=== PATIENT | female | born 1965 | race Caucasian/White ===

== ENCOUNTER 2017-06-22 17:56 | Emergency (ER) | payer SELFPAY ==
[2017-06-22 18:20] VITALS: BP 127/68
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
== END 2017-06-22 20:41 | disposition home or self-care (01) ==
LOC: ED 17:56
DX: S00.01XA Abrasion of scalp, initial encounter (principal); S09.90XA Unspecified injury of head, initial encounter; R07.89 Other chest pain; V49.50XA Passenger injured in collision with unspecified motor vehicles in traffic accident, initial encounter; V49.9XXA Car occupant (driver) (passenger) injured in unspecified traffic accident, initial encounter; Y93.9 Activity, unspecified; Y92.9 Unspecified place or not applicable
CPT/HCPCS: 70450; 71250; 72125; 99281

== ENCOUNTER 2018-10-22 12:53 | Emergency (ER) | payer OTHER ==
[2018-10-22 13:01] VITALS: BP 148/98
--- NOTE | 2018-10-22 13:27 | UC ---
Throat Pain/Nasal Terence HPI - HPI Summary HPI Summary: 52-year-old woman with a chief complaint of ear pain runny nose sore throat sinus congestion and runny nose and cough for 4 days. No fevers. Rhinorrhea is white. No shortness of breath. - History of Current Complaint Chief Complaint: UCGeneralIllness Stated Complaint: CONGESTION, SNEEZING Time Seen by Provider: 10/22/18 13:09 Pain Intensity: 3 - Allergies/Home Medications Allergies/Adverse Reactions: Allergies Allergy/AdvReac Type Severity Reaction Status Date / Time amoxicillin Allergy Severe Hives Verified 10/22/18 13:01 acetaminophen Allergy Intermediate ithching Verified 10/22/18 13:01 Home Medications: Home Medications Sertraline HCl [Zoloft] 100 mg PO DAILY WITH MEAL 10/22/18 [History Confirmed ] PMH/Surg Hx/FS Hx/Imm Hx Previously Healthy: Yes - Surgical History Surgical History: Yes Surgery Procedure, Year, and Place: 2006 right EAR RECONSTRUCTED ,AT [place] ( op report scanned in under other facility safe upto 3t per [employer]). right knee replacement 2015 - Family History Known Family History: Positive: Cardiac Disease - Social History Alcohol Use: Occasionally Substance Use Type: None Smoking Status (MU): Former Smoker When Did the Patient Quit Smoking/Using Tobacco: 20 years ago Review of Systems All Other Systems Reviewed And Are Negative: Yes Constitutional: Positive: Negative Skin: Positive: Negative Eyes: Positive: Negative ENT: Positive: Sore Throat, Ear Ache, Nasal Discharge, Sinus Congestion, Sinus Pain/Tenderness Respiratory: Positive: Cough Cardiovascular: Positive: Negative Gastrointestinal: Positive: Negative Motor: Positive: Negative Neurovascular: Positive: Negative Musculoskeletal: Positive: Negative Neurological: Positive: Negative Psychological: Positive: Negative Is Patient Immunocompromised?: No Physical Exam Triage Information Reviewed: Yes Appearance: No Pain Distress, Well-Nourished, Ill-Appearing - MILD Vital Signs: Initial Vital Signs Temp 97.1 F 10/22/18 12:57 Pulse 85 10/22/18 12:57 Resp 18 10/22/18 12:57 BP 148/98 10/22/18 12:57 Pulse Ox 98 10/22/18 12:57 Vital Signs Reviewed: Yes Eye Exam: Normal Eyes: Positive: Conjunctiva Clear ENT: Positive: Pharyngeal erythema, Nasal congestion, Nasal drainage, TMs normal Neck exam: Normal Neck: Positive: Supple Respiratory: Positive: Lungs clear, Normal breath sounds, No respiratory distress Cardiovascular: Positive: RRR Musculoskeletal Exam: Normal Musculoskeletal: Positive: Strength Intact, ROM Intact Neurological Exam: Normal Neurological: Positive: Alert, Muscle Tone Normal Psychological Exam: Normal Psychological: Positive: Normal Response To Family Skin Exam: Normal Throat Pain/Nasal Course/Dx - Course Course Of Treatment: DISCUSSED VIRAL VERSES BACTERIAL INFECTIONS AND THE ROLE OF ANTIBIOTICS. THE PATIENT PREFERS TO BE ON ANTIBIOTICS AT THIS TIME. - Differential Dx/Diagnosis Provider Diagnosis: Upper respiratory infection Discharge - Sign-Out/Discharge Documenting (check all that apply): Patient Departure All imaging exams completed and their final reports reviewed: No Studies - Discharge Plan Condition: Stable Disposition: HOME Prescriptions: Azithromyxin KIRAN (NF) [Z-Kiran (Zithromax) 250 mg tabs #6] 2 tab PO .TODAY, THEN 1 DAILY #6 tab Patient Education Materials: Upper Respiratory Infection (ED) Referrals: Angeles Hook MD [Primary Care Provider] - Additional Instructions: FOLLOW UP WITH YOUR DOCTOR IF NOT COMPLETELY IMPROVED. GET RECHECKED FOR ANY WORSENING OF YOUR CONDITION OR QUESTIONS OR CONCERNS. - Billing Disposition and Condition Condition: STABLE Disposition: Home
== END 2018-10-22 13:38 | disposition home or self-care (01) ==
LOC: UCEAST 12:53
DX: J06.9 Acute upper respiratory infection, unspecified (principal); Z88.1 Allergy status to other antibiotic agents; Z88.6 Allergy status to analgesic agent; Z87.891 Personal history of nicotine dependence
CPT/HCPCS: 99212; G0463

== ENCOUNTER 2019-04-23 09:09 | Inpatient (IN) | payer OTHER ==
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
[~2019-04-23 09:09] MED LIST: Gabapentin CAP(*) 300 MG PO ONE; Lactated Ringers 1000 ML Bag* 1,000 ML IV SCH
--- OUTSIDE RECORDS SUMMARY | 2019-04-23 09:12 | XMS REPORT | Continuity of Care Document ---
:1965 External Reference #:[id number] Author Name Kellie De Oliveira Care Team Providers Name Role Phone Angeles Hook MD Primary Care Physician Unavailable Payers Date Identification Numbers Payment Provider Subscriber Policy Number: [id number] [employer] Julita Moran Group Number: [id number] [id number] PayID: [id number] [place] [address] Advance Directives Description No Information Available Problems Active Problems Provider Date Osteoarthritis of knee Letty Mclain M.D. Onset: 05/18/2015 Localized, primary osteoarthritis Ishaan Dominguez M.D. Onset: 12/05/2018 Arthroplasty of knee Ishaan Dominguez M.D. 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 12/05/2018 15mg Tablets daily as needed for pain Multi-Vitamin 1 by mouth every 100tabs Unknown Tablets day Zoloft Unknown History Medications Ransom 1-2 tabs by mouth 80tabs Letty Mclain, 09/09/2014 - 5-325mg Tablets three times a day M.D. 09/24/2017 as needed pain Naproxen 1 tablet with food 40tabs Letty Mclain, 04/17/2014 - 500mg by mouth twice a M.D. 07/18/2018 Tablets day Medications Administered in Office Medication SIG Qnty Indications Ordering Provider Date Depomedrol 40MG Ishaan Dominguez M.D. 09/10/2018 Injection Depomedrol 80MG Letty Mclain M.D. 04/17/2014 Injection Immunizations Description No Information Available Vital Signs Date Vital Result Comment 04/03/2019 10:33am Height 64 inches 5'4" Weight 234.00 lb Heart Rate 88 /min BP Systolic Sitting 138 mmHg left upper arm large cuff BP Diastolic Sitting 88 mmHg left upper arm large cuff Respiratory Rate 12 /min O2 % BldC Oximetry 97 % BMI (Body Mass Index) 40.2 kg/m2 01/28/2019 8:17am Height 64 inches 5'4" Weight 229.12 lb Heart Rate 78 /min BP Systolic Sitting 128 mmHg Lue large cuff BP Diastolic Sitting 92 mmHg Lue large cuff Respiratory Rate 20 /min O2 % BldC Oximetry 96 % On Ra BMI (Body Mass Index) 39.3 kg/m2 12/05/2018 8:27am Height 64 inches 5'4" Weight 237.00 lb BP Systolic 110 mmHg BP Diastolic 60 mmHg Respiratory Rate 18 /min Pain Level 2 BMI (Body Mass Index) 40.7 kg/m2 09/10/2018 3:30pm Heart Rate 88 /min BP Systolic 138 mmHg BP Diastolic 82 mmHg Respiratory Rate 16 /min Pain Level 3 07/18/2018 10:42am Height 64 inches 5'4" Weight 237.38 lb Heart Rate 90 /min BP Systolic Sitting 126 mmHg Rue large cuff BP Diastolic Sitting 90 mmHg Rue large cuff Respiratory Rate 12 /min O2 % BldC Oximetry 97 % BMI (Body Mass Index) 40.7 kg/m2 03/19/2018 7:38am Height 64 inches 5'4" Weight 234.25 lb Heart Rate 84 /min BP Systolic Sitting 118 mmHg Rue regular cuff BP Diastolic Sitting 84 mmHg Rue regular cuff Respiratory Rate 16 /min O2 % BldC Oximetry 97 % BMI (Body Mass Index) 40.2 kg/m2 09/25/2017 3:15pm Height 64 inches 5'4" Weight 242.00 lb BP Systolic 118 mmHg BP Diastolic 74 mmHg Respiratory Rate 20 /min Pain Level 7 BMI (Body Mass Index) 41.5 kg/m2 05/18/2015 10:03am Height 64 inches 5'4" Weight 198.00 lb Heart Rate 86 /min BP Systolic 124 mmHg BP Diastolic 98 mmHg Pain Level 3 BMI (Body Mass Index) 34.0 kg/m2 10/02/2014 9:35am Height 64 inches 5'4" Weight 198.00 lb Heart Rate 80 /min BP Systolic 130 mmHg BP Diastolic 90 mmHg BMI (Body Mass Index) 34.0 kg/m2 09/09/2014 8:50am Height 64 inches 5'4" Weight 198.00 lb Pain Level 6 BMI (Body Mass Index) 34.0 kg/m2 04/17/2014 9:24am Height 64 inches 5'4" Weight 198.00 lb Heart Rate 84 /min BP Systolic 127 mmHg BP Diastolic 96 mmHg BMI (Body Mass Index) 34.0 kg/m2 Results Description No Information Available Procedures Date Code Description Status 09/10/2018 Inject/Drain Joint/Bursa Major W/O US Completed 03/19/2018 60006 Sleep Study Unattended,HRT Rate,Oxygen Sat,Resp Completed Effort/Airflow 10/02/2014 03203 Rad Exam; Foot Comp Completed 09/09/2014 07028 Rad Exam; Foot Comp Completed 04/17/2014 07119 Xray Knee 3 Views Completed 04/17/2014 76320 Rad Exam; Knee, Ap&L Completed 04/17/201468908 Inject/Drain Joint/Bursa Major W/O US Completed Encounters Type Date Location Provider Dx Diagnosis Office Visit 04/03/2019 Pulmonology And Yojana Santiago, G47.33 Obstructive sleep 10:30a [facility] RN, [facility]- apnea (adult) [facility] (pediatric) R68.2 Dry mouth, unspecified E66.9 Obesity, unspecified Z68.41 Body mass index (BMI) 40.0-44.9, adult Office Visit 01/28/2019 Pulmonology And Yojana G47.33 Obstructive sleep 8:30a [facility] Santiago RN, apnea (adult) [facility]- (pediatric) R68.2 Dry mouth, unspecified G47.10 Hypersomnia, unspecified Z68.39 Body mass index (BMI) 39.0-39.9, adult E66.9 Obesity, unspecified Office Visit 12/05/2018 Orthopedic Ishaan Dominguez M17.12 Unilateral primary 8:30a [facility] osteoarthritis, left C.M.A. knee Office Visit 09/10/2018 Orthopedic Ishaan Dominguez M17.12 Unilateral primary 3:30p [facility] osteoarthritis, left C.M.A. knee Z96.651 Presence of right artificial knee joint Office Visit 07/18/2018 Pulmonology And Yoajna G47.33 Obstructive sleep 11:00a [facility] Santiago RN, apnea (adult) [facility] (pediatric) G47.14 Hypersomnia due to medical condition Z68.41 Body mass index (BMI) 40.0-44.9, adult Office Visit 03/19/2018 8:00a Pul[facility]ology [facility] Vanesa Castillo, R06.83 Snoring [facility] R53.83 Other fatigue E66.09 Other obesity due to excess calories Z68.41 Body mass index (BMI) 40.0-44.9, adult Office Visit 09/25/2017 Orthopedic Ishaan Dominguez, M17.12 Unilateral primary 3:00p [facility] osteoarthritis, left C.M.A. knee Z96.651 Presence of right artificial knee joint Office Visit 05/18/2015 10:00a Orthopedic Letty 715.96 Osteoarthrosis [facility] Mclain Unspec Genlzd Or C.M.A. Localized Lower Leg 719.06 Effusion Joint Lower Leg 719.46 Pain Joint Lower Leg Office Visit 10/02/2014 Orthopedic Isiah Odell 715.96 Osteoarthrosis 9:30a [facility] Ness Or [facility]. RPA-C Localized Lower Leg Office Visit 09/09/2014 Orthopedic Letty Mclain, 715.96 Osteoarthrosis 8:45a [facility] Benitez Genlzperry Or C.M.A. Localized Lower Leg Office Visit 04/17/2014 Orthopedic Letty Mclain, 715.96 Osteoarthrosis 9:00a [facility] Benitez Genlzperry Or C.M.A. Localized Lower Leg Plan of Treatment Future Appointment(s):06/05/2019 10:00 am - Yojana Santiago DNP, RN, MARISOL- at [facility]04/23/2019 9:00 am - ULICES Brown at [facility]04/10/2019 9:30 am - Ishaan Dominguez M.D. at [facility]04/23/2019 9:00 am - Ishaan Dominguez M.D. at [facility]04/03/2019 - Yojana Santiago DNP, RN, COAT [employer]TER- BCG47.33 Obstructive sleep apnea (adult) (pediatric)New Orders:[facility], Ordered: 04/03/19Comments:Sleep Apnea - 03/19/18 AHI 20.2/hour, robson oxygen 72 % On CPAP AHI 2.7/hourImproved use was 13 % now 36.7% greater than 4 hours. Average nightly use is still low.Follow up:2 monthsRecommendations:Continue PAP device, Benefitting and increased compliance with treatment. Trial Dream wisp ( mask sample provided) Cleaning Wipe off mask daily (baby wipe-no scent, or warm water) Clean mask, tubing, filter, and water chamber weekly in mild no scent dish soap and water. Hang to dry. If you have anysleepiness while driving you MUST avoid operating a vehicle or machinery. If you have difficulty with your equipment, or need to replace your mask or hoses, please contact your homecare agency. A weight change of 20 pounds or more may have an effect on your equipment; if you are experiencing problems please call for an appointment. If you have any further questions, please call the [facility] at [phone].R68.2 Dry mouth, [id number] Obesity, unspecifiedRecommendations:Avoid weight gainZ68.41 Body mass index (BMI) 40.0- 44.9, adultRecommendations:see assessment #3
--- OUTSIDE RECORDS SUMMARY | 2019-04-23 09:12 | XMS REPORT | Continuity of Care Document ---
:1965 External Reference #:[id number] Author Name Angeles Hook M.D. Address [address] [place] [address] Care Team Providers Name Role Phone Angeles Hook M.D. Care Team Information Clerk Of Court Unavailable Angeles Hook M.D. Primary Care Physician Unavailable Payers Date Identification Numbers Payment Provider Subscriber Effective: 2016 Policy Number: [id number] Darby [employer] Julita Moran Group Number: [id number] [address] PayID: [id number] [place] [address] Advance Directives Description No Information Available Problems Active Problems Provider Date Obesity Angeles Hook M.D. Onset: 08/21/2017 Hyperlipidemia Angeles Hook M.D. Onset: 08/21/2017 Mild recurrent major depression Angeles Hook M.D. Onset: 08/21/2017 Type 2 diabetes mellitus Angeles Hook M.D. Onset: 02/27/2018 Obstructive sleep apnea syndrome Angeles Hook M.D. Onset: 03/26/2019 Resolved Problems Impaired fasting glycaemia Angeles Hook M.D. Onset: 08/21/2017 Resolved: 02/27/2018 Family History Date Family Member(s) Observation Comments Father Unknown Mother Diabetes Mellitus, II Mother due to Congestive Heart Failure () Mother Heart Disease Mother Hyperlipidemia Mother Hypertension Siblings 4 brothers First Brother No Current Problems Social History Type Date Description Comments Sex Unknown Marital Status . 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 Tobacco Use Start: Unknown End: Former Cigarette Smoker 17 years, x 2-3ppd ETOH Use Social Alcohol 2-3 wine 1x week Tobacco Use Start: Unknown End: Patient is a former Unknown smoker Smoking Status Reviewed: 03/27/19 Patient is a former smoker Exercise Exercises regularly 3x week Type/Frequency Allergies, Adverse Reactions, Alerts Active Allergies Reaction Severity Comments Date Amoxicillin 08/21/2017 Acetaminophen itching 03/27/2019 Inactive Allergies NKDA 08/21/2017 Medications Active Medications SIG Qnty Indications Ordering Provider Date Zoloft 2 by mouth 180tabs Angeles Hook 02/22/2018 100mg Tablets every day M.DAlison Vitamin D 1 by mouth Unknown 1000Unit every day Tablets Multivitamin Adult 1 by mouth Unknown every day Tablets History Medications Zoloft 1 by mouth every 30tabs Angeles Hook M.D. 08/21/2017 - 50mg Tablets day 02/22/2018 Zoloft take 1 tablet by Unknown - 25mg Tablets mouth one time 08/21/2017 daily Immunizations CPT Code Status Date Vaccine Lot # [id number] Given 01/01/2019 Influenza Vac, Quadriv[place], [place] [id number] Given 10/12/2017 Influenza vac quadrivalent preservative free 3yrs [id number] and up Vital Signs Date Vital Result Comment 03/27/2019 1:02pm BP Systolic 140 mmHg BP Diastolic 84 mmHg Heart Rate 78 /min Body Temperature 98.8 F Respiratory Rate 16 /min Height 63.5 inches 5'3.50" Weight 238.00 lb BMI (Body Mass Index) 41.5 kg/m2 05/17/2018 7:53am BP Systolic 126 mmHg BP Diastolic 88 mmHg Heart Rate 102 /min Body Temperature 97.5 F Height 63.5 inches 5'3.50" Weight 236.00 lb BMI (Body Mass Index) 41.1 kg/m2 02/22/2018 7:53am BP Systolic 120 mmHg BP Diastolic 76 mmHg Heart Rate 76 /min Body Temperature 98.2 F Respiratory Rate 16 /min Height 63.5 inches 5'3.50" Weight 237.00 lb BMI (Body Mass Index) 41.3 kg/m2 10/12/2017 12:56pm BP Systolic 120 mmHg BP Diastolic 88 mmHg Heart Rate 88 /min Body Temperature 97.8 F Height 63.5 inches 5'3.50" Weight 237.25 lb BMI (Body Mass Index) 41.4 kg/m2 08/21/2017 1:14pm BP Systolic 142 mmHg BP Diastolic 80 mmHg Heart Rate 100 /min Body Temperature 98.1 F Height 63.5 inches 5'3.50" Weight 239.00 lb BMI (Body Mass Index) 41.7 kg/m2 Results Test Date Facility Test Result H/L Range Note Laboratory test 03/27/2019 [facility] Hemoglobin A1c 6.2 % % High 4.1-5.7 finding (607)- - (a) Laboratory test 02/22/2018 [facility] Hemoglobin A1c 6.5 % High 4.1- 5.7 finding (607)- - ([facility]) Comprehensive 02/22/2018 Alfie Alegre([facility]) Sodium 134 mEq/L 134-149 Metabolic Prof Potassium 4.1 mEq/L 3.6-5.5 Chloride 96 mEq/L 94-112 Carbon Dioxide 26 mEq/L 21-32 Glucose 136 mg/dL High 70-105 1 BUN 16 mg/dL 6-26 Creatinine 0.6 mg/dL 0.6-1.4 BUN/Creat Ratio 26.7 CALC 8.0-36.0 Calcium 9.6 mg/dL 8.6-10.2 Total Protein 7.2 g/dL 6.4-8.3 Albumin 4.3 g/dL 3.8-5.5 Globulin 2.9 g/dL 2.0-4.8 A/G Ratio 1.5 CALC 0.6-2.3 Alk. Phosphatase 93 U/L 30-110 Alt (SGPT) 29 U/L 7-35 Ast (Sgot) 23 U/L 5-34 Total Bilirubin 0.5 mg/dL 0.2-1.3 GFR Non- >60 ml/min/1.73m^ >=60 GFR >60 ml/min/1.73m^ >=60 CBC Electronic a 02/22/2018 Alfie Sis([facility]) WBC 7.1 x10^3/UL 4.0- 10.0 RBC 4.91 x10^6/UL 3.93-6.00 HGB 13.6 g/dL 12.0-17.0 HCT 42 % 35-50 MCV 85.7 fL 80.0-95.0 MCH 27.7 pg 25.6-32.2 MCHC 32.3 g/dL 32.2-36.0 RDW-CV 13.9 % 11.6-14.4 PLT 223 x10^3/UL 163-400 MPV 10.6 fL 9.4-12.4 Alireza# 4.99 x10^3/UL 1.56-6.13 Lymph# 1.34 x10^3/UL 1.18-3.74 Davison# 0.49 x10^3/UL 0.24-0.82 Eos # 0.2 x10^3/UL 0.0-0.5 Baso # 0.06 x10^3/UL 0.01-0.08 Alireza% 70.1 % High 34.0-70.0 Lymph % 18.8 % Low 20.0-52.0 Davison% 6.9 % 5.0-12.0 Eos% 3.1 % 0.7-7.0 Baso% 0.8 % 0.1-1.2 Lipid Profile 02/22/2018 Judge Sis(a) Cholesterol 246 mg/dL High 120-200 Triglycerides 130 mg/dL 30-200 HDL Cholesterol 72 mg/dL 30-85 LDL (Calculated) 148 CALC High 0-129 VLDL Cholesterol 26 mg/dL 0-50 HDL Risk Factor 3.4 CALC 0.0-4.4 Laboratory test finding 02/22/2018 Judge Sis(a) TSH 2.33 mIU/L 0.50-6.00 Comprehensive Metabolic 07/21/2017 Alfie Sis(a) Sodium 134 mEq/L 134-149 Prof Potassium 4.4 mEq/L 3.6-5.5 Chloride 97 mEq/L 94-112 Carbon Dioxide 25 mEq/L 21-32 Glucose 119 mg/dL High 70-105 BUN 10 mg/dL 6-26 Creatinine 0.6 mg/dL 0.6-1.4 BUN/Creat Ratio 16.7 CALC 8.0-36.0 Calcium 9.4 mg/dL 8.6-10.2 Total Protein 7.0 g/dL 6.4-8.3 Albumin 4.5 g/dL 3.8-5.5 Globulin 2.5 g/dL 2.0-4.8 A/G Ratio 1.8 CALC 0.6-2.3 Alk. Phosphatase 89 U/L 30-110 Alt (SGPT) 21 U/L 7-35 Ast (Sgot) 19 U/L 5-34 Total Bilirubin 0.4 mg/dL 0.2-1.3 GFR Non- >60 ml/min/1.73m^ >=60 GFR >60 ml/min/1.73m^ >=60 Lipid Profile 07/21/2017 Alfie Alegre(a) Cholesterol 247 mg/dL High 120-200 Triglycerides 128 mg/dL 30-200 HDL Cholesterol 71 mg/dL 30-85 LDL (Calculated) 150 CALC High 0-129 VLDL Cholesterol 26 mg/dL 0-50 HDL Risk Factor 3.5 CALC 0.0-4.4 Complete Blood Count 07/21/2017 Alfie Alegre(a) WBC 5.9 x10^3/UL 3.6 -9.6 RBC 4.77 x10^6/UL 3.90-5.70 HGB 13.6 g/dL 12.1-17.2 HCT 41 % 36-50 MCV 85.0 fL 82.2-97.4 MCH 28.4 pg 27.6-33.3 MCHC 33.3 g/dL 33.0-35.5 RDW 15.2 % High 11.6-13.7 PLT 246 x10^3/UL 150-400 MPV 7.8 fL 7.4-10.4 Gran # 4.1 x10^3/UL 1.5-7.2 Lymph# 1.5 x10^3/UL 0.7-4.9 Davison# 0.3 x10^3/UL 0.1-0.9 Gran % 66.5 % 42.2-75.2 Lymph % 26.9 % 20.5-51.1 Davison% 6.6 % 1.7-9.3 Laboratory test finding 07/21/2017 Alfie Alegre([facility]) TSH 2.32 mIU/L 0.50-6.00 1 consistent w/ previous results Procedures Date Code Description Status 08/31/2018 06871614 Mammogram Completed 11/27/2017 45813487 Colonoscopy Completed Encounters Type Date Location Provider Dx Diagnosis Office Visit 05/17/2018 [facility] Office Darya Aranda, F33.0 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 unspecified R73.01 Impaired fasting glucose E66.9 Obesity, unspecified F33.0 Major depressive disorder, recurrent, mild Office Visit 10/12/2017 1:00p Main Office Sofi Lopez J15.9 Unspecified Kian, SEEDLING PULLER bacterial pneumonia Z23 Encounter for immunization Office Visit 08/21/2017 1:50p Main Office Angeles Hook, Z00.01 Encounter for [facility] general adult medical exam w abnormal findings E66.9 Obesity, unspecified R73.01 Impaired fasting glucose E78.5 Hyperlipidemia, unspecified M25.562 Pain in left knee R03.0 Elevated blood-pressure reading, w/o diagnosis of htn Z12.11 Encounter for screening for malignant neoplasm of colon F33.0 Major depressive disorder, recurrent, mild Plan of Treatment Future Appointment(s):06/05/2019 9:40 am - Angeles Hook M.D. at [facility] Hnvadg2903/27/2019 - Angeles Hook M.D.Z01.818 Encounter for other preprocedural examinationNew Labs:Ua - Micro, Ordered: 03/27/19Microalbumin Random, Ordered: 03/27/19Comments:Cleared for surgery. Will fax note to ordering physician. Cleared for surgery. Will fax note to ordering physician. HOLD NSAIDS and supplements 7 days prior to njfmzeqY73.12 Unilateral primary osteoarthritis, left kneeComments:Take medications as directed. Can use heat or ice on area 15 minutes on/off. Use a tennis ball or foam roller to massage and loosen muscle spasm. Stretching exercises are recommended twice a day. Callif symptoms aren' t improved/worsen in next 1-2 weeks.F33.0 Major depressive disorder, recurrent, mildComments:increase to 200mg daily, Reviewed adverse side effects of medication. Advised to call the office if experiencing symptoms. Patient verbalized understanding. Take medication for at least one week as it can take 1 week to build tolerance to side effects of medication. 4-6 weeks for full medication effect. Take medication daily, consider therapy if not already started. Call office right away if symptomsworsen including worsening mood/ anxiety or suicidal ideation. Suicide prevention hot line/Crisis line: 3-306-897 -3149 or 815-080-0612Tpowxqzyo 24 hours a day, 7 days a week . It is free and confidential. https://suicidepreventionlifeline.org/ Follow up in 8 weeks or sooner if concerns ariseFollow up:2 moE66.9 Obesity, unspecifiedComments: Counseled on heart healthy diet and exercise Eat protein and veggies first then carbs last for meals;E78.5 Hyperlipidemia, unspecifiedComments:check labsE11.9 Type 2 diabetes mellitus without complicationsNew Labs:Ua - Micro, Ordered: 03/27/19Microalbumin Random, Ordered: 03/27/19Comments:Recommend yearly diabetic eye and foot exams, and check on blood pressure periodically. Goal blood sugar is less than 140 in the morning or A1c less than 7. Recommend monitoring portion size, decreased carbohydrate intake (breads, pasta , rice, candy, desserts, and sweetened beverages/alcohol) and routine daily exercise.G47.33 Obstructive sleep apnea (adult) (pediatric)Comments:wears CPAP nightly with improvement of symptomsAllComments:Medication Management Patient Understands medications she's taking? Yes No Are there Barriers to Adherence? Yes No Has the patient been asked about herbal supplements and therapies, and OTC meds? Yes No
--- OUTSIDE RECORDS SUMMARY | 2019-04-23 09:12 | XMS REPORT | Continuity of Care Document ---
:1965 External Reference #:[id number] Author Name Rebecca Bailey Care Team Providers Name Role Phone Angeles Hook MD Primary Care Physician Unavailable Payers Date Identification Numbers Payment Provider Subscriber Policy Number: [id number] [employer] Julita Moran Group Number: [id number] [id number] PayID: [id number] [place] [address] Problems Active Problems Provider Date Osteoarthritis of knee Letty Mclain M.D. Onset: 05/18/2015 Localized, primary osteoarthritis Ishaan Dominguez M.D. Onset: 12/05/2018 Arthroplasty of knee Ishaan Dominguez M.D. 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 12/05/2018 15mg Tablets daily as needed for pain Multi-Vitamin 1 by mouth every 100tabs Unknown Tablets day Zoloft Unknown History Medications Pesotum 1-2 tabs by mouth 80tabs Letty Mclain, [...] Depomedrol 80MG Letty Mclain M.D. 04/17/2014 Injection Vital Signs Date Vital Result Comment 04/10/2019 9:20am Height 64 inches 5'4" Weight 237.00 lb BP Systolic 122 mmHg BP Diastolic 80 mmHg Respiratory Rate 18 /min Body Temperature 97.3 F Pain Level 3 BMI (Body Mass Index) 40.7 kg/m2 04/03/2019 10:33am Height 64 inches 5'4" Weight [...] mmHg BMI (Body Mass Index) 34.0 kg/m2 Procedures Date Code Description Status 09/10/201878368 Inject/Drain Joint/Bursa Major W/O US Completed 03/19/2018 54083 Sleep Study Unattended,HRT Rate,Oxygen Sat,Resp Completed Effort/Airflow 10/02/2014 84104 Rad Exam; Foot Comp Completed 09/09/2014 93831 Rad Exam; Foot Comp Completed 04/17/2014 64990 Xray Knee 3 Views Completed 04/17/2014 97234 Rad Exam; Knee, Ap&L Completed 04/17/2014 Inject/Drain Joint/Bursa Major W/O US Completed Encounters Type Date Location Provider Dx Diagnosis Office Visit 04/03/2019 Pulmonology And Yojana Santiago, G47.33 Obstructive sleep 10:30a [facility] RN, APARTMENT MAINTENANCE-BC apnea (adult) [facility] (pediatric) R68.2 Dry mouth, unspecified E66.9 Obesity, unspecified Z68.41 Body mass index (BMI) 40.0-44.9, adult Office Visit 01/28/2019 Pulmonology And Yojana G47.33 Obstructive sleep 8:30a [facility] Santiago RN, apnea (adult) [facility] APARTMENT MAINTENANCE-BC (pediatric) R68.2 Dry mouth, unspecified G47.10 Hypersomnia, unspecified Z68.39 Body mass index (BMI) 39.0-39.9, adult E66.9 Obesity, unspecified Office Visit 12/05/2018 Orthopedic Ishaan Dominguez M17.12 Unilateral primary 8:30a [facility] osteoarthritis, left C.M.A. knee Office Visit 09/10/2018 Orthopedic Anna Urbina7.12 Unilateral primary 3:30p [facility] osteoarthritis, left C.M.A. knee Z96.651 Presence of right artificial knee joint Office Visit 07/18/2018 Pulmonology And Yojana G47.33 Obstructive sleep 11:00a [facility] Santiago RN, apnea (adult) [facility] MARISOL-SHERRI (pediatric) G47.14 Hypersomnia due to medical condition Z68.41 Body mass index (BMI) 40.0-44.9, adult Office Visit 03/19/2018 8:00a Pulmonology [facility] Sleep Vanesa Castillo, R06.83 Snoring [facility] R53.83 Other fatigue E66.09 Other obesity due to excess calories Z68.41 Body mass index (BMI) 40.0-44.9, adult Office Visit 09/25/2017 Orthopedic Ishaan Dominguez M17.12 Unilateral primary 3:00p [facility] osteoarthritis, left C.M.A. knee Z96.651 Presence of right artificial knee joint Office Visit 05/18/2015 10:00a Orthopedic Letty 715.96 Osteoarthrosis [facility] Mclain Genkrystle Or C.M.A. Localized Lower Leg 719.06 Effusion Joint Lower Leg 719.46 Pain Joint Lower Leg Office Visit 10/02/2014 Orthopedic Isiah Odell 715.96 Osteoarthrosis 9:30a [facility] Ness Genlzd Or C.M.A. RPA-C Localized Lower Leg Office Visit 09/09/2014 Orthopedic Letty Mclain, 715.96 Osteoarthrosis 8:45a [facility] Gallagher Or C.M.A. Localized Lower Leg Office Visit 04/17/2014 Orthopedic Letty Mclain 715.96 Osteoarthrosis 9:00a [facility] Gallagher Or C.M.A. Localized Lower Leg Plan of Treatment Future Appointment(s):05/22/2019 2:15 pm - Ishaan Dominguez M.D. at [facility]06/05/2019 10:00 am - Yojana Santiago DNP, RN, APARTMENT MAINTENANCE-BC at [facility]04/23/2019 11:30 am - ULICES Brown at [facility]04/23/2019 11:30 am - Ishaan Dominguez M.D. at [facility]04/10/2019 - Ishaan Dominguez M.D.M17.12 Unilateral primary osteoarthritis, left kneeFollow up:Follow up: Left total knee April 23, 2019 Stay active as able.Z96.651 Presence of right artificial knee joint
[2019-04-23] MEDS ORDERED: Lidocaine 2% PF * 5 ML VIAL ONE ×2 (09:13→09:16)
[2019-04-23] MEDS ORDERED: ROPIVACAINE 5 MG/ML 30 ML BTL (0.5%) ONE (09:13)
[2019-04-23] MEDS ORDERED: Bupivacaine 0.5% SDV PF* 30ML VIAL ONE (09:13)
[2019-04-23] MEDS ORDERED: fentaNYL* 50 MCG/ML 2 ML VIAL (100 MCG VIAL) ONE (09:14)
[2019-04-23] MEDS ORDERED: KETAMINE HCL* 50 MG/ML 10 ML VIAL ONE (09:14)
[2019-04-23] MEDS ORDERED: Propofol* 500 MG/50 ML BTL ONE (09:14)
[2019-04-23] MEDS ORDERED: Propofol* 10 MG/ML 20 ML BTL ONE ×2 (09:14→09:31)
[2019-04-23] MEDS ORDERED: Midazolam* 1 MG/ML 2 ML VIAL (2 MG) ONE ×2 (09:14→12:17)
[2019-04-23] MEDS ORDERED: Dexmedetomidine* 200 MCG/2 ML 2 ML VIAL ONE (09:18)
[2019-04-23] MEDS ORDERED: ceFAZolin 2 GM PREMIX in ORs 2 GM/50 ML BAG IVPB ONE (09:30)
[2019-04-23] MEDS ORDERED: Buffered Lidocaine 1% SYRIN* 1 ML/SYRINGE INTRADERM ONE (09:30)
[2019-04-23] MEDS ORDERED: Gabapentin CAP(*) 300 MG ONE (09:30)
[2019-04-23] MEDS: Buffered Lidocaine 1% SYRIN* 1 ML/SYRINGE INTRADERM ONE ×2 (09:57→09:58)
[2019-04-23] MEDS ORDERED: Bupivacaine 0.5% W/EPI SDV* 30 ML VIAL ONE ×3 (11:34→13:17)
[2019-04-23] MEDS ORDERED: Tranexamic Acid 1,000 MG in NS 0.9% 50 ML IV ONE (12:00)
[2019-04-23] MEDS ORDERED: Dexamethasone IV* 4 MG/ML 1 ML (4 MG) ONE (12:31)
[2019-04-23] MEDS ORDERED: HYDROmorphone INJ1* 1 MG/ML SYRINGE IV PRN (14:04)
[2019-04-23] MEDS ORDERED: oxyCODONE TAB* 5 MG TAB PO PRN ×2 (14:04→16:57)
[2019-04-23] MEDS ORDERED: Ketorolac INJ* 30 MG/ML 1 ML VIAL IV PRN (14:04)
[2019-04-23] MEDS ORDERED: Naloxone* 0.4 MG/ML 1 ML VIAL IV PRN (14:04)
[2019-04-23] MEDS ORDERED: Ondansetron INJ* 2 MG/ML VIAL IV PRN ×2 (14:04→15:11)
[2019-04-23] MEDS ORDERED: oxyCODONE/Acetamin 5/325 MG* TAB PO PRN ×2 (15:11)
[2019-04-23] MEDS ORDERED: Bisacodyl SUPP* 10 MG SUPP PR PRN (15:11)
[2019-04-23] MEDS ORDERED: diPHENhydraMINE IV* 50 MG/ML 1 ml VIAL (BENADRYL) IV PRN (15:11)
[2019-04-23] MEDS ORDERED: Magnesium Hydroxide LIQ* 30 ML UDC PO PRN (15:11)
[2019-04-23] MEDS ORDERED: Acetaminophen TAB* 325 MG PO PRN (15:11)
[2019-04-23] MEDS ORDERED: Cyclobenzaprine TAB* 10 MG PO PRN (15:11)
[2019-04-23] MEDS ORDERED: Morphine INJ* 2 MG/ML 1 ML SYRINGE (TWO MG - NEW SYRINGE VERSION) IV PRN (15:11)
[2019-04-23] MEDS: Lactated Ringers 1000 ML Bag* 1,000 ML IV SCH (17:38)
[2019-04-23] MEDS: oxyCODONE TAB* 5 MG TAB PO PRN (17:59)
--- NOTE | 2019-04-23 20:58 | OP ---
CC: Dr. Angeles Hook, [facility] OPERATIVE REPORT: DATE OF OPERATION: 04/23/19 DATE OF : 63 SURGICAL CARE: Left knee. SURGEON: Ishaan Dominguez MD MACHINED PARTS METAL SPRAYER: 1. ULICES Gaspar, residential assistant. 2. Marybel Morin, director medical surgical. ANESTHESIOLOGIST: Dr. Marcy Burrows. ANESTHESIA: Left femoral nerve block in the adductor canal and spinal anesthetic with IV sedation. PRE-OP DIAGNOSIS: Severe arthritis of the left knee. POST-OP DIAGNOSIS: Severe arthritis of the left knee. OPERATIVE PROCEDURE: Left total knee replacement. IMPLANTS: The Melania Persona knee was utilized, a posterior stabilized type. All components were ce mented. The size 6 femur, a size C tibia, a size 10 articular surface and a 32 patella. The femoral component is the size 6 narrow. COMPLICATIONS: There were no complications. DRAINS: There were no drains. BLOOD LOSS: 200 mL. REPLACEMENT: Crystalloid fluids. INDICATION FOR THE SURGICAL CARE: Severe knee arthritis, no longer responsive to nonoperative care. DESCRIPTION OF PROCEDURE: The patient was brought to the operating room after the left thigh block h ad been administered by Dr. Burrows in the holding area. In the operating room, the patient was put supine on the operating room table and in the seated position for administration of spinal anesthesia . Supine position was resumed and a Kumar catheter was carefully inserted. The left proximal thigh was wrapped with a proximal thigh tourniquet and the left leg was given a preliminary chlorhexidine p rep and then a final ChloraPrep from the tourniquet to the tips of the toes. After prepping, draping , and sealing off, we did our universal protocol time-out confirming Julita MacLeod and the plan for a left total knee replacement. We all agreed and we proceeded. The surgical care was done without tour niquet for most of the case. The position was acutely flexed left hip with acutely flexed left knee with a right foot on a padded footpiece. The skin incision went from 2 fingerbreadths proximal to th e superior pole of the patella down the anterior midline to the medial aspect of the tibial tubercle. Skin and subcu divided down to the deep prepatellar bursa. Hemostasis was checked and achieved thr oughout the case utilizing electrocautery. On the tibia, the deep incision went medial to the patell ar tendon by 1 to 2 cm and then down 2 cm medial to the tibial tubercle. The medial tissues on the t ibia were elevated subperiosteally going around to the deep MCL and then to the posteromedial corner of the knee. The knee was completely eburnated medial femoral condyle, medial tibial plateau, osteop hytes on the medial tibial plateau, medial femoral condyle. The patella was made so that could be ev erted. The knee was entered on the medial parapatellar and the quad tendon was handled proximal to t he patella 3 to 4 cm, dividing the quad tendon at the junction of the rectus femoris and vastus media lis, staying in the tendon, but staying as close to vastus medialis tendon as possible. The knee had clear straw colored synovial fluid. There was osteophytes in the intercondylar, lateral condyle and patellar as well. The remains of the anterior horn and medial meniscus were carefully excised. Peripatellar synovectomy was completed. Th e intercondylar osteophytes were removed. The ACL and PCL were uplifted from their femoral origins a nd the tibia was made, so it could gradually be subluxated from under the femur. The PCL was careful ly excised and great care was taken while working posteriorly especially posterior to the PCL. The l ateral meniscus was carefully excised with careful hemostasis. The distal anterior femur was exposed subperiosteally for referencing and measuring. At this stage, we made our proximal tibial cut. Our goal here was to have a tibial surface that would be perpendicular to the long axis of the tibia and have a slight posterior slope, removing a millimeter or 2 from the medial side and 10 to 12 mm from the lateral side to correct the varus. The femoral intramedullary drill was then utilized. The femo ral canal was then entered and the femoral canal was suctioned to discourage embolization. The dista l femoral cutting guide was applied on 1 with 6 degrees of valgus and the distal femoral resection wa s completed and then checked showing a good extension gap with a 10 mm block. Stable ligaments medial and lateral in extension with that block. The femur was then measured for a size 6. The anterior, posterior, and chamfering cuts were complete d, and then we finished removal of the posterior horn lateral meniscus, osteophytes on the condyles, posterior horn medial meniscus, carefully preserving the MCL. At this stage, we had nice ligamentous balance and 90 degrees of flexion with a 10 mm block. The femur was finished with the intercondylar cutout. The tibia was then completed for a size C. e femur was then cleaned x6 with pulse saline irrigation, suctioned and a bone plug was inserted. e knee was then assembled with trial components, C tibia, 10 articular surface and a 6 femur with ful l extension, stable ligaments in extension, and stable ligaments in 90 degrees of flexion. The patella was cut flat. A 32 was chosen. Three drill holes were made and these were undercut. A lateral release was not necessary. The final components were then checked and opened and the leg was exsanguinated, the tourniquet elevated to 275. The knee was cleaned in extension with 2.5 L of puls e saline irrigation and carefully checked for hemostasis. The knee was then cleaned with retractors in place in flexion all bony surfaces, tibial surface, the femoral surfaces and the patellar surface. All surfaces were cleaned with the pulse saline and then dried. The cement was mixed and the compon ents were cemented into position, the patella, followed by the tibia, followed by the femur. Each wa s impacted. Excess cement was removed and the knee was articulate and extended during the final hard ening and flexed once again to check for cement in undesirable places and the cement was removed. On ce the cement was hard, then the tourniquet was deflated. We checked posteriorly for retained cement fragments, these were removed. We checked hemostasis and it was achieved and we checked for other c ement fragments. The posteromedial pericapsular tissues were infiltrated with Marcaine 0.5% with epi nephrine with a 22-gauge needle. We did this posteromedially and medially and then laterally. We th en proceeded with closure. The knee was irrigated several times during closure with pulse saline. T he quad mechanism closed with interrupted #1 Vicryl in [id number] fashion, the same with the med ial retinaculum, more distally we used 0 Vicryl, running and interrupted. The deep fascia and bursa closed with interrupted 0 Vicryl and then the superficial subcu closed with interrupted subcuticular inverted 3-0 Vicryls. Now, the knee was extended completely, flexed completely which was past 125 de grees 4 to 6 times during the closure. The ligaments were stable. The skin was then closed with sta ples after washing and drying. The skin was then covered with Betadine-soaked release, sterile gauze , sterile Webril, cryotherapy cuff, ABD pads, and then a loosely applied 6-inch Michael bandage. The pat ient was then returned to the recovery room in stable and satisfactory condition, having tolerated th e procedure very well. [id number]/[facility] #: [id number]
[2019-04-23] MEDS: ceFAZolin 1 GM ADVAN(*) 1 GM in NS 0.9% 50 ML* 50 ML IVPB SCH (21:16)
[2019-04-23] MEDS: Docusate CAP* 100 MG PO SCH (21:17)
[2019-04-23] MEDS: traMADol TAB* 50 MG PO PRN (21:17)
[2019-04-23] MEDS: Magnesium Hydroxide LIQ* 30 ML UDC PO SCH (21:17)
[2019-04-24] MEDS: ceFAZolin 1 GM ADVAN(*) 1 GM in NS 0.9% 50 ML* 50 ML IVPB SCH ×2 (04:15→11:42)
[2019-04-24] MEDS: Lactated Ringers 1000 ML Bag* 1,000 ML IV SCH (04:20)
[2019-04-24 05:40] LABS: Hematocrit 38 % (35-47); Hemoglobin 12.4 g/dL (12.0-16.0); Mean Platelet Volume 8.8 fL (7.4-10.4); Platelet Count 219 10^3/uL (150-450)
[2019-04-24 05:57] LABS: BUN/Creatinine Ratio 17.5 (8-20); Calcium 8.9 mg/dL (8.6-10.3); EGFR African American 119.2 (>60); EGFR Non-African American 98.5 (>60); Potassium 3.9 mmol/L (3.5-5.0)
[2019-04-24] MEDS: Magnesium Hydroxide LIQ* 30 ML UDC PO SCH ×2 (08:06→20:25)
[2019-04-24] MEDS: Sertraline* 100 MG TAB PO SCH (08:07)
[2019-04-24] MEDS: Aspirin TAB* 325 MG PO SCH (08:07)
[2019-04-24] MEDS: Docusate CAP* 100 MG PO SCH ×2 (08:07→20:25)
[2019-04-24] MEDS: oxyCODONE TAB* 5 MG TAB PO PRN ×4 (08:07→20:24)
--- NOTE | 2019-04-24 11:20 | PN ---
Progress Note - Progress Note Date of Service: 04/24/19 SOAP: Subjective: []Patient seen and examined at bedside. She feels well and denies CP, SOB, dizziness, nausea. Pain is well controlled. Objective: []General: Appears well, NAD LLE: Left knee dressing CDI, thigh is soft, able to straight leg raise, DF/PF intact, DP2+, sensation intact to light touch distally Calves supple and nontender without erythema, edema or palpable cords Assessment: []POD 1 sp left total knee replacement Plan: []WBAT PT/OT ASA 325 mg daily for 30 days Anticipate DC home tomorrow with outpatient therapy Vital Signs Temp 98.8 F 04/24/19 07:43 Pulse 76 04/24/19 07:43 Resp 18 04/24/19 10:36 BP 121/76 04/24/19 07:43 Pulse Ox 96 04/24/19 08:00 Intake & Output 04/23/19 04/24/19 04/24/19 18:59 06:59 18:59 Intake Total 1000 2190 230 Output Total 1375 2200 400 Balance -375 -10 -170 Weight 237 lb 3.2 oz Intake: IV Fluids 1000 990 LR 1000 990 IVPB 100 ABX - CEFAZOLIN 100 Oral 1100 230 Output: Urine 400 Kumar 1375 2200 Other: # Bowel Movements 0 Laboratory Last Values Hgb 12.4 g/dL (12.0-16.0) 04/24/19 05:08 Hct 38 % (35-47) 04/24/19 05:08 Plt Count 219 10^3/uL (150-450) 04/24/19 05:08 MPV 8.8 fL (7.4-10.4) 04/24/19 05:08 Sodium 137 mmol/L (135-145) 04/24/19 05:08 Potassium 3.9 mmol/L (3.5-5.0) 04/24/19 05:08 Chloride 101 mmol/L (101-111) 04/24/19 05:08 Carbon Dioxide 29 mmol/L (22-32) 04/24/19 05:08 Anion Gap 7 mmol/L (2-11) 04/24/19 05:08 BUN 11 mg/dL (6-24) 04/24/19 05:08 Creatinine 0.63 mg/dL (0.51-0.95) 04/24/19 05:08 Est GFR ( Amer) 119.2 (>60) 04/24/19 05:08 Est GFR (Non-Af Amer) 98.5 (>60) 04/24/19 05:08 BUN/Creatinine Ratio 17.5 (8-20) 04/24/19 05:08 Glucose 134 mg/dL (70-100) H 04/24/19 05:08 POC Glucose (mg/dL) 114 mg/dL (70-100) H 04/23/19 10:07 Calcium 8.9 mg/dL (8.6-10.3) 04/24/19 05:08
[2019-04-24] MEDS: traMADol TAB* 50 MG PO PRN (15:09)
[2019-04-25 06:19] LABS: Hematocrit 39 % (35-47); Hemoglobin 12.7 g/dL (12.0-16.0); Mean Platelet Volume 8.7 fL (7.4-10.4); Platelet Count 187 10^3/uL (150-450)
[2019-04-25] MEDS: oxyCODONE TAB* 5 MG TAB PO PRN ×2 (07:08→12:33)
[2019-04-25] MEDS ORDERED: Ketorolac INJ* 30 MG/ML 1 ML VIAL IV PUSH ONE (08:39)
--- NOTE | 2019-04-25 08:46 | PN ---
Progress Note - Progress Note Date of Service: 04/25/19 SOAP: Subjective: []Patient seen and examined with Dr. Dominguez today. She is complaining of left knee pain. Denies CP, SOB, dizziness, nausea. Objective: []General: NAD LLE: Left knee dressing changed, incision is CDI without erythema or discharge. Thigh is soft, DF/PF intact, sensation intact to light touch distally. DP2+. Calves supple and nontender without erythema, edema or palpable cords Assessment: []POD 2 sp left total knee replacement Plan: []WBAT PT/OT ASA 325 mg daily for 30 days post op Anticipate DC home tomorrow with outpatient therapy Added one dose of toradol now then transition to Celebrex this evening Vital Signs Temp 98.2 F 04/25/19 07:30 Pulse 85 04/25/19 07:30 Resp 18 04/25/19 07:36 BP 151/78 04/25/19 07:30 Pulse Ox 94 04/25/19 07:35 Intake & Output 04/24/19 04/25/19 04/25/19 18:59 06:59 18:59 Intake Total 2146 420 Output Total 700 0 Balance 1446 420 Intake: IV Fluids 846 ABX - CEFAZOLIN 107 LR 739 Oral 1300 420 Output: Urine 700 0 Other: # Bowel Movements 0 Laboratory Last Values Hgb 12.7 g/dL (12.0-16.0) 04/25/19 05:49 Hct 39 % (35-47) 04/25/19 05:49 Plt Count 187 10^3/uL (150-450) 04/25/19 05:49 MPV 8.7 fL (7.4-10.4) 04/25/19 05:49 Sodium 137 mmol/L (135-145) 04/24/19 05:08 Potassium 3.9 mmol/L (3.5-5.0) 04/24/19 05:08 Chloride 101 mmol/L (101-111) 04/24/19 05:08 Carbon Dioxide 29 mmol/L (22-32) 04/24/19 05:08 Anion Gap 7 mmol/L (2-11) 04/24/19 05:08 BUN 11 mg/dL (6-24) 04/24/19 05:08 Creatinine 0.63 mg/dL (0.51-0.95) 04/24/19 05:08 Est GFR ( Amer) 119.2 (>60) 04/24/19 05:08 Est GFR (Non-Af Amer) 98.5 (>60) 04/24/19 05:08 BUN/Creatinine Ratio 17.5 (8-20) 04/24/19 05:08 Glucose 134 mg/dL (70-100) H 04/24/19 05:08 POC Glucose (mg/dL) 114 mg/dL (70-100) H 04/23/19 10:07 Calcium 8.9 mg/dL (8.6-10.3) 04/24/19 05:08
[2019-04-25] MEDS: Aspirin TAB* 325 MG PO SCH (09:03)
[2019-04-25] MEDS: Docusate CAP* 100 MG PO SCH (09:03)
[2019-04-25] MEDS: Sertraline* 100 MG TAB PO SCH (09:03)
[2019-04-25] MEDS: Magnesium Hydroxide LIQ* 30 ML UDC PO SCH (09:03)
[2019-04-25 11:34] VITALS: BP 124/74
--- NOTE | 2019-04-25 14:12 | DS ---
Orthopedic Discharge Summary - Discharge Summary Date of Admission:04/23/19 Date of Discharge: 04/25/19 Date of Surgery: 04/23/19 Attending Orthopedic Provider: Dr Dominguez Pre-operative Diagnosis: left knee osteoarthritis Operative Procedure: left total knee replacement Disposition of Patient: home Condition of Patient: stable History: SHON LOZOYA is a 53 year old F with years of increasingly severe left knee pain. Patient has failed conservative management and has elected to undergo a left total knee replacement Hospital Course: SHON was admitted to [facility] on 04/23/19. Patient underwent a left total knee replacement without complication followed by a brief recovery in PACU and transfer to the Short Stay Surgical Unit in stable condition. Our hospitalist service, physical therapy and occupational therapy also participated in this patients care. Post-op day 1: patient was alert and in no acute distress. Dressing was clean, dry and intact. Operative extremity dorsiflexion and plantarflexion intact, sensation intact to light touch distally, DP2+. Post-op day two: dressing was changed, incision was clean , dry and intact. Patient was deemed to be medically and orthopedically stable for discharge. Physical therapy goals were met. Home Medications Medication Instructions Recorded Confirmed Type Sertraline HCl [Zoloft] 100 mg PO QAM 10/22/18 04/23/19 History Multivitamin [Multivitamins] 1 cap PO QAM 04/10/19 04/23/19 History Aspirin TAB* [Aspirin 325 MG TAB*] 325 mg PO DAILY #30 tab 04/25/19 Rx Docusate CAP* [Colace Cap*] 100 mg PO BID PRN #90 cap 04/25/19 Rx celeCOXIB CAP* [Celebrex CAP*] 100 mg PO BID PRN #30 cap 04/25/19 Rx oxyCODONE TAB* [Roxycodone TAB 5 5 mg PO Q4H PRN tab MDD 10 04/25/19 Rx mg*] oxyCODONE TAB* [Roxycodone TAB 5 10 mg PO Q4H PRN #70 tab MDD 10 04/25/19 Rx mg*] Discharge Instructions following Orthopedic Surgery: Activity: * Weight Bearing as tolerated * Continue physical therapy and occupational therapy exercises as shown * Outpatient physical therapy Wound care: * OK to shower on post-op day 3, no bathing, swimming, or submerging wound. * Use gentle soap, pat dry. Cover with gauze, BHAVYA wrap or tape. Call Orthopedic office for: * Increased drainage * Redness * Increased pain * Fever Go to ER with shortness of breath or chest pain. Diet: * Regular diet * Increase fluids and fiber to prevent constipation. * Continue to use stool softeners, call office if no bowel motion within 48 hours. Medications See Home Medication List in your packet for medications that you should take after discharge. DVT Prophylaxis: Aspirin Dosin mg once a day for 30 days Pain Control: Oxycodone Dosin mg 1-2 tabs by mouth every 4-6 hours as needed for pain. Maximum of 10 tabs per day. Celebrex Dosin mg twice a day as needed for pain Antibiotics are required prior to any dental work. FOLLOW UP: Follow up with Dr. Dominguez within 4 weeks, sooner with concerns, call for appointment Please call our office with any questions or concerns ([phone]) RX to [facility]
[2019-04-25] MEDS ORDERED: celeCOXIB CAP* 100 MG PO SCH (18:00)
[2019-04-26] MEDS ORDERED: Scopolamine PATCH Remove* 1 NOTE MISC PATCH OFF ONE (14:05)
== END 2019-04-25 15:12 | disposition home or self-care (01) | DRG 470 ==
LOC: AA 09:09 → SSU 15:11
PROVIDERS: ADMIT Orthopaedic Surgery; ATTEND Orthopaedic Surgery
PROC: 0SRD0J9 Replacement of Left Knee Joint with Synthetic Substitute, Cemented, Open Approach (ICD-10-PCS; principal; 2019-04-23 11:00)
DX: M17.12 Unilateral primary osteoarthritis, left knee (principal); F33.0 Major depressive disorder, recurrent, mild; Z68.41 Body mass index [BMI] 40.0-44.9, adult; M25.462 Effusion, left knee; G47.33 Obstructive sleep apnea (adult) (pediatric); E11.9 Type 2 diabetes mellitus without complications; E78.5 Hyperlipidemia, unspecified; E66.9 Obesity, unspecified; M25.762 Osteophyte, left knee; F41.9 Anxiety disorder, unspecified; Z96.651 Presence of right artificial knee joint; Z83.49 Family history of other endocrine, nutritional and metabolic diseases; Z88.8 Allergy status to other drugs, medicaments and biological substances; Z88.0 Allergy status to penicillin; Z83.3 Family history of diabetes mellitus; Z82.49 Family history of ischemic heart disease and other diseases of the circulatory system; Z87.891 Personal history of nicotine dependence
CPT/HCPCS: 36415; 80048; 85014; 85018; 85049; A9270-GY; C1776; J0690; J1100; J1885; J2250; J2270; J2405; J2704; J2795; J3010; J3490

== ENCOUNTER 2019-06-07 13:27 | Emergency (ER) | payer OTHER ==
--- OUTSIDE RECORDS SUMMARY | 2019-06-07 13:33 | XMS REPORT | Continuity of Care Document ---
:1965 External Reference #:[id number] Author Name Angeles Hook M.D. Address [address] [place] [address] Care Team Providers Name Role Phone Angeles Hook M.D. Care Team Information [employer] Unavailable Angeles Hook M.D. 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 Tablets Zoloft 2 by mouth every 180tabs [facility], 02/22/2018 100mg Tablets day M.D. Multivitamin Adult 1 by mouth every Unknown day Tablets Probiotic 1 tab qd Unknown History Medications Zoloft 1 by mouth every 30tabs Angeles Hook M.D. 08/21/2017 - 50mg Tablets day 02/22/2018 Zoloft take 1 tablet by Unknown - 25mg Tablets mouth one time 08/21/2017 daily Vitamin D 1 by mouth every Unknown - 1000Unit day 03/28/2019 Tablets Immunizations CPT Code Status Date Vaccine Lot # [id number] Given 01/01/2019 Influenza Vac, Quadriv[place], [place] [id number] Given 10/12/2017 Influenza vac quadrivalent preservative free 3yrs [id number] and up Vital Signs Date Vital Result Comment 06/05/2019 9:37am BP Systolic 120 mmHg BP Diastolic 80 mmHg Heart Rate 100 /min Body Temperature 97.0 F Respiratory Rate 20 /min Height 63 inches 5'3" measured Weight 231.00 lb BMI (Body Mass Index) 40.9 kg/m2 03/27/2019 1:02pm BP Systolic 140 mmHg BP [...] Date Facility Test Result H/L Range Note Urine Culture And [facility] Urine Culture SEE RESULT 1, 2 Sensitivities 9 BELOW Laboratory test [facility] TSH (Thyroid Stim 2.63 N 0.34-5.60 3 finding 9 Horm) mcIU/mL Lipid Profile [facility] Triglycerides 132 mg/dL 4 (Trig/Chol/HDL) 9 Cholesterol 239 mg/dL 5 HDL Cholesterol 73.6 mg/dL 6 LDL Cholesterol 139 mg/dL 7 Type & Screen 04/10/2019 [facility] Patient Blood Type O Positive Antibody Screen NEGATIVE CBC Auto Diff 04/10/2019 [facility] White Blood Count 7.4 10^3/uL N 3.5-10.8 Red Blood Count 5.16 10^6/uL High 3.70-4.87 Hemoglobin 14.5 g/dL N 12.0-16.0 Hematocrit 43 % N 35-47 Mean Corpuscular Volume 84 fL N 80-97 Mean Corpuscular Hemoglobin 28 pg N 27-31 Mean Corpuscular HGB Conc 33 g/dL N 31-36 Red Cell Distribution Width 15 % N 10.5-15 Platelet Count 219 10^3/uL N 150-450 Mean Platelet Volume 8.5 fL N 7.4-10.4 Abs Neutrophils 5.1 10^3/uL N 1.5-7.7 Abs Lymphocytes 1.6 10^3/uL N 1.0-4.8 Abs Monocytes 0.5 10^3/uL N 0-0.8 Abs Eosinophils 0.2 10^3/uL N 0-0.6 Abs Basophils 0.1 10^3/uL N 0-0.2 Abs Nucleated RBC 0.0 10^3/uL Granulocyte % 68.3 % Lymphocyte % 21.7 % Monocyte % 7.2 % Eosinophil % 2.0 % Basophil % 0.8 % Nucleated Red Blood Cells % 0.3 Urinalysis Profile 04/10/2019 [facility] Urine Color Yellow Urine Appearance Clear Urine Specific [place] 1.016 N 1.010-1.030 Urine pH 5.0 N 5-9 Urine Urobilinogen Negative Negative Urine Ketones Negative Negative Urine Protein Negative Negative Urine Leukocytes Negative Negative Urine Blood Negative Negative Urine Nitrite Negative Negative Urine Bilirubin Negative Negative Urine Glucose Negative Negative Inr/Protime 04/10/2019 [facility] Inr 0.99 N 0.82-1.09 8 Laboratory test finding 04/10/2019 [facility] Partial Thrombo 30.8 seconds N 26.0-36.3 9 Time PTT Comp Metabolic Panel 04/10/2019 [facility] Sodium 137 mmol/L N 135-145 Potassium 4.5 mmol/L N 3.5-5.0 Chloride 103 mmol/L N 101-111 Co2 Carbon Dioxide 27 mmol/L N 22-32 Anion Gap 7 mmol/L N 2-11 Glucose 110 mg/dL High 70-100 Blood Urea Nitrogen 15 mg/dL N 6-24 Creatinine 0.59 mg/dL N 0.51-0.95 BUN/Creatinine Ratio 25.4 High 8-20 Calcium 9.8 mg/dL N 8.6-10.3 Total Protein 7.3 g/dL N 6.4-8.9 Albumin 4.5 g/dL N 3.2-5.2 Globulin 2.8 g/dL N 2-4 Albumin/Globulin Ratio 1.6 N 1-3 Total Bilirubin 0.50 mg/dL N 0.2-1.0 Alkaline Phosphatase 88 U/L N 34-104 Alt 27 U/L N 7-52 Ast 26 U/L N 13-39 Egfr Non- 106.2 >60 Egfr 128.5 >60 10 Urine Microalbumin Random 04/10/2019 [facility] Ur Microalbumin (mg/L) < 15.0 mg/ L Urine Creatinine 69.86 mg/dL Urine Microalbumin/Creatinine TNP <31 11 Laboratory test 03/27/2019 [facility] Medicine Hemoglobin A1c 6.2 % % High 4.1-5.7 finding (607)- - ([facility]) Laboratory test 02/22/2018 [facility] Hemoglobin A1c 6.5 % High 4.1- 5.7 finding (607)- - ([facility]) Comprehensive 02/22/2018 [facility]) Sodium 134 mEq/L 134-149 Metabolic Prof Potassium 4.1 mEq/L 3.6-5.5 Chloride 96 mEq/L 94-112 Carbon Dioxide 26 mEq/L 21-32 Glucose 136 mg/dL High 70-105 12 BUN 16 mg/dL 6-26 Creatinine 0.6 mg/dL [...] >60 ml/min/1.73m^ >=60 CBC Electronic a 02/22/2018 [facility]) WBC 7.1 x10^3/UL 4.0- 10.0 RBC 4.91 x10^6/UL 3.93-6.00 HGB 13.6 g/dL 12.0-17.0 HCT 42 % 35-50 MCV 85.7 fL 80.0-95.0 MCH 27.7 pg 25.6-32.2 MCHC 32.3 g/dL 32.2-36.0 RDW-CV 13.9 % 11.6-14.4 PLT 223 x10^3/UL 163-400 MPV 10.6 fL 9.4-12.4 [place]# 4.99 x10^3/UL 1.56-6.13 Lymph# 1.34 x10^3/UL 1.18-3.74 [place]# 0.49 x10^3/UL 0.24-0.82 Eos # 0.2 x10^3/UL 0.0-0.5 Baso # 0.06 x10^3/UL 0.01-0.08 [place]% 70.1 % High 34.0-70.0 Lymph % 18.8 % Low 20.0-52.0 [place]% 6.9 % 5.0-12.0 Eos% 3.1 % 0.7-7.0 Baso% 0.8 % 0.1-1.2 Lipid Profile 02/22/2018 [facility]) Cholesterol 246 mg/dL High 120-200 Triglycerides 130 mg/dL 30-200 HDL Cholesterol 72 mg/dL 30-85 LDL (Calculated) 148 CALC High 0-129 VLDL Cholesterol 26 mg/dL 0-50 HDL Risk Factor 3.4 CALC 0.0-4.4 Laboratory test finding 02/22/2018 [facility]) TSH 2.33 mIU/L 0.50-6.00 Comprehensive Metabolic 07/21/2017 [facility]) Sodium 134 mEq/L 134-149 Prof Potassium 4.4 [...] >60 ml/min/1.73m^ >=60 Lipid Profile 07/21/2017 [facility]) Cholesterol 247 mg/dL High 120-200 Triglycerides 128 mg/dL 30-200 HDL Cholesterol 71 mg/dL 30-85 LDL (Calculated) 150 CALC High 0-129 VLDL Cholesterol 26 mg/dL 0-50 HDL Risk Factor 3.5 CALC 0.0-4.4 Complete Blood Count 07/21/2017 [facility]) WBC 5.9 x10^3/UL 3.6 -9.6 RBC 4.77 x10^6/UL 3.90-5.70 HGB 13.6 g/dL 12.1-17.2 HCT 41 % 36-50 MCV 85.0 fL 82.2-97.4 MCH 28.4 pg 27.6-33.3 MCHC 33.3 g/dL 33.0-35.5 RDW 15.2 % High 11.6-13.7 PLT 246 x10^3/UL 150-400 MPV 7.8 fL 7.4-10.4 Gran # 4.1 x10^3/UL 1.5-7.2 Lymph# 1.5 x10^3/UL 0.7-4.9 [place]# 0.3 x10^3/UL 0.1-0.9 Gran % 66.5 % 42.2-75.2 Lymph % 26.9 % 20.5-51.1 [place]% 6.6 % 1.7-9.3 Laboratory test finding 07/21/2017 [facility]) TSH 2.32 mIU/L 0.50-6.00 04/23 2 SEE RESULT BELOW Name: JULITA MORAN : [address]: Ishaan Dominguez MD Acct: [id number] Unit: [id number] AGE: 53 Location: [facility] Re04/10/19 SEX: F Status: REG REF SPEC: [id number] MIGUEL: 04/10/198 [facility] DR: Ishaan Dominguez MD REQ: [id number] RECD: 04/10/19 STATUS: [facility]ON[facility] DR: Angeles Hook MD _ SOURCE: URINE SPDESC: ORDERED: Urine Culture COMMENTS: YON 04/23 QUERIES: Urine Source: Clean Catch Procedure Result Reported Site Urine Culture Final 04/11/19- 1243 ML No growth of clinically significant organisms * ML - Main Lab . END OF REPORT DEPARTMENT OF PATHOLOGY, [address] [place] [id number] Roni Xiao M.D. Director [facility] # [id number] 3 04/23 4 Desirable: <150 Borderline High: 150-199 High: 200-499 Very High: >500 5 Desirable: <200 Borderline High: 200-239 High: >239 6 Low: <40 Desirable: 40-60 High: >60 7 Desirable: <100 Near Optimal: 100-129 Borderline High: 130-159 High: 160-189 Very High: >189 8 Standard intensity warfarin therapeutic range: 2.0-3.0 High intensity warfarin therapeutic range: 2.5-3.5 9 04/23 10 Because ethnic data is not always readily available, this report includes an eGFR for both -Americans and non- Americans. The National Kidney Disease Education Program (NKDEP) does not endorse the use of the MDRD equation for patients that are not between the ages of 18 and 70, are , have extremes of body size, muscle mass, or nutritional status, or are non- or non-. According to the National Kidney Foundation, irrespective of diagnosis, the stage of the disease is based on the level of kidney function: Stage Description GFR(mL/min/1.73 m(2)) 1 Kidney damage with normal or decreased GFR 90 2 Kidney damage with mild decrease in GFR 60-89 3 Moderate decrease in GFR 30-59 4 Severe decrease in GFR 15-29 5 Kidney failure <15 (or dialysis) 11 Unable to calculate due to low microalbumin 12 consistent w/ previous results Procedures Date Code Description Status 03/27/2019 43562 Electrocardiogram Complete Completed 03/27/2019 36736 Finger Or Heel Stick Completed 08/31/2018 [id number] Mammogram Completed 11/27/2017 [id number] Colonoscopy Completed Encounters Type Date Location Provider Dx Diagnosis Office Visit 03/27/2019 [facility] Angeles Hook, Z01.818 Encounter for other 1:00p M.D. preprocedural examination M17.12 Unilateral primary osteoarthritis, left knee E78.5 Hyperlipidemia, unspecified F33.0 Major depressive disorder, recurrent, mild E66.9 Obesity, unspecified E78.5 Hyperlipidemia, unspecified E11.9 Type 2 diabetes mellitus without complications G47.33 Obstructive sleep apnea (adult) (pediatric) Z00.00 Encntr for general adult medical exam w/o abnormal findings Office Visit 05/17/2018 8:00a [facility] Office Darya F33.0 Major depressive Manoj, PRIZER HAND disorder, 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 unspecified R73.01 Impaired fasting glucose E66.9 Obesity, unspecified F33.0 Major depressive disorder, recurrent, mild Office Visit 10/12/2017 1:00p Main Office Sofi Lopez J15.9 Unspecified KAREL Langston bacterial pneumonia Z23 Encounter for immunization Office Visit 08/21/2017 1:50p Main Office Angeles Hook, Z00.01 Encounter for M.D. general adult medical exam w abnormal findings E66.9 Obesity, unspecified R73.01 Impaired fasting glucose E78.5 Hyperlipidemia, unspecified M25.562 Pain in left knee R03.0 Elevated blood-pressure reading, w/o diagnosis of htn Z12.11 Encounter for screening for malignant neoplasm of colon F33.0 Major depressive disorder, recurrent, mild Plan of Treatment Future Appointment(s):09/05/2019 9:30 am - Angeles Hook M.D. at [facility] Tafnlt5706/05/2019 - Angeles Hook M.D.E78.5 Hyperlipidemia, unspecifiedNew Labs: CCS-Comp And Lipid ([facility]), Ordered: 06/05/19Comments:Goal LDL is <130, HDL &gt ;40, Triglycerides <200F33.0 Major depressive disorder, recurrent, mildComments:stable on regimen; call if symptoms msbrjmH47.9 Obesity, unspecifiedNew Labs:Hemoglobin A1c ([facility]), Ordered: 06/05/19CBC Electronic ([facility] New), Ordered: 06/05/19TSH ([facility]), Ordered: 06/05/19Comments: Counseled on heart healthy diet such as Mediterranean diet. Eat protein and vegetables first then carbohydrates last. Get at least 150 minutes of moderate aerobic activity or 75 minutes of vigorous aerobic activity a week, or a combination of moderate and vigorous activity. General goal of 30 minutes of physical activity a day.M17.12 Unilateral primary osteoarthritis, left kneeNew Medication:Oxycodone HCL 5 mg - 1 tab at bedtime as neededComments:Take medications as directed. No alcohol or driving while on these medications. Controlled substances can cause physiologic dependence, withdrawal symptoms, be addictive and/or habit forming. Can use magnesium 250-500mg at night if stomach tolerates to help with restless legs. Use pain medicine only as needed as it can be additive. Continue ibuprofen 600-800mg every 6-8 hours as stacpnS92.9 Type 2 diabetes mellitus without complicationsNew Labs:Hemoglobin A1c ([facility]), Ordered: 06/05/19Comments:Recommend yearly diabetic eye and foot exams, and check on blood pressure periodically. Goal blood sugar is less than 140 in the morning or A1c less than 7. Recommend monitoring portion size, decreased carbohydrate intake (breads, pasta, rice, candy, desserts, and sweetened beverages/alcohol) and routine daily exercise.Follow up:3 mo fasting labsAllComments:Medication Management Patient Understands medications she's taking? Yes No Are there Barriers to Adherence? Yes No Has the patient been asked about herbal supplements and therapies, and OTC meds? Yes No
[2019-06-07 13:35] VITALS: BP 151/88
--- NOTE | 2019-06-07 13:50 | UC ---
Ear Complaint HPI - HPI Summary HPI Summary: She started last night with the feeling that her ear was clogged up and mild pain. She's had no fevers or URI symptoms. She is to suffer from ear infections but hasn't had one in quite a while. - History of Current Complaint Chief Complaint: UCEar Stated Complaint: EAR PAIN Time Seen by Provider: 06/07/19 13:41 Hx Obtained From: Patient Onset/Duration: Gradual Onset Severity Initially: Mild Severity Currently: Mild Pain Intensity: 2 Associated Signs/Symptoms: Positive: Hearing Loss - Allergies/Home Medications Allergies/Adverse Reactions: Allergies Allergy/AdvReac Type Severity Reaction Status Date / Time amoxicillin Allergy Severe Hives Verified 06/07/19 13:31 acetaminophen Allergy Intermediate ithching Verified 06/07/19 13:31 PMH/Surg Hx/FS Hx/Imm Hx Previously Healthy: Yes - Surgical History Surgical History: Yes Surgery Procedure, Year, and Place: 2006 right EAR RECONSTRUCTED ,AT [facility] ( op report scanned in under other facility safe upto 3t per [employer]). right knee replacement 2015 left knee replacement 2018 - Family History Known Family History: Positive: Cardiac Disease - Social History Alcohol Use: Occasionally Substance Use Type: None Smoking Status (MU): Never Smoked Tobacco Amount Used/How Often: 2 packs a day When Did the Patient Quit Smoking/Using Tobacco: 20 years ago - Immunization History Most Recent Influenza Vaccination: Fall 2017 Most Recent Pneumonia Vaccination: no Review of Systems All Other Systems Reviewed And Are Negative: Yes Constitutional: Positive: Negative Eyes: Positive: Negative ENT: Positive: Ear Ache Respiratory: Positive: Negative Physical Exam - Summary Physical Exam Summary: She is nontoxic in appearance with stable vital signs. Triage Information Reviewed: Yes Appearance: Well-Appearing Vital Signs: Initial Vital Signs Temp 96.9 F 06/07/19 13:32 Pulse 89 06/07/19 13:32 Resp 18 06/07/19 13:32 BP 151/88 06/07/19 13:32 Pulse Ox 99 06/07/19 13:32 Vital Signs Reviewed: Yes ENT Exam: Other - Her left TM is easily visualized. It is bulging and there is clearly discharge behind the tympanic membrane. It is not particularly erythematous. Neck: Positive: Supple, No Lymphadenopathy Respiratory: Positive: Lungs clear, Normal breath sounds Ear Complaint Course/Dx - Course Course Of Treatment: This looks more like an otitis media possibly sepsis. I'm going to treat her with decongestant using Zyrtec D and Levoquin. - Differential Dx/Diagnosis Provider Diagnosis: Otitis media Discharge - Sign-Out/Discharge Documenting (check all that apply): Patient Departure All imaging exams completed and their final reports reviewed: No Studies - Discharge Plan Condition: Stable Disposition: HOME Patient Education Materials: Ear Infection (ED) Referrals: Angeles Hook MD [Primary Care Provider] - - Billing Disposition and Condition Condition: STABLE Disposition: Home
--- NOTE | 2019-06-07 20:06 | UC ---
- Progress Note Progress Note: The medications had been sent to the incorrect pharmacy therefore I resent them to the [facility] pharmacy. Course/Dx - Diagnoses Provider Diagnoses: Otitis media Discharge - Sign-Out/Discharge Documenting (check all that apply): Post-Discharge Follow Up All imaging exams completed and their final reports reviewed: No Studies - Discharge Plan Condition: Stable Disposition: HOME Prescriptions: Cetirizine HCl/Pseudoephedrine [All Day Allergy-D Tablet] 1 each PO BID 5 Days # 10 tab.er.12h Levofloxacin TAB* [Levaquin TAB*] 750 mg PO DAILY 5 Days #5 tab Patient Education Materials: Ear Infection (ED) Referrals: Angeles Hook MD [Primary Care Provider] - - Billing Disposition and Condition Condition: STABLE Disposition: Home
== END 2019-06-07 13:56 | disposition home or self-care (01) ==
LOC: UCEAST 13:27
DX: H66.92 Otitis media, unspecified, left ear (principal)
CPT/HCPCS: 99212; G0463

== ENCOUNTER 2020-01-24 17:40 | Emergency (ER) | payer OTHER ==
--- OUTSIDE RECORDS SUMMARY | 2020-01-24 17:45 | XMS REPORT ---
:1965 Author Organization [facility] Care Team Providers Name Role Phone Unavailable Unavailable Unavailable Problems This patient has no known problems. Allergies, Adverse Reactions, Alerts Allergy Name Allergy Status Severity Reaction(s) Onset Inactive Treating Comments Type Date Date Clinician amoxicillin Base Active Unknown Reaction Interface Ingredient Unknown 5-28 acetaminophe Base Active Unknown Reaction Interface n Ingredient Unknown 5-28 Medications Ordered Filled Start Stop Current Ordering Indication Dosage Frequency Signature Comments Components Medication Medication Date Date Medication? Clinician (SIG) Name Name Sertraline Sertraline 2017-11 No Unknown Unknown Unknown Hcl Hcl - Multivitami Multivitami No Unknown Unknown Unknown n n 5-15 Aspirin Aspirin No Unknown Unknown Unknown Buff(MgCarb Buff(MgCarb 5-30 -AlAminoac) -AlAminoac) 325 mg 325 mg tablet tablet Celecoxib Celecoxib No Unknown Unknown Unknown Cap* Cap* 5-30 oxyCODONE 5 oxyCODONE 5 No Unknown Unknown Unknown mg mg 5-30 tablet,oral tablet,oral ONLY (not ONLY (not feeding feeding tubes) tubes) docusate docusate No Unknown Unknown Unknown sodium 100 sodium 100 5-30 mg capsule mg capsule Vital Signs Vital Name Observation Time Observation Value Comments SYSTOLIC mm[Hg] 2019-05-08 18:06:16 124 mm[Hg] mm[Hg] Method: Sit DIASTOLIC mm[Hg] 2019-05-08 18:06:16 74 mm[Hg] mm[Hg] Method: Sit PULSE 2019-05-08 18:06:16 91 /min /min RESP RATE 2019-05-08 18:06:16 18 /min /min TEMP 2019-05-08 18:06:16 97.9 [degF] Procedures This patient has no known procedures. Results Test Description Test Time Test Comments Text Results Atomic Results Result Comments Laboratory Studies 2019-04-25 05:49:00 Identifier [id number] Result Time Unknown 2019-04-25 05:49:00 Test Item Value Reference Range Comments Unknown (test code = 777-3) 187 10^3/uL Unknown 150-450 F Ordering Physician UnknownLaboratory Qfcjuda3017-81-21 05:49:00Identifier 53432- 6 Result Time 2019-04-25 05:49:00Unknown Test Item Value Reference Range Comments Unknown (test code = 15057-8) 8.7 fL Unknown 7.4-10.4 F Ordering Physician UnknownLaboratory Xrfjgll4489-37-56 05:49:00Identifier 95243- 6 Result Time 2019-04-25 05:49:00Unknown Test Item Value Reference Range Comments Unknown (test code = 718-7) 12.7 g/dL Unknown 12.0-16.0 F Ordering Physician UnknownLaboratory Egitgqt0240-56-72 05:49:00Identifier 99069- 6 Result Time 2019-04-25 05:49:00Unknown Test Item Value Reference Range Comments Unknown (test code = 4544-3) 39 % Unknown 35-47 F Ordering Physician UnknownLaboratory Aniwqce9860-77-30 05:08:00Identifier 20437- 6 Result Time 2019-04-24 05:08:00Unknown Test Item Value Reference Range Comments Unknown (test code = 2951-2) 137 mmol/L Unknown 135-145 F Ordering Physician UnknownLaboratory Bfyygfp7658-76-77 05:08:00Identifier 52124- 6 Result Time 2019-04-24 05:08:00Unknown Test Item Value Reference Range Comments Unknown (test code = 2823-3) 3.9 mmol/L Unknown 3.5-5.0 F Ordering Physician UnknownLaboratory Ghqphyf9571-00-84 05:08:00Identifier 23553- 6 Result Time 2019-04-24 05:08:00Unknown Test Item Value Reference Range Comments Unknown (test code = 2345-7) 134 mg/dL Unknown 70-100 F Ordering Physician UnknownLaboratory Pbqqblx5987-89-35 05:08:00Identifier 13125- 6 Result Time 2019-04-24 05:08:00Unknown Test Item Value Reference Range Comments Unknown (test code = 49653-6) 98.5 Unknown Unknown F Ordering Physician UnknownLaboratory Swacqgo0191-68-76 05:08:00Identifier 88342- 6 Result Time 2019-04-24 05:08:00Unknown Test Item Value Reference Range Comments Unknown (test code = NullTestCode) 119.2 Unknown Unknown F Ordering Physician UnknownLaboratory Iegcrlq4056-76-48 05:08:00Identifier 05392- 6 Result Time 2019-04-24 05:08:00Unknown Test Item Value Reference Range Comments Unknown (test code = 2160-0) 0.63 mg/dL Unknown 0.51-0.95 F Ordering Physician UnknownLaboratory Aynxrmb0909-08-34 05:08:00Identifier 13079- 6 Result Time 2019-04-24 05:08:00Unknown Test Item Value Reference Range Comments Unknown (test code = 2075-0) 101 mmol/L Unknown 101-111 F Ordering Physician UnknownLaboratory Ivlmmea6220-42-83 05:08:00Identifier 68143- 6 Result Time 2019-04-24 05:08:00Unknown Test Item Value Reference Range Comments Unknown (test code = 2028-9) 29 mmol/L Unknown 22-32 F Ordering Physician UnknownLaboratory Ecmvild7997-10-35 05:08:00Identifier 67484- 6 Result Time 2019-04-24 05:08:00Unknown Test Item Value Reference Range Comments Unknown (test code = 93358-0) 8.9 mg/dL Unknown 8.6-10.3 F Ordering Physician UnknownLaboratory Oxkueit9702-82-17 05:08:00Identifier 62464- 6 Result Time 2019-04-24 05:08:00Unknown Test Item Value Reference Range Comments Unknown (test code = 3094-0) 11 mg/dL Unknown 6-24 F Ordering Physician UnknownLaboratory Dpewbpk0321-20-61 05:08:00Identifier 19492- 6 Result Time 2019-04-24 05:08:00Unknown Test Item Value Reference Range Comments Unknown (test code = 3097-3) 17.5 Unknown 8-20 F Ordering Physician UnknownLaboratory Qarqmxo5217-96-87 05:08:00Identifier 27328- 6 Result Time 2019-04-24 05:08:00Unknown Test Item Value Reference Range Comments Unknown (test code = 48247-0) 7 mmol/L Unknown 2-11 F Ordering Physician UnknownLaboratory Dfukgir5581-82-20 10:07:00Identifier 13340- 6 Result Time 2019-04-23 10:07:00Unknown Test Item Value Reference Range Comments Unknown (test code = 2339-0) 114 mg/dL Unknown 70-100 F Ordering Physician UnknownLaboratory Zmhjlwu3365-24-86 11:08:00Identifier 47731- 6 Result Time 2019-04-10 11:08:00Unknown Test Item Value Reference Range Comments Unknown (test code = 3016-3) 2.63 mcIU/mL Unknown 0.34-5.60 F Ordering Physician UnknownLaboratory Gukntul9730-82-96 11:08:00Identifier 97185- 6 Result Time 2019-04-10 11:08:00Unknown Test Item Value Reference Range Comments Unknown (test code = 2571-8) 132 mg/dL Unknown Unknown F Ordering Physician UnknownLaboratory Sadhhzd9882-47-02 11:08:00Identifier 37445- 6 Result Time 2019-04-10 11:08:00Unknown Test Item Value Reference Range Comments Unknown (test code = 2089-1) 139 mg/dL Unknown Unknown F Ordering Physician UnknownLaboratory Kscjypm0304-94-86 11:08:00Identifier 40650- 6 Result Time 2019-04-10 11:08:00Unknown Test Item Value Reference Range Comments Unknown (test code = 2085-9) 73.6 mg/dL Unknown Unknown F Ordering Physician UnknownLaboratory Ssejlcl0627-47-98 11:08:00Identifier 66078- 6 Result Time 2019-04-10 11:08:00Unknown Test Item Value Reference Range Comments Unknown (test code = 2093-3) 239 mg/dL Unknown Unknown F Ordering Physician UnknownLaboratory Chgnyee6843-33-98 11:08:00Identifier 24383- 6 Result Time 2019-04-10 11:08:00Unknown Test Item Value Reference Range Comments Unknown (test code = 2885-2) 7.3 g/dL Unknown 6.4-8.9 F Ordering Physician UnknownLaboratory Oyhlzlq1976-94-32 11:08:00Identifier 20999- 6 Result Time 2019-04-10 11:08:00Unknown Test Item Value Reference Range Comments Unknown (test code = 1975-2) 0.50 mg/dL Unknown 0.2-1.0 F Ordering Physician UnknownLaboratory Lgwqfzs7543-84-49 11:08:00Identifier 39926- 6 Result Time 2019-04-10 11:08:00Unknown Test Item Value Reference Range Comments Unknown (test code = NullTestCode) 2.8 g/dL Unknown 2-4 F Ordering Physician UnknownLaboratory Xzkijuv8017-48-35 11:08:00Identifier 17224- 6 Result Time 2019-04-10 11:08:00Unknown Test Item Value Reference Range Comments Unknown (test code = 1920-8) 26 U/L Unknown 13-39 F Ordering Physician UnknownLaboratory Ezynrwx9111-93-42 11:08:00Identifier 08739- 6 Result Time 2019-04-10 11:08:00Unknown Test Item Value Reference Range Comments Unknown (test code = 6768-6) 88 U/L Unknown 34-104 F Ordering Physician UnknownLaboratory Ugbvhwk5926-08-26 11:08:00Identifier 16949- 6 Result Time 2019-04-10 11:08:00Unknown Test Item Value Reference Range Comments Unknown (test code = 1759-0) 1.6 Unknown 1-3 F Ordering Physician UnknownLaboratory Aimoljk9238-24-84 11:08:00Identifier 31479- 6 Result Time 2019-04-10 11:08:00Unknown Test Item Value Reference Range Comments Unknown (test code = 36487-7) 4.5 g/dL Unknown 3.2-5.2 F Ordering Physician UnknownLaboratory Znnkulp1691-58-99 11:08:00Identifier 28664- 6 Result Time 2019-04-10 11:08:00Unknown Test Item Value Reference Range Comments Unknown (test code = 1742-6) 27 U/L Unknown 7-52 F Ordering Physician UnknownLaboratory Oigdogf4368-95-90 11:08:00Identifier 33296- 6 Result Time 2019-04-10 11:08:00Unknown Test Item Value Reference Range Comments Unknown (test code = 59152-8) Unknown Unknown F Ordering Physician UnknownLaboratory Kaeiegj5127-23-86 11:08:00Identifier 61558- 6 Result Time 2019-04-10 11:08:00Unknown Test Item Value Reference Range Comments Unknown (test code = 2161-8) 69.86 mg/dL Unknown Unknown F Ordering Physician UnknownLaboratory Hlqnkcy6224-82-93 11:08:00Identifier 14350- 6 Result Time 2019-04-10 11:08:00Unknown Test Item Value Reference Range Comments Unknown (test code = 23405-7) 0.99 Unknown 0.82-1.09 F Ordering Physician UnknownLaboratory Ogjewdk6999-97-35 11:08:00Identifier 19528- 6 Result Time 2019-04-10 11:08:00Unknown Test Item Value Reference Range Comments Unknown (test code = 34728-0) 30.8 seconds Unknown 26.0-36.3 F Ordering Physician UnknownLaboratory Aohrlac5470-63-05 11:08:00Identifier 46592- 6 Result Time 2019-04-10 11:08:00Unknown Test Item Value Reference Range Comments Unknown (test code = NullTestCode) 5.0 Unknown 5-9 F Ordering Physician UnknownLaboratory Ckqjpit7520-98-86 11:08:00Identifier 42174- 6 Result Time 2019-04-10 11:08:00Unknown Test Item Value Reference Range Comments Unknown (test code = 96047-8) 1.016 Unknown 1.010-1.030 F Ordering Physician UnknownLaboratory Hpqzrmb7131-77-42 11:08:00Identifier 75305- 6 Result Time 2019-04-10 11:08:00Unknown Test Item Value Reference Range Comments Unknown (test code = 98662-2) 7.4 10^3/uL Unknown 3.5-10.8 F Ordering Physician UnknownLaboratory Zzffvum6176-59-36 11:08:00Identifier 67915- 6 Result Time 2019-04-10 11:08:00Unknown Test Item Value Reference Range Comments Unknown (test code = 788-0) 15 % Unknown 10.5-15 F Ordering Physician UnknownLaboratory Acvaaqq3515-61-63 11:08:00Identifier 71229- 6 Result Time 2019-04-10 11:08:00Unknown Test Item Value Reference Range Comments Unknown (test code = 789-8) 5.16 10^6 /uL Unknown 3.70-4.87 F Ordering Physician UnknownLaboratory Auhdgsw8619-67-40 11:08:00Identifier 59581- 6 Result Time 2019-04-10 11:08:00Unknown Test Item Value Reference Range Comments Unknown (test code = 25015-4) 0.3 Unknown Unknown F Ordering Physician UnknownLaboratory Bnqcfeb0275-22-42 11:08:00Identifier 52381- 6 Result Time 2019-04-10 11:08:00Unknown Test Item Value Reference Range Comments Unknown (test code = 771-6) 0.0 10^3/ul Unknown Unknown F Ordering Physician UnknownLaboratory Iobjcis1806-81-69 11:08:00Identifier 04791- 6 Result Time 2019-04-10 11:08:00Unknown Test Item Value Reference Range Comments Unknown (test code = 770-8) 68.3 % Unknown Unknown F Ordering Physician UnknownLaboratory Xlzmwiv5371-70-01 11:08:00Identifier 23107- 6 Result Time 2019-04-10 11:08:00Unknown Test Item Value Reference Range Comments Unknown (test code = 5905-5) 7.2 % Unknown Unknown F Ordering Physician UnknownLaboratory Bprojxo1557-68-01 11:08:00Identifier 24476- 6 Result Time 2019-04-10 11:08:00Unknown Test Item Value Reference Range Comments Unknown (test code = 787-2) 84 fL Unknown 80-97 F Ordering Physician UnknownLaboratory Uunlejx2430-22-05 11:08:00Identifier 40618- 6 Result Time 2019-04-10 11:08:00Unknown Test Item Value Reference Range Comments Unknown (test code = 786-4) 33 g/dL Unknown 31-36 F Ordering Physician UnknownLaboratory Pwkgctk6611-05-88 11:08:00Identifier 04442- 6 Result Time 2019-04-10 11:08:00Unknown Test Item Value Reference Range Comments Unknown (test code = 785-6) 28 pg Unknown 27-31 F Ordering Physician UnknownLaboratory Tzgtnib8504-89-92 11:08:00Identifier 47849- 6 Result Time 2019-04-10 11:08:00Unknown Test Item Value Reference Range Comments Unknown (test code = 736-9) 21.7 % Unknown Unknown F Ordering Physician UnknownLaboratory Bcsmmsk8696-27-78 11:08:00Identifier 61531- 6 Result Time 2019-04-10 11:08:00Unknown Test Item Value Reference Range Comments Unknown (test code = 713-8) 2.0 % Unknown Unknown F Ordering Physician UnknownLaboratory Hnzrdyc1258-54-79 11:08:00Identifier 13490- 6 Result Time 2019-04-10 11:08:00Unknown Test Item Value Reference Range Comments Unknown (test code = 706-2) 0.8 % Unknown Unknown F Ordering Physician UnknownLaboratory Snoakir0706-56-69 11:08:00Identifier 07968- 6 Result Time 2019-04-10 11:08:00Unknown Test Item Value Reference Range Comments Unknown (test code = 751-8) 5.1 10^3/ul Unknown 1.5-7.7 F Ordering Physician UnknownLaboratory Ywcprgp9065-48-66 11:08:00Identifier 23452- 6 Result Time 2019-04-10 11:08:00Unknown Test Item Value Reference Range Comments Unknown (test code = 742-7) 0.5 10^3/ul Unknown 0-0.8 F Ordering Physician UnknownLaboratory Okyyhtn3744-16-76 11:08:00Identifier 38409- 6 Result Time 2019-04-10 11:08:00Unknown Test Item Value Reference Range Comments Unknown (test code = 731-0) 1.6 10^3/ul Unknown 1.0-4.8 F Ordering Physician UnknownLaboratory Rryvads6121-54-82 11:08:00Identifier 51445- 6 Result Time 2019-04-10 11:08:00Unknown Test Item Value Reference Range Comments Unknown (test code = 711-2) 0.2 10^3/ul Unknown 0-0.6 F Ordering Physician UnknownLaboratory Tajitvq2818-16-23 11:08:00Identifier 11742- 6 Result Time 2019-04-10 11:08:00Unknown Test Item Value Reference Range Comments Unknown (test code = 704-7) 0.1 10^3/ul Unknown 0-0.2 F Ordering Physician Unknown
--- OUTSIDE RECORDS SUMMARY | 2020-01-24 17:45 | XMS REPORT ---
:1965 Author Organization [facility] Care Team Providers Name Role Phone Unavailable [...] Result Comments Laboratory Studies 2019-04-25 05:49:00 Identifier [id number] Result Time Unknown 2019-04-25 05:49:00 Test Item Value Reference Range Comments Unknown (test code = 777-3) 187 10^3/uL Unknown 150-450 F Ordering Physician UnknownLaboratory Kfnxzdj1865-15-02 05:49:00Identifier 77572- 6 Result Time 2019-04-25 05:49:00Unknown Test Item Value Reference Range Comments Unknown (test code = 76604-8) 8.7 fL Unknown 7.4-10.4 F Ordering Physician UnknownLaboratory Uvicudx6996-99-59 05:49:00Identifier 52267- 6 Result Time 2019-04-25 05:49:00Unknown Test Item Value Reference Range Comments Unknown (test code = 718-7) 12.7 g/dL Unknown 12.0-16.0 F Ordering Physician UnknownLaboratory Albfybp0606-41-92 05:49:00Identifier 10117- 6 Result Time 2019-04-25 05:49:00Unknown Test Item Value Reference Range Comments Unknown (test code = 4544-3) 39 % Unknown 35-47 F Ordering Physician UnknownLaboratory Xhjnrrm4740-92-00 05:08:00Identifier 04187- 6 Result Time 2019-04-24 05:08:00Unknown Test Item Value Reference Range Comments Unknown (test code = 2951-2) 137 mmol/L Unknown 135-145 F Ordering Physician UnknownLaboratory Neggoag9706-46-60 05:08:00Identifier 16269- 6 Result Time 2019-04-24 05:08:00Unknown Test Item Value Reference Range Comments Unknown (test code = 2823-3) 3.9 mmol/L Unknown 3.5-5.0 F Ordering Physician UnknownLaboratory Tedazjw6491-94-10 05:08:00Identifier 29647- 6 Result Time 2019-04-24 05:08:00Unknown Test Item Value Reference Range Comments Unknown (test code = 2345-7) 134 mg/dL Unknown 70-100 F Ordering Physician UnknownLaboratory Gquatjh9056-11-55 05:08:00Identifier 63188- 6 Result Time 2019-04-24 05:08:00Unknown Test Item Value Reference Range Comments Unknown (test code = 15322-4) 98.5 Unknown Unknown F Ordering Physician UnknownLaboratory Cxomgmd2895-83-56 05:08:00Identifier 52745- 6 Result Time 2019-04-24 05:08:00Unknown Test Item Value Reference Range Comments Unknown (test code = NullTestCode) 119.2 Unknown Unknown F Ordering Physician UnknownLaboratory Lxqkusc0856-25-85 05:08:00Identifier 99620- 6 Result Time 2019-04-24 05:08:00Unknown Test Item Value Reference Range Comments Unknown (test code = 2160-0) 0.63 mg/dL Unknown 0.51-0.95 F Ordering Physician UnknownLaboratory Llmqryh4043-56-62 05:08:00Identifier 12173- 6 Result Time 2019-04-24 05:08:00Unknown Test Item Value Reference Range Comments Unknown (test code = 2075-0) 101 mmol/L Unknown 101-111 F Ordering Physician UnknownLaboratory Pcimysf4412-75-36 05:08:00Identifier 94408- 6 Result Time 2019-04-24 05:08:00Unknown Test Item Value Reference Range Comments Unknown (test code = 2028-9) 29 mmol/L Unknown 22-32 F Ordering Physician UnknownLaboratory Nmqauwu6573-72-19 05:08:00Identifier 23860- 6 Result Time 2019-04-24 05:08:00Unknown Test Item Value Reference Range Comments Unknown (test code = 95570-6) 8.9 mg/dL Unknown 8.6-10.3 F Ordering Physician UnknownLaboratory Ntsexwi6127-67-30 05:08:00Identifier 20960- 6 Result Time 2019-04-24 05:08:00Unknown Test Item Value Reference Range Comments Unknown (test code = 3094-0) 11 mg/dL Unknown 6-24 F Ordering Physician UnknownLaboratory Ispcsof6558-84-06 05:08:00Identifier 28718- 6 Result Time 2019-04-24 05:08:00Unknown Test Item Value Reference Range Comments Unknown (test code = 3097-3) 17.5 Unknown 8-20 F Ordering Physician UnknownLaboratory Fvhulfv5988-46-93 05:08:00Identifier 41333- 6 Result Time 2019-04-24 05:08:00Unknown Test Item Value Reference Range Comments Unknown (test code = 89877-6) 7 mmol/L Unknown 2-11 F Ordering Physician UnknownLaboratory Pjsqxjt3411-98-41 10:07:00Identifier 85711- 6 Result Time 2019-04-23 10:07:00Unknown Test Item Value Reference Range Comments Unknown (test code = 2339-0) 114 mg/dL Unknown 70-100 F Ordering Physician UnknownLaboratory Hkgaxdh2251-28-65 11:08:00Identifier 44039- 6 Result Time 2019-04-10 11:08:00Unknown Test Item Value Reference Range Comments Unknown (test code = 3016-3) 2.63 mcIU/mL Unknown 0.34-5.60 F Ordering Physician UnknownLaboratory Rnktdyx3869-47-48 11:08:00Identifier 38660- 6 Result Time 2019-04-10 11:08:00Unknown Test Item Value Reference Range Comments Unknown (test code = 2571-8) 132 mg/dL Unknown Unknown F Ordering Physician UnknownLaboratory Ybsqqdy9934-24-74 11:08:00Identifier 48453- 6 Result Time 2019-04-10 11:08:00Unknown Test Item Value Reference Range Comments Unknown (test code = 2089-1) 139 mg/dL Unknown Unknown F Ordering Physician UnknownLaboratory Ceiogai6568-20-21 11:08:00Identifier 06807- 6 Result Time 2019-04-10 11:08:00Unknown Test Item Value Reference Range Comments Unknown (test code = 2085-9) 73.6 mg/dL Unknown Unknown F Ordering Physician UnknownLaboratory Koiwhnd0274-73-50 11:08:00Identifier 57333- 6 Result Time 2019-04-10 11:08:00Unknown Test Item Value Reference Range Comments Unknown (test code = 2093-3) 239 mg/dL Unknown Unknown F Ordering Physician UnknownLaboratory Inemnyz6143-35-43 11:08:00Identifier 90635- 6 Result Time 2019-04-10 11:08:00Unknown Test Item Value Reference Range Comments Unknown (test code = 2885-2) 7.3 g/dL Unknown 6.4-8.9 F Ordering Physician UnknownLaboratory Xmtmavk0326-24-95 11:08:00Identifier 29938- 6 Result Time 2019-04-10 11:08:00Unknown Test Item Value Reference Range Comments Unknown (test code = 1975-2) 0.50 mg/dL Unknown 0.2-1.0 F Ordering Physician UnknownLaboratory Rryobqq8948-53-10 11:08:00Identifier 35139- 6 Result Time 2019-04-10 11:08:00Unknown Test Item Value Reference Range Comments Unknown (test code = NullTestCode) 2.8 g/dL Unknown 2-4 F Ordering Physician UnknownLaboratory Jbkmjbk5577-41-05 11:08:00Identifier 94927- 6 Result Time 2019-04-10 11:08:00Unknown Test Item Value Reference Range Comments Unknown (test code = 1920-8) 26 U/L Unknown 13-39 F Ordering Physician UnknownLaboratory Ijntvdg2922-35-99 11:08:00Identifier 57788- 6 Result Time 2019-04-10 11:08:00Unknown Test Item Value Reference Range Comments Unknown (test code = 6768-6) 88 U/L Unknown 34-104 F Ordering Physician UnknownLaboratory Tcgmvdh4149-29-71 11:08:00Identifier 26049- 6 Result Time 2019-04-10 11:08:00Unknown Test Item Value Reference Range Comments Unknown (test code = 1759-0) 1.6 Unknown 1-3 F Ordering Physician UnknownLaboratory Qpzfung4759-47-34 11:08:00Identifier 38166- 6 Result Time 2019-04-10 11:08:00Unknown Test Item Value Reference Range Comments Unknown (test code = 79836-2) 4.5 g/dL Unknown 3.2-5.2 F Ordering Physician UnknownLaboratory Voxlvyk2344-46-35 11:08:00Identifier 88691- 6 Result Time 2019-04-10 11:08:00Unknown Test Item Value Reference Range Comments Unknown (test code = 1742-6) 27 U/L Unknown 7-52 F Ordering Physician UnknownLaboratory Efbnykd5164-67-87 11:08:00Identifier 58820- 6 Result Time 2019-04-10 11:08:00Unknown Test Item Value Reference Range Comments Unknown (test code = 34698-7) Unknown Unknown F Ordering Physician UnknownLaboratory Rdotsup0685-85-95 11:08:00Identifier 41693- 6 Result Time 2019-04-10 11:08:00Unknown Test Item Value Reference Range Comments Unknown (test code = 2161-8) 69.86 mg/dL Unknown Unknown F Ordering Physician UnknownLaboratory Ipglyan1786-34-90 11:08:00Identifier 80176- 6 Result Time 2019-04-10 11:08:00Unknown Test Item Value Reference Range Comments Unknown (test code = 92861-9) 0.99 Unknown 0.82-1.09 F Ordering Physician UnknownLaboratory Mrbewas8142-38-59 11:08:00Identifier 58598- 6 Result Time 2019-04-10 11:08:00Unknown Test Item Value Reference Range Comments Unknown (test code = 68649-9) 30.8 seconds Unknown 26.0-36.3 F Ordering Physician UnknownLaboratory Otnfgpd4855-65-21 11:08:00Identifier 95214- 6 Result Time 2019-04-10 11:08:00Unknown Test Item Value Reference Range Comments Unknown (test code = NullTestCode) 5.0 Unknown 5-9 F Ordering Physician UnknownLaboratory Fppgbuu2645-85-28 11:08:00Identifier 45452- 6 Result Time 2019-04-10 11:08:00Unknown Test Item Value Reference Range Comments Unknown (test code = 16737-2) 1.016 Unknown 1.010-1.030 F Ordering Physician UnknownLaboratory Aahvivg2836-98-86 11:08:00Identifier 78864- 6 Result Time 2019-04-10 11:08:00Unknown Test Item Value Reference Range Comments Unknown (test code = 11625-8) 7.4 10^3/uL Unknown 3.5-10.8 F Ordering Physician UnknownLaboratory Qhvxphq4494-95-49 11:08:00Identifier 55171- 6 Result Time 2019-04-10 11:08:00Unknown Test Item Value Reference Range Comments Unknown (test code = 788-0) 15 % Unknown 10.5-15 F Ordering Physician UnknownLaboratory Ztnllwv2700-06-64 11:08:00Identifier 76908- 6 Result Time 2019-04-10 11:08:00Unknown Test Item Value Reference Range Comments Unknown (test code = 789-8) 5.16 10^6 /uL Unknown 3.70-4.87 F Ordering Physician UnknownLaboratory Nvlpmum3142-69-16 11:08:00Identifier 61276- 6 Result Time 2019-04-10 11:08:00Unknown Test Item Value Reference Range Comments Unknown (test code = 89820-1) 0.3 Unknown Unknown F Ordering Physician UnknownLaboratory Jpdprrt9071-12-02 11:08:00Identifier 82427- 6 Result Time 2019-04-10 11:08:00Unknown Test Item Value Reference Range Comments Unknown (test code = 771-6) 0.0 10^3/ul Unknown Unknown F Ordering Physician UnknownLaboratory Mbkxqdc5654-55-74 11:08:00Identifier 21288- 6 Result Time 2019-04-10 11:08:00Unknown Test Item Value Reference Range Comments Unknown (test code = 770-8) 68.3 % Unknown Unknown F Ordering Physician UnknownLaboratory Vazltyj5848-43-58 11:08:00Identifier 50968- 6 Result Time 2019-04-10 11:08:00Unknown Test Item Value Reference Range Comments Unknown (test code = 5905-5) 7.2 % Unknown Unknown F Ordering Physician UnknownLaboratory Npjybub0391-80-07 11:08:00Identifier 38593- 6 Result Time 2019-04-10 11:08:00Unknown Test Item Value Reference Range Comments Unknown (test code = 787-2) 84 fL Unknown 80-97 F Ordering Physician UnknownLaboratory Doaufol3541-52-64 11:08:00Identifier 13612- 6 Result Time 2019-04-10 11:08:00Unknown Test Item Value Reference Range Comments Unknown (test code = 786-4) 33 g/dL Unknown 31-36 F Ordering Physician UnknownLaboratory Kmritls0423-63-03 11:08:00Identifier 52112- 6 Result Time 2019-04-10 11:08:00Unknown Test Item Value Reference Range Comments Unknown (test code = 785-6) 28 pg Unknown 27-31 F Ordering Physician UnknownLaboratory Xxqbpmh3635-79-66 11:08:00Identifier 38933- 6 Result Time 2019-04-10 11:08:00Unknown Test Item Value Reference Range Comments Unknown (test code = 736-9) 21.7 % Unknown Unknown F Ordering Physician UnknownLaboratory Iscutbs5403-83-51 11:08:00Identifier 49822- 6 Result Time 2019-04-10 11:08:00Unknown Test Item Value Reference Range Comments Unknown (test code = 713-8) 2.0 % Unknown Unknown F Ordering Physician UnknownLaboratory Yhqnsbt3601-55-81 11:08:00Identifier 19600- 6 Result Time 2019-04-10 11:08:00Unknown Test Item Value Reference Range Comments Unknown (test code = 706-2) 0.8 % Unknown Unknown F Ordering Physician UnknownLaboratory Nmrfnzb7875-00-64 11:08:00Identifier 42704- 6 Result Time 2019-04-10 11:08:00Unknown Test Item Value Reference Range Comments Unknown (test code = 751-8) 5.1 10^3/ul Unknown 1.5-7.7 F Ordering Physician UnknownLaboratory Xyauyrs1998-09-94 11:08:00Identifier 14257- 6 Result Time 2019-04-10 11:08:00Unknown Test Item Value Reference Range Comments Unknown (test code = 742-7) 0.5 10^3/ul Unknown 0-0.8 F Ordering Physician UnknownLaboratory Tdxilfa9522-50-18 11:08:00Identifier 44464- 6 Result Time 2019-04-10 11:08:00Unknown Test Item Value Reference Range Comments Unknown (test code = 731-0) 1.6 10^3/ul Unknown 1.0-4.8 F Ordering Physician UnknownLaboratory Hhsyltp6948-24-44 11:08:00Identifier 88739- 6 Result Time 2019-04-10 11:08:00Unknown Test Item Value Reference Range Comments Unknown (test code = 711-2) 0.2 10^3/ul Unknown 0-0.6 F Ordering Physician UnknownLaboratory Oqekifz0617-79-28 11:08:00Identifier 52835- 6 Result Time 2019-04-10 11:08:00Unknown Test Item Value Reference Range Comments Unknown (test code = 704-7) 0.1 10^3/ul Unknown 0-0.2 F Ordering Physician Unknown
--- OUTSIDE RECORDS SUMMARY | 2020-01-24 17:46 | XMS REPORT ---
:1965 Author Organization [facility] Care Team Providers Name Role Phone Unavailable [...] Result Comments Laboratory Studies 2019-04-25 05:49:00 Identifier [id number] Result Time Unknown 2019-04-25 05:49:00 Test Item Value Reference Range Comments Unknown (test code = 777-3) 187 10^3/uL Unknown 150-450 F Ordering Physician UnknownLaboratory Wagjfro4035-14-65 05:49:00Identifier 36197- 6 Result Time 2019-04-25 05:49:00Unknown Test Item Value Reference Range Comments Unknown (test code = 57208-2) 8.7 fL Unknown 7.4-10.4 F Ordering Physician UnknownLaboratory Gvwwggg5855-48-72 05:49:00Identifier 04562- 6 Result Time 2019-04-25 05:49:00Unknown Test Item Value Reference Range Comments Unknown (test code = 718-7) 12.7 g/dL Unknown 12.0-16.0 F Ordering Physician UnknownLaboratory Uhqddwu5398-11-97 05:49:00Identifier 43461- 6 Result Time 2019-04-25 05:49:00Unknown Test Item Value Reference Range Comments Unknown (test code = 4544-3) 39 % Unknown 35-47 F Ordering Physician UnknownLaboratory Tvlwfkv9739-08-00 05:08:00Identifier 17873- 6 Result Time 2019-04-24 05:08:00Unknown Test Item Value Reference Range Comments Unknown (test code = 2951-2) 137 mmol/L Unknown 135-145 F Ordering Physician UnknownLaboratory Ornjnts5652-97-11 05:08:00Identifier 93152- 6 Result Time 2019-04-24 05:08:00Unknown Test Item Value Reference Range Comments Unknown (test code = 2823-3) 3.9 mmol/L Unknown 3.5-5.0 F Ordering Physician UnknownLaboratory Qsfxzhy4208-67-77 05:08:00Identifier 44122- 6 Result Time 2019-04-24 05:08:00Unknown Test Item Value Reference Range Comments Unknown (test code = 2345-7) 134 mg/dL Unknown 70-100 F Ordering Physician UnknownLaboratory Wzokofi9156-78-92 05:08:00Identifier 82903- 6 Result Time 2019-04-24 05:08:00Unknown Test Item Value Reference Range Comments Unknown (test code = 38331-4) 98.5 Unknown Unknown F Ordering Physician UnknownLaboratory Uorncjy8965-46-69 05:08:00Identifier 05273- 6 Result Time 2019-04-24 05:08:00Unknown Test Item Value Reference Range Comments Unknown (test code = NullTestCode) 119.2 Unknown Unknown F Ordering Physician UnknownLaboratory Ffnwway8647-16-59 05:08:00Identifier 13264- 6 Result Time 2019-04-24 05:08:00Unknown Test Item Value Reference Range Comments Unknown (test code = 2160-0) 0.63 mg/dL Unknown 0.51-0.95 F Ordering Physician UnknownLaboratory Zzcbuci5119-63-29 05:08:00Identifier 31843- 6 Result Time 2019-04-24 05:08:00Unknown Test Item Value Reference Range Comments Unknown (test code = 2075-0) 101 mmol/L Unknown 101-111 F Ordering Physician UnknownLaboratory Rfjedhi0440-89-19 05:08:00Identifier 05083- 6 Result Time 2019-04-24 05:08:00Unknown Test Item Value Reference Range Comments Unknown (test code = 2028-9) 29 mmol/L Unknown 22-32 F Ordering Physician UnknownLaboratory Wzmsxqw0682-68-94 05:08:00Identifier 63133- 6 Result Time 2019-04-24 05:08:00Unknown Test Item Value Reference Range Comments Unknown (test code = 36493-4) 8.9 mg/dL Unknown 8.6-10.3 F Ordering Physician UnknownLaboratory Edcylwg1297-85-54 05:08:00Identifier 86672- 6 Result Time 2019-04-24 05:08:00Unknown Test Item Value Reference Range Comments Unknown (test code = 3094-0) 11 mg/dL Unknown 6-24 F Ordering Physician UnknownLaboratory Btkthxy4465-35-65 05:08:00Identifier 69447- 6 Result Time 2019-04-24 05:08:00Unknown Test Item Value Reference Range Comments Unknown (test code = 3097-3) 17.5 Unknown 8-20 F Ordering Physician UnknownLaboratory Lahddse1859-85-57 05:08:00Identifier 35440- 6 Result Time 2019-04-24 05:08:00Unknown Test Item Value Reference Range Comments Unknown (test code = 60726-1) 7 mmol/L Unknown 2-11 F Ordering Physician UnknownLaboratory Atbmkhd5780-36-24 10:07:00Identifier 05845- 6 Result Time 2019-04-23 10:07:00Unknown Test Item Value Reference Range Comments Unknown (test code = 2339-0) 114 mg/dL Unknown 70-100 F Ordering Physician UnknownLaboratory Kjdbypz6038-63-79 11:08:00Identifier 40909- 6 Result Time 2019-04-10 11:08:00Unknown Test Item Value Reference Range Comments Unknown (test code = 3016-3) 2.63 mcIU/mL Unknown 0.34-5.60 F Ordering Physician UnknownLaboratory Abxcaji3188-25-82 11:08:00Identifier 19855- 6 Result Time 2019-04-10 11:08:00Unknown Test Item Value Reference Range Comments Unknown (test code = 2571-8) 132 mg/dL Unknown Unknown F Ordering Physician UnknownLaboratory Crpgobz8810-18-02 11:08:00Identifier 44041- 6 Result Time 2019-04-10 11:08:00Unknown Test Item Value Reference Range Comments Unknown (test code = 2089-1) 139 mg/dL Unknown Unknown F Ordering Physician UnknownLaboratory Xqjtstr1783-88-96 11:08:00Identifier 15140- 6 Result Time 2019-04-10 11:08:00Unknown Test Item Value Reference Range Comments Unknown (test code = 2085-9) 73.6 mg/dL Unknown Unknown F Ordering Physician UnknownLaboratory Bgkvhyf5183-23-79 11:08:00Identifier 64882- 6 Result Time 2019-04-10 11:08:00Unknown Test Item Value Reference Range Comments Unknown (test code = 2093-3) 239 mg/dL Unknown Unknown F Ordering Physician UnknownLaboratory Aamqiju4767-17-54 11:08:00Identifier 22115- 6 Result Time 2019-04-10 11:08:00Unknown Test Item Value Reference Range Comments Unknown (test code = 2885-2) 7.3 g/dL Unknown 6.4-8.9 F Ordering Physician UnknownLaboratory Radzyie9480-71-53 11:08:00Identifier 52970- 6 Result Time 2019-04-10 11:08:00Unknown Test Item Value Reference Range Comments Unknown (test code = 1975-2) 0.50 mg/dL Unknown 0.2-1.0 F Ordering Physician UnknownLaboratory Kzbiorc9793-76-26 11:08:00Identifier 97407- 6 Result Time 2019-04-10 11:08:00Unknown Test Item Value Reference Range Comments Unknown (test code = NullTestCode) 2.8 g/dL Unknown 2-4 F Ordering Physician UnknownLaboratory Umrudxb0104-89-63 11:08:00Identifier 66725- 6 Result Time 2019-04-10 11:08:00Unknown Test Item Value Reference Range Comments Unknown (test code = 1920-8) 26 U/L Unknown 13-39 F Ordering Physician UnknownLaboratory Qgolkpx6153-60-00 11:08:00Identifier 57957- 6 Result Time 2019-04-10 11:08:00Unknown Test Item Value Reference Range Comments Unknown (test code = 6768-6) 88 U/L Unknown 34-104 F Ordering Physician UnknownLaboratory Yagnjdq9952-44-59 11:08:00Identifier 67743- 6 Result Time 2019-04-10 11:08:00Unknown Test Item Value Reference Range Comments Unknown (test code = 1759-0) 1.6 Unknown 1-3 F Ordering Physician UnknownLaboratory Yhrmllf0565-09-58 11:08:00Identifier 43059- 6 Result Time 2019-04-10 11:08:00Unknown Test Item Value Reference Range Comments Unknown (test code = 82287-1) 4.5 g/dL Unknown 3.2-5.2 F Ordering Physician UnknownLaboratory Nufcvca2117-57-57 11:08:00Identifier 21353- 6 Result Time 2019-04-10 11:08:00Unknown Test Item Value Reference Range Comments Unknown (test code = 1742-6) 27 U/L Unknown 7-52 F Ordering Physician UnknownLaboratory Tfjmhrs6131-79-51 11:08:00Identifier 20598- 6 Result Time 2019-04-10 11:08:00Unknown Test Item Value Reference Range Comments Unknown (test code = 97234-7) Unknown Unknown F Ordering Physician UnknownLaboratory Jyrnczh4671-14-12 11:08:00Identifier 16250- 6 Result Time 2019-04-10 11:08:00Unknown Test Item Value Reference Range Comments Unknown (test code = 2161-8) 69.86 mg/dL Unknown Unknown F Ordering Physician UnknownLaboratory Dtxguaw2553-78-04 11:08:00Identifier 18061- 6 Result Time 2019-04-10 11:08:00Unknown Test Item Value Reference Range Comments Unknown (test code = 38093-9) 0.99 Unknown 0.82-1.09 F Ordering Physician UnknownLaboratory Tmjafgt5530-83-41 11:08:00Identifier 43557- 6 Result Time 2019-04-10 11:08:00Unknown Test Item Value Reference Range Comments Unknown (test code = 82396-0) 30.8 seconds Unknown 26.0-36.3 F Ordering Physician UnknownLaboratory Hlqhdio4835-34-06 11:08:00Identifier 23716- 6 Result Time 2019-04-10 11:08:00Unknown Test Item Value Reference Range Comments Unknown (test code = NullTestCode) 5.0 Unknown 5-9 F Ordering Physician UnknownLaboratory Euunhtn6840-60-57 11:08:00Identifier 77805- 6 Result Time 2019-04-10 11:08:00Unknown Test Item Value Reference Range Comments Unknown (test code = 38398-7) 1.016 Unknown 1.010-1.030 F Ordering Physician UnknownLaboratory Jfzahpd4863-46-50 11:08:00Identifier 63399- 6 Result Time 2019-04-10 11:08:00Unknown Test Item Value Reference Range Comments Unknown (test code = 51219-5) 7.4 10^3/uL Unknown 3.5-10.8 F Ordering Physician UnknownLaboratory Gtxgxue7353-91-14 11:08:00Identifier 27980- 6 Result Time 2019-04-10 11:08:00Unknown Test Item Value Reference Range Comments Unknown (test code = 788-0) 15 % Unknown 10.5-15 F Ordering Physician UnknownLaboratory Wwzivon7491-14-40 11:08:00Identifier 08876- 6 Result Time 2019-04-10 11:08:00Unknown Test Item Value Reference Range Comments Unknown (test code = 789-8) 5.16 10^6 /uL Unknown 3.70-4.87 F Ordering Physician UnknownLaboratory Tjdrzos2491-53-05 11:08:00Identifier 29399- 6 Result Time 2019-04-10 11:08:00Unknown Test Item Value Reference Range Comments Unknown (test code = 99419-3) 0.3 Unknown Unknown F Ordering Physician UnknownLaboratory Suhokvm9291-64-03 11:08:00Identifier 24185- 6 Result Time 2019-04-10 11:08:00Unknown Test Item Value Reference Range Comments Unknown (test code = 771-6) 0.0 10^3/ul Unknown Unknown F Ordering Physician UnknownLaboratory Iaupywa5565-69-49 11:08:00Identifier 73478- 6 Result Time 2019-04-10 11:08:00Unknown Test Item Value Reference Range Comments Unknown (test code = 770-8) 68.3 % Unknown Unknown F Ordering Physician UnknownLaboratory Gsewcay1652-57-51 11:08:00Identifier 76139- 6 Result Time 2019-04-10 11:08:00Unknown Test Item Value Reference Range Comments Unknown (test code = 5905-5) 7.2 % Unknown Unknown F Ordering Physician UnknownLaboratory Ntovkob4634-17-88 11:08:00Identifier 25928- 6 Result Time 2019-04-10 11:08:00Unknown Test Item Value Reference Range Comments Unknown (test code = 787-2) 84 fL Unknown 80-97 F Ordering Physician UnknownLaboratory Lygbdxe5296-02-89 11:08:00Identifier 57985- 6 Result Time 2019-04-10 11:08:00Unknown Test Item Value Reference Range Comments Unknown (test code = 786-4) 33 g/dL Unknown 31-36 F Ordering Physician UnknownLaboratory Naiynda7892-07-35 11:08:00Identifier 89768- 6 Result Time 2019-04-10 11:08:00Unknown Test Item Value Reference Range Comments Unknown (test code = 785-6) 28 pg Unknown 27-31 F Ordering Physician UnknownLaboratory Hdwpsiv8290-53-98 11:08:00Identifier 02538- 6 Result Time 2019-04-10 11:08:00Unknown Test Item Value Reference Range Comments Unknown (test code = 736-9) 21.7 % Unknown Unknown F Ordering Physician UnknownLaboratory Oqcyuoy4841-11-16 11:08:00Identifier 44977- 6 Result Time 2019-04-10 11:08:00Unknown Test Item Value Reference Range Comments Unknown (test code = 713-8) 2.0 % Unknown Unknown F Ordering Physician UnknownLaboratory Kaiajka1215-79-29 11:08:00Identifier 24523- 6 Result Time 2019-04-10 11:08:00Unknown Test Item Value Reference Range Comments Unknown (test code = 706-2) 0.8 % Unknown Unknown F Ordering Physician UnknownLaboratory Edcvpmh4258-23-57 11:08:00Identifier 69547- 6 Result Time 2019-04-10 11:08:00Unknown Test Item Value Reference Range Comments Unknown (test code = 751-8) 5.1 10^3/ul Unknown 1.5-7.7 F Ordering Physician UnknownLaboratory Shzrjpl9534-34-17 11:08:00Identifier 21819- 6 Result Time 2019-04-10 11:08:00Unknown Test Item Value Reference Range Comments Unknown (test code = 742-7) 0.5 10^3/ul Unknown 0-0.8 F Ordering Physician UnknownLaboratory Qnvidvf4795-98-18 11:08:00Identifier 25567- 6 Result Time 2019-04-10 11:08:00Unknown Test Item Value Reference Range Comments Unknown (test code = 731-0) 1.6 10^3/ul Unknown 1.0-4.8 F Ordering Physician UnknownLaboratory Zgbxwtq6150-93-39 11:08:00Identifier 33910- 6 Result Time 2019-04-10 11:08:00Unknown Test Item Value Reference Range Comments Unknown (test code = 711-2) 0.2 10^3/ul Unknown 0-0.6 F Ordering Physician UnknownLaboratory Rpmczzw3623-05-17 11:08:00Identifier 08359- 6 Result Time 2019-04-10 11:08:00Unknown Test Item Value Reference Range Comments Unknown (test code = 704-7) 0.1 10^3/ul Unknown 0-0.2 F Ordering Physician Unknown
--- OUTSIDE RECORDS SUMMARY | 2020-01-24 17:46 | XMS REPORT ---
:1965 Author Organization [facility] Care Team Providers Name Role Phone Unavailable [...] Result Comments Laboratory Studies 2019-04-25 05:49:00 Identifier [id number] Result Time Unknown 2019-04-25 05:49:00 Test Item Value Reference Range Comments Unknown (test code = 777-3) 187 10^3/uL Unknown 150-450 F Ordering Physician UnknownLaboratory Gnieeme8870-64-83 05:49:00Identifier 48045- 6 Result Time 2019-04-25 05:49:00Unknown Test Item Value Reference Range Comments Unknown (test code = 66947-7) 8.7 fL Unknown 7.4-10.4 F Ordering Physician UnknownLaboratory Gkonums2975-54-83 05:49:00Identifier 84828- 6 Result Time 2019-04-25 05:49:00Unknown Test Item Value Reference Range Comments Unknown (test code = 718-7) 12.7 g/dL Unknown 12.0-16.0 F Ordering Physician UnknownLaboratory Yfuvufq7980-73-85 05:49:00Identifier 70499- 6 Result Time 2019-04-25 05:49:00Unknown Test Item Value Reference Range Comments Unknown (test code = 4544-3) 39 % Unknown 35-47 F Ordering Physician UnknownLaboratory Nufkfwn6361-62-91 05:08:00Identifier 34338- 6 Result Time 2019-04-24 05:08:00Unknown Test Item Value Reference Range Comments Unknown (test code = 2951-2) 137 mmol/L Unknown 135-145 F Ordering Physician UnknownLaboratory Vpqdjql0838-12-69 05:08:00Identifier 20855- 6 Result Time 2019-04-24 05:08:00Unknown Test Item Value Reference Range Comments Unknown (test code = 2823-3) 3.9 mmol/L Unknown 3.5-5.0 F Ordering Physician UnknownLaboratory Isofind1450-17-27 05:08:00Identifier 42609- 6 Result Time 2019-04-24 05:08:00Unknown Test Item Value Reference Range Comments Unknown (test code = 2345-7) 134 mg/dL Unknown 70-100 F Ordering Physician UnknownLaboratory Bwhhnay5700-93-85 05:08:00Identifier 69087- 6 Result Time 2019-04-24 05:08:00Unknown Test Item Value Reference Range Comments Unknown (test code = 93975-2) 98.5 Unknown Unknown F Ordering Physician UnknownLaboratory Xhxwgik9961-65-44 05:08:00Identifier 55182- 6 Result Time 2019-04-24 05:08:00Unknown Test Item Value Reference Range Comments Unknown (test code = NullTestCode) 119.2 Unknown Unknown F Ordering Physician UnknownLaboratory Dylxxik7428-98-77 05:08:00Identifier 46621- 6 Result Time 2019-04-24 05:08:00Unknown Test Item Value Reference Range Comments Unknown (test code = 2160-0) 0.63 mg/dL Unknown 0.51-0.95 F Ordering Physician UnknownLaboratory Ewuoujl4601-84-03 05:08:00Identifier 38745- 6 Result Time 2019-04-24 05:08:00Unknown Test Item Value Reference Range Comments Unknown (test code = 2075-0) 101 mmol/L Unknown 101-111 F Ordering Physician UnknownLaboratory Olmanzm3203-76-92 05:08:00Identifier 69320- 6 Result Time 2019-04-24 05:08:00Unknown Test Item Value Reference Range Comments Unknown (test code = 2028-9) 29 mmol/L Unknown 22-32 F Ordering Physician UnknownLaboratory Avnenup2693-07-18 05:08:00Identifier 18720- 6 Result Time 2019-04-24 05:08:00Unknown Test Item Value Reference Range Comments Unknown (test code = 59643-8) 8.9 mg/dL Unknown 8.6-10.3 F Ordering Physician UnknownLaboratory Arsyidh8425-21-07 05:08:00Identifier 09426- 6 Result Time 2019-04-24 05:08:00Unknown Test Item Value Reference Range Comments Unknown (test code = 3094-0) 11 mg/dL Unknown 6-24 F Ordering Physician UnknownLaboratory Gyefoid1375-38-54 05:08:00Identifier 78493- 6 Result Time 2019-04-24 05:08:00Unknown Test Item Value Reference Range Comments Unknown (test code = 3097-3) 17.5 Unknown 8-20 F Ordering Physician UnknownLaboratory Qkzurls5521-09-08 05:08:00Identifier 24603- 6 Result Time 2019-04-24 05:08:00Unknown Test Item Value Reference Range Comments Unknown (test code = 07065-2) 7 mmol/L Unknown 2-11 F Ordering Physician UnknownLaboratory Fqnzpkq1776-97-81 10:07:00Identifier 77082- 6 Result Time 2019-04-23 10:07:00Unknown Test Item Value Reference Range Comments Unknown (test code = 2339-0) 114 mg/dL Unknown 70-100 F Ordering Physician UnknownLaboratory Xprdhmv6910-50-69 11:08:00Identifier 25615- 6 Result Time 2019-04-10 11:08:00Unknown Test Item Value Reference Range Comments Unknown (test code = 3016-3) 2.63 mcIU/mL Unknown 0.34-5.60 F Ordering Physician UnknownLaboratory Boshyel4866-77-61 11:08:00Identifier 75824- 6 Result Time 2019-04-10 11:08:00Unknown Test Item Value Reference Range Comments Unknown (test code = 2571-8) 132 mg/dL Unknown Unknown F Ordering Physician UnknownLaboratory Tfrkaci7600-78-16 11:08:00Identifier 87750- 6 Result Time 2019-04-10 11:08:00Unknown Test Item Value Reference Range Comments Unknown (test code = 2089-1) 139 mg/dL Unknown Unknown F Ordering Physician UnknownLaboratory Iplwcic0205-61-42 11:08:00Identifier 81699- 6 Result Time 2019-04-10 11:08:00Unknown Test Item Value Reference Range Comments Unknown (test code = 2085-9) 73.6 mg/dL Unknown Unknown F Ordering Physician UnknownLaboratory Hwqpjzw3419-02-51 11:08:00Identifier 87135- 6 Result Time 2019-04-10 11:08:00Unknown Test Item Value Reference Range Comments Unknown (test code = 2093-3) 239 mg/dL Unknown Unknown F Ordering Physician UnknownLaboratory Ckmohxc9707-68-46 11:08:00Identifier 09052- 6 Result Time 2019-04-10 11:08:00Unknown Test Item Value Reference Range Comments Unknown (test code = 2885-2) 7.3 g/dL Unknown 6.4-8.9 F Ordering Physician UnknownLaboratory Kifcjje8898-19-69 11:08:00Identifier 06901- 6 Result Time 2019-04-10 11:08:00Unknown Test Item Value Reference Range Comments Unknown (test code = 1975-2) 0.50 mg/dL Unknown 0.2-1.0 F Ordering Physician UnknownLaboratory Bsjvdpp7802-27-40 11:08:00Identifier 66905- 6 Result Time 2019-04-10 11:08:00Unknown Test Item Value Reference Range Comments Unknown (test code = NullTestCode) 2.8 g/dL Unknown 2-4 F Ordering Physician UnknownLaboratory Zmocglc6019-73-81 11:08:00Identifier 24008- 6 Result Time 2019-04-10 11:08:00Unknown Test Item Value Reference Range Comments Unknown (test code = 1920-8) 26 U/L Unknown 13-39 F Ordering Physician UnknownLaboratory Zpfploj9930-82-77 11:08:00Identifier 76955- 6 Result Time 2019-04-10 11:08:00Unknown Test Item Value Reference Range Comments Unknown (test code = 6768-6) 88 U/L Unknown 34-104 F Ordering Physician UnknownLaboratory Xnntiqv8564-23-18 11:08:00Identifier 35250- 6 Result Time 2019-04-10 11:08:00Unknown Test Item Value Reference Range Comments Unknown (test code = 1759-0) 1.6 Unknown 1-3 F Ordering Physician UnknownLaboratory Rygiuus2563-48-18 11:08:00Identifier 36364- 6 Result Time 2019-04-10 11:08:00Unknown Test Item Value Reference Range Comments Unknown (test code = 26113-8) 4.5 g/dL Unknown 3.2-5.2 F Ordering Physician UnknownLaboratory Thfomcj6268-46-22 11:08:00Identifier 76707- 6 Result Time 2019-04-10 11:08:00Unknown Test Item Value Reference Range Comments Unknown (test code = 1742-6) 27 U/L Unknown 7-52 F Ordering Physician UnknownLaboratory Otqbsbo7337-33-50 11:08:00Identifier 55479- 6 Result Time 2019-04-10 11:08:00Unknown Test Item Value Reference Range Comments Unknown (test code = 46662-3) Unknown Unknown F Ordering Physician UnknownLaboratory Vqxgebk1914-22-90 11:08:00Identifier 91364- 6 Result Time 2019-04-10 11:08:00Unknown Test Item Value Reference Range Comments Unknown (test code = 2161-8) 69.86 mg/dL Unknown Unknown F Ordering Physician UnknownLaboratory Zgmsoew8436-27-27 11:08:00Identifier 69275- 6 Result Time 2019-04-10 11:08:00Unknown Test Item Value Reference Range Comments Unknown (test code = 18505-3) 0.99 Unknown 0.82-1.09 F Ordering Physician UnknownLaboratory Pznchjz3390-97-40 11:08:00Identifier 54504- 6 Result Time 2019-04-10 11:08:00Unknown Test Item Value Reference Range Comments Unknown (test code = 07930-3) 30.8 seconds Unknown 26.0-36.3 F Ordering Physician UnknownLaboratory Tncpoxz5029-53-71 11:08:00Identifier 78178- 6 Result Time 2019-04-10 11:08:00Unknown Test Item Value Reference Range Comments Unknown (test code = NullTestCode) 5.0 Unknown 5-9 F Ordering Physician UnknownLaboratory Xveletx9472-00-50 11:08:00Identifier 40034- 6 Result Time 2019-04-10 11:08:00Unknown Test Item Value Reference Range Comments Unknown (test code = 52194-8) 1.016 Unknown 1.010-1.030 F Ordering Physician UnknownLaboratory Gqsblbo8723-88-44 11:08:00Identifier 19520- 6 Result Time 2019-04-10 11:08:00Unknown Test Item Value Reference Range Comments Unknown (test code = 26947-7) 7.4 10^3/uL Unknown 3.5-10.8 F Ordering Physician UnknownLaboratory Tqtjmsp2170-57-28 11:08:00Identifier 80258- 6 Result Time 2019-04-10 11:08:00Unknown Test Item Value Reference Range Comments Unknown (test code = 788-0) 15 % Unknown 10.5-15 F Ordering Physician UnknownLaboratory Nmnpgqo9352-24-98 11:08:00Identifier 42926- 6 Result Time 2019-04-10 11:08:00Unknown Test Item Value Reference Range Comments Unknown (test code = 789-8) 5.16 10^6 /uL Unknown 3.70-4.87 F Ordering Physician UnknownLaboratory Lhlwmri5665-66-56 11:08:00Identifier 63607- 6 Result Time 2019-04-10 11:08:00Unknown Test Item Value Reference Range Comments Unknown (test code = 73396-8) 0.3 Unknown Unknown F Ordering Physician UnknownLaboratory Iudqncn5043-29-71 11:08:00Identifier 60358- 6 Result Time 2019-04-10 11:08:00Unknown Test Item Value Reference Range Comments Unknown (test code = 771-6) 0.0 10^3/ul Unknown Unknown F Ordering Physician UnknownLaboratory Womldbd7661-02-41 11:08:00Identifier 51468- 6 Result Time 2019-04-10 11:08:00Unknown Test Item Value Reference Range Comments Unknown (test code = 770-8) 68.3 % Unknown Unknown F Ordering Physician UnknownLaboratory Saukyuu1320-89-43 11:08:00Identifier 27028- 6 Result Time 2019-04-10 11:08:00Unknown Test Item Value Reference Range Comments Unknown (test code = 5905-5) 7.2 % Unknown Unknown F Ordering Physician UnknownLaboratory Flxyuvm6617-47-09 11:08:00Identifier 50644- 6 Result Time 2019-04-10 11:08:00Unknown Test Item Value Reference Range Comments Unknown (test code = 787-2) 84 fL Unknown 80-97 F Ordering Physician UnknownLaboratory Unrwtaf8478-62-46 11:08:00Identifier 62539- 6 Result Time 2019-04-10 11:08:00Unknown Test Item Value Reference Range Comments Unknown (test code = 786-4) 33 g/dL Unknown 31-36 F Ordering Physician UnknownLaboratory Xoqofmq3461-52-82 11:08:00Identifier 05882- 6 Result Time 2019-04-10 11:08:00Unknown Test Item Value Reference Range Comments Unknown (test code = 785-6) 28 pg Unknown 27-31 F Ordering Physician UnknownLaboratory Kwcqjwc5860-96-33 11:08:00Identifier 55460- 6 Result Time 2019-04-10 11:08:00Unknown Test Item Value Reference Range Comments Unknown (test code = 736-9) 21.7 % Unknown Unknown F Ordering Physician UnknownLaboratory Nqafobw1620-54-85 11:08:00Identifier 98857- 6 Result Time 2019-04-10 11:08:00Unknown Test Item Value Reference Range Comments Unknown (test code = 713-8) 2.0 % Unknown Unknown F Ordering Physician UnknownLaboratory Zldbcyl6238-22-01 11:08:00Identifier 74369- 6 Result Time 2019-04-10 11:08:00Unknown Test Item Value Reference Range Comments Unknown (test code = 706-2) 0.8 % Unknown Unknown F Ordering Physician UnknownLaboratory Skkdjce5532-92-46 11:08:00Identifier 41234- 6 Result Time 2019-04-10 11:08:00Unknown Test Item Value Reference Range Comments Unknown (test code = 751-8) 5.1 10^3/ul Unknown 1.5-7.7 F Ordering Physician UnknownLaboratory Fxkxfkk0590-47-59 11:08:00Identifier 78756- 6 Result Time 2019-04-10 11:08:00Unknown Test Item Value Reference Range Comments Unknown (test code = 742-7) 0.5 10^3/ul Unknown 0-0.8 F Ordering Physician UnknownLaboratory Rqueqpk2633-41-42 11:08:00Identifier 87426- 6 Result Time 2019-04-10 11:08:00Unknown Test Item Value Reference Range Comments Unknown (test code = 731-0) 1.6 10^3/ul Unknown 1.0-4.8 F Ordering Physician UnknownLaboratory Jscgiuq2019-22-84 11:08:00Identifier 72886- 6 Result Time 2019-04-10 11:08:00Unknown Test Item Value Reference Range Comments Unknown (test code = 711-2) 0.2 10^3/ul Unknown 0-0.6 F Ordering Physician UnknownLaboratory Onmqsdv1398-59-17 11:08:00Identifier 74537- 6 Result Time 2019-04-10 11:08:00Unknown Test Item Value Reference Range Comments Unknown (test code = 704-7) 0.1 10^3/ul Unknown 0-0.2 F Ordering Physician Unknown
--- OUTSIDE RECORDS SUMMARY | 2020-01-24 17:46 | XMS REPORT ---
:1965 Author Organization [facility] Care Team Providers Name Role Phone Unavailable [...] Result Comments Laboratory Studies 2019-04-25 05:49:00 Identifier [id number] Result Time Unknown 2019-04-25 05:49:00 Test Item Value Reference Range Comments Unknown (test code = 777-3) 187 10^3/uL Unknown 150-450 F Ordering Physician UnknownLaboratory Ydbwpmo0383-63-72 05:49:00Identifier 05234- 6 Result Time 2019-04-25 05:49:00Unknown Test Item Value Reference Range Comments Unknown (test code = 38474-0) 8.7 fL Unknown 7.4-10.4 F Ordering Physician UnknownLaboratory Dcptaka1551-88-29 05:49:00Identifier 82910- 6 Result Time 2019-04-25 05:49:00Unknown Test Item Value Reference Range Comments Unknown (test code = 718-7) 12.7 g/dL Unknown 12.0-16.0 F Ordering Physician UnknownLaboratory Lvkfdzz1887-77-96 05:49:00Identifier 48971- 6 Result Time 2019-04-25 05:49:00Unknown Test Item Value Reference Range Comments Unknown (test code = 4544-3) 39 % Unknown 35-47 F Ordering Physician UnknownLaboratory Wzjsduo3098-11-93 05:08:00Identifier 64414- 6 Result Time 2019-04-24 05:08:00Unknown Test Item Value Reference Range Comments Unknown (test code = 2951-2) 137 mmol/L Unknown 135-145 F Ordering Physician UnknownLaboratory Lmkzhhf2870-23-24 05:08:00Identifier 33582- 6 Result Time 2019-04-24 05:08:00Unknown Test Item Value Reference Range Comments Unknown (test code = 2823-3) 3.9 mmol/L Unknown 3.5-5.0 F Ordering Physician UnknownLaboratory Cqccrwm5023-94-92 05:08:00Identifier 99637- 6 Result Time 2019-04-24 05:08:00Unknown Test Item Value Reference Range Comments Unknown (test code = 2345-7) 134 mg/dL Unknown 70-100 F Ordering Physician UnknownLaboratory Swxdzuh6086-37-98 05:08:00Identifier 84997- 6 Result Time 2019-04-24 05:08:00Unknown Test Item Value Reference Range Comments Unknown (test code = 06165-4) 98.5 Unknown Unknown F Ordering Physician UnknownLaboratory Whttfrf8067-51-03 05:08:00Identifier 96751- 6 Result Time 2019-04-24 05:08:00Unknown Test Item Value Reference Range Comments Unknown (test code = NullTestCode) 119.2 Unknown Unknown F Ordering Physician UnknownLaboratory Soeajem1848-36-82 05:08:00Identifier 49916- 6 Result Time 2019-04-24 05:08:00Unknown Test Item Value Reference Range Comments Unknown (test code = 2160-0) 0.63 mg/dL Unknown 0.51-0.95 F Ordering Physician UnknownLaboratory Mijvcdk0458-33-45 05:08:00Identifier 35578- 6 Result Time 2019-04-24 05:08:00Unknown Test Item Value Reference Range Comments Unknown (test code = 2075-0) 101 mmol/L Unknown 101-111 F Ordering Physician UnknownLaboratory Ngyiqzr1875-83-69 05:08:00Identifier 54443- 6 Result Time 2019-04-24 05:08:00Unknown Test Item Value Reference Range Comments Unknown (test code = 2028-9) 29 mmol/L Unknown 22-32 F Ordering Physician UnknownLaboratory Sbnhxyt8921-00-33 05:08:00Identifier 77265- 6 Result Time 2019-04-24 05:08:00Unknown Test Item Value Reference Range Comments Unknown (test code = 25361-0) 8.9 mg/dL Unknown 8.6-10.3 F Ordering Physician UnknownLaboratory Nmbzunk4533-58-04 05:08:00Identifier 53325- 6 Result Time 2019-04-24 05:08:00Unknown Test Item Value Reference Range Comments Unknown (test code = 3094-0) 11 mg/dL Unknown 6-24 F Ordering Physician UnknownLaboratory Rblagzz3088-58-91 05:08:00Identifier 10245- 6 Result Time 2019-04-24 05:08:00Unknown Test Item Value Reference Range Comments Unknown (test code = 3097-3) 17.5 Unknown 8-20 F Ordering Physician UnknownLaboratory Gakgkyx6597-93-85 05:08:00Identifier 14311- 6 Result Time 2019-04-24 05:08:00Unknown Test Item Value Reference Range Comments Unknown (test code = 60810-4) 7 mmol/L Unknown 2-11 F Ordering Physician UnknownLaboratory Zxybfqc9026-97-95 10:07:00Identifier 18877- 6 Result Time 2019-04-23 10:07:00Unknown Test Item Value Reference Range Comments Unknown (test code = 2339-0) 114 mg/dL Unknown 70-100 F Ordering Physician UnknownLaboratory Doncrph8463-12-26 11:08:00Identifier 46332- 6 Result Time 2019-04-10 11:08:00Unknown Test Item Value Reference Range Comments Unknown (test code = 3016-3) 2.63 mcIU/mL Unknown 0.34-5.60 F Ordering Physician UnknownLaboratory Wruhvan2693-26-26 11:08:00Identifier 86865- 6 Result Time 2019-04-10 11:08:00Unknown Test Item Value Reference Range Comments Unknown (test code = 2571-8) 132 mg/dL Unknown Unknown F Ordering Physician UnknownLaboratory Nplmmrt7670-60-42 11:08:00Identifier 82505- 6 Result Time 2019-04-10 11:08:00Unknown Test Item Value Reference Range Comments Unknown (test code = 2089-1) 139 mg/dL Unknown Unknown F Ordering Physician UnknownLaboratory Zhzpmud0409-05-21 11:08:00Identifier 12115- 6 Result Time 2019-04-10 11:08:00Unknown Test Item Value Reference Range Comments Unknown (test code = 2085-9) 73.6 mg/dL Unknown Unknown F Ordering Physician UnknownLaboratory Mxxaunm0169-23-68 11:08:00Identifier 27388- 6 Result Time 2019-04-10 11:08:00Unknown Test Item Value Reference Range Comments Unknown (test code = 2093-3) 239 mg/dL Unknown Unknown F Ordering Physician UnknownLaboratory Gkfhntx2302-42-07 11:08:00Identifier 13744- 6 Result Time 2019-04-10 11:08:00Unknown Test Item Value Reference Range Comments Unknown (test code = 2885-2) 7.3 g/dL Unknown 6.4-8.9 F Ordering Physician UnknownLaboratory Vdyypts1283-86-40 11:08:00Identifier 59359- 6 Result Time 2019-04-10 11:08:00Unknown Test Item Value Reference Range Comments Unknown (test code = 1975-2) 0.50 mg/dL Unknown 0.2-1.0 F Ordering Physician UnknownLaboratory Ttlxcqr4161-05-44 11:08:00Identifier 67921- 6 Result Time 2019-04-10 11:08:00Unknown Test Item Value Reference Range Comments Unknown (test code = NullTestCode) 2.8 g/dL Unknown 2-4 F Ordering Physician UnknownLaboratory Qwvvbyx8967-72-59 11:08:00Identifier 86516- 6 Result Time 2019-04-10 11:08:00Unknown Test Item Value Reference Range Comments Unknown (test code = 1920-8) 26 U/L Unknown 13-39 F Ordering Physician UnknownLaboratory Fsjrkhj6053-06-20 11:08:00Identifier 48085- 6 Result Time 2019-04-10 11:08:00Unknown Test Item Value Reference Range Comments Unknown (test code = 6768-6) 88 U/L Unknown 34-104 F Ordering Physician UnknownLaboratory Qeqaicc6222-99-18 11:08:00Identifier 65792- 6 Result Time 2019-04-10 11:08:00Unknown Test Item Value Reference Range Comments Unknown (test code = 1759-0) 1.6 Unknown 1-3 F Ordering Physician UnknownLaboratory Pacakxb6503-50-70 11:08:00Identifier 76321- 6 Result Time 2019-04-10 11:08:00Unknown Test Item Value Reference Range Comments Unknown (test code = 47315-8) 4.5 g/dL Unknown 3.2-5.2 F Ordering Physician UnknownLaboratory Gkdalbu0910-08-95 11:08:00Identifier 52039- 6 Result Time 2019-04-10 11:08:00Unknown Test Item Value Reference Range Comments Unknown (test code = 1742-6) 27 U/L Unknown 7-52 F Ordering Physician UnknownLaboratory Uhdpyss1561-36-03 11:08:00Identifier 48499- 6 Result Time 2019-04-10 11:08:00Unknown Test Item Value Reference Range Comments Unknown (test code = 57355-8) Unknown Unknown F Ordering Physician UnknownLaboratory Zlnyfeo4944-41-96 11:08:00Identifier 47759- 6 Result Time 2019-04-10 11:08:00Unknown Test Item Value Reference Range Comments Unknown (test code = 2161-8) 69.86 mg/dL Unknown Unknown F Ordering Physician UnknownLaboratory Exjqvgd6995-45-85 11:08:00Identifier 85862- 6 Result Time 2019-04-10 11:08:00Unknown Test Item Value Reference Range Comments Unknown (test code = 81509-7) 0.99 Unknown 0.82-1.09 F Ordering Physician UnknownLaboratory Azcaajh6715-00-06 11:08:00Identifier 76523- 6 Result Time 2019-04-10 11:08:00Unknown Test Item Value Reference Range Comments Unknown (test code = 30150-8) 30.8 seconds Unknown 26.0-36.3 F Ordering Physician UnknownLaboratory Puwxwzj1274-89-57 11:08:00Identifier 60914- 6 Result Time 2019-04-10 11:08:00Unknown Test Item Value Reference Range Comments Unknown (test code = NullTestCode) 5.0 Unknown 5-9 F Ordering Physician UnknownLaboratory Hnjrhcb0649-62-86 11:08:00Identifier 91533- 6 Result Time 2019-04-10 11:08:00Unknown Test Item Value Reference Range Comments Unknown (test code = 51542-9) 1.016 Unknown 1.010-1.030 F Ordering Physician UnknownLaboratory Mgvqvwi2037-80-86 11:08:00Identifier 85257- 6 Result Time 2019-04-10 11:08:00Unknown Test Item Value Reference Range Comments Unknown (test code = 85352-2) 7.4 10^3/uL Unknown 3.5-10.8 F Ordering Physician UnknownLaboratory Vhcprrq1511-26-43 11:08:00Identifier 80303- 6 Result Time 2019-04-10 11:08:00Unknown Test Item Value Reference Range Comments Unknown (test code = 788-0) 15 % Unknown 10.5-15 F Ordering Physician UnknownLaboratory Smaggou5249-07-27 11:08:00Identifier 19419- 6 Result Time 2019-04-10 11:08:00Unknown Test Item Value Reference Range Comments Unknown (test code = 789-8) 5.16 10^6 /uL Unknown 3.70-4.87 F Ordering Physician UnknownLaboratory Zfppjup4954-39-70 11:08:00Identifier 66380- 6 Result Time 2019-04-10 11:08:00Unknown Test Item Value Reference Range Comments Unknown (test code = 95985-5) 0.3 Unknown Unknown F Ordering Physician UnknownLaboratory Mitppaj3715-34-94 11:08:00Identifier 87324- 6 Result Time 2019-04-10 11:08:00Unknown Test Item Value Reference Range Comments Unknown (test code = 771-6) 0.0 10^3/ul Unknown Unknown F Ordering Physician UnknownLaboratory Oslkyss0075-04-38 11:08:00Identifier 60088- 6 Result Time 2019-04-10 11:08:00Unknown Test Item Value Reference Range Comments Unknown (test code = 770-8) 68.3 % Unknown Unknown F Ordering Physician UnknownLaboratory Wtfxkeh5162-20-36 11:08:00Identifier 57935- 6 Result Time 2019-04-10 11:08:00Unknown Test Item Value Reference Range Comments Unknown (test code = 5905-5) 7.2 % Unknown Unknown F Ordering Physician UnknownLaboratory Dtzxqsx9940-85-73 11:08:00Identifier 00815- 6 Result Time 2019-04-10 11:08:00Unknown Test Item Value Reference Range Comments Unknown (test code = 787-2) 84 fL Unknown 80-97 F Ordering Physician UnknownLaboratory Udapbqy4920-17-81 11:08:00Identifier 31674- 6 Result Time 2019-04-10 11:08:00Unknown Test Item Value Reference Range Comments Unknown (test code = 786-4) 33 g/dL Unknown 31-36 F Ordering Physician UnknownLaboratory Emwyqas0522-16-93 11:08:00Identifier 35645- 6 Result Time 2019-04-10 11:08:00Unknown Test Item Value Reference Range Comments Unknown (test code = 785-6) 28 pg Unknown 27-31 F Ordering Physician UnknownLaboratory Rczlcjc0246-21-15 11:08:00Identifier 33054- 6 Result Time 2019-04-10 11:08:00Unknown Test Item Value Reference Range Comments Unknown (test code = 736-9) 21.7 % Unknown Unknown F Ordering Physician UnknownLaboratory Lxopiiw9613-01-53 11:08:00Identifier 74840- 6 Result Time 2019-04-10 11:08:00Unknown Test Item Value Reference Range Comments Unknown (test code = 713-8) 2.0 % Unknown Unknown F Ordering Physician UnknownLaboratory Iramdsu5781-32-02 11:08:00Identifier 46733- 6 Result Time 2019-04-10 11:08:00Unknown Test Item Value Reference Range Comments Unknown (test code = 706-2) 0.8 % Unknown Unknown F Ordering Physician UnknownLaboratory Mecssie5978-48-36 11:08:00Identifier 28813- 6 Result Time 2019-04-10 11:08:00Unknown Test Item Value Reference Range Comments Unknown (test code = 751-8) 5.1 10^3/ul Unknown 1.5-7.7 F Ordering Physician UnknownLaboratory Kvnwmws8074-04-27 11:08:00Identifier 29578- 6 Result Time 2019-04-10 11:08:00Unknown Test Item Value Reference Range Comments Unknown (test code = 742-7) 0.5 10^3/ul Unknown 0-0.8 F Ordering Physician UnknownLaboratory Tgaosrv9893-74-77 11:08:00Identifier 89339- 6 Result Time 2019-04-10 11:08:00Unknown Test Item Value Reference Range Comments Unknown (test code = 731-0) 1.6 10^3/ul Unknown 1.0-4.8 F Ordering Physician UnknownLaboratory Fydxxcd7727-63-14 11:08:00Identifier 50269- 6 Result Time 2019-04-10 11:08:00Unknown Test Item Value Reference Range Comments Unknown (test code = 711-2) 0.2 10^3/ul Unknown 0-0.6 F Ordering Physician UnknownLaboratory Zczcszg3161-81-26 11:08:00Identifier 41839- 6 Result Time 2019-04-10 11:08:00Unknown Test Item Value Reference Range Comments Unknown (test code = 704-7) 0.1 10^3/ul Unknown 0-0.2 F Ordering Physician Unknown
--- OUTSIDE RECORDS SUMMARY | 2020-01-24 17:46 | XMS REPORT ---
:1965 Author Organization [facility] Care Team Providers Name Role Phone Unavailable [...] Result Comments Laboratory Studies 2019-04-25 05:49:00 Identifier [id number] Result Time Unknown 2019-04-25 05:49:00 Test Item Value Reference Range Comments Unknown (test code = 777-3) 187 10^3/uL Unknown 150-450 F Ordering Physician UnknownLaboratory Pexljhh3411-05-02 05:49:00Identifier 71031- 6 Result Time 2019-04-25 05:49:00Unknown Test Item Value Reference Range Comments Unknown (test code = 58301-2) 8.7 fL Unknown 7.4-10.4 F Ordering Physician UnknownLaboratory Lwvfksu0868-56-44 05:49:00Identifier 71159- 6 Result Time 2019-04-25 05:49:00Unknown Test Item Value Reference Range Comments Unknown (test code = 718-7) 12.7 g/dL Unknown 12.0-16.0 F Ordering Physician UnknownLaboratory Xakiyzt1500-02-19 05:49:00Identifier 75886- 6 Result Time 2019-04-25 05:49:00Unknown Test Item Value Reference Range Comments Unknown (test code = 4544-3) 39 % Unknown 35-47 F Ordering Physician UnknownLaboratory Xrcbzom5432-13-05 05:08:00Identifier 49814- 6 Result Time 2019-04-24 05:08:00Unknown Test Item Value Reference Range Comments Unknown (test code = 2951-2) 137 mmol/L Unknown 135-145 F Ordering Physician UnknownLaboratory Kecdhjk3977-15-27 05:08:00Identifier 14470- 6 Result Time 2019-04-24 05:08:00Unknown Test Item Value Reference Range Comments Unknown (test code = 2823-3) 3.9 mmol/L Unknown 3.5-5.0 F Ordering Physician UnknownLaboratory Mzpptoz1159-39-46 05:08:00Identifier 05606- 6 Result Time 2019-04-24 05:08:00Unknown Test Item Value Reference Range Comments Unknown (test code = 2345-7) 134 mg/dL Unknown 70-100 F Ordering Physician UnknownLaboratory Nehyiwv3012-18-72 05:08:00Identifier 54177- 6 Result Time 2019-04-24 05:08:00Unknown Test Item Value Reference Range Comments Unknown (test code = 54590-7) 98.5 Unknown Unknown F Ordering Physician UnknownLaboratory Asmetfl3201-77-79 05:08:00Identifier 46679- 6 Result Time 2019-04-24 05:08:00Unknown Test Item Value Reference Range Comments Unknown (test code = NullTestCode) 119.2 Unknown Unknown F Ordering Physician UnknownLaboratory Xaritcy2815-27-03 05:08:00Identifier 28240- 6 Result Time 2019-04-24 05:08:00Unknown Test Item Value Reference Range Comments Unknown (test code = 2160-0) 0.63 mg/dL Unknown 0.51-0.95 F Ordering Physician UnknownLaboratory Eubcwha5108-83-34 05:08:00Identifier 55108- 6 Result Time 2019-04-24 05:08:00Unknown Test Item Value Reference Range Comments Unknown (test code = 2075-0) 101 mmol/L Unknown 101-111 F Ordering Physician UnknownLaboratory Wttlzhh0739-08-61 05:08:00Identifier 66564- 6 Result Time 2019-04-24 05:08:00Unknown Test Item Value Reference Range Comments Unknown (test code = 2028-9) 29 mmol/L Unknown 22-32 F Ordering Physician UnknownLaboratory Kaozpov1864-81-58 05:08:00Identifier 77094- 6 Result Time 2019-04-24 05:08:00Unknown Test Item Value Reference Range Comments Unknown (test code = 05292-4) 8.9 mg/dL Unknown 8.6-10.3 F Ordering Physician UnknownLaboratory Shrejcu8841-06-76 05:08:00Identifier 86282- 6 Result Time 2019-04-24 05:08:00Unknown Test Item Value Reference Range Comments Unknown (test code = 3094-0) 11 mg/dL Unknown 6-24 F Ordering Physician UnknownLaboratory Mhdjwry8859-01-42 05:08:00Identifier 44204- 6 Result Time 2019-04-24 05:08:00Unknown Test Item Value Reference Range Comments Unknown (test code = 3097-3) 17.5 Unknown 8-20 F Ordering Physician UnknownLaboratory Bapqwrj7113-26-81 05:08:00Identifier 88338- 6 Result Time 2019-04-24 05:08:00Unknown Test Item Value Reference Range Comments Unknown (test code = 74672-5) 7 mmol/L Unknown 2-11 F Ordering Physician UnknownLaboratory Ilwhjoi4357-51-17 10:07:00Identifier 63656- 6 Result Time 2019-04-23 10:07:00Unknown Test Item Value Reference Range Comments Unknown (test code = 2339-0) 114 mg/dL Unknown 70-100 F Ordering Physician UnknownLaboratory Naofiyi3474-19-35 11:08:00Identifier 10149- 6 Result Time 2019-04-10 11:08:00Unknown Test Item Value Reference Range Comments Unknown (test code = 3016-3) 2.63 mcIU/mL Unknown 0.34-5.60 F Ordering Physician UnknownLaboratory Eaaqyzo5986-51-64 11:08:00Identifier 51546- 6 Result Time 2019-04-10 11:08:00Unknown Test Item Value Reference Range Comments Unknown (test code = 2571-8) 132 mg/dL Unknown Unknown F Ordering Physician UnknownLaboratory Vemokwr9698-91-21 11:08:00Identifier 39822- 6 Result Time 2019-04-10 11:08:00Unknown Test Item Value Reference Range Comments Unknown (test code = 2089-1) 139 mg/dL Unknown Unknown F Ordering Physician UnknownLaboratory Bucvond1616-53-22 11:08:00Identifier 59470- 6 Result Time 2019-04-10 11:08:00Unknown Test Item Value Reference Range Comments Unknown (test code = 2085-9) 73.6 mg/dL Unknown Unknown F Ordering Physician UnknownLaboratory Dnixupb4806-99-36 11:08:00Identifier 75319- 6 Result Time 2019-04-10 11:08:00Unknown Test Item Value Reference Range Comments Unknown (test code = 2093-3) 239 mg/dL Unknown Unknown F Ordering Physician UnknownLaboratory Iltbgja5450-79-70 11:08:00Identifier 68337- 6 Result Time 2019-04-10 11:08:00Unknown Test Item Value Reference Range Comments Unknown (test code = 2885-2) 7.3 g/dL Unknown 6.4-8.9 F Ordering Physician UnknownLaboratory Pheyqck6111-23-48 11:08:00Identifier 50841- 6 Result Time 2019-04-10 11:08:00Unknown Test Item Value Reference Range Comments Unknown (test code = 1975-2) 0.50 mg/dL Unknown 0.2-1.0 F Ordering Physician UnknownLaboratory Eujlync6513-11-74 11:08:00Identifier 68100- 6 Result Time 2019-04-10 11:08:00Unknown Test Item Value Reference Range Comments Unknown (test code = NullTestCode) 2.8 g/dL Unknown 2-4 F Ordering Physician UnknownLaboratory Rydkijc7790-49-47 11:08:00Identifier 20424- 6 Result Time 2019-04-10 11:08:00Unknown Test Item Value Reference Range Comments Unknown (test code = 1920-8) 26 U/L Unknown 13-39 F Ordering Physician UnknownLaboratory Qzxrtgg3464-13-53 11:08:00Identifier 57408- 6 Result Time 2019-04-10 11:08:00Unknown Test Item Value Reference Range Comments Unknown (test code = 6768-6) 88 U/L Unknown 34-104 F Ordering Physician UnknownLaboratory Qiipsdg5421-54-27 11:08:00Identifier 64439- 6 Result Time 2019-04-10 11:08:00Unknown Test Item Value Reference Range Comments Unknown (test code = 1759-0) 1.6 Unknown 1-3 F Ordering Physician UnknownLaboratory Auyvkqu3771-71-46 11:08:00Identifier 02979- 6 Result Time 2019-04-10 11:08:00Unknown Test Item Value Reference Range Comments Unknown (test code = 67454-1) 4.5 g/dL Unknown 3.2-5.2 F Ordering Physician UnknownLaboratory Fjukfpk1633-81-40 11:08:00Identifier 60289- 6 Result Time 2019-04-10 11:08:00Unknown Test Item Value Reference Range Comments Unknown (test code = 1742-6) 27 U/L Unknown 7-52 F Ordering Physician UnknownLaboratory Wmrecjg9940-42-11 11:08:00Identifier 32738- 6 Result Time 2019-04-10 11:08:00Unknown Test Item Value Reference Range Comments Unknown (test code = 51567-3) Unknown Unknown F Ordering Physician UnknownLaboratory Lxurmoe7447-29-33 11:08:00Identifier 50722- 6 Result Time 2019-04-10 11:08:00Unknown Test Item Value Reference Range Comments Unknown (test code = 2161-8) 69.86 mg/dL Unknown Unknown F Ordering Physician UnknownLaboratory Dzhwatz8983-46-62 11:08:00Identifier 33526- 6 Result Time 2019-04-10 11:08:00Unknown Test Item Value Reference Range Comments Unknown (test code = 74834-7) 0.99 Unknown 0.82-1.09 F Ordering Physician UnknownLaboratory Igwdhfs8483-86-62 11:08:00Identifier 82935- 6 Result Time 2019-04-10 11:08:00Unknown Test Item Value Reference Range Comments Unknown (test code = 86224-9) 30.8 seconds Unknown 26.0-36.3 F Ordering Physician UnknownLaboratory Oheazxm9911-19-21 11:08:00Identifier 46223- 6 Result Time 2019-04-10 11:08:00Unknown Test Item Value Reference Range Comments Unknown (test code = NullTestCode) 5.0 Unknown 5-9 F Ordering Physician UnknownLaboratory Qwidfec4277-35-50 11:08:00Identifier 71134- 6 Result Time 2019-04-10 11:08:00Unknown Test Item Value Reference Range Comments Unknown (test code = 01184-0) 1.016 Unknown 1.010-1.030 F Ordering Physician UnknownLaboratory Frqqydt2896-39-48 11:08:00Identifier 94397- 6 Result Time 2019-04-10 11:08:00Unknown Test Item Value Reference Range Comments Unknown (test code = 65331-6) 7.4 10^3/uL Unknown 3.5-10.8 F Ordering Physician UnknownLaboratory Ryevyxa1622-41-24 11:08:00Identifier 09655- 6 Result Time 2019-04-10 11:08:00Unknown Test Item Value Reference Range Comments Unknown (test code = 788-0) 15 % Unknown 10.5-15 F Ordering Physician UnknownLaboratory Xifcyyk3558-37-93 11:08:00Identifier 75237- 6 Result Time 2019-04-10 11:08:00Unknown Test Item Value Reference Range Comments Unknown (test code = 789-8) 5.16 10^6 /uL Unknown 3.70-4.87 F Ordering Physician UnknownLaboratory Cnpzkof8080-42-33 11:08:00Identifier 20844- 6 Result Time 2019-04-10 11:08:00Unknown Test Item Value Reference Range Comments Unknown (test code = 15669-7) 0.3 Unknown Unknown F Ordering Physician UnknownLaboratory Xfiutrj5282-15-11 11:08:00Identifier 67789- 6 Result Time 2019-04-10 11:08:00Unknown Test Item Value Reference Range Comments Unknown (test code = 771-6) 0.0 10^3/ul Unknown Unknown F Ordering Physician UnknownLaboratory Zdmbfju2688-33-24 11:08:00Identifier 75459- 6 Result Time 2019-04-10 11:08:00Unknown Test Item Value Reference Range Comments Unknown (test code = 770-8) 68.3 % Unknown Unknown F Ordering Physician UnknownLaboratory Aenefwg0991-31-28 11:08:00Identifier 47310- 6 Result Time 2019-04-10 11:08:00Unknown Test Item Value Reference Range Comments Unknown (test code = 5905-5) 7.2 % Unknown Unknown F Ordering Physician UnknownLaboratory Opgvymg7474-80-45 11:08:00Identifier 11473- 6 Result Time 2019-04-10 11:08:00Unknown Test Item Value Reference Range Comments Unknown (test code = 787-2) 84 fL Unknown 80-97 F Ordering Physician UnknownLaboratory Zxuaozd6293-68-98 11:08:00Identifier 79197- 6 Result Time 2019-04-10 11:08:00Unknown Test Item Value Reference Range Comments Unknown (test code = 786-4) 33 g/dL Unknown 31-36 F Ordering Physician UnknownLaboratory Fwphkqg3840-95-66 11:08:00Identifier 06712- 6 Result Time 2019-04-10 11:08:00Unknown Test Item Value Reference Range Comments Unknown (test code = 785-6) 28 pg Unknown 27-31 F Ordering Physician UnknownLaboratory Cxpsbbj3747-67-40 11:08:00Identifier 10352- 6 Result Time 2019-04-10 11:08:00Unknown Test Item Value Reference Range Comments Unknown (test code = 736-9) 21.7 % Unknown Unknown F Ordering Physician UnknownLaboratory Tgyjbih1906-03-71 11:08:00Identifier 75297- 6 Result Time 2019-04-10 11:08:00Unknown Test Item Value Reference Range Comments Unknown (test code = 713-8) 2.0 % Unknown Unknown F Ordering Physician UnknownLaboratory Hyckkab6237-73-12 11:08:00Identifier 96656- 6 Result Time 2019-04-10 11:08:00Unknown Test Item Value Reference Range Comments Unknown (test code = 706-2) 0.8 % Unknown Unknown F Ordering Physician UnknownLaboratory Cnrzemv1857-82-37 11:08:00Identifier 14829- 6 Result Time 2019-04-10 11:08:00Unknown Test Item Value Reference Range Comments Unknown (test code = 751-8) 5.1 10^3/ul Unknown 1.5-7.7 F Ordering Physician UnknownLaboratory Ufckmtz3261-01-77 11:08:00Identifier 01202- 6 Result Time 2019-04-10 11:08:00Unknown Test Item Value Reference Range Comments Unknown (test code = 742-7) 0.5 10^3/ul Unknown 0-0.8 F Ordering Physician UnknownLaboratory Mmjrbfa0442-37-65 11:08:00Identifier 97600- 6 Result Time 2019-04-10 11:08:00Unknown Test Item Value Reference Range Comments Unknown (test code = 731-0) 1.6 10^3/ul Unknown 1.0-4.8 F Ordering Physician UnknownLaboratory Brfsdey4876-32-82 11:08:00Identifier 43396- 6 Result Time 2019-04-10 11:08:00Unknown Test Item Value Reference Range Comments Unknown (test code = 711-2) 0.2 10^3/ul Unknown 0-0.6 F Ordering Physician UnknownLaboratory Hamchdh4060-71-14 11:08:00Identifier 49600- 6 Result Time 2019-04-10 11:08:00Unknown Test Item Value Reference Range Comments Unknown (test code = 704-7) 0.1 10^3/ul Unknown 0-0.2 F Ordering Physician Unknown
--- OUTSIDE RECORDS SUMMARY | 2020-01-24 17:46 | XMS REPORT ---
:1965 Author Organization [facility] Care Team Providers Name Role Phone Unavailable [...] Result Comments Laboratory Studies 2019-04-25 05:49:00 Identifier [id number] Result Time Unknown 2019-04-25 05:49:00 Test Item Value Reference Range Comments Unknown (test code = 777-3) 187 10^3/uL Unknown 150-450 F Ordering Physician UnknownLaboratory Vnjbmit0362-56-31 05:49:00Identifier 37118- 6 Result Time 2019-04-25 05:49:00Unknown Test Item Value Reference Range Comments Unknown (test code = 11265-5) 8.7 fL Unknown 7.4-10.4 F Ordering Physician UnknownLaboratory Rgxesvc6052-57-69 05:49:00Identifier 59973- 6 Result Time 2019-04-25 05:49:00Unknown Test Item Value Reference Range Comments Unknown (test code = 718-7) 12.7 g/dL Unknown 12.0-16.0 F Ordering Physician UnknownLaboratory Ntglung7293-04-65 05:49:00Identifier 83873- 6 Result Time 2019-04-25 05:49:00Unknown Test Item Value Reference Range Comments Unknown (test code = 4544-3) 39 % Unknown 35-47 F Ordering Physician UnknownLaboratory Fraklfy9110-40-11 05:08:00Identifier 88256- 6 Result Time 2019-04-24 05:08:00Unknown Test Item Value Reference Range Comments Unknown (test code = 2951-2) 137 mmol/L Unknown 135-145 F Ordering Physician UnknownLaboratory Yslrnne2913-72-52 05:08:00Identifier 74975- 6 Result Time 2019-04-24 05:08:00Unknown Test Item Value Reference Range Comments Unknown (test code = 2823-3) 3.9 mmol/L Unknown 3.5-5.0 F Ordering Physician UnknownLaboratory Kywrdwo2641-38-32 05:08:00Identifier 99396- 6 Result Time 2019-04-24 05:08:00Unknown Test Item Value Reference Range Comments Unknown (test code = 2345-7) 134 mg/dL Unknown 70-100 F Ordering Physician UnknownLaboratory Irgxvwr7630-59-98 05:08:00Identifier 64762- 6 Result Time 2019-04-24 05:08:00Unknown Test Item Value Reference Range Comments Unknown (test code = 53026-8) 98.5 Unknown Unknown F Ordering Physician UnknownLaboratory Rsxgvvb1942-44-23 05:08:00Identifier 01968- 6 Result Time 2019-04-24 05:08:00Unknown Test Item Value Reference Range Comments Unknown (test code = NullTestCode) 119.2 Unknown Unknown F Ordering Physician UnknownLaboratory Sfecphu7110-50-57 05:08:00Identifier 46748- 6 Result Time 2019-04-24 05:08:00Unknown Test Item Value Reference Range Comments Unknown (test code = 2160-0) 0.63 mg/dL Unknown 0.51-0.95 F Ordering Physician UnknownLaboratory Adkrntg4302-85-10 05:08:00Identifier 50327- 6 Result Time 2019-04-24 05:08:00Unknown Test Item Value Reference Range Comments Unknown (test code = 2075-0) 101 mmol/L Unknown 101-111 F Ordering Physician UnknownLaboratory Zwrasmw6765-84-67 05:08:00Identifier 46580- 6 Result Time 2019-04-24 05:08:00Unknown Test Item Value Reference Range Comments Unknown (test code = 2028-9) 29 mmol/L Unknown 22-32 F Ordering Physician UnknownLaboratory Igrcfvj2528-98-12 05:08:00Identifier 05949- 6 Result Time 2019-04-24 05:08:00Unknown Test Item Value Reference Range Comments Unknown (test code = 62605-6) 8.9 mg/dL Unknown 8.6-10.3 F Ordering Physician UnknownLaboratory Vduqnyz6245-82-24 05:08:00Identifier 06658- 6 Result Time 2019-04-24 05:08:00Unknown Test Item Value Reference Range Comments Unknown (test code = 3094-0) 11 mg/dL Unknown 6-24 F Ordering Physician UnknownLaboratory Rmwlkql6016-12-01 05:08:00Identifier 14007- 6 Result Time 2019-04-24 05:08:00Unknown Test Item Value Reference Range Comments Unknown (test code = 3097-3) 17.5 Unknown 8-20 F Ordering Physician UnknownLaboratory Qmseiyc7413-71-75 05:08:00Identifier 78765- 6 Result Time 2019-04-24 05:08:00Unknown Test Item Value Reference Range Comments Unknown (test code = 24828-2) 7 mmol/L Unknown 2-11 F Ordering Physician UnknownLaboratory Mbwkbwv7718-95-63 10:07:00Identifier 30771- 6 Result Time 2019-04-23 10:07:00Unknown Test Item Value Reference Range Comments Unknown (test code = 2339-0) 114 mg/dL Unknown 70-100 F Ordering Physician UnknownLaboratory Vkgubtn0392-36-97 11:08:00Identifier 24966- 6 Result Time 2019-04-10 11:08:00Unknown Test Item Value Reference Range Comments Unknown (test code = 3016-3) 2.63 mcIU/mL Unknown 0.34-5.60 F Ordering Physician UnknownLaboratory Oixnuvs8801-48-53 11:08:00Identifier 71486- 6 Result Time 2019-04-10 11:08:00Unknown Test Item Value Reference Range Comments Unknown (test code = 2571-8) 132 mg/dL Unknown Unknown F Ordering Physician UnknownLaboratory Oxxqimk4966-23-14 11:08:00Identifier 39099- 6 Result Time 2019-04-10 11:08:00Unknown Test Item Value Reference Range Comments Unknown (test code = 2089-1) 139 mg/dL Unknown Unknown F Ordering Physician UnknownLaboratory Fpkozrz7999-95-76 11:08:00Identifier 08206- 6 Result Time 2019-04-10 11:08:00Unknown Test Item Value Reference Range Comments Unknown (test code = 2085-9) 73.6 mg/dL Unknown Unknown F Ordering Physician UnknownLaboratory Brrhqgj0178-90-74 11:08:00Identifier 51664- 6 Result Time 2019-04-10 11:08:00Unknown Test Item Value Reference Range Comments Unknown (test code = 2093-3) 239 mg/dL Unknown Unknown F Ordering Physician UnknownLaboratory Mwuzroh7374-03-62 11:08:00Identifier 95646- 6 Result Time 2019-04-10 11:08:00Unknown Test Item Value Reference Range Comments Unknown (test code = 2885-2) 7.3 g/dL Unknown 6.4-8.9 F Ordering Physician UnknownLaboratory Afvdcjh4041-68-21 11:08:00Identifier 24910- 6 Result Time 2019-04-10 11:08:00Unknown Test Item Value Reference Range Comments Unknown (test code = 1975-2) 0.50 mg/dL Unknown 0.2-1.0 F Ordering Physician UnknownLaboratory Iqzjwmy5223-39-60 11:08:00Identifier 08659- 6 Result Time 2019-04-10 11:08:00Unknown Test Item Value Reference Range Comments Unknown (test code = NullTestCode) 2.8 g/dL Unknown 2-4 F Ordering Physician UnknownLaboratory Ltjxahj1691-32-99 11:08:00Identifier 40077- 6 Result Time 2019-04-10 11:08:00Unknown Test Item Value Reference Range Comments Unknown (test code = 1920-8) 26 U/L Unknown 13-39 F Ordering Physician UnknownLaboratory Xhsowlu5578-57-00 11:08:00Identifier 58624- 6 Result Time 2019-04-10 11:08:00Unknown Test Item Value Reference Range Comments Unknown (test code = 6768-6) 88 U/L Unknown 34-104 F Ordering Physician UnknownLaboratory Uowqlyg8283-97-85 11:08:00Identifier 79767- 6 Result Time 2019-04-10 11:08:00Unknown Test Item Value Reference Range Comments Unknown (test code = 1759-0) 1.6 Unknown 1-3 F Ordering Physician UnknownLaboratory Urlwlmq9674-28-78 11:08:00Identifier 67097- 6 Result Time 2019-04-10 11:08:00Unknown Test Item Value Reference Range Comments Unknown (test code = 42025-7) 4.5 g/dL Unknown 3.2-5.2 F Ordering Physician UnknownLaboratory Aadpyxr0873-56-19 11:08:00Identifier 53785- 6 Result Time 2019-04-10 11:08:00Unknown Test Item Value Reference Range Comments Unknown (test code = 1742-6) 27 U/L Unknown 7-52 F Ordering Physician UnknownLaboratory Ntdxomb2942-28-32 11:08:00Identifier 65207- 6 Result Time 2019-04-10 11:08:00Unknown Test Item Value Reference Range Comments Unknown (test code = 48421-9) Unknown Unknown F Ordering Physician UnknownLaboratory Bozlnuu3062-73-27 11:08:00Identifier 99140- 6 Result Time 2019-04-10 11:08:00Unknown Test Item Value Reference Range Comments Unknown (test code = 2161-8) 69.86 mg/dL Unknown Unknown F Ordering Physician UnknownLaboratory Caxpvpb7144-54-35 11:08:00Identifier 43216- 6 Result Time 2019-04-10 11:08:00Unknown Test Item Value Reference Range Comments Unknown (test code = 64835-2) 0.99 Unknown 0.82-1.09 F Ordering Physician UnknownLaboratory Gaannbm7970-61-67 11:08:00Identifier 42739- 6 Result Time 2019-04-10 11:08:00Unknown Test Item Value Reference Range Comments Unknown (test code = 85518-0) 30.8 seconds Unknown 26.0-36.3 F Ordering Physician UnknownLaboratory Fycjmez5159-78-69 11:08:00Identifier 28229- 6 Result Time 2019-04-10 11:08:00Unknown Test Item Value Reference Range Comments Unknown (test code = NullTestCode) 5.0 Unknown 5-9 F Ordering Physician UnknownLaboratory Krwwkcn0388-65-46 11:08:00Identifier 96293- 6 Result Time 2019-04-10 11:08:00Unknown Test Item Value Reference Range Comments Unknown (test code = 82687-1) 1.016 Unknown 1.010-1.030 F Ordering Physician UnknownLaboratory Dgpqrnr1070-65-83 11:08:00Identifier 51801- 6 Result Time 2019-04-10 11:08:00Unknown Test Item Value Reference Range Comments Unknown (test code = 16622-5) 7.4 10^3/uL Unknown 3.5-10.8 F Ordering Physician UnknownLaboratory Owvfush4929-00-16 11:08:00Identifier 70022- 6 Result Time 2019-04-10 11:08:00Unknown Test Item Value Reference Range Comments Unknown (test code = 788-0) 15 % Unknown 10.5-15 F Ordering Physician UnknownLaboratory Zvjzshj0374-57-76 11:08:00Identifier 85495- 6 Result Time 2019-04-10 11:08:00Unknown Test Item Value Reference Range Comments Unknown (test code = 789-8) 5.16 10^6 /uL Unknown 3.70-4.87 F Ordering Physician UnknownLaboratory Dqadfig3448-40-99 11:08:00Identifier 48535- 6 Result Time 2019-04-10 11:08:00Unknown Test Item Value Reference Range Comments Unknown (test code = 10503-3) 0.3 Unknown Unknown F Ordering Physician UnknownLaboratory Mkignpy2979-17-95 11:08:00Identifier 01871- 6 Result Time 2019-04-10 11:08:00Unknown Test Item Value Reference Range Comments Unknown (test code = 771-6) 0.0 10^3/ul Unknown Unknown F Ordering Physician UnknownLaboratory Emlsqpa3126-78-65 11:08:00Identifier 74784- 6 Result Time 2019-04-10 11:08:00Unknown Test Item Value Reference Range Comments Unknown (test code = 770-8) 68.3 % Unknown Unknown F Ordering Physician UnknownLaboratory Husztcd4120-40-63 11:08:00Identifier 14812- 6 Result Time 2019-04-10 11:08:00Unknown Test Item Value Reference Range Comments Unknown (test code = 5905-5) 7.2 % Unknown Unknown F Ordering Physician UnknownLaboratory Asoqiqd4926-06-72 11:08:00Identifier 47944- 6 Result Time 2019-04-10 11:08:00Unknown Test Item Value Reference Range Comments Unknown (test code = 787-2) 84 fL Unknown 80-97 F Ordering Physician UnknownLaboratory Bxuidpx3517-94-43 11:08:00Identifier 88071- 6 Result Time 2019-04-10 11:08:00Unknown Test Item Value Reference Range Comments Unknown (test code = 786-4) 33 g/dL Unknown 31-36 F Ordering Physician UnknownLaboratory Dymwckm9363-29-27 11:08:00Identifier 23709- 6 Result Time 2019-04-10 11:08:00Unknown Test Item Value Reference Range Comments Unknown (test code = 785-6) 28 pg Unknown 27-31 F Ordering Physician UnknownLaboratory Nglxiue5752-84-82 11:08:00Identifier 34051- 6 Result Time 2019-04-10 11:08:00Unknown Test Item Value Reference Range Comments Unknown (test code = 736-9) 21.7 % Unknown Unknown F Ordering Physician UnknownLaboratory Volzfyn6466-56-42 11:08:00Identifier 66729- 6 Result Time 2019-04-10 11:08:00Unknown Test Item Value Reference Range Comments Unknown (test code = 713-8) 2.0 % Unknown Unknown F Ordering Physician UnknownLaboratory Sshtoxj2085-94-70 11:08:00Identifier 75061- 6 Result Time 2019-04-10 11:08:00Unknown Test Item Value Reference Range Comments Unknown (test code = 706-2) 0.8 % Unknown Unknown F Ordering Physician UnknownLaboratory Mbtlkmv2429-39-75 11:08:00Identifier 99108- 6 Result Time 2019-04-10 11:08:00Unknown Test Item Value Reference Range Comments Unknown (test code = 751-8) 5.1 10^3/ul Unknown 1.5-7.7 F Ordering Physician UnknownLaboratory Vmsehhv5585-65-91 11:08:00Identifier 19849- 6 Result Time 2019-04-10 11:08:00Unknown Test Item Value Reference Range Comments Unknown (test code = 742-7) 0.5 10^3/ul Unknown 0-0.8 F Ordering Physician UnknownLaboratory Oouhfep2696-78-94 11:08:00Identifier 78980- 6 Result Time 2019-04-10 11:08:00Unknown Test Item Value Reference Range Comments Unknown (test code = 731-0) 1.6 10^3/ul Unknown 1.0-4.8 F Ordering Physician UnknownLaboratory Hnzgmzg9958-98-00 11:08:00Identifier 40124- 6 Result Time 2019-04-10 11:08:00Unknown Test Item Value Reference Range Comments Unknown (test code = 711-2) 0.2 10^3/ul Unknown 0-0.6 F Ordering Physician UnknownLaboratory Xcsrgjy8495-44-29 11:08:00Identifier 21473- 6 Result Time 2019-04-10 11:08:00Unknown Test Item Value Reference Range Comments Unknown (test code = 704-7) 0.1 10^3/ul Unknown 0-0.2 F Ordering Physician Unknown
--- OUTSIDE RECORDS SUMMARY | 2020-01-24 17:46 | XMS REPORT ---
:1965 Author Organization [facility] Care Team Providers Name Role Phone Unavailable [...] Result Comments Laboratory Studies 2019-04-25 05:49:00 Identifier [id number] Result Time Unknown 2019-04-25 05:49:00 Test Item Value Reference Range Comments Unknown (test code = 777-3) 187 10^3/uL Unknown 150-450 F Ordering Physician UnknownLaboratory Evckjwo5109-46-54 05:49:00Identifier [id number]- 6 Result Time 2019-04-25 05:49:00Unknown Test Item Value Reference Range Comments Unknown (test code = 33074-4) 8.7 fL Unknown 7.4-10.4 F Ordering Physician UnknownLaboratory Bgrgzfo4561-62-79 05:49:00Identifier 13065- 6 Result Time 2019-04-25 05:49:00Unknown Test Item Value Reference Range Comments Unknown (test code = 718-7) 12.7 g/dL Unknown 12.0-16.0 F Ordering Physician UnknownLaboratory Nukekqu9727-61-01 05:49:00Identifier 46810- 6 Result Time 2019-04-25 05:49:00Unknown Test Item Value Reference Range Comments Unknown (test code = 4544-3) 39 % Unknown 35-47 F Ordering Physician UnknownLaboratory Yullqhw1009-98-87 05:08:00Identifier 44985- 6 Result Time 2019-04-24 05:08:00Unknown Test Item Value Reference Range Comments Unknown (test code = 2951-2) 137 mmol/L Unknown 135-145 F Ordering Physician UnknownLaboratory Almjgrg9571-18-16 05:08:00Identifier 43075- 6 Result Time 2019-04-24 05:08:00Unknown Test Item Value Reference Range Comments Unknown (test code = 2823-3) 3.9 mmol/L Unknown 3.5-5.0 F Ordering Physician UnknownLaboratory Qobmrcw7622-84-15 05:08:00Identifier 21286- 6 Result Time 2019-04-24 05:08:00Unknown Test Item Value Reference Range Comments Unknown (test code = 2345-7) 134 mg/dL Unknown 70-100 F Ordering Physician UnknownLaboratory Gkliedk7413-99-46 05:08:00Identifier 08742- 6 Result Time 2019-04-24 05:08:00Unknown Test Item Value Reference Range Comments Unknown (test code = 32402-6) 98.5 Unknown Unknown F Ordering Physician UnknownLaboratory Hsfwrqo1424-82-46 05:08:00Identifier 61813- 6 Result Time 2019-04-24 05:08:00Unknown Test Item Value Reference Range Comments Unknown (test code = NullTestCode) 119.2 Unknown Unknown F Ordering Physician UnknownLaboratory Yrpnvgz3549-90-37 05:08:00Identifier 09274- 6 Result Time 2019-04-24 05:08:00Unknown Test Item Value Reference Range Comments Unknown (test code = 2160-0) 0.63 mg/dL Unknown 0.51-0.95 F Ordering Physician UnknownLaboratory Fxidotk9390-41-02 05:08:00Identifier 52249- 6 Result Time 2019-04-24 05:08:00Unknown Test Item Value Reference Range Comments Unknown (test code = 2075-0) 101 mmol/L Unknown 101-111 F Ordering Physician UnknownLaboratory Czutckr4233-46-43 05:08:00Identifier 03797- 6 Result Time 2019-04-24 05:08:00Unknown Test Item Value Reference Range Comments Unknown (test code = 2028-9) 29 mmol/L Unknown 22-32 F Ordering Physician UnknownLaboratory Vfyjlis6995-69-93 05:08:00Identifier 38270- 6 Result Time 2019-04-24 05:08:00Unknown Test Item Value Reference Range Comments Unknown (test code = 23251-3) 8.9 mg/dL Unknown 8.6-10.3 F Ordering Physician UnknownLaboratory Mitldum8057-89-33 05:08:00Identifier 93875- 6 Result Time 2019-04-24 05:08:00Unknown Test Item Value Reference Range Comments Unknown (test code = 3094-0) 11 mg/dL Unknown 6-24 F Ordering Physician UnknownLaboratory Lmxksiu2099-92-55 05:08:00Identifier 14026- 6 Result Time 2019-04-24 05:08:00Unknown Test Item Value Reference Range Comments Unknown (test code = 3097-3) 17.5 Unknown 8-20 F Ordering Physician UnknownLaboratory Vsubehs0139-70-96 05:08:00Identifier 03046- 6 Result Time 2019-04-24 05:08:00Unknown Test Item Value Reference Range Comments Unknown (test code = 56214-2) 7 mmol/L Unknown 2-11 F Ordering Physician UnknownLaboratory Ujezfxb0930-55-06 10:07:00Identifier 25997- 6 Result Time 2019-04-23 10:07:00Unknown Test Item Value Reference Range Comments Unknown (test code = 2339-0) 114 mg/dL Unknown 70-100 F Ordering Physician UnknownLaboratory Myqayir2677-55-57 11:08:00Identifier 10802- 6 Result Time 2019-04-10 11:08:00Unknown Test Item Value Reference Range Comments Unknown (test code = 3016-3) 2.63 mcIU/mL Unknown 0.34-5.60 F Ordering Physician UnknownLaboratory Evcchzu4880-51-49 11:08:00Identifier 53492- 6 Result Time 2019-04-10 11:08:00Unknown Test Item Value Reference Range Comments Unknown (test code = 2571-8) 132 mg/dL Unknown Unknown F Ordering Physician UnknownLaboratory Dqpaazp1440-62-82 11:08:00Identifier 00534- 6 Result Time 2019-04-10 11:08:00Unknown Test Item Value Reference Range Comments Unknown (test code = 2089-1) 139 mg/dL Unknown Unknown F Ordering Physician UnknownLaboratory Bhjxekn4368-97-37 11:08:00Identifier 73864- 6 Result Time 2019-04-10 11:08:00Unknown Test Item Value Reference Range Comments Unknown (test code = 2085-9) 73.6 mg/dL Unknown Unknown F Ordering Physician UnknownLaboratory Gihxhor9238-32-69 11:08:00Identifier 84261- 6 Result Time 2019-04-10 11:08:00Unknown Test Item Value Reference Range Comments Unknown (test code = 2093-3) 239 mg/dL Unknown Unknown F Ordering Physician UnknownLaboratory Lcsxnva0766-37-45 11:08:00Identifier 14647- 6 Result Time 2019-04-10 11:08:00Unknown Test Item Value Reference Range Comments Unknown (test code = 2885-2) 7.3 g/dL Unknown 6.4-8.9 F Ordering Physician UnknownLaboratory Ljkcpuf0724-01-51 11:08:00Identifier 77380- 6 Result Time 2019-04-10 11:08:00Unknown Test Item Value Reference Range Comments Unknown (test code = 1975-2) 0.50 mg/dL Unknown 0.2-1.0 F Ordering Physician UnknownLaboratory Kaiwzcc8639-50-69 11:08:00Identifier 99687- 6 Result Time 2019-04-10 11:08:00Unknown Test Item Value Reference Range Comments Unknown (test code = NullTestCode) 2.8 g/dL Unknown 2-4 F Ordering Physician UnknownLaboratory Kzklfah6854-27-53 11:08:00Identifier 91676- 6 Result Time 2019-04-10 11:08:00Unknown Test Item Value Reference Range Comments Unknown (test code = 1920-8) 26 U/L Unknown 13-39 F Ordering Physician UnknownLaboratory Plwtzkv3545-35-87 11:08:00Identifier 36821- 6 Result Time 2019-04-10 11:08:00Unknown Test Item Value Reference Range Comments Unknown (test code = 6768-6) 88 U/L Unknown 34-104 F Ordering Physician UnknownLaboratory Vhmturn0325-32-67 11:08:00Identifier 34996- 6 Result Time 2019-04-10 11:08:00Unknown Test Item Value Reference Range Comments Unknown (test code = 1759-0) 1.6 Unknown 1-3 F Ordering Physician UnknownLaboratory Hhiziig7665-29-10 11:08:00Identifier 92673- 6 Result Time 2019-04-10 11:08:00Unknown Test Item Value Reference Range Comments Unknown (test code = 53410-6) 4.5 g/dL Unknown 3.2-5.2 F Ordering Physician UnknownLaboratory Cdgaorq6510-03-78 11:08:00Identifier 92008- 6 Result Time 2019-04-10 11:08:00Unknown Test Item Value Reference Range Comments Unknown (test code = 1742-6) 27 U/L Unknown 7-52 F Ordering Physician UnknownLaboratory Qvnbeza3580-63-11 11:08:00Identifier 17557- 6 Result Time 2019-04-10 11:08:00Unknown Test Item Value Reference Range Comments Unknown (test code = 96067-0) Unknown Unknown F Ordering Physician UnknownLaboratory Vuqttnr5665-62-15 11:08:00Identifier 01834- 6 Result Time 2019-04-10 11:08:00Unknown Test Item Value Reference Range Comments Unknown (test code = 2161-8) 69.86 mg/dL Unknown Unknown F Ordering Physician UnknownLaboratory Okjijze5141-35-48 11:08:00Identifier 38763- 6 Result Time 2019-04-10 11:08:00Unknown Test Item Value Reference Range Comments Unknown (test code = 16344-3) 0.99 Unknown 0.82-1.09 F Ordering Physician UnknownLaboratory Hzsszsj8995-66-09 11:08:00Identifier 47550- 6 Result Time 2019-04-10 11:08:00Unknown Test Item Value Reference Range Comments Unknown (test code = 07838-6) 30.8 seconds Unknown 26.0-36.3 F Ordering Physician UnknownLaboratory Tlrmmyx5491-37-12 11:08:00Identifier 28122- 6 Result Time 2019-04-10 11:08:00Unknown Test Item Value Reference Range Comments Unknown (test code = NullTestCode) 5.0 Unknown 5-9 F Ordering Physician UnknownLaboratory Lyualya7463-11-98 11:08:00Identifier 50589- 6 Result Time 2019-04-10 11:08:00Unknown Test Item Value Reference Range Comments Unknown (test code = 13682-2) 1.016 Unknown 1.010-1.030 F Ordering Physician UnknownLaboratory Nocxenq3602-94-67 11:08:00Identifier 69081- 6 Result Time 2019-04-10 11:08:00Unknown Test Item Value Reference Range Comments Unknown (test code = 03280-6) 7.4 10^3/uL Unknown 3.5-10.8 F Ordering Physician UnknownLaboratory Udldoip5087-98-43 11:08:00Identifier 19429- 6 Result Time 2019-04-10 11:08:00Unknown Test Item Value Reference Range Comments Unknown (test code = 788-0) 15 % Unknown 10.5-15 F Ordering Physician UnknownLaboratory Rdzgwlt0241-27-97 11:08:00Identifier 40638- 6 Result Time 2019-04-10 11:08:00Unknown Test Item Value Reference Range Comments Unknown (test code = 789-8) 5.16 10^6 /uL Unknown 3.70-4.87 F Ordering Physician UnknownLaboratory Mwzxbmh0635-53-71 11:08:00Identifier 34002- 6 Result Time 2019-04-10 11:08:00Unknown Test Item Value Reference Range Comments Unknown (test code = 42504-1) 0.3 Unknown Unknown F Ordering Physician UnknownLaboratory Tqenism0628-12-43 11:08:00Identifier 74232- 6 Result Time 2019-04-10 11:08:00Unknown Test Item Value Reference Range Comments Unknown (test code = 771-6) 0.0 10^3/ul Unknown Unknown F Ordering Physician UnknownLaboratory Genfedp6543-61-75 11:08:00Identifier 75609- 6 Result Time 2019-04-10 11:08:00Unknown Test Item Value Reference Range Comments Unknown (test code = 770-8) 68.3 % Unknown Unknown F Ordering Physician UnknownLaboratory Jearpnl0900-50-00 11:08:00Identifier 61689- 6 Result Time 2019-04-10 11:08:00Unknown Test Item Value Reference Range Comments Unknown (test code = 5905-5) 7.2 % Unknown Unknown F Ordering Physician UnknownLaboratory Dvfpxfz7069-12-69 11:08:00Identifier 84522- 6 Result Time 2019-04-10 11:08:00Unknown Test Item Value Reference Range Comments Unknown (test code = 787-2) 84 fL Unknown 80-97 F Ordering Physician UnknownLaboratory Jhlyqea7701-42-73 11:08:00Identifier 94184- 6 Result Time 2019-04-10 11:08:00Unknown Test Item Value Reference Range Comments Unknown (test code = 786-4) 33 g/dL Unknown 31-36 F Ordering Physician UnknownLaboratory Khryulk6628-43-49 11:08:00Identifier 60944- 6 Result Time 2019-04-10 11:08:00Unknown Test Item Value Reference Range Comments Unknown (test code = 785-6) 28 pg Unknown 27-31 F Ordering Physician UnknownLaboratory Qzdecnq7030-34-85 11:08:00Identifier 56691- 6 Result Time 2019-04-10 11:08:00Unknown Test Item Value Reference Range Comments Unknown (test code = 736-9) 21.7 % Unknown Unknown F Ordering Physician UnknownLaboratory Pqpgnso5489-57-00 11:08:00Identifier 83027- 6 Result Time 2019-04-10 11:08:00Unknown Test Item Value Reference Range Comments Unknown (test code = 713-8) 2.0 % Unknown Unknown F Ordering Physician UnknownLaboratory Qgkjnhr9514-49-13 11:08:00Identifier 56275- 6 Result Time 2019-04-10 11:08:00Unknown Test Item Value Reference Range Comments Unknown (test code = 706-2) 0.8 % Unknown Unknown F Ordering Physician UnknownLaboratory Diznksc7857-97-15 11:08:00Identifier 24876- 6 Result Time 2019-04-10 11:08:00Unknown Test Item Value Reference Range Comments Unknown (test code = 751-8) 5.1 10^3/ul Unknown 1.5-7.7 F Ordering Physician UnknownLaboratory Uiisyux7302-67-71 11:08:00Identifier 78318- 6 Result Time 2019-04-10 11:08:00Unknown Test Item Value Reference Range Comments Unknown (test code = 742-7) 0.5 10^3/ul Unknown 0-0.8 F Ordering Physician UnknownLaboratory Luwcnvk3499-85-24 11:08:00Identifier 15504- 6 Result Time 2019-04-10 11:08:00Unknown Test Item Value Reference Range Comments Unknown (test code = 731-0) 1.6 10^3/ul Unknown 1.0-4.8 F Ordering Physician UnknownLaboratory Pjuflxt3734-30-73 11:08:00Identifier 78037- 6 Result Time 2019-04-10 11:08:00Unknown Test Item Value Reference Range Comments Unknown (test code = 711-2) 0.2 10^3/ul Unknown 0-0.6 F Ordering Physician UnknownLaboratory Askvgoo1242-84-62 11:08:00Identifier 72802- 6 Result Time 2019-04-10 11:08:00Unknown Test Item Value Reference Range Comments Unknown (test code = 704-7) 0.1 10^3/ul Unknown 0-0.2 F Ordering Physician Unknown
--- OUTSIDE RECORDS SUMMARY | 2020-01-24 17:46 | XMS REPORT ---
:1965 Author Organization [facility] Care Team Providers Name Role Phone Unavailable [...] Result Comments Laboratory Studies 2019-04-25 05:49:00 Identifier [id number] Result Time Unknown 2019-04-25 05:49:00 Test Item Value Reference Range Comments Unknown (test code = 777-3) 187 10^3/uL Unknown 150-450 F Ordering Physician UnknownLaboratory Nnvbvhg3008-63-07 05:49:00Identifier 68847- 6 Result Time 2019-04-25 05:49:00Unknown Test Item Value Reference Range Comments Unknown (test code = 02748-1) 8.7 fL Unknown 7.4-10.4 F Ordering Physician UnknownLaboratory Humrlni6741-46-48 05:49:00Identifier 96442- 6 Result Time 2019-04-25 05:49:00Unknown Test Item Value Reference Range Comments Unknown (test code = 718-7) 12.7 g/dL Unknown 12.0-16.0 F Ordering Physician UnknownLaboratory Rlkgqte9462-65-46 05:49:00Identifier 76689- 6 Result Time 2019-04-25 05:49:00Unknown Test Item Value Reference Range Comments Unknown (test code = 4544-3) 39 % Unknown 35-47 F Ordering Physician UnknownLaboratory Bvxvsfz9136-79-14 05:08:00Identifier 96260- 6 Result Time 2019-04-24 05:08:00Unknown Test Item Value Reference Range Comments Unknown (test code = 2951-2) 137 mmol/L Unknown 135-145 F Ordering Physician UnknownLaboratory Athkbfd6508-16-53 05:08:00Identifier 20249- 6 Result Time 2019-04-24 05:08:00Unknown Test Item Value Reference Range Comments Unknown (test code = 2823-3) 3.9 mmol/L Unknown 3.5-5.0 F Ordering Physician UnknownLaboratory Hwioicc9817-72-82 05:08:00Identifier 26684- 6 Result Time 2019-04-24 05:08:00Unknown Test Item Value Reference Range Comments Unknown (test code = 2345-7) 134 mg/dL Unknown 70-100 F Ordering Physician UnknownLaboratory Rlfvvss0226-33-24 05:08:00Identifier 00371- 6 Result Time 2019-04-24 05:08:00Unknown Test Item Value Reference Range Comments Unknown (test code = 32330-7) 98.5 Unknown Unknown F Ordering Physician UnknownLaboratory Pfjivyj3628-85-88 05:08:00Identifier 72249- 6 Result Time 2019-04-24 05:08:00Unknown Test Item Value Reference Range Comments Unknown (test code = NullTestCode) 119.2 Unknown Unknown F Ordering Physician UnknownLaboratory Wxzrzjn7448-74-76 05:08:00Identifier 37502- 6 Result Time 2019-04-24 05:08:00Unknown Test Item Value Reference Range Comments Unknown (test code = 2160-0) 0.63 mg/dL Unknown 0.51-0.95 F Ordering Physician UnknownLaboratory Skqrvkk6210-90-42 05:08:00Identifier 99192- 6 Result Time 2019-04-24 05:08:00Unknown Test Item Value Reference Range Comments Unknown (test code = 2075-0) 101 mmol/L Unknown 101-111 F Ordering Physician UnknownLaboratory Udveyln1936-90-03 05:08:00Identifier 75333- 6 Result Time 2019-04-24 05:08:00Unknown Test Item Value Reference Range Comments Unknown (test code = 2028-9) 29 mmol/L Unknown 22-32 F Ordering Physician UnknownLaboratory Kfgumci5863-73-44 05:08:00Identifier 29321- 6 Result Time 2019-04-24 05:08:00Unknown Test Item Value Reference Range Comments Unknown (test code = 31900-2) 8.9 mg/dL Unknown 8.6-10.3 F Ordering Physician UnknownLaboratory Vahwmrx5145-65-71 05:08:00Identifier 95750- 6 Result Time 2019-04-24 05:08:00Unknown Test Item Value Reference Range Comments Unknown (test code = 3094-0) 11 mg/dL Unknown 6-24 F Ordering Physician UnknownLaboratory Qegabku4072-45-01 05:08:00Identifier 67771- 6 Result Time 2019-04-24 05:08:00Unknown Test Item Value Reference Range Comments Unknown (test code = 3097-3) 17.5 Unknown 8-20 F Ordering Physician UnknownLaboratory Gmiieeq1465-83-23 05:08:00Identifier 87064- 6 Result Time 2019-04-24 05:08:00Unknown Test Item Value Reference Range Comments Unknown (test code = 28183-3) 7 mmol/L Unknown 2-11 F Ordering Physician UnknownLaboratory Sssrqea3246-34-10 10:07:00Identifier 09296- 6 Result Time 2019-04-23 10:07:00Unknown Test Item Value Reference Range Comments Unknown (test code = 2339-0) 114 mg/dL Unknown 70-100 F Ordering Physician UnknownLaboratory Bzseoae2558-42-51 11:08:00Identifier 50065- 6 Result Time 2019-04-10 11:08:00Unknown Test Item Value Reference Range Comments Unknown (test code = 3016-3) 2.63 mcIU/mL Unknown 0.34-5.60 F Ordering Physician UnknownLaboratory Dkxhead2943-71-39 11:08:00Identifier 48838- 6 Result Time 2019-04-10 11:08:00Unknown Test Item Value Reference Range Comments Unknown (test code = 2571-8) 132 mg/dL Unknown Unknown F Ordering Physician UnknownLaboratory Gfiyavh0022-77-85 11:08:00Identifier 26723- 6 Result Time 2019-04-10 11:08:00Unknown Test Item Value Reference Range Comments Unknown (test code = 2089-1) 139 mg/dL Unknown Unknown F Ordering Physician UnknownLaboratory Ozziszf8355-90-92 11:08:00Identifier 95853- 6 Result Time 2019-04-10 11:08:00Unknown Test Item Value Reference Range Comments Unknown (test code = 2085-9) 73.6 mg/dL Unknown Unknown F Ordering Physician UnknownLaboratory Waljntw1985-33-84 11:08:00Identifier 27611- 6 Result Time 2019-04-10 11:08:00Unknown Test Item Value Reference Range Comments Unknown (test code = 2093-3) 239 mg/dL Unknown Unknown F Ordering Physician UnknownLaboratory Minrbcm7719-99-49 11:08:00Identifier 25269- 6 Result Time 2019-04-10 11:08:00Unknown Test Item Value Reference Range Comments Unknown (test code = 2885-2) 7.3 g/dL Unknown 6.4-8.9 F Ordering Physician UnknownLaboratory Rfqsuox2215-41-34 11:08:00Identifier 47343- 6 Result Time 2019-04-10 11:08:00Unknown Test Item Value Reference Range Comments Unknown (test code = 1975-2) 0.50 mg/dL Unknown 0.2-1.0 F Ordering Physician UnknownLaboratory Getqjwf4904-80-24 11:08:00Identifier 00559- 6 Result Time 2019-04-10 11:08:00Unknown Test Item Value Reference Range Comments Unknown (test code = NullTestCode) 2.8 g/dL Unknown 2-4 F Ordering Physician UnknownLaboratory Pjgwdsx2107-31-98 11:08:00Identifier 40011- 6 Result Time 2019-04-10 11:08:00Unknown Test Item Value Reference Range Comments Unknown (test code = 1920-8) 26 U/L Unknown 13-39 F Ordering Physician UnknownLaboratory Sirqjve6369-65-62 11:08:00Identifier 44493- 6 Result Time 2019-04-10 11:08:00Unknown Test Item Value Reference Range Comments Unknown (test code = 6768-6) 88 U/L Unknown 34-104 F Ordering Physician UnknownLaboratory Babmbhm4110-56-28 11:08:00Identifier 39449- 6 Result Time 2019-04-10 11:08:00Unknown Test Item Value Reference Range Comments Unknown (test code = 1759-0) 1.6 Unknown 1-3 F Ordering Physician UnknownLaboratory Crydypd4209-15-90 11:08:00Identifier 60693- 6 Result Time 2019-04-10 11:08:00Unknown Test Item Value Reference Range Comments Unknown (test code = 84530-7) 4.5 g/dL Unknown 3.2-5.2 F Ordering Physician UnknownLaboratory Hdqebss7384-09-26 11:08:00Identifier 39718- 6 Result Time 2019-04-10 11:08:00Unknown Test Item Value Reference Range Comments Unknown (test code = 1742-6) 27 U/L Unknown 7-52 F Ordering Physician UnknownLaboratory Ndqqfnu4323-64-80 11:08:00Identifier 31076- 6 Result Time 2019-04-10 11:08:00Unknown Test Item Value Reference Range Comments Unknown (test code = 57108-0) Unknown Unknown F Ordering Physician UnknownLaboratory Bwgsvnq7291-91-55 11:08:00Identifier 73966- 6 Result Time 2019-04-10 11:08:00Unknown Test Item Value Reference Range Comments Unknown (test code = 2161-8) 69.86 mg/dL Unknown Unknown F Ordering Physician UnknownLaboratory Syatdik0386-15-88 11:08:00Identifier 46459- 6 Result Time 2019-04-10 11:08:00Unknown Test Item Value Reference Range Comments Unknown (test code = 99498-6) 0.99 Unknown 0.82-1.09 F Ordering Physician UnknownLaboratory Siwnehb5789-92-61 11:08:00Identifier 65066- 6 Result Time 2019-04-10 11:08:00Unknown Test Item Value Reference Range Comments Unknown (test code = 02969-7) 30.8 seconds Unknown 26.0-36.3 F Ordering Physician UnknownLaboratory Tleahjd5551-44-96 11:08:00Identifier 15632- 6 Result Time 2019-04-10 11:08:00Unknown Test Item Value Reference Range Comments Unknown (test code = NullTestCode) 5.0 Unknown 5-9 F Ordering Physician UnknownLaboratory Hvybksl3222-39-73 11:08:00Identifier 52652- 6 Result Time 2019-04-10 11:08:00Unknown Test Item Value Reference Range Comments Unknown (test code = 90761-3) 1.016 Unknown 1.010-1.030 F Ordering Physician UnknownLaboratory Ljnnbxs0466-78-07 11:08:00Identifier 72813- 6 Result Time 2019-04-10 11:08:00Unknown Test Item Value Reference Range Comments Unknown (test code = 07012-5) 7.4 10^3/uL Unknown 3.5-10.8 F Ordering Physician UnknownLaboratory Oxgszdv9709-68-95 11:08:00Identifier 01940- 6 Result Time 2019-04-10 11:08:00Unknown Test Item Value Reference Range Comments Unknown (test code = 788-0) 15 % Unknown 10.5-15 F Ordering Physician UnknownLaboratory Tocensx0314-03-04 11:08:00Identifier 39061- 6 Result Time 2019-04-10 11:08:00Unknown Test Item Value Reference Range Comments Unknown (test code = 789-8) 5.16 10^6 /uL Unknown 3.70-4.87 F Ordering Physician UnknownLaboratory Tbkxfwh7630-58-73 11:08:00Identifier 71190- 6 Result Time 2019-04-10 11:08:00Unknown Test Item Value Reference Range Comments Unknown (test code = 32780-4) 0.3 Unknown Unknown F Ordering Physician UnknownLaboratory Yfkmebr0716-75-87 11:08:00Identifier 41090- 6 Result Time 2019-04-10 11:08:00Unknown Test Item Value Reference Range Comments Unknown (test code = 771-6) 0.0 10^3/ul Unknown Unknown F Ordering Physician UnknownLaboratory Fvwqzev7774-79-82 11:08:00Identifier 87565- 6 Result Time 2019-04-10 11:08:00Unknown Test Item Value Reference Range Comments Unknown (test code = 770-8) 68.3 % Unknown Unknown F Ordering Physician UnknownLaboratory Yjmlzsp3376-25-70 11:08:00Identifier 03596- 6 Result Time 2019-04-10 11:08:00Unknown Test Item Value Reference Range Comments Unknown (test code = 5905-5) 7.2 % Unknown Unknown F Ordering Physician UnknownLaboratory Uxdrsym4770-21-53 11:08:00Identifier 80712- 6 Result Time 2019-04-10 11:08:00Unknown Test Item Value Reference Range Comments Unknown (test code = 787-2) 84 fL Unknown 80-97 F Ordering Physician UnknownLaboratory Tpriifa4790-73-85 11:08:00Identifier 78832- 6 Result Time 2019-04-10 11:08:00Unknown Test Item Value Reference Range Comments Unknown (test code = 786-4) 33 g/dL Unknown 31-36 F Ordering Physician UnknownLaboratory Adavykp1001-72-72 11:08:00Identifier 00116- 6 Result Time 2019-04-10 11:08:00Unknown Test Item Value Reference Range Comments Unknown (test code = 785-6) 28 pg Unknown 27-31 F Ordering Physician UnknownLaboratory Gkwdjei1387-58-46 11:08:00Identifier 25085- 6 Result Time 2019-04-10 11:08:00Unknown Test Item Value Reference Range Comments Unknown (test code = 736-9) 21.7 % Unknown Unknown F Ordering Physician UnknownLaboratory Bniznwx3692-96-98 11:08:00Identifier 03702- 6 Result Time 2019-04-10 11:08:00Unknown Test Item Value Reference Range Comments Unknown (test code = 713-8) 2.0 % Unknown Unknown F Ordering Physician UnknownLaboratory Ktwvvbc7845-55-90 11:08:00Identifier 24040- 6 Result Time 2019-04-10 11:08:00Unknown Test Item Value Reference Range Comments Unknown (test code = 706-2) 0.8 % Unknown Unknown F Ordering Physician UnknownLaboratory Wiasmte1279-35-98 11:08:00Identifier 77133- 6 Result Time 2019-04-10 11:08:00Unknown Test Item Value Reference Range Comments Unknown (test code = 751-8) 5.1 10^3/ul Unknown 1.5-7.7 F Ordering Physician UnknownLaboratory Hwnsmie5231-13-50 11:08:00Identifier 34897- 6 Result Time 2019-04-10 11:08:00Unknown Test Item Value Reference Range Comments Unknown (test code = 742-7) 0.5 10^3/ul Unknown 0-0.8 F Ordering Physician UnknownLaboratory Bpffzll1914-85-84 11:08:00Identifier 52204- 6 Result Time 2019-04-10 11:08:00Unknown Test Item Value Reference Range Comments Unknown (test code = 731-0) 1.6 10^3/ul Unknown 1.0-4.8 F Ordering Physician UnknownLaboratory Moctodz3580-66-41 11:08:00Identifier 96731- 6 Result Time 2019-04-10 11:08:00Unknown Test Item Value Reference Range Comments Unknown (test code = 711-2) 0.2 10^3/ul Unknown 0-0.6 F Ordering Physician UnknownLaboratory Jolxhvv4312-50-79 11:08:00Identifier 60733- 6 Result Time 2019-04-10 11:08:00Unknown Test Item Value Reference Range Comments Unknown (test code = 704-7) 0.1 10^3/ul Unknown 0-0.2 F Ordering Physician Unknown
--- OUTSIDE RECORDS SUMMARY | 2020-01-24 17:46 | XMS REPORT ---
:1965 Author Organization [facility] Care Team Providers Name Role Phone Unavailable [...] Result Comments Laboratory Studies 2019-04-25 05:49:00 Identifier [id number] Result Time Unknown 2019-04-25 05:49:00 Test Item Value Reference Range Comments Unknown (test code = 777-3) 187 10^3/uL Unknown 150-450 F Ordering Physician UnknownLaboratory Uqktpuz6885-03-37 05:49:00Identifier 36163- 6 Result Time 2019-04-25 05:49:00Unknown Test Item Value Reference Range Comments Unknown (test code = 91016-1) 8.7 fL Unknown 7.4-10.4 F Ordering Physician UnknownLaboratory Gritegg3236-22-15 05:49:00Identifier 61481- 6 Result Time 2019-04-25 05:49:00Unknown Test Item Value Reference Range Comments Unknown (test code = 718-7) 12.7 g/dL Unknown 12.0-16.0 F Ordering Physician UnknownLaboratory Zspcwir6934-28-57 05:49:00Identifier 94824- 6 Result Time 2019-04-25 05:49:00Unknown Test Item Value Reference Range Comments Unknown (test code = 4544-3) 39 % Unknown 35-47 F Ordering Physician UnknownLaboratory Ptwqvym2128-67-22 05:08:00Identifier 20606- 6 Result Time 2019-04-24 05:08:00Unknown Test Item Value Reference Range Comments Unknown (test code = 2951-2) 137 mmol/L Unknown 135-145 F Ordering Physician UnknownLaboratory Lsbpuvd8583-88-32 05:08:00Identifier 50355- 6 Result Time 2019-04-24 05:08:00Unknown Test Item Value Reference Range Comments Unknown (test code = 2823-3) 3.9 mmol/L Unknown 3.5-5.0 F Ordering Physician UnknownLaboratory Dudvdmy3115-08-52 05:08:00Identifier 79227- 6 Result Time 2019-04-24 05:08:00Unknown Test Item Value Reference Range Comments Unknown (test code = 2345-7) 134 mg/dL Unknown 70-100 F Ordering Physician UnknownLaboratory Xmyufmi9259-44-51 05:08:00Identifier 62703- 6 Result Time 2019-04-24 05:08:00Unknown Test Item Value Reference Range Comments Unknown (test code = 82943-7) 98.5 Unknown Unknown F Ordering Physician UnknownLaboratory Lkathuu7782-30-62 05:08:00Identifier 82161- 6 Result Time 2019-04-24 05:08:00Unknown Test Item Value Reference Range Comments Unknown (test code = NullTestCode) 119.2 Unknown Unknown F Ordering Physician UnknownLaboratory Upqdhjy1661-76-71 05:08:00Identifier 26350- 6 Result Time 2019-04-24 05:08:00Unknown Test Item Value Reference Range Comments Unknown (test code = 2160-0) 0.63 mg/dL Unknown 0.51-0.95 F Ordering Physician UnknownLaboratory Iojfixt6221-40-74 05:08:00Identifier 89025- 6 Result Time 2019-04-24 05:08:00Unknown Test Item Value Reference Range Comments Unknown (test code = 2075-0) 101 mmol/L Unknown 101-111 F Ordering Physician UnknownLaboratory Nthfzti8510-40-96 05:08:00Identifier 78693- 6 Result Time 2019-04-24 05:08:00Unknown Test Item Value Reference Range Comments Unknown (test code = 2028-9) 29 mmol/L Unknown 22-32 F Ordering Physician UnknownLaboratory Vjdwwil9172-99-34 05:08:00Identifier 03042- 6 Result Time 2019-04-24 05:08:00Unknown Test Item Value Reference Range Comments Unknown (test code = 60913-9) 8.9 mg/dL Unknown 8.6-10.3 F Ordering Physician UnknownLaboratory Kqeyrnp6741-97-40 05:08:00Identifier 83914- 6 Result Time 2019-04-24 05:08:00Unknown Test Item Value Reference Range Comments Unknown (test code = 3094-0) 11 mg/dL Unknown 6-24 F Ordering Physician UnknownLaboratory Xxvfzxf9851-20-24 05:08:00Identifier 01887- 6 Result Time 2019-04-24 05:08:00Unknown Test Item Value Reference Range Comments Unknown (test code = 3097-3) 17.5 Unknown 8-20 F Ordering Physician UnknownLaboratory Mbnpuxb7596-36-06 05:08:00Identifier 01816- 6 Result Time 2019-04-24 05:08:00Unknown Test Item Value Reference Range Comments Unknown (test code = 77143-2) 7 mmol/L Unknown 2-11 F Ordering Physician UnknownLaboratory Wlstiuv6416-58-22 10:07:00Identifier 12897- 6 Result Time 2019-04-23 10:07:00Unknown Test Item Value Reference Range Comments Unknown (test code = 2339-0) 114 mg/dL Unknown 70-100 F Ordering Physician UnknownLaboratory Qzerdeh8388-80-97 11:08:00Identifier 20738- 6 Result Time 2019-04-10 11:08:00Unknown Test Item Value Reference Range Comments Unknown (test code = 3016-3) 2.63 mcIU/mL Unknown 0.34-5.60 F Ordering Physician UnknownLaboratory Cegvibi9579-31-16 11:08:00Identifier 71206- 6 Result Time 2019-04-10 11:08:00Unknown Test Item Value Reference Range Comments Unknown (test code = 2571-8) 132 mg/dL Unknown Unknown F Ordering Physician UnknownLaboratory Jebdncz4613-70-07 11:08:00Identifier 33740- 6 Result Time 2019-04-10 11:08:00Unknown Test Item Value Reference Range Comments Unknown (test code = 2089-1) 139 mg/dL Unknown Unknown F Ordering Physician UnknownLaboratory Bkqtedl8595-95-12 11:08:00Identifier 18098- 6 Result Time 2019-04-10 11:08:00Unknown Test Item Value Reference Range Comments Unknown (test code = 2085-9) 73.6 mg/dL Unknown Unknown F Ordering Physician UnknownLaboratory Xkahpiq5026-11-53 11:08:00Identifier 88919- 6 Result Time 2019-04-10 11:08:00Unknown Test Item Value Reference Range Comments Unknown (test code = 2093-3) 239 mg/dL Unknown Unknown F Ordering Physician UnknownLaboratory Ovadwae5559-06-07 11:08:00Identifier 35604- 6 Result Time 2019-04-10 11:08:00Unknown Test Item Value Reference Range Comments Unknown (test code = 2885-2) 7.3 g/dL Unknown 6.4-8.9 F Ordering Physician UnknownLaboratory Khvauqy9068-24-65 11:08:00Identifier 62915- 6 Result Time 2019-04-10 11:08:00Unknown Test Item Value Reference Range Comments Unknown (test code = 1975-2) 0.50 mg/dL Unknown 0.2-1.0 F Ordering Physician UnknownLaboratory Bizgmcf7962-89-11 11:08:00Identifier 57164- 6 Result Time 2019-04-10 11:08:00Unknown Test Item Value Reference Range Comments Unknown (test code = NullTestCode) 2.8 g/dL Unknown 2-4 F Ordering Physician UnknownLaboratory Gswtkjv8382-52-01 11:08:00Identifier 68042- 6 Result Time 2019-04-10 11:08:00Unknown Test Item Value Reference Range Comments Unknown (test code = 1920-8) 26 U/L Unknown 13-39 F Ordering Physician UnknownLaboratory Jptdzmk5118-39-13 11:08:00Identifier 15165- 6 Result Time 2019-04-10 11:08:00Unknown Test Item Value Reference Range Comments Unknown (test code = 6768-6) 88 U/L Unknown 34-104 F Ordering Physician UnknownLaboratory Srtngkq1562-35-55 11:08:00Identifier 06372- 6 Result Time 2019-04-10 11:08:00Unknown Test Item Value Reference Range Comments Unknown (test code = 1759-0) 1.6 Unknown 1-3 F Ordering Physician UnknownLaboratory Rdpwjzc0223-35-89 11:08:00Identifier 56932- 6 Result Time 2019-04-10 11:08:00Unknown Test Item Value Reference Range Comments Unknown (test code = 36721-2) 4.5 g/dL Unknown 3.2-5.2 F Ordering Physician UnknownLaboratory Fwxdjhl5648-26-83 11:08:00Identifier 64304- 6 Result Time 2019-04-10 11:08:00Unknown Test Item Value Reference Range Comments Unknown (test code = 1742-6) 27 U/L Unknown 7-52 F Ordering Physician UnknownLaboratory Qezrxec3742-08-50 11:08:00Identifier 50506- 6 Result Time 2019-04-10 11:08:00Unknown Test Item Value Reference Range Comments Unknown (test code = 47583-0) Unknown Unknown F Ordering Physician UnknownLaboratory Yukgwen8554-84-31 11:08:00Identifier 53339- 6 Result Time 2019-04-10 11:08:00Unknown Test Item Value Reference Range Comments Unknown (test code = 2161-8) 69.86 mg/dL Unknown Unknown F Ordering Physician UnknownLaboratory Ejrudaq9062-87-83 11:08:00Identifier 47485- 6 Result Time 2019-04-10 11:08:00Unknown Test Item Value Reference Range Comments Unknown (test code = 80628-2) 0.99 Unknown 0.82-1.09 F Ordering Physician UnknownLaboratory Xvopupk5172-55-79 11:08:00Identifier 14442- 6 Result Time 2019-04-10 11:08:00Unknown Test Item Value Reference Range Comments Unknown (test code = 81910-1) 30.8 seconds Unknown 26.0-36.3 F Ordering Physician UnknownLaboratory Jtkjwuo6545-94-55 11:08:00Identifier 64088- 6 Result Time 2019-04-10 11:08:00Unknown Test Item Value Reference Range Comments Unknown (test code = NullTestCode) 5.0 Unknown 5-9 F Ordering Physician UnknownLaboratory Phcvhxk4060-46-32 11:08:00Identifier 88911- 6 Result Time 2019-04-10 11:08:00Unknown Test Item Value Reference Range Comments Unknown (test code = 03406-7) 1.016 Unknown 1.010-1.030 F Ordering Physician UnknownLaboratory Gjagveh3735-26-76 11:08:00Identifier 26708- 6 Result Time 2019-04-10 11:08:00Unknown Test Item Value Reference Range Comments Unknown (test code = 56279-4) 7.4 10^3/uL Unknown 3.5-10.8 F Ordering Physician UnknownLaboratory Hfgqmtr3439-17-14 11:08:00Identifier 81268- 6 Result Time 2019-04-10 11:08:00Unknown Test Item Value Reference Range Comments Unknown (test code = 788-0) 15 % Unknown 10.5-15 F Ordering Physician UnknownLaboratory Yjgxdca4591-99-99 11:08:00Identifier 39995- 6 Result Time 2019-04-10 11:08:00Unknown Test Item Value Reference Range Comments Unknown (test code = 789-8) 5.16 10^6 /uL Unknown 3.70-4.87 F Ordering Physician UnknownLaboratory Vpbnpyq3511-40-36 11:08:00Identifier 74190- 6 Result Time 2019-04-10 11:08:00Unknown Test Item Value Reference Range Comments Unknown (test code = 04999-0) 0.3 Unknown Unknown F Ordering Physician UnknownLaboratory Jlpudkj4994-05-52 11:08:00Identifier 32996- 6 Result Time 2019-04-10 11:08:00Unknown Test Item Value Reference Range Comments Unknown (test code = 771-6) 0.0 10^3/ul Unknown Unknown F Ordering Physician UnknownLaboratory Dainvvh5513-18-01 11:08:00Identifier 74612- 6 Result Time 2019-04-10 11:08:00Unknown Test Item Value Reference Range Comments Unknown (test code = 770-8) 68.3 % Unknown Unknown F Ordering Physician UnknownLaboratory Hfzzgqc3047-18-52 11:08:00Identifier 10396- 6 Result Time 2019-04-10 11:08:00Unknown Test Item Value Reference Range Comments Unknown (test code = 5905-5) 7.2 % Unknown Unknown F Ordering Physician UnknownLaboratory Vcktnck5690-13-71 11:08:00Identifier 41555- 6 Result Time 2019-04-10 11:08:00Unknown Test Item Value Reference Range Comments Unknown (test code = 787-2) 84 fL Unknown 80-97 F Ordering Physician UnknownLaboratory Bbhvfel6903-23-73 11:08:00Identifier 73667- 6 Result Time 2019-04-10 11:08:00Unknown Test Item Value Reference Range Comments Unknown (test code = 786-4) 33 g/dL Unknown 31-36 F Ordering Physician UnknownLaboratory Tyavxyz9771-54-72 11:08:00Identifier 57177- 6 Result Time 2019-04-10 11:08:00Unknown Test Item Value Reference Range Comments Unknown (test code = 785-6) 28 pg Unknown 27-31 F Ordering Physician UnknownLaboratory Owbsmlm5590-94-18 11:08:00Identifier 95584- 6 Result Time 2019-04-10 11:08:00Unknown Test Item Value Reference Range Comments Unknown (test code = 736-9) 21.7 % Unknown Unknown F Ordering Physician UnknownLaboratory Owjafaj0583-52-99 11:08:00Identifier 97634- 6 Result Time 2019-04-10 11:08:00Unknown Test Item Value Reference Range Comments Unknown (test code = 713-8) 2.0 % Unknown Unknown F Ordering Physician UnknownLaboratory Zidbizp5889-15-83 11:08:00Identifier 70176- 6 Result Time 2019-04-10 11:08:00Unknown Test Item Value Reference Range Comments Unknown (test code = 706-2) 0.8 % Unknown Unknown F Ordering Physician UnknownLaboratory Zqcnpqr7577-20-80 11:08:00Identifier 80146- 6 Result Time 2019-04-10 11:08:00Unknown Test Item Value Reference Range Comments Unknown (test code = 751-8) 5.1 10^3/ul Unknown 1.5-7.7 F Ordering Physician UnknownLaboratory Qucmope7865-44-75 11:08:00Identifier 73503- 6 Result Time 2019-04-10 11:08:00Unknown Test Item Value Reference Range Comments Unknown (test code = 742-7) 0.5 10^3/ul Unknown 0-0.8 F Ordering Physician UnknownLaboratory Xlgbsgu7645-32-64 11:08:00Identifier 21688- 6 Result Time 2019-04-10 11:08:00Unknown Test Item Value Reference Range Comments Unknown (test code = 731-0) 1.6 10^3/ul Unknown 1.0-4.8 F Ordering Physician UnknownLaboratory Wbstflq0543-21-53 11:08:00Identifier 19474- 6 Result Time 2019-04-10 11:08:00Unknown Test Item Value Reference Range Comments Unknown (test code = 711-2) 0.2 10^3/ul Unknown 0-0.6 F Ordering Physician UnknownLaboratory Udqcysf5746-54-08 11:08:00Identifier 93617- 6 Result Time 2019-04-10 11:08:00Unknown Test Item Value Reference Range Comments Unknown (test code = 704-7) 0.1 10^3/ul Unknown 0-0.2 F Ordering Physician Unknown
--- OUTSIDE RECORDS SUMMARY | 2020-01-24 17:46 | XMS REPORT ---
:1965 Author Organization [facility] Care Team Providers Name Role Phone Unavailable [...] Result Comments Laboratory Studies 2019-04-25 05:49:00 Identifier [id number] Result Time Unknown 2019-04-25 05:49:00 Test Item Value Reference Range Comments Unknown (test code = 777-3) 187 10^3/uL Unknown 150-450 F Ordering Physician UnknownLaboratory Rvftitk8607-19-93 05:49:00Identifier 36047- 6 Result Time 2019-04-25 05:49:00Unknown Test Item Value Reference Range Comments Unknown (test code = 60637-5) 8.7 fL Unknown 7.4-10.4 F Ordering Physician UnknownLaboratory Bvlsmsf3528-29-38 05:49:00Identifier 01460- 6 Result Time 2019-04-25 05:49:00Unknown Test Item Value Reference Range Comments Unknown (test code = 718-7) 12.7 g/dL Unknown 12.0-16.0 F Ordering Physician UnknownLaboratory Eoqgjgv2388-10-42 05:49:00Identifier 16411- 6 Result Time 2019-04-25 05:49:00Unknown Test Item Value Reference Range Comments Unknown (test code = 4544-3) 39 % Unknown 35-47 F Ordering Physician UnknownLaboratory Izguqtz8019-88-23 05:08:00Identifier 47772- 6 Result Time 2019-04-24 05:08:00Unknown Test Item Value Reference Range Comments Unknown (test code = 2951-2) 137 mmol/L Unknown 135-145 F Ordering Physician UnknownLaboratory Oryhwar5439-19-25 05:08:00Identifier 14659- 6 Result Time 2019-04-24 05:08:00Unknown Test Item Value Reference Range Comments Unknown (test code = 2823-3) 3.9 mmol/L Unknown 3.5-5.0 F Ordering Physician UnknownLaboratory Toxwmub6388-40-42 05:08:00Identifier 32193- 6 Result Time 2019-04-24 05:08:00Unknown Test Item Value Reference Range Comments Unknown (test code = 2345-7) 134 mg/dL Unknown 70-100 F Ordering Physician UnknownLaboratory Mnelcjb4964-06-22 05:08:00Identifier 60679- 6 Result Time 2019-04-24 05:08:00Unknown Test Item Value Reference Range Comments Unknown (test code = 23010-8) 98.5 Unknown Unknown F Ordering Physician UnknownLaboratory Kzqrtpf9144-72-95 05:08:00Identifier 92087- 6 Result Time 2019-04-24 05:08:00Unknown Test Item Value Reference Range Comments Unknown (test code = NullTestCode) 119.2 Unknown Unknown F Ordering Physician UnknownLaboratory Vhzrqhd1255-81-46 05:08:00Identifier 67308- 6 Result Time 2019-04-24 05:08:00Unknown Test Item Value Reference Range Comments Unknown (test code = 2160-0) 0.63 mg/dL Unknown 0.51-0.95 F Ordering Physician UnknownLaboratory Nydmbfw4003-14-11 05:08:00Identifier 89431- 6 Result Time 2019-04-24 05:08:00Unknown Test Item Value Reference Range Comments Unknown (test code = 2075-0) 101 mmol/L Unknown 101-111 F Ordering Physician UnknownLaboratory Eyyyqwk0926-85-80 05:08:00Identifier 86289- 6 Result Time 2019-04-24 05:08:00Unknown Test Item Value Reference Range Comments Unknown (test code = 2028-9) 29 mmol/L Unknown 22-32 F Ordering Physician UnknownLaboratory Rswlynq5731-38-40 05:08:00Identifier 91224- 6 Result Time 2019-04-24 05:08:00Unknown Test Item Value Reference Range Comments Unknown (test code = 67891-1) 8.9 mg/dL Unknown 8.6-10.3 F Ordering Physician UnknownLaboratory Zaymlsw0593-50-22 05:08:00Identifier 41287- 6 Result Time 2019-04-24 05:08:00Unknown Test Item Value Reference Range Comments Unknown (test code = 3094-0) 11 mg/dL Unknown 6-24 F Ordering Physician UnknownLaboratory Qntjtnr9652-51-73 05:08:00Identifier 72452- 6 Result Time 2019-04-24 05:08:00Unknown Test Item Value Reference Range Comments Unknown (test code = 3097-3) 17.5 Unknown 8-20 F Ordering Physician UnknownLaboratory Rsuxfol9119-38-04 05:08:00Identifier 98032- 6 Result Time 2019-04-24 05:08:00Unknown Test Item Value Reference Range Comments Unknown (test code = 87675-1) 7 mmol/L Unknown 2-11 F Ordering Physician UnknownLaboratory Wfygqpi9502-63-90 10:07:00Identifier 28223- 6 Result Time 2019-04-23 10:07:00Unknown Test Item Value Reference Range Comments Unknown (test code = 2339-0) 114 mg/dL Unknown 70-100 F Ordering Physician UnknownLaboratory Wrljzwg4557-21-84 11:08:00Identifier 49925- 6 Result Time 2019-04-10 11:08:00Unknown Test Item Value Reference Range Comments Unknown (test code = 3016-3) 2.63 mcIU/mL Unknown 0.34-5.60 F Ordering Physician UnknownLaboratory Eooqfov5638-30-93 11:08:00Identifier 01435- 6 Result Time 2019-04-10 11:08:00Unknown Test Item Value Reference Range Comments Unknown (test code = 2571-8) 132 mg/dL Unknown Unknown F Ordering Physician UnknownLaboratory Eerxloo3509-50-18 11:08:00Identifier 36017- 6 Result Time 2019-04-10 11:08:00Unknown Test Item Value Reference Range Comments Unknown (test code = 2089-1) 139 mg/dL Unknown Unknown F Ordering Physician UnknownLaboratory Bcqbywq1712-77-24 11:08:00Identifier 88237- 6 Result Time 2019-04-10 11:08:00Unknown Test Item Value Reference Range Comments Unknown (test code = 2085-9) 73.6 mg/dL Unknown Unknown F Ordering Physician UnknownLaboratory Ycpodky9906-27-15 11:08:00Identifier 97768- 6 Result Time 2019-04-10 11:08:00Unknown Test Item Value Reference Range Comments Unknown (test code = 2093-3) 239 mg/dL Unknown Unknown F Ordering Physician UnknownLaboratory Zqjovib8874-98-69 11:08:00Identifier 61574- 6 Result Time 2019-04-10 11:08:00Unknown Test Item Value Reference Range Comments Unknown (test code = 2885-2) 7.3 g/dL Unknown 6.4-8.9 F Ordering Physician UnknownLaboratory Qgvchui0945-55-15 11:08:00Identifier 65356- 6 Result Time 2019-04-10 11:08:00Unknown Test Item Value Reference Range Comments Unknown (test code = 1975-2) 0.50 mg/dL Unknown 0.2-1.0 F Ordering Physician UnknownLaboratory Fjwjdnr7745-88-01 11:08:00Identifier 28472- 6 Result Time 2019-04-10 11:08:00Unknown Test Item Value Reference Range Comments Unknown (test code = NullTestCode) 2.8 g/dL Unknown 2-4 F Ordering Physician UnknownLaboratory Pwopznu0136-13-19 11:08:00Identifier 71142- 6 Result Time 2019-04-10 11:08:00Unknown Test Item Value Reference Range Comments Unknown (test code = 1920-8) 26 U/L Unknown 13-39 F Ordering Physician UnknownLaboratory Cawgwcd4856-34-05 11:08:00Identifier 76874- 6 Result Time 2019-04-10 11:08:00Unknown Test Item Value Reference Range Comments Unknown (test code = 6768-6) 88 U/L Unknown 34-104 F Ordering Physician UnknownLaboratory Ptxllmo3299-98-42 11:08:00Identifier 89607- 6 Result Time 2019-04-10 11:08:00Unknown Test Item Value Reference Range Comments Unknown (test code = 1759-0) 1.6 Unknown 1-3 F Ordering Physician UnknownLaboratory Juwssws1933-80-99 11:08:00Identifier 46805- 6 Result Time 2019-04-10 11:08:00Unknown Test Item Value Reference Range Comments Unknown (test code = 27550-2) 4.5 g/dL Unknown 3.2-5.2 F Ordering Physician UnknownLaboratory Cnzjnra1657-94-45 11:08:00Identifier 01914- 6 Result Time 2019-04-10 11:08:00Unknown Test Item Value Reference Range Comments Unknown (test code = 1742-6) 27 U/L Unknown 7-52 F Ordering Physician UnknownLaboratory Mjsmdhr4135-80-94 11:08:00Identifier 16002- 6 Result Time 2019-04-10 11:08:00Unknown Test Item Value Reference Range Comments Unknown (test code = 62840-7) Unknown Unknown F Ordering Physician UnknownLaboratory Tmpyzbb7746-02-10 11:08:00Identifier 71675- 6 Result Time 2019-04-10 11:08:00Unknown Test Item Value Reference Range Comments Unknown (test code = 2161-8) 69.86 mg/dL Unknown Unknown F Ordering Physician UnknownLaboratory Blcsfel6692-02-77 11:08:00Identifier 61807- 6 Result Time 2019-04-10 11:08:00Unknown Test Item Value Reference Range Comments Unknown (test code = 07990-0) 0.99 Unknown 0.82-1.09 F Ordering Physician UnknownLaboratory Sdjnevf8131-37-69 11:08:00Identifier 13606- 6 Result Time 2019-04-10 11:08:00Unknown Test Item Value Reference Range Comments Unknown (test code = 15443-3) 30.8 seconds Unknown 26.0-36.3 F Ordering Physician UnknownLaboratory Yerfvod7136-34-40 11:08:00Identifier 46422- 6 Result Time 2019-04-10 11:08:00Unknown Test Item Value Reference Range Comments Unknown (test code = NullTestCode) 5.0 Unknown 5-9 F Ordering Physician UnknownLaboratory Repxqld9061-04-58 11:08:00Identifier 32851- 6 Result Time 2019-04-10 11:08:00Unknown Test Item Value Reference Range Comments Unknown (test code = 53370-4) 1.016 Unknown 1.010-1.030 F Ordering Physician UnknownLaboratory Aifvbzg0903-90-79 11:08:00Identifier 00637- 6 Result Time 2019-04-10 11:08:00Unknown Test Item Value Reference Range Comments Unknown (test code = 82922-4) 7.4 10^3/uL Unknown 3.5-10.8 F Ordering Physician UnknownLaboratory Wexyocd7596-20-71 11:08:00Identifier 45206- 6 Result Time 2019-04-10 11:08:00Unknown Test Item Value Reference Range Comments Unknown (test code = 788-0) 15 % Unknown 10.5-15 F Ordering Physician UnknownLaboratory Lqdxdff9541-33-87 11:08:00Identifier 84729- 6 Result Time 2019-04-10 11:08:00Unknown Test Item Value Reference Range Comments Unknown (test code = 789-8) 5.16 10^6 /uL Unknown 3.70-4.87 F Ordering Physician UnknownLaboratory Tbdjjou2117-69-75 11:08:00Identifier 21193- 6 Result Time 2019-04-10 11:08:00Unknown Test Item Value Reference Range Comments Unknown (test code = 26306-0) 0.3 Unknown Unknown F Ordering Physician UnknownLaboratory Gipfxkx7979-81-20 11:08:00Identifier 71267- 6 Result Time 2019-04-10 11:08:00Unknown Test Item Value Reference Range Comments Unknown (test code = 771-6) 0.0 10^3/ul Unknown Unknown F Ordering Physician UnknownLaboratory Rbeajvn1948-33-23 11:08:00Identifier 21197- 6 Result Time 2019-04-10 11:08:00Unknown Test Item Value Reference Range Comments Unknown (test code = 770-8) 68.3 % Unknown Unknown F Ordering Physician UnknownLaboratory Nslrnej1977-93-84 11:08:00Identifier 86992- 6 Result Time 2019-04-10 11:08:00Unknown Test Item Value Reference Range Comments Unknown (test code = 5905-5) 7.2 % Unknown Unknown F Ordering Physician UnknownLaboratory Ontiduk2295-05-88 11:08:00Identifier 47392- 6 Result Time 2019-04-10 11:08:00Unknown Test Item Value Reference Range Comments Unknown (test code = 787-2) 84 fL Unknown 80-97 F Ordering Physician UnknownLaboratory Gjauewq3396-56-14 11:08:00Identifier 95498- 6 Result Time 2019-04-10 11:08:00Unknown Test Item Value Reference Range Comments Unknown (test code = 786-4) 33 g/dL Unknown 31-36 F Ordering Physician UnknownLaboratory Pfklyjs3503-75-25 11:08:00Identifier 43318- 6 Result Time 2019-04-10 11:08:00Unknown Test Item Value Reference Range Comments Unknown (test code = 785-6) 28 pg Unknown 27-31 F Ordering Physician UnknownLaboratory Iyfihwx8321-24-08 11:08:00Identifier 25487- 6 Result Time 2019-04-10 11:08:00Unknown Test Item Value Reference Range Comments Unknown (test code = 736-9) 21.7 % Unknown Unknown F Ordering Physician UnknownLaboratory Gfqpgpq3800-85-79 11:08:00Identifier 27759- 6 Result Time 2019-04-10 11:08:00Unknown Test Item Value Reference Range Comments Unknown (test code = 713-8) 2.0 % Unknown Unknown F Ordering Physician UnknownLaboratory Jriaphr7884-20-77 11:08:00Identifier 69392- 6 Result Time 2019-04-10 11:08:00Unknown Test Item Value Reference Range Comments Unknown (test code = 706-2) 0.8 % Unknown Unknown F Ordering Physician UnknownLaboratory Rvlgblr2343-64-36 11:08:00Identifier 09020- 6 Result Time 2019-04-10 11:08:00Unknown Test Item Value Reference Range Comments Unknown (test code = 751-8) 5.1 10^3/ul Unknown 1.5-7.7 F Ordering Physician UnknownLaboratory Xbxhtkz8096-02-98 11:08:00Identifier 25861- 6 Result Time 2019-04-10 11:08:00Unknown Test Item Value Reference Range Comments Unknown (test code = 742-7) 0.5 10^3/ul Unknown 0-0.8 F Ordering Physician UnknownLaboratory Hhvmhey0529-16-87 11:08:00Identifier 98008- 6 Result Time 2019-04-10 11:08:00Unknown Test Item Value Reference Range Comments Unknown (test code = 731-0) 1.6 10^3/ul Unknown 1.0-4.8 F Ordering Physician UnknownLaboratory Msftfqn7340-75-46 11:08:00Identifier 01334- 6 Result Time 2019-04-10 11:08:00Unknown Test Item Value Reference Range Comments Unknown (test code = 711-2) 0.2 10^3/ul Unknown 0-0.6 F Ordering Physician UnknownLaboratory Vcsjaid9193-38-31 11:08:00Identifier 65246- 6 Result Time 2019-04-10 11:08:00Unknown Test Item Value Reference Range Comments Unknown (test code = 704-7) 0.1 10^3/ul Unknown 0-0.2 F Ordering Physician Unknown
--- OUTSIDE RECORDS SUMMARY | 2020-01-24 17:46 | XMS REPORT ---
:1965 Author Organization [facility] Care Team Providers Name Role Phone Unavailable [...] 2017-11 No Unknown Unknown Unknown Hcl Hcl 12-22 Multivitami Multivitami No Unknown Unknown Unknown n [...] Result Comments Laboratory Studies 2019-04-25 05:49:00 Identifier [id number] Result Time Unknown 2019-04-25 05:49:00 Test Item Value Reference Range Comments Unknown (test code = 777-3) 187 10^3/uL Unknown 150-450 F Ordering Physician UnknownLaboratory Mjftlxh2877-09-98 05:49:00Identifier 10677- 6 Result Time 2019-04-25 05:49:00Unknown Test Item Value Reference Range Comments Unknown (test code = 47796-2) 8.7 fL Unknown 7.4-10.4 F Ordering Physician UnknownLaboratory Nstuoib1763-92-80 05:49:00Identifier 51644- 6 Result Time 2019-04-25 05:49:00Unknown Test Item Value Reference Range Comments Unknown (test code = 718-7) 12.7 g/dL Unknown 12.0-16.0 F Ordering Physician UnknownLaboratory Bgcbbpr7310-58-57 05:49:00Identifier 72427- 6 Result Time 2019-04-25 05:49:00Unknown Test Item Value Reference Range Comments Unknown (test code = 4544-3) 39 % Unknown 35-47 F Ordering Physician UnknownLaboratory Cjibjdm1932-23-93 05:08:00Identifier 38463- 6 Result Time 2019-04-24 05:08:00Unknown Test Item Value Reference Range Comments Unknown (test code = 2951-2) 137 mmol/L Unknown 135-145 F Ordering Physician UnknownLaboratory Xlglaba4455-83-80 05:08:00Identifier 01533- 6 Result Time 2019-04-24 05:08:00Unknown Test Item Value Reference Range Comments Unknown (test code = 2823-3) 3.9 mmol/L Unknown 3.5-5.0 F Ordering Physician UnknownLaboratory Xreozab5777-21-32 05:08:00Identifier 81051- 6 Result Time 2019-04-24 05:08:00Unknown Test Item Value Reference Range Comments Unknown (test code = 2345-7) 134 mg/dL Unknown 70-100 F Ordering Physician UnknownLaboratory Otaemsm5978-75-43 05:08:00Identifier 72977- 6 Result Time 2019-04-24 05:08:00Unknown Test Item Value Reference Range Comments Unknown (test code = 95976-8) 98.5 Unknown Unknown F Ordering Physician UnknownLaboratory Wzmyfum1074-17-16 05:08:00Identifier 40237- 6 Result Time 2019-04-24 05:08:00Unknown Test Item Value Reference Range Comments Unknown (test code = NullTestCode) 119.2 Unknown Unknown F Ordering Physician UnknownLaboratory Tixtjns4768-33-40 05:08:00Identifier 95616- 6 Result Time 2019-04-24 05:08:00Unknown Test Item Value Reference Range Comments Unknown (test code = 2160-0) 0.63 mg/dL Unknown 0.51-0.95 F Ordering Physician UnknownLaboratory Eozcgot1299-37-27 05:08:00Identifier 84085- 6 Result Time 2019-04-24 05:08:00Unknown Test Item Value Reference Range Comments Unknown (test code = 2075-0) 101 mmol/L Unknown 101-111 F Ordering Physician UnknownLaboratory Cqdcwut8462-92-07 05:08:00Identifier 97256- 6 Result Time 2019-04-24 05:08:00Unknown Test Item Value Reference Range Comments Unknown (test code = 2028-9) 29 mmol/L Unknown 22-32 F Ordering Physician UnknownLaboratory Hftswhh3480-35-96 05:08:00Identifier 44117- 6 Result Time 2019-04-24 05:08:00Unknown Test Item Value Reference Range Comments Unknown (test code = 52858-7) 8.9 mg/dL Unknown 8.6-10.3 F Ordering Physician UnknownLaboratory Rnkllxi1740-94-58 05:08:00Identifier 48568- 6 Result Time 2019-04-24 05:08:00Unknown Test Item Value Reference Range Comments Unknown (test code = 3094-0) 11 mg/dL Unknown 6-24 F Ordering Physician UnknownLaboratory Ebjqmeh6757-34-47 05:08:00Identifier 58509- 6 Result Time 2019-04-24 05:08:00Unknown Test Item Value Reference Range Comments Unknown (test code = 3097-3) 17.5 Unknown 8-20 F Ordering Physician UnknownLaboratory Opgjvae3753-10-79 05:08:00Identifier 18597- 6 Result Time 2019-04-24 05:08:00Unknown Test Item Value Reference Range Comments Unknown (test code = 09677-4) 7 mmol/L Unknown 2-11 F Ordering Physician UnknownLaboratory Mnjnqpv7823-28-22 10:07:00Identifier 00692- 6 Result Time 2019-04-23 10:07:00Unknown Test Item Value Reference Range Comments Unknown (test code = 2339-0) 114 mg/dL Unknown 70-100 F Ordering Physician UnknownLaboratory Icizvil7945-12-16 11:08:00Identifier 90918- 6 Result Time 2019-04-10 11:08:00Unknown Test Item Value Reference Range Comments Unknown (test code = 3016-3) 2.63 mcIU/mL Unknown 0.34-5.60 F Ordering Physician UnknownLaboratory Zdqkayk1514-31-66 11:08:00Identifier 42758- 6 Result Time 2019-04-10 11:08:00Unknown Test Item Value Reference Range Comments Unknown (test code = 2571-8) 132 mg/dL Unknown Unknown F Ordering Physician UnknownLaboratory Rcrpept2962-06-18 11:08:00Identifier 65500- 6 Result Time 2019-04-10 11:08:00Unknown Test Item Value Reference Range Comments Unknown (test code = 2089-1) 139 mg/dL Unknown Unknown F Ordering Physician UnknownLaboratory Hpxwnhc5139-52-34 11:08:00Identifier 47847- 6 Result Time 2019-04-10 11:08:00Unknown Test Item Value Reference Range Comments Unknown (test code = 2085-9) 73.6 mg/dL Unknown Unknown F Ordering Physician UnknownLaboratory Qtlavmi7278-17-62 11:08:00Identifier 57966- 6 Result Time 2019-04-10 11:08:00Unknown Test Item Value Reference Range Comments Unknown (test code = 2093-3) 239 mg/dL Unknown Unknown F Ordering Physician UnknownLaboratory Egjmklt1270-39-45 11:08:00Identifier 66328- 6 Result Time 2019-04-10 11:08:00Unknown Test Item Value Reference Range Comments Unknown (test code = 2885-2) 7.3 g/dL Unknown 6.4-8.9 F Ordering Physician UnknownLaboratory Syfdeyy8938-33-60 11:08:00Identifier 05983- 6 Result Time 2019-04-10 11:08:00Unknown Test Item Value Reference Range Comments Unknown (test code = 1975-2) 0.50 mg/dL Unknown 0.2-1.0 F Ordering Physician UnknownLaboratory Dregtxg6125-25-02 11:08:00Identifier 10568- 6 Result Time 2019-04-10 11:08:00Unknown Test Item Value Reference Range Comments Unknown (test code = NullTestCode) 2.8 g/dL Unknown 2-4 F Ordering Physician UnknownLaboratory Exrubsr4844-46-09 11:08:00Identifier 50302- 6 Result Time 2019-04-10 11:08:00Unknown Test Item Value Reference Range Comments Unknown (test code = 1920-8) 26 U/L Unknown 13-39 F Ordering Physician UnknownLaboratory Ebivdij6501-14-60 11:08:00Identifier 44639- 6 Result Time 2019-04-10 11:08:00Unknown Test Item Value Reference Range Comments Unknown (test code = 6768-6) 88 U/L Unknown 34-104 F Ordering Physician UnknownLaboratory Vnrxzoi9801-68-47 11:08:00Identifier 64725- 6 Result Time 2019-04-10 11:08:00Unknown Test Item Value Reference Range Comments Unknown (test code = 1759-0) 1.6 Unknown 1-3 F Ordering Physician UnknownLaboratory Bmgwwmn1980-79-90 11:08:00Identifier 23907- 6 Result Time 2019-04-10 11:08:00Unknown Test Item Value Reference Range Comments Unknown (test code = 09505-4) 4.5 g/dL Unknown 3.2-5.2 F Ordering Physician UnknownLaboratory Zqsdmem9869-20-21 11:08:00Identifier 44662- 6 Result Time 2019-04-10 11:08:00Unknown Test Item Value Reference Range Comments Unknown (test code = 1742-6) 27 U/L Unknown 7-52 F Ordering Physician UnknownLaboratory Huudrna6898-96-59 11:08:00Identifier 76566- 6 Result Time 2019-04-10 11:08:00Unknown Test Item Value Reference Range Comments Unknown (test code = 63731-9) Unknown Unknown F Ordering Physician UnknownLaboratory Aamzgna9938-14-61 11:08:00Identifier 57640- 6 Result Time 2019-04-10 11:08:00Unknown Test Item Value Reference Range Comments Unknown (test code = 2161-8) 69.86 mg/dL Unknown Unknown F Ordering Physician UnknownLaboratory Hbflgih3491-77-74 11:08:00Identifier 66462- 6 Result Time 2019-04-10 11:08:00Unknown Test Item Value Reference Range Comments Unknown (test code = 49622-7) 0.99 Unknown 0.82-1.09 F Ordering Physician UnknownLaboratory Ydvpztc0543-43-01 11:08:00Identifier 76289- 6 Result Time 2019-04-10 11:08:00Unknown Test Item Value Reference Range Comments Unknown (test code = 85939-5) 30.8 seconds Unknown 26.0-36.3 F Ordering Physician UnknownLaboratory Fbfaxix7711-35-48 11:08:00Identifier 15894- 6 Result Time 2019-04-10 11:08:00Unknown Test Item Value Reference Range Comments Unknown (test code = NullTestCode) 5.0 Unknown 5-9 F Ordering Physician UnknownLaboratory Gwjxrjg8299-02-73 11:08:00Identifier 94130- 6 Result Time 2019-04-10 11:08:00Unknown Test Item Value Reference Range Comments Unknown (test code = 44419-5) 1.016 Unknown 1.010-1.030 F Ordering Physician UnknownLaboratory Bttmggi2491-92-08 11:08:00Identifier 23796- 6 Result Time 2019-04-10 11:08:00Unknown Test Item Value Reference Range Comments Unknown (test code = 11516-5) 7.4 10^3/uL Unknown 3.5-10.8 F Ordering Physician UnknownLaboratory Lyxszjz1540-63-14 11:08:00Identifier 08230- 6 Result Time 2019-04-10 11:08:00Unknown Test Item Value Reference Range Comments Unknown (test code = 788-0) 15 % Unknown 10.5-15 F Ordering Physician UnknownLaboratory Vmeqnga7755-43-94 11:08:00Identifier 16112- 6 Result Time 2019-04-10 11:08:00Unknown Test Item Value Reference Range Comments Unknown (test code = 789-8) 5.16 10^6 /uL Unknown 3.70-4.87 F Ordering Physician UnknownLaboratory Fiyxhxh0274-73-67 11:08:00Identifier 75489- 6 Result Time 2019-04-10 11:08:00Unknown Test Item Value Reference Range Comments Unknown (test code = 93198-0) 0.3 Unknown Unknown F Ordering Physician UnknownLaboratory Sunottq1420-39-41 11:08:00Identifier 94632- 6 Result Time 2019-04-10 11:08:00Unknown Test Item Value Reference Range Comments Unknown (test code = 771-6) 0.0 10^3/ul Unknown Unknown F Ordering Physician UnknownLaboratory Sruogrh0394-36-01 11:08:00Identifier 94616- 6 Result Time 2019-04-10 11:08:00Unknown Test Item Value Reference Range Comments Unknown (test code = 770-8) 68.3 % Unknown Unknown F Ordering Physician UnknownLaboratory Zazzzva3019-78-87 11:08:00Identifier 61974- 6 Result Time 2019-04-10 11:08:00Unknown Test Item Value Reference Range Comments Unknown (test code = 5905-5) 7.2 % Unknown Unknown F Ordering Physician UnknownLaboratory Vkuhlik9965-98-57 11:08:00Identifier 95084- 6 Result Time 2019-04-10 11:08:00Unknown Test Item Value Reference Range Comments Unknown (test code = 787-2) 84 fL Unknown 80-97 F Ordering Physician UnknownLaboratory Tfyinuq2479-40-66 11:08:00Identifier 28729- 6 Result Time 2019-04-10 11:08:00Unknown Test Item Value Reference Range Comments Unknown (test code = 786-4) 33 g/dL Unknown 31-36 F Ordering Physician UnknownLaboratory Hzoqoky8201-21-49 11:08:00Identifier 25888- 6 Result Time 2019-04-10 11:08:00Unknown Test Item Value Reference Range Comments Unknown (test code = 785-6) 28 pg Unknown 27-31 F Ordering Physician UnknownLaboratory Jtxoybd0952-89-67 11:08:00Identifier 57282- 6 Result Time 2019-04-10 11:08:00Unknown Test Item Value Reference Range Comments Unknown (test code = 736-9) 21.7 % Unknown Unknown F Ordering Physician UnknownLaboratory Eaohilr1748-27-22 11:08:00Identifier 76234- 6 Result Time 2019-04-10 11:08:00Unknown Test Item Value Reference Range Comments Unknown (test code = 713-8) 2.0 % Unknown Unknown F Ordering Physician UnknownLaboratory Hbjwfhx4241-14-56 11:08:00Identifier 26400- 6 Result Time 2019-04-10 11:08:00Unknown Test Item Value Reference Range Comments Unknown (test code = 706-2) 0.8 % Unknown Unknown F Ordering Physician UnknownLaboratory Jmlmznr3255-25-41 11:08:00Identifier 20226- 6 Result Time 2019-04-10 11:08:00Unknown Test Item Value Reference Range Comments Unknown (test code = 751-8) 5.1 10^3/ul Unknown 1.5-7.7 F Ordering Physician UnknownLaboratory Vewsksn1370-91-12 11:08:00Identifier 33604- 6 Result Time 2019-04-10 11:08:00Unknown Test Item Value Reference Range Comments Unknown (test code = 742-7) 0.5 10^3/ul Unknown 0-0.8 F Ordering Physician UnknownLaboratory Syudwed6778-29-41 11:08:00Identifier 89641- 6 Result Time 2019-04-10 11:08:00Unknown Test Item Value Reference Range Comments Unknown (test code = 731-0) 1.6 10^3/ul Unknown 1.0-4.8 F Ordering Physician UnknownLaboratory Pbeqvyg0723-93-82 11:08:00Identifier 59005- 6 Result Time 2019-04-10 11:08:00Unknown Test Item Value Reference Range Comments Unknown (test code = 711-2) 0.2 10^3/ul Unknown 0-0.6 F Ordering Physician UnknownLaboratory Wtfmeia9331-88-39 11:08:00Identifier 37347- 6 Result Time 2019-04-10 11:08:00Unknown Test Item Value Reference Range Comments Unknown (test code = 704-7) 0.1 10^3/ul Unknown 0-0.2 F Ordering Physician Unknown
--- OUTSIDE RECORDS SUMMARY | 2020-01-24 17:46 | XMS REPORT ---
:1965 Author Organization [facility] Care Team Providers Name Role Phone Unavailable [...] Result Comments Laboratory Studies 2019-04-25 05:49:00 Identifier [id number] Result Time Unknown 2019-04-25 05:49:00 Test Item Value Reference Range Comments Unknown (test code = 777-3) 187 10^3/uL Unknown 150-450 F Ordering Physician UnknownLaboratory Giuvssg6901-61-13 05:49:00Identifier 38731- 6 Result Time 2019-04-25 05:49:00Unknown Test Item Value Reference Range Comments Unknown (test code = 11405-8) 8.7 fL Unknown 7.4-10.4 F Ordering Physician UnknownLaboratory Bjnwxvi5665-26-50 05:49:00Identifier 23317- 6 Result Time 2019-04-25 05:49:00Unknown Test Item Value Reference Range Comments Unknown (test code = 718-7) 12.7 g/dL Unknown 12.0-16.0 F Ordering Physician UnknownLaboratory Ndxebux4365-15-27 05:49:00Identifier 36099- 6 Result Time 2019-04-25 05:49:00Unknown Test Item Value Reference Range Comments Unknown (test code = 4544-3) 39 % Unknown 35-47 F Ordering Physician UnknownLaboratory Lzsufgz2988-62-14 05:08:00Identifier 81901- 6 Result Time 2019-04-24 05:08:00Unknown Test Item Value Reference Range Comments Unknown (test code = 2951-2) 137 mmol/L Unknown 135-145 F Ordering Physician UnknownLaboratory Mvwmqus6801-03-06 05:08:00Identifier 17039- 6 Result Time 2019-04-24 05:08:00Unknown Test Item Value Reference Range Comments Unknown (test code = 2823-3) 3.9 mmol/L Unknown 3.5-5.0 F Ordering Physician UnknownLaboratory Oarhfgh6809-32-69 05:08:00Identifier 93737- 6 Result Time 2019-04-24 05:08:00Unknown Test Item Value Reference Range Comments Unknown (test code = 2345-7) 134 mg/dL Unknown 70-100 F Ordering Physician UnknownLaboratory Qelhwgw0869-67-51 05:08:00Identifier 72593- 6 Result Time 2019-04-24 05:08:00Unknown Test Item Value Reference Range Comments Unknown (test code = 42642-4) 98.5 Unknown Unknown F Ordering Physician UnknownLaboratory Chpmtjq9509-21-83 05:08:00Identifier 41352- 6 Result Time 2019-04-24 05:08:00Unknown Test Item Value Reference Range Comments Unknown (test code = NullTestCode) 119.2 Unknown Unknown F Ordering Physician UnknownLaboratory Yxvsmfz2826-97-17 05:08:00Identifier 10063- 6 Result Time 2019-04-24 05:08:00Unknown Test Item Value Reference Range Comments Unknown (test code = 2160-0) 0.63 mg/dL Unknown 0.51-0.95 F Ordering Physician UnknownLaboratory Qhlgwtb5894-55-85 05:08:00Identifier 64238- 6 Result Time 2019-04-24 05:08:00Unknown Test Item Value Reference Range Comments Unknown (test code = 2075-0) 101 mmol/L Unknown 101-111 F Ordering Physician UnknownLaboratory Rmpgmum1110-68-66 05:08:00Identifier 11758- 6 Result Time 2019-04-24 05:08:00Unknown Test Item Value Reference Range Comments Unknown (test code = 2028-9) 29 mmol/L Unknown 22-32 F Ordering Physician UnknownLaboratory Lffcgau8356-49-28 05:08:00Identifier 63032- 6 Result Time 2019-04-24 05:08:00Unknown Test Item Value Reference Range Comments Unknown (test code = 57932-6) 8.9 mg/dL Unknown 8.6-10.3 F Ordering Physician UnknownLaboratory Ysyibdt1737-59-82 05:08:00Identifier 21077- 6 Result Time 2019-04-24 05:08:00Unknown Test Item Value Reference Range Comments Unknown (test code = 3094-0) 11 mg/dL Unknown 6-24 F Ordering Physician UnknownLaboratory Cjudcga9127-70-83 05:08:00Identifier 26259- 6 Result Time 2019-04-24 05:08:00Unknown Test Item Value Reference Range Comments Unknown (test code = 3097-3) 17.5 Unknown 8-20 F Ordering Physician UnknownLaboratory Kozcelo6043-23-40 05:08:00Identifier 64995- 6 Result Time 2019-04-24 05:08:00Unknown Test Item Value Reference Range Comments Unknown (test code = 69266-8) 7 mmol/L Unknown 2-11 F Ordering Physician UnknownLaboratory Cigtgwk0875-30-61 10:07:00Identifier 40087- 6 Result Time 2019-04-23 10:07:00Unknown Test Item Value Reference Range Comments Unknown (test code = 2339-0) 114 mg/dL Unknown 70-100 F Ordering Physician UnknownLaboratory Ltsryxm7313-82-23 11:08:00Identifier 83597- 6 Result Time 2019-04-10 11:08:00Unknown Test Item Value Reference Range Comments Unknown (test code = 3016-3) 2.63 mcIU/mL Unknown 0.34-5.60 F Ordering Physician UnknownLaboratory Rwvmgha0997-06-85 11:08:00Identifier 15377- 6 Result Time 2019-04-10 11:08:00Unknown Test Item Value Reference Range Comments Unknown (test code = 2571-8) 132 mg/dL Unknown Unknown F Ordering Physician UnknownLaboratory Mkdkfxm2074-38-95 11:08:00Identifier 87938- 6 Result Time 2019-04-10 11:08:00Unknown Test Item Value Reference Range Comments Unknown (test code = 2089-1) 139 mg/dL Unknown Unknown F Ordering Physician UnknownLaboratory Rfrjdqo1580-74-38 11:08:00Identifier 37845- 6 Result Time 2019-04-10 11:08:00Unknown Test Item Value Reference Range Comments Unknown (test code = 2085-9) 73.6 mg/dL Unknown Unknown F Ordering Physician UnknownLaboratory Dkdssvh8040-02-21 11:08:00Identifier 54344- 6 Result Time 2019-04-10 11:08:00Unknown Test Item Value Reference Range Comments Unknown (test code = 2093-3) 239 mg/dL Unknown Unknown F Ordering Physician UnknownLaboratory Ugrvxtr6421-72-43 11:08:00Identifier 19814- 6 Result Time 2019-04-10 11:08:00Unknown Test Item Value Reference Range Comments Unknown (test code = 2885-2) 7.3 g/dL Unknown 6.4-8.9 F Ordering Physician UnknownLaboratory Yzubomf2738-58-24 11:08:00Identifier 33978- 6 Result Time 2019-04-10 11:08:00Unknown Test Item Value Reference Range Comments Unknown (test code = 1975-2) 0.50 mg/dL Unknown 0.2-1.0 F Ordering Physician UnknownLaboratory Jrfyvky3997-30-11 11:08:00Identifier 36446- 6 Result Time 2019-04-10 11:08:00Unknown Test Item Value Reference Range Comments Unknown (test code = NullTestCode) 2.8 g/dL Unknown 2-4 F Ordering Physician UnknownLaboratory Nxiytki1510-07-32 11:08:00Identifier 17422- 6 Result Time 2019-04-10 11:08:00Unknown Test Item Value Reference Range Comments Unknown (test code = 1920-8) 26 U/L Unknown 13-39 F Ordering Physician UnknownLaboratory Nawfplk2069-44-87 11:08:00Identifier 93169- 6 Result Time 2019-04-10 11:08:00Unknown Test Item Value Reference Range Comments Unknown (test code = 6768-6) 88 U/L Unknown 34-104 F Ordering Physician UnknownLaboratory Hlacanw6057-76-76 11:08:00Identifier 16863- 6 Result Time 2019-04-10 11:08:00Unknown Test Item Value Reference Range Comments Unknown (test code = 1759-0) 1.6 Unknown 1-3 F Ordering Physician UnknownLaboratory Silmkdl6107-22-52 11:08:00Identifier 46884- 6 Result Time 2019-04-10 11:08:00Unknown Test Item Value Reference Range Comments Unknown (test code = 54573-7) 4.5 g/dL Unknown 3.2-5.2 F Ordering Physician UnknownLaboratory Vdtemqf3275-12-25 11:08:00Identifier 92960- 6 Result Time 2019-04-10 11:08:00Unknown Test Item Value Reference Range Comments Unknown (test code = 1742-6) 27 U/L Unknown 7-52 F Ordering Physician UnknownLaboratory Htbfnec4442-16-29 11:08:00Identifier 68311- 6 Result Time 2019-04-10 11:08:00Unknown Test Item Value Reference Range Comments Unknown (test code = 64179-7) Unknown Unknown F Ordering Physician UnknownLaboratory Exxbwua8198-66-27 11:08:00Identifier 42070- 6 Result Time 2019-04-10 11:08:00Unknown Test Item Value Reference Range Comments Unknown (test code = 2161-8) 69.86 mg/dL Unknown Unknown F Ordering Physician UnknownLaboratory Rqdlfjb1523-70-90 11:08:00Identifier 18396- 6 Result Time 2019-04-10 11:08:00Unknown Test Item Value Reference Range Comments Unknown (test code = 51835-9) 0.99 Unknown 0.82-1.09 F Ordering Physician UnknownLaboratory Trdxpqq6173-80-13 11:08:00Identifier 63234- 6 Result Time 2019-04-10 11:08:00Unknown Test Item Value Reference Range Comments Unknown (test code = 31990-4) 30.8 seconds Unknown 26.0-36.3 F Ordering Physician UnknownLaboratory Hkrjojp6103-26-34 11:08:00Identifier 64009- 6 Result Time 2019-04-10 11:08:00Unknown Test Item Value Reference Range Comments Unknown (test code = NullTestCode) 5.0 Unknown 5-9 F Ordering Physician UnknownLaboratory Sefdhgn9136-24-60 11:08:00Identifier 78451- 6 Result Time 2019-04-10 11:08:00Unknown Test Item Value Reference Range Comments Unknown (test code = 02072-2) 1.016 Unknown 1.010-1.030 F Ordering Physician UnknownLaboratory Bmipyot0018-84-66 11:08:00Identifier 88726- 6 Result Time 2019-04-10 11:08:00Unknown Test Item Value Reference Range Comments Unknown (test code = 08315-6) 7.4 10^3/uL Unknown 3.5-10.8 F Ordering Physician UnknownLaboratory Tmzyulr1374-33-67 11:08:00Identifier 48492- 6 Result Time 2019-04-10 11:08:00Unknown Test Item Value Reference Range Comments Unknown (test code = 788-0) 15 % Unknown 10.5-15 F Ordering Physician UnknownLaboratory Ezwrzzn4694-31-63 11:08:00Identifier 00704- 6 Result Time 2019-04-10 11:08:00Unknown Test Item Value Reference Range Comments Unknown (test code = 789-8) 5.16 10^6 /uL Unknown 3.70-4.87 F Ordering Physician UnknownLaboratory Ijmskdn9555-78-65 11:08:00Identifier 55804- 6 Result Time 2019-04-10 11:08:00Unknown Test Item Value Reference Range Comments Unknown (test code = 90297-7) 0.3 Unknown Unknown F Ordering Physician UnknownLaboratory Tkdnnxn7586-03-91 11:08:00Identifier 24594- 6 Result Time 2019-04-10 11:08:00Unknown Test Item Value Reference Range Comments Unknown (test code = 771-6) 0.0 10^3/ul Unknown Unknown F Ordering Physician UnknownLaboratory Ojruinz0431-07-69 11:08:00Identifier 96014- 6 Result Time 2019-04-10 11:08:00Unknown Test Item Value Reference Range Comments Unknown (test code = 770-8) 68.3 % Unknown Unknown F Ordering Physician UnknownLaboratory Mnqlozw8449-47-38 11:08:00Identifier 69514- 6 Result Time 2019-04-10 11:08:00Unknown Test Item Value Reference Range Comments Unknown (test code = 5905-5) 7.2 % Unknown Unknown F Ordering Physician UnknownLaboratory Honhrlb6332-68-11 11:08:00Identifier 14980- 6 Result Time 2019-04-10 11:08:00Unknown Test Item Value Reference Range Comments Unknown (test code = 787-2) 84 fL Unknown 80-97 F Ordering Physician UnknownLaboratory Mdsmmex4051-11-14 11:08:00Identifier 95088- 6 Result Time 2019-04-10 11:08:00Unknown Test Item Value Reference Range Comments Unknown (test code = 786-4) 33 g/dL Unknown 31-36 F Ordering Physician UnknownLaboratory Qdwbdwh5734-80-40 11:08:00Identifier 97586- 6 Result Time 2019-04-10 11:08:00Unknown Test Item Value Reference Range Comments Unknown (test code = 785-6) 28 pg Unknown 27-31 F Ordering Physician UnknownLaboratory Vozxkdh8018-70-62 11:08:00Identifier 41030- 6 Result Time 2019-04-10 11:08:00Unknown Test Item Value Reference Range Comments Unknown (test code = 736-9) 21.7 % Unknown Unknown F Ordering Physician UnknownLaboratory Tgkhbpn5264-67-06 11:08:00Identifier 28318- 6 Result Time 2019-04-10 11:08:00Unknown Test Item Value Reference Range Comments Unknown (test code = 713-8) 2.0 % Unknown Unknown F Ordering Physician UnknownLaboratory Vtzwrxd8731-99-93 11:08:00Identifier 87479- 6 Result Time 2019-04-10 11:08:00Unknown Test Item Value Reference Range Comments Unknown (test code = 706-2) 0.8 % Unknown Unknown F Ordering Physician UnknownLaboratory Wzsducr6200-36-96 11:08:00Identifier 57801- 6 Result Time 2019-04-10 11:08:00Unknown Test Item Value Reference Range Comments Unknown (test code = 751-8) 5.1 10^3/ul Unknown 1.5-7.7 F Ordering Physician UnknownLaboratory Qpjfjis6817-35-18 11:08:00Identifier 44207- 6 Result Time 2019-04-10 11:08:00Unknown Test Item Value Reference Range Comments Unknown (test code = 742-7) 0.5 10^3/ul Unknown 0-0.8 F Ordering Physician UnknownLaboratory Vanscgr3963-15-61 11:08:00Identifier 15406- 6 Result Time 2019-04-10 11:08:00Unknown Test Item Value Reference Range Comments Unknown (test code = 731-0) 1.6 10^3/ul Unknown 1.0-4.8 F Ordering Physician UnknownLaboratory Ofrszjn4160-21-95 11:08:00Identifier 23658- 6 Result Time 2019-04-10 11:08:00Unknown Test Item Value Reference Range Comments Unknown (test code = 711-2) 0.2 10^3/ul Unknown 0-0.6 F Ordering Physician UnknownLaboratory Huejtzc0220-71-40 11:08:00Identifier 24537- 6 Result Time 2019-04-10 11:08:00Unknown Test Item Value Reference Range Comments Unknown (test code = 704-7) 0.1 10^3/ul Unknown 0-0.2 F Ordering Physician Unknown
--- OUTSIDE RECORDS SUMMARY | 2020-01-24 17:46 | XMS REPORT ---
:1965 Author Organization [facility] Care Team Providers Name Role Phone Unavailable [...] Result Comments Laboratory Studies 2019-04-25 05:49:00 Identifier [id number] Result Time Unknown 2019-04-25 05:49:00 Test Item Value Reference Range Comments Unknown (test code = 777-3) 187 10^3/uL Unknown 150-450 F Ordering Physician UnknownLaboratory Ohkzdtq7742-90-72 05:49:00Identifier 11823- 6 Result Time 2019-04-25 05:49:00Unknown Test Item Value Reference Range Comments Unknown (test code = 24739-4) 8.7 fL Unknown 7.4-10.4 F Ordering Physician UnknownLaboratory Vyqayyk3654-89-92 05:49:00Identifier 80870- 6 Result Time 2019-04-25 05:49:00Unknown Test Item Value Reference Range Comments Unknown (test code = 718-7) 12.7 g/dL Unknown 12.0-16.0 F Ordering Physician UnknownLaboratory Wudqhcn3098-39-09 05:49:00Identifier 84063- 6 Result Time 2019-04-25 05:49:00Unknown Test Item Value Reference Range Comments Unknown (test code = 4544-3) 39 % Unknown 35-47 F Ordering Physician UnknownLaboratory Xbrxfcr7329-68-69 05:08:00Identifier 30403- 6 Result Time 2019-04-24 05:08:00Unknown Test Item Value Reference Range Comments Unknown (test code = 2951-2) 137 mmol/L Unknown 135-145 F Ordering Physician UnknownLaboratory Ykxowgj8805-83-01 05:08:00Identifier 93750- 6 Result Time 2019-04-24 05:08:00Unknown Test Item Value Reference Range Comments Unknown (test code = 2823-3) 3.9 mmol/L Unknown 3.5-5.0 F Ordering Physician UnknownLaboratory Yvhfkdf8110-35-71 05:08:00Identifier 82307- 6 Result Time 2019-04-24 05:08:00Unknown Test Item Value Reference Range Comments Unknown (test code = 2345-7) 134 mg/dL Unknown 70-100 F Ordering Physician UnknownLaboratory Tqlvxeb1184-61-68 05:08:00Identifier 34440- 6 Result Time 2019-04-24 05:08:00Unknown Test Item Value Reference Range Comments Unknown (test code = 36228-7) 98.5 Unknown Unknown F Ordering Physician UnknownLaboratory Ajbdsmo5221-47-57 05:08:00Identifier 33461- 6 Result Time 2019-04-24 05:08:00Unknown Test Item Value Reference Range Comments Unknown (test code = NullTestCode) 119.2 Unknown Unknown F Ordering Physician UnknownLaboratory Vwpjour4075-83-23 05:08:00Identifier 34101- 6 Result Time 2019-04-24 05:08:00Unknown Test Item Value Reference Range Comments Unknown (test code = 2160-0) 0.63 mg/dL Unknown 0.51-0.95 F Ordering Physician UnknownLaboratory Jgzsbbn4565-81-71 05:08:00Identifier 03017- 6 Result Time 2019-04-24 05:08:00Unknown Test Item Value Reference Range Comments Unknown (test code = 2075-0) 101 mmol/L Unknown 101-111 F Ordering Physician UnknownLaboratory Bkxcbue3862-61-98 05:08:00Identifier 39893- 6 Result Time 2019-04-24 05:08:00Unknown Test Item Value Reference Range Comments Unknown (test code = 2028-9) 29 mmol/L Unknown 22-32 F Ordering Physician UnknownLaboratory Bicqpva6935-89-40 05:08:00Identifier 80174- 6 Result Time 2019-04-24 05:08:00Unknown Test Item Value Reference Range Comments Unknown (test code = 35921-4) 8.9 mg/dL Unknown 8.6-10.3 F Ordering Physician UnknownLaboratory Pspacxp2257-76-54 05:08:00Identifier 83633- 6 Result Time 2019-04-24 05:08:00Unknown Test Item Value Reference Range Comments Unknown (test code = 3094-0) 11 mg/dL Unknown 6-24 F Ordering Physician UnknownLaboratory Efujezo9821-93-99 05:08:00Identifier 36327- 6 Result Time 2019-04-24 05:08:00Unknown Test Item Value Reference Range Comments Unknown (test code = 3097-3) 17.5 Unknown 8-20 F Ordering Physician UnknownLaboratory Bhhvngc5762-08-09 05:08:00Identifier 21625- 6 Result Time 2019-04-24 05:08:00Unknown Test Item Value Reference Range Comments Unknown (test code = 97057-0) 7 mmol/L Unknown 2-11 F Ordering Physician UnknownLaboratory Xredepb0537-14-03 10:07:00Identifier 50553- 6 Result Time 2019-04-23 10:07:00Unknown Test Item Value Reference Range Comments Unknown (test code = 2339-0) 114 mg/dL Unknown 70-100 F Ordering Physician UnknownLaboratory Aaqyrvy4977-27-32 11:08:00Identifier 72348- 6 Result Time 2019-04-10 11:08:00Unknown Test Item Value Reference Range Comments Unknown (test code = 3016-3) 2.63 mcIU/mL Unknown 0.34-5.60 F Ordering Physician UnknownLaboratory Lolhwmv7457-88-25 11:08:00Identifier 33751- 6 Result Time 2019-04-10 11:08:00Unknown Test Item Value Reference Range Comments Unknown (test code = 2571-8) 132 mg/dL Unknown Unknown F Ordering Physician UnknownLaboratory Yokpaka8340-87-14 11:08:00Identifier 51620- 6 Result Time 2019-04-10 11:08:00Unknown Test Item Value Reference Range Comments Unknown (test code = 2089-1) 139 mg/dL Unknown Unknown F Ordering Physician UnknownLaboratory Ojrvjun1223-44-49 11:08:00Identifier 08494- 6 Result Time 2019-04-10 11:08:00Unknown Test Item Value Reference Range Comments Unknown (test code = 2085-9) 73.6 mg/dL Unknown Unknown F Ordering Physician UnknownLaboratory Elfvhgg2716-10-90 11:08:00Identifier 89680- 6 Result Time 2019-04-10 11:08:00Unknown Test Item Value Reference Range Comments Unknown (test code = 2093-3) 239 mg/dL Unknown Unknown F Ordering Physician UnknownLaboratory Pwvvyue2716-41-29 11:08:00Identifier 50337- 6 Result Time 2019-04-10 11:08:00Unknown Test Item Value Reference Range Comments Unknown (test code = 2885-2) 7.3 g/dL Unknown 6.4-8.9 F Ordering Physician UnknownLaboratory Qdofjiu9935-40-76 11:08:00Identifier 61062- 6 Result Time 2019-04-10 11:08:00Unknown Test Item Value Reference Range Comments Unknown (test code = 1975-2) 0.50 mg/dL Unknown 0.2-1.0 F Ordering Physician UnknownLaboratory Vfhvfgn8210-99-64 11:08:00Identifier 02865- 6 Result Time 2019-04-10 11:08:00Unknown Test Item Value Reference Range Comments Unknown (test code = NullTestCode) 2.8 g/dL Unknown 2-4 F Ordering Physician UnknownLaboratory Wnbxbbf0374-79-85 11:08:00Identifier 68571- 6 Result Time 2019-04-10 11:08:00Unknown Test Item Value Reference Range Comments Unknown (test code = 1920-8) 26 U/L Unknown 13-39 F Ordering Physician UnknownLaboratory Utwyaac4367-85-78 11:08:00Identifier 61827- 6 Result Time 2019-04-10 11:08:00Unknown Test Item Value Reference Range Comments Unknown (test code = 6768-6) 88 U/L Unknown 34-104 F Ordering Physician UnknownLaboratory Imzphit0592-34-32 11:08:00Identifier 79222- 6 Result Time 2019-04-10 11:08:00Unknown Test Item Value Reference Range Comments Unknown (test code = 1759-0) 1.6 Unknown 1-3 F Ordering Physician UnknownLaboratory Nxfbhtf4463-83-97 11:08:00Identifier 66641- 6 Result Time 2019-04-10 11:08:00Unknown Test Item Value Reference Range Comments Unknown (test code = 55946-4) 4.5 g/dL Unknown 3.2-5.2 F Ordering Physician UnknownLaboratory Zouzbee6926-83-52 11:08:00Identifier 38444- 6 Result Time 2019-04-10 11:08:00Unknown Test Item Value Reference Range Comments Unknown (test code = 1742-6) 27 U/L Unknown 7-52 F Ordering Physician UnknownLaboratory Acfovfo7519-52-31 11:08:00Identifier 83419- 6 Result Time 2019-04-10 11:08:00Unknown Test Item Value Reference Range Comments Unknown (test code = 94550-3) Unknown Unknown F Ordering Physician UnknownLaboratory Lyvmxsi1004-73-48 11:08:00Identifier 10722- 6 Result Time 2019-04-10 11:08:00Unknown Test Item Value Reference Range Comments Unknown (test code = 2161-8) 69.86 mg/dL Unknown Unknown F Ordering Physician UnknownLaboratory Dmkefig8594-19-40 11:08:00Identifier 80501- 6 Result Time 2019-04-10 11:08:00Unknown Test Item Value Reference Range Comments Unknown (test code = 97328-7) 0.99 Unknown 0.82-1.09 F Ordering Physician UnknownLaboratory Arswfdb0948-47-58 11:08:00Identifier 29257- 6 Result Time 2019-04-10 11:08:00Unknown Test Item Value Reference Range Comments Unknown (test code = 95583-2) 30.8 seconds Unknown 26.0-36.3 F Ordering Physician UnknownLaboratory Vkkhpnw6408-51-72 11:08:00Identifier 50543- 6 Result Time 2019-04-10 11:08:00Unknown Test Item Value Reference Range Comments Unknown (test code = NullTestCode) 5.0 Unknown 5-9 F Ordering Physician UnknownLaboratory Fzjzqqw5121-36-09 11:08:00Identifier 66549- 6 Result Time 2019-04-10 11:08:00Unknown Test Item Value Reference Range Comments Unknown (test code = 53141-6) 1.016 Unknown 1.010-1.030 F Ordering Physician UnknownLaboratory Xmeftnj8792-93-11 11:08:00Identifier 12776- 6 Result Time 2019-04-10 11:08:00Unknown Test Item Value Reference Range Comments Unknown (test code = 45700-2) 7.4 10^3/uL Unknown 3.5-10.8 F Ordering Physician UnknownLaboratory Avvzmor6492-25-01 11:08:00Identifier 80472- 6 Result Time 2019-04-10 11:08:00Unknown Test Item Value Reference Range Comments Unknown (test code = 788-0) 15 % Unknown 10.5-15 F Ordering Physician UnknownLaboratory Abdjpgz0692-49-70 11:08:00Identifier 23148- 6 Result Time 2019-04-10 11:08:00Unknown Test Item Value Reference Range Comments Unknown (test code = 789-8) 5.16 10^6 /uL Unknown 3.70-4.87 F Ordering Physician UnknownLaboratory Xadadni8512-60-41 11:08:00Identifier 23768- 6 Result Time 2019-04-10 11:08:00Unknown Test Item Value Reference Range Comments Unknown (test code = 53750-5) 0.3 Unknown Unknown F Ordering Physician UnknownLaboratory Sxkiaia9216-90-79 11:08:00Identifier 36626- 6 Result Time 2019-04-10 11:08:00Unknown Test Item Value Reference Range Comments Unknown (test code = 771-6) 0.0 10^3/ul Unknown Unknown F Ordering Physician UnknownLaboratory Vxmedqv2106-61-69 11:08:00Identifier 85931- 6 Result Time 2019-04-10 11:08:00Unknown Test Item Value Reference Range Comments Unknown (test code = 770-8) 68.3 % Unknown Unknown F Ordering Physician UnknownLaboratory Kqfpmdb9387-21-41 11:08:00Identifier 61528- 6 Result Time 2019-04-10 11:08:00Unknown Test Item Value Reference Range Comments Unknown (test code = 5905-5) 7.2 % Unknown Unknown F Ordering Physician UnknownLaboratory Dwodfon3866-47-97 11:08:00Identifier 57355- 6 Result Time 2019-04-10 11:08:00Unknown Test Item Value Reference Range Comments Unknown (test code = 787-2) 84 fL Unknown 80-97 F Ordering Physician UnknownLaboratory Jqqnfhw7861-52-80 11:08:00Identifier 89052- 6 Result Time 2019-04-10 11:08:00Unknown Test Item Value Reference Range Comments Unknown (test code = 786-4) 33 g/dL Unknown 31-36 F Ordering Physician UnknownLaboratory Owuorzc6036-30-82 11:08:00Identifier 44451- 6 Result Time 2019-04-10 11:08:00Unknown Test Item Value Reference Range Comments Unknown (test code = 785-6) 28 pg Unknown 27-31 F Ordering Physician UnknownLaboratory Xleiitf3438-55-60 11:08:00Identifier 54373- 6 Result Time 2019-04-10 11:08:00Unknown Test Item Value Reference Range Comments Unknown (test code = 736-9) 21.7 % Unknown Unknown F Ordering Physician UnknownLaboratory Ckhjszp6398-31-02 11:08:00Identifier 68178- 6 Result Time 2019-04-10 11:08:00Unknown Test Item Value Reference Range Comments Unknown (test code = 713-8) 2.0 % Unknown Unknown F Ordering Physician UnknownLaboratory Ixnpemz8414-95-40 11:08:00Identifier 41595- 6 Result Time 2019-04-10 11:08:00Unknown Test Item Value Reference Range Comments Unknown (test code = 706-2) 0.8 % Unknown Unknown F Ordering Physician UnknownLaboratory Wmcaoyv4192-20-56 11:08:00Identifier 53950- 6 Result Time 2019-04-10 11:08:00Unknown Test Item Value Reference Range Comments Unknown (test code = 751-8) 5.1 10^3/ul Unknown 1.5-7.7 F Ordering Physician UnknownLaboratory Qgsozgf7549-53-63 11:08:00Identifier 48409- 6 Result Time 2019-04-10 11:08:00Unknown Test Item Value Reference Range Comments Unknown (test code = 742-7) 0.5 10^3/ul Unknown 0-0.8 F Ordering Physician UnknownLaboratory Xlkfwol6899-20-12 11:08:00Identifier 31444- 6 Result Time 2019-04-10 11:08:00Unknown Test Item Value Reference Range Comments Unknown (test code = 731-0) 1.6 10^3/ul Unknown 1.0-4.8 F Ordering Physician UnknownLaboratory Rvfutaa1474-63-14 11:08:00Identifier 12557- 6 Result Time 2019-04-10 11:08:00Unknown Test Item Value Reference Range Comments Unknown (test code = 711-2) 0.2 10^3/ul Unknown 0-0.6 F Ordering Physician UnknownLaboratory Hbgoqhd0083-22-33 11:08:00Identifier 33225- 6 Result Time 2019-04-10 11:08:00Unknown Test Item Value Reference Range Comments Unknown (test code = 704-7) 0.1 10^3/ul Unknown 0-0.2 F Ordering Physician Unknown
--- OUTSIDE RECORDS SUMMARY | 2020-01-24 17:46 | XMS REPORT ---
:1965 Author Organization [facility] Care Team Providers Name Role Phone Unavailable [...] Result Comments Laboratory Studies 2019-04-25 05:49:00 Identifier [id number] Result Time Unknown 2019-04-25 05:49:00 Test Item Value Reference Range Comments Unknown (test code = 777-3) 187 10^3/uL Unknown 150-450 F Ordering Physician UnknownLaboratory Pfxtryk8114-57-14 05:49:00Identifier 83388- 6 Result Time 2019-04-25 05:49:00Unknown Test Item Value Reference Range Comments Unknown (test code = 37640-7) 8.7 fL Unknown 7.4-10.4 F Ordering Physician UnknownLaboratory Wbadeqq1523-97-87 05:49:00Identifier 26275- 6 Result Time 2019-04-25 05:49:00Unknown Test Item Value Reference Range Comments Unknown (test code = 718-7) 12.7 g/dL Unknown 12.0-16.0 F Ordering Physician UnknownLaboratory Bxvvcxj2274-32-49 05:49:00Identifier 89943- 6 Result Time 2019-04-25 05:49:00Unknown Test Item Value Reference Range Comments Unknown (test code = 4544-3) 39 % Unknown 35-47 F Ordering Physician UnknownLaboratory Azwetjp8616-52-87 05:08:00Identifier 89548- 6 Result Time 2019-04-24 05:08:00Unknown Test Item Value Reference Range Comments Unknown (test code = 2951-2) 137 mmol/L Unknown 135-145 F Ordering Physician UnknownLaboratory Xffhvpi4270-87-42 05:08:00Identifier 57934- 6 Result Time 2019-04-24 05:08:00Unknown Test Item Value Reference Range Comments Unknown (test code = 2823-3) 3.9 mmol/L Unknown 3.5-5.0 F Ordering Physician UnknownLaboratory Lmteiwq8720-34-33 05:08:00Identifier 23056- 6 Result Time 2019-04-24 05:08:00Unknown Test Item Value Reference Range Comments Unknown (test code = 2345-7) 134 mg/dL Unknown 70-100 F Ordering Physician UnknownLaboratory Gqhrdch4511-83-96 05:08:00Identifier 07874- 6 Result Time 2019-04-24 05:08:00Unknown Test Item Value Reference Range Comments Unknown (test code = 42614-1) 98.5 Unknown Unknown F Ordering Physician UnknownLaboratory Ejmcvcr3822-95-27 05:08:00Identifier 98581- 6 Result Time 2019-04-24 05:08:00Unknown Test Item Value Reference Range Comments Unknown (test code = NullTestCode) 119.2 Unknown Unknown F Ordering Physician UnknownLaboratory Fpsxhwo5448-46-77 05:08:00Identifier 28718- 6 Result Time 2019-04-24 05:08:00Unknown Test Item Value Reference Range Comments Unknown (test code = 2160-0) 0.63 mg/dL Unknown 0.51-0.95 F Ordering Physician UnknownLaboratory Mcgvadn2622-40-66 05:08:00Identifier 43354- 6 Result Time 2019-04-24 05:08:00Unknown Test Item Value Reference Range Comments Unknown (test code = 2075-0) 101 mmol/L Unknown 101-111 F Ordering Physician UnknownLaboratory Suwjrxt4630-34-78 05:08:00Identifier 29764- 6 Result Time 2019-04-24 05:08:00Unknown Test Item Value Reference Range Comments Unknown (test code = 2028-9) 29 mmol/L Unknown 22-32 F Ordering Physician UnknownLaboratory Goijpry7017-85-28 05:08:00Identifier 55330- 6 Result Time 2019-04-24 05:08:00Unknown Test Item Value Reference Range Comments Unknown (test code = 13045-3) 8.9 mg/dL Unknown 8.6-10.3 F Ordering Physician UnknownLaboratory Rwvbjph8972-88-68 05:08:00Identifier 65421- 6 Result Time 2019-04-24 05:08:00Unknown Test Item Value Reference Range Comments Unknown (test code = 3094-0) 11 mg/dL Unknown 6-24 F Ordering Physician UnknownLaboratory Fqnbojt4054-77-00 05:08:00Identifier 44039- 6 Result Time 2019-04-24 05:08:00Unknown Test Item Value Reference Range Comments Unknown (test code = 3097-3) 17.5 Unknown 8-20 F Ordering Physician UnknownLaboratory Verqyav4898-11-56 05:08:00Identifier 19027- 6 Result Time 2019-04-24 05:08:00Unknown Test Item Value Reference Range Comments Unknown (test code = 34515-0) 7 mmol/L Unknown 2-11 F Ordering Physician UnknownLaboratory Ouqvvuc8454-18-95 10:07:00Identifier 09983- 6 Result Time 2019-04-23 10:07:00Unknown Test Item Value Reference Range Comments Unknown (test code = 2339-0) 114 mg/dL Unknown 70-100 F Ordering Physician UnknownLaboratory Wevsiqu6561-52-87 11:08:00Identifier 41281- 6 Result Time 2019-04-10 11:08:00Unknown Test Item Value Reference Range Comments Unknown (test code = 3016-3) 2.63 mcIU/mL Unknown 0.34-5.60 F Ordering Physician UnknownLaboratory Nztvbbj4546-02-60 11:08:00Identifier 19550- 6 Result Time 2019-04-10 11:08:00Unknown Test Item Value Reference Range Comments Unknown (test code = 2571-8) 132 mg/dL Unknown Unknown F Ordering Physician UnknownLaboratory Cmwtxte0126-69-23 11:08:00Identifier 89083- 6 Result Time 2019-04-10 11:08:00Unknown Test Item Value Reference Range Comments Unknown (test code = 2089-1) 139 mg/dL Unknown Unknown F Ordering Physician UnknownLaboratory Wkgkuev2310-24-38 11:08:00Identifier 38244- 6 Result Time 2019-04-10 11:08:00Unknown Test Item Value Reference Range Comments Unknown (test code = 2085-9) 73.6 mg/dL Unknown Unknown F Ordering Physician UnknownLaboratory Qanrdgf5770-34-13 11:08:00Identifier 19343- 6 Result Time 2019-04-10 11:08:00Unknown Test Item Value Reference Range Comments Unknown (test code = 2093-3) 239 mg/dL Unknown Unknown F Ordering Physician UnknownLaboratory Jvcigqi1528-16-79 11:08:00Identifier 05104- 6 Result Time 2019-04-10 11:08:00Unknown Test Item Value Reference Range Comments Unknown (test code = 2885-2) 7.3 g/dL Unknown 6.4-8.9 F Ordering Physician UnknownLaboratory Ptkvwui2383-29-30 11:08:00Identifier 23243- 6 Result Time 2019-04-10 11:08:00Unknown Test Item Value Reference Range Comments Unknown (test code = 1975-2) 0.50 mg/dL Unknown 0.2-1.0 F Ordering Physician UnknownLaboratory Hepsnqy3546-85-73 11:08:00Identifier 91163- 6 Result Time 2019-04-10 11:08:00Unknown Test Item Value Reference Range Comments Unknown (test code = NullTestCode) 2.8 g/dL Unknown 2-4 F Ordering Physician UnknownLaboratory Pbryfci3887-89-00 11:08:00Identifier 85534- 6 Result Time 2019-04-10 11:08:00Unknown Test Item Value Reference Range Comments Unknown (test code = 1920-8) 26 U/L Unknown 13-39 F Ordering Physician UnknownLaboratory Pqycvua6656-73-12 11:08:00Identifier 26227- 6 Result Time 2019-04-10 11:08:00Unknown Test Item Value Reference Range Comments Unknown (test code = 6768-6) 88 U/L Unknown 34-104 F Ordering Physician UnknownLaboratory Zqdrpqq8643-15-35 11:08:00Identifier 73515- 6 Result Time 2019-04-10 11:08:00Unknown Test Item Value Reference Range Comments Unknown (test code = 1759-0) 1.6 Unknown 1-3 F Ordering Physician UnknownLaboratory Vdbrpkb4014-13-77 11:08:00Identifier 81777- 6 Result Time 2019-04-10 11:08:00Unknown Test Item Value Reference Range Comments Unknown (test code = 82911-7) 4.5 g/dL Unknown 3.2-5.2 F Ordering Physician UnknownLaboratory Qsxelqh1103-00-95 11:08:00Identifier 12557- 6 Result Time 2019-04-10 11:08:00Unknown Test Item Value Reference Range Comments Unknown (test code = 1742-6) 27 U/L Unknown 7-52 F Ordering Physician UnknownLaboratory Aavvlng9661-52-16 11:08:00Identifier 41815- 6 Result Time 2019-04-10 11:08:00Unknown Test Item Value Reference Range Comments Unknown (test code = 86056-5) Unknown Unknown F Ordering Physician UnknownLaboratory Dxyyyfq6612-00-88 11:08:00Identifier 94030- 6 Result Time 2019-04-10 11:08:00Unknown Test Item Value Reference Range Comments Unknown (test code = 2161-8) 69.86 mg/dL Unknown Unknown F Ordering Physician UnknownLaboratory Qizwght0068-71-54 11:08:00Identifier 68380- 6 Result Time 2019-04-10 11:08:00Unknown Test Item Value Reference Range Comments Unknown (test code = 08820-4) 0.99 Unknown 0.82-1.09 F Ordering Physician UnknownLaboratory Gwtujfo1861-18-98 11:08:00Identifier 73729- 6 Result Time 2019-04-10 11:08:00Unknown Test Item Value Reference Range Comments Unknown (test code = 03280-3) 30.8 seconds Unknown 26.0-36.3 F Ordering Physician UnknownLaboratory Dhdfxgj4045-31-23 11:08:00Identifier 24806- 6 Result Time 2019-04-10 11:08:00Unknown Test Item Value Reference Range Comments Unknown (test code = NullTestCode) 5.0 Unknown 5-9 F Ordering Physician UnknownLaboratory Qiujbik0692-77-89 11:08:00Identifier 33049- 6 Result Time 2019-04-10 11:08:00Unknown Test Item Value Reference Range Comments Unknown (test code = 17485-7) 1.016 Unknown 1.010-1.030 F Ordering Physician UnknownLaboratory Dqldwzy7443-55-56 11:08:00Identifier 91751- 6 Result Time 2019-04-10 11:08:00Unknown Test Item Value Reference Range Comments Unknown (test code = 82127-8) 7.4 10^3/uL Unknown 3.5-10.8 F Ordering Physician UnknownLaboratory Phrqmka5468-31-24 11:08:00Identifier 09381- 6 Result Time 2019-04-10 11:08:00Unknown Test Item Value Reference Range Comments Unknown (test code = 788-0) 15 % Unknown 10.5-15 F Ordering Physician UnknownLaboratory Nnesoxl0205-26-12 11:08:00Identifier 25289- 6 Result Time 2019-04-10 11:08:00Unknown Test Item Value Reference Range Comments Unknown (test code = 789-8) 5.16 10^6 /uL Unknown 3.70-4.87 F Ordering Physician UnknownLaboratory Ukhvxyu9542-63-35 11:08:00Identifier 40948- 6 Result Time 2019-04-10 11:08:00Unknown Test Item Value Reference Range Comments Unknown (test code = 27743-8) 0.3 Unknown Unknown F Ordering Physician UnknownLaboratory Zffgtga8548-70-12 11:08:00Identifier 41361- 6 Result Time 2019-04-10 11:08:00Unknown Test Item Value Reference Range Comments Unknown (test code = 771-6) 0.0 10^3/ul Unknown Unknown F Ordering Physician UnknownLaboratory Mfqnxde4908-22-03 11:08:00Identifier 04928- 6 Result Time 2019-04-10 11:08:00Unknown Test Item Value Reference Range Comments Unknown (test code = 770-8) 68.3 % Unknown Unknown F Ordering Physician UnknownLaboratory Vrduvnh0300-17-39 11:08:00Identifier 74828- 6 Result Time 2019-04-10 11:08:00Unknown Test Item Value Reference Range Comments Unknown (test code = 5905-5) 7.2 % Unknown Unknown F Ordering Physician UnknownLaboratory Igivbvw0005-35-51 11:08:00Identifier 59339- 6 Result Time 2019-04-10 11:08:00Unknown Test Item Value Reference Range Comments Unknown (test code = 787-2) 84 fL Unknown 80-97 F Ordering Physician UnknownLaboratory Clrmyeb9077-48-73 11:08:00Identifier 60826- 6 Result Time 2019-04-10 11:08:00Unknown Test Item Value Reference Range Comments Unknown (test code = 786-4) 33 g/dL Unknown 31-36 F Ordering Physician UnknownLaboratory Cgzvcny7236-40-46 11:08:00Identifier 06604- 6 Result Time 2019-04-10 11:08:00Unknown Test Item Value Reference Range Comments Unknown (test code = 785-6) 28 pg Unknown 27-31 F Ordering Physician UnknownLaboratory Ftmzupi3481-16-92 11:08:00Identifier 53341- 6 Result Time 2019-04-10 11:08:00Unknown Test Item Value Reference Range Comments Unknown (test code = 736-9) 21.7 % Unknown Unknown F Ordering Physician UnknownLaboratory Rddqqhr5553-16-58 11:08:00Identifier 34531- 6 Result Time 2019-04-10 11:08:00Unknown Test Item Value Reference Range Comments Unknown (test code = 713-8) 2.0 % Unknown Unknown F Ordering Physician UnknownLaboratory Jzzfkbz1690-77-10 11:08:00Identifier 48564- 6 Result Time 2019-04-10 11:08:00Unknown Test Item Value Reference Range Comments Unknown (test code = 706-2) 0.8 % Unknown Unknown F Ordering Physician UnknownLaboratory Kvmwslv7099-61-46 11:08:00Identifier 89037- 6 Result Time 2019-04-10 11:08:00Unknown Test Item Value Reference Range Comments Unknown (test code = 751-8) 5.1 10^3/ul Unknown 1.5-7.7 F Ordering Physician UnknownLaboratory Dclghmx4066-60-07 11:08:00Identifier 89507- 6 Result Time 2019-04-10 11:08:00Unknown Test Item Value Reference Range Comments Unknown (test code = 742-7) 0.5 10^3/ul Unknown 0-0.8 F Ordering Physician UnknownLaboratory Ebnwkll5129-70-45 11:08:00Identifier 87993- 6 Result Time 2019-04-10 11:08:00Unknown Test Item Value Reference Range Comments Unknown (test code = 731-0) 1.6 10^3/ul Unknown 1.0-4.8 F Ordering Physician UnknownLaboratory Acgcala2627-54-58 11:08:00Identifier 22143- 6 Result Time 2019-04-10 11:08:00Unknown Test Item Value Reference Range Comments Unknown (test code = 711-2) 0.2 10^3/ul Unknown 0-0.6 F Ordering Physician UnknownLaboratory Qelftyd5761-43-56 11:08:00Identifier 09917- 6 Result Time 2019-04-10 11:08:00Unknown Test Item Value Reference Range Comments Unknown (test code = 704-7) 0.1 10^3/ul Unknown 0-0.2 F Ordering Physician Unknown
--- OUTSIDE RECORDS SUMMARY | 2020-01-24 17:46 | XMS REPORT ---
:1965 Author Organization [facility] Care Team Providers Name Role Phone Unavailable [...] Result Comments Laboratory Studies 2019-04-25 05:49:00 Identifier [id number] Result Time Unknown 2019-04-25 05:49:00 Test Item Value Reference Range Comments Unknown (test code = 777-3) 187 10^3/uL Unknown 150-450 F Ordering Physician UnknownLaboratory Fklxfct1477-71-91 05:49:00Identifier 21304- 6 Result Time 2019-04-25 05:49:00Unknown Test Item Value Reference Range Comments Unknown (test code = 24309-2) 8.7 fL Unknown 7.4-10.4 F Ordering Physician UnknownLaboratory Swjkuti2611-75-92 05:49:00Identifier 53972- 6 Result Time 2019-04-25 05:49:00Unknown Test Item Value Reference Range Comments Unknown (test code = 718-7) 12.7 g/dL Unknown 12.0-16.0 F Ordering Physician UnknownLaboratory Pvreywe5488-97-07 05:49:00Identifier 97737- 6 Result Time 2019-04-25 05:49:00Unknown Test Item Value Reference Range Comments Unknown (test code = 4544-3) 39 % Unknown 35-47 F Ordering Physician UnknownLaboratory Vdnfzbg2856-87-11 05:08:00Identifier 74416- 6 Result Time 2019-04-24 05:08:00Unknown Test Item Value Reference Range Comments Unknown (test code = 2951-2) 137 mmol/L Unknown 135-145 F Ordering Physician UnknownLaboratory Zrsngyo1742-88-82 05:08:00Identifier 57943- 6 Result Time 2019-04-24 05:08:00Unknown Test Item Value Reference Range Comments Unknown (test code = 2823-3) 3.9 mmol/L Unknown 3.5-5.0 F Ordering Physician UnknownLaboratory Lztesiw8353-88-50 05:08:00Identifier 42286- 6 Result Time 2019-04-24 05:08:00Unknown Test Item Value Reference Range Comments Unknown (test code = 2345-7) 134 mg/dL Unknown 70-100 F Ordering Physician UnknownLaboratory Hcyiouk3252-21-32 05:08:00Identifier 93523- 6 Result Time 2019-04-24 05:08:00Unknown Test Item Value Reference Range Comments Unknown (test code = 41096-4) 98.5 Unknown Unknown F Ordering Physician UnknownLaboratory Xmbwxde1434-56-75 05:08:00Identifier 52297- 6 Result Time 2019-04-24 05:08:00Unknown Test Item Value Reference Range Comments Unknown (test code = NullTestCode) 119.2 Unknown Unknown F Ordering Physician UnknownLaboratory Rokoyfd2919-58-24 05:08:00Identifier 50276- 6 Result Time 2019-04-24 05:08:00Unknown Test Item Value Reference Range Comments Unknown (test code = 2160-0) 0.63 mg/dL Unknown 0.51-0.95 F Ordering Physician UnknownLaboratory Telhwzy8757-39-80 05:08:00Identifier 27185- 6 Result Time 2019-04-24 05:08:00Unknown Test Item Value Reference Range Comments Unknown (test code = 2075-0) 101 mmol/L Unknown 101-111 F Ordering Physician UnknownLaboratory Dsgnyak3025-07-59 05:08:00Identifier 64221- 6 Result Time 2019-04-24 05:08:00Unknown Test Item Value Reference Range Comments Unknown (test code = 2028-9) 29 mmol/L Unknown 22-32 F Ordering Physician UnknownLaboratory Sexxbyf9684-39-94 05:08:00Identifier 92042- 6 Result Time 2019-04-24 05:08:00Unknown Test Item Value Reference Range Comments Unknown (test code = 40599-5) 8.9 mg/dL Unknown 8.6-10.3 F Ordering Physician UnknownLaboratory Ryhutln0508-33-72 05:08:00Identifier 36945- 6 Result Time 2019-04-24 05:08:00Unknown Test Item Value Reference Range Comments Unknown (test code = 3094-0) 11 mg/dL Unknown 6-24 F Ordering Physician UnknownLaboratory Vwxaxby3495-86-54 05:08:00Identifier 64208- 6 Result Time 2019-04-24 05:08:00Unknown Test Item Value Reference Range Comments Unknown (test code = 3097-3) 17.5 Unknown 8-20 F Ordering Physician UnknownLaboratory Ilkdimf9430-62-03 05:08:00Identifier 89267- 6 Result Time 2019-04-24 05:08:00Unknown Test Item Value Reference Range Comments Unknown (test code = 11275-2) 7 mmol/L Unknown 2-11 F Ordering Physician UnknownLaboratory Atdnkpu2263-22-11 10:07:00Identifier 07322- 6 Result Time 2019-04-23 10:07:00Unknown Test Item Value Reference Range Comments Unknown (test code = 2339-0) 114 mg/dL Unknown 70-100 F Ordering Physician UnknownLaboratory Aiwcyfs0754-47-11 11:08:00Identifier 83497- 6 Result Time 2019-04-10 11:08:00Unknown Test Item Value Reference Range Comments Unknown (test code = 3016-3) 2.63 mcIU/mL Unknown 0.34-5.60 F Ordering Physician UnknownLaboratory Nafovla2673-74-81 11:08:00Identifier 80870- 6 Result Time 2019-04-10 11:08:00Unknown Test Item Value Reference Range Comments Unknown (test code = 2571-8) 132 mg/dL Unknown Unknown F Ordering Physician UnknownLaboratory Lzdbjmi0503-47-10 11:08:00Identifier 32516- 6 Result Time 2019-04-10 11:08:00Unknown Test Item Value Reference Range Comments Unknown (test code = 2089-1) 139 mg/dL Unknown Unknown F Ordering Physician UnknownLaboratory Rflszso8553-19-09 11:08:00Identifier 68335- 6 Result Time 2019-04-10 11:08:00Unknown Test Item Value Reference Range Comments Unknown (test code = 2085-9) 73.6 mg/dL Unknown Unknown F Ordering Physician UnknownLaboratory Bpmqonr1384-98-11 11:08:00Identifier 61987- 6 Result Time 2019-04-10 11:08:00Unknown Test Item Value Reference Range Comments Unknown (test code = 2093-3) 239 mg/dL Unknown Unknown F Ordering Physician UnknownLaboratory Lsorcwv6558-57-31 11:08:00Identifier 08071- 6 Result Time 2019-04-10 11:08:00Unknown Test Item Value Reference Range Comments Unknown (test code = 2885-2) 7.3 g/dL Unknown 6.4-8.9 F Ordering Physician UnknownLaboratory Sttiwec9479-73-75 11:08:00Identifier 02189- 6 Result Time 2019-04-10 11:08:00Unknown Test Item Value Reference Range Comments Unknown (test code = 1975-2) 0.50 mg/dL Unknown 0.2-1.0 F Ordering Physician UnknownLaboratory Ovsaawv1775-05-32 11:08:00Identifier 68524- 6 Result Time 2019-04-10 11:08:00Unknown Test Item Value Reference Range Comments Unknown (test code = NullTestCode) 2.8 g/dL Unknown 2-4 F Ordering Physician UnknownLaboratory Cstozuj1074-18-71 11:08:00Identifier 71639- 6 Result Time 2019-04-10 11:08:00Unknown Test Item Value Reference Range Comments Unknown (test code = 1920-8) 26 U/L Unknown 13-39 F Ordering Physician UnknownLaboratory Sftupqs2430-15-49 11:08:00Identifier 15876- 6 Result Time 2019-04-10 11:08:00Unknown Test Item Value Reference Range Comments Unknown (test code = 6768-6) 88 U/L Unknown 34-104 F Ordering Physician UnknownLaboratory Vltrumi2841-73-59 11:08:00Identifier 77275- 6 Result Time 2019-04-10 11:08:00Unknown Test Item Value Reference Range Comments Unknown (test code = 1759-0) 1.6 Unknown 1-3 F Ordering Physician UnknownLaboratory Ghjnrwe0798-10-60 11:08:00Identifier 57175- 6 Result Time 2019-04-10 11:08:00Unknown Test Item Value Reference Range Comments Unknown (test code = 26854-9) 4.5 g/dL Unknown 3.2-5.2 F Ordering Physician UnknownLaboratory Xvciqyy9323-91-77 11:08:00Identifier 61339- 6 Result Time 2019-04-10 11:08:00Unknown Test Item Value Reference Range Comments Unknown (test code = 1742-6) 27 U/L Unknown 7-52 F Ordering Physician UnknownLaboratory Nvsyxqd0365-08-56 11:08:00Identifier 06638- 6 Result Time 2019-04-10 11:08:00Unknown Test Item Value Reference Range Comments Unknown (test code = 49590-3) Unknown Unknown F Ordering Physician UnknownLaboratory Fgflzbd6498-51-92 11:08:00Identifier 23852- 6 Result Time 2019-04-10 11:08:00Unknown Test Item Value Reference Range Comments Unknown (test code = 2161-8) 69.86 mg/dL Unknown Unknown F Ordering Physician UnknownLaboratory Iqinefp4917-81-89 11:08:00Identifier 91388- 6 Result Time 2019-04-10 11:08:00Unknown Test Item Value Reference Range Comments Unknown (test code = 11126-6) 0.99 Unknown 0.82-1.09 F Ordering Physician UnknownLaboratory Bxcypsc8400-99-18 11:08:00Identifier 60833- 6 Result Time 2019-04-10 11:08:00Unknown Test Item Value Reference Range Comments Unknown (test code = 77483-1) 30.8 seconds Unknown 26.0-36.3 F Ordering Physician UnknownLaboratory Ucrcvqa5538-30-04 11:08:00Identifier 45280- 6 Result Time 2019-04-10 11:08:00Unknown Test Item Value Reference Range Comments Unknown (test code = NullTestCode) 5.0 Unknown 5-9 F Ordering Physician UnknownLaboratory Fqhtoza4182-90-45 11:08:00Identifier 63135- 6 Result Time 2019-04-10 11:08:00Unknown Test Item Value Reference Range Comments Unknown (test code = 73756-5) 1.016 Unknown 1.010-1.030 F Ordering Physician UnknownLaboratory Ausmqus8219-46-23 11:08:00Identifier 26001- 6 Result Time 2019-04-10 11:08:00Unknown Test Item Value Reference Range Comments Unknown (test code = 60411-8) 7.4 10^3/uL Unknown 3.5-10.8 F Ordering Physician UnknownLaboratory Brbrlsz6879-52-22 11:08:00Identifier 82811- 6 Result Time 2019-04-10 11:08:00Unknown Test Item Value Reference Range Comments Unknown (test code = 788-0) 15 % Unknown 10.5-15 F Ordering Physician UnknownLaboratory Lbupxsl3468-96-18 11:08:00Identifier 49070- 6 Result Time 2019-04-10 11:08:00Unknown Test Item Value Reference Range Comments Unknown (test code = 789-8) 5.16 10^6 /uL Unknown 3.70-4.87 F Ordering Physician UnknownLaboratory Qsdnrou4444-66-63 11:08:00Identifier 01255- 6 Result Time 2019-04-10 11:08:00Unknown Test Item Value Reference Range Comments Unknown (test code = 75979-0) 0.3 Unknown Unknown F Ordering Physician UnknownLaboratory Bzcoqhk4741-87-68 11:08:00Identifier 76395- 6 Result Time 2019-04-10 11:08:00Unknown Test Item Value Reference Range Comments Unknown (test code = 771-6) 0.0 10^3/ul Unknown Unknown F Ordering Physician UnknownLaboratory Pcqbxre5820-36-28 11:08:00Identifier 83030- 6 Result Time 2019-04-10 11:08:00Unknown Test Item Value Reference Range Comments Unknown (test code = 770-8) 68.3 % Unknown Unknown F Ordering Physician UnknownLaboratory Nxayzxr1649-99-19 11:08:00Identifier 37113- 6 Result Time 2019-04-10 11:08:00Unknown Test Item Value Reference Range Comments Unknown (test code = 5905-5) 7.2 % Unknown Unknown F Ordering Physician UnknownLaboratory Pibmxna6580-56-55 11:08:00Identifier 87247- 6 Result Time 2019-04-10 11:08:00Unknown Test Item Value Reference Range Comments Unknown (test code = 787-2) 84 fL Unknown 80-97 F Ordering Physician UnknownLaboratory Zphglje9420-24-59 11:08:00Identifier 07194- 6 Result Time 2019-04-10 11:08:00Unknown Test Item Value Reference Range Comments Unknown (test code = 786-4) 33 g/dL Unknown 31-36 F Ordering Physician UnknownLaboratory Fodkddd4224-41-23 11:08:00Identifier 72693- 6 Result Time 2019-04-10 11:08:00Unknown Test Item Value Reference Range Comments Unknown (test code = 785-6) 28 pg Unknown 27-31 F Ordering Physician UnknownLaboratory Fcwlisc1282-18-38 11:08:00Identifier 51701- 6 Result Time 2019-04-10 11:08:00Unknown Test Item Value Reference Range Comments Unknown (test code = 736-9) 21.7 % Unknown Unknown F Ordering Physician UnknownLaboratory Olcptlf7967-84-14 11:08:00Identifier 41864- 6 Result Time 2019-04-10 11:08:00Unknown Test Item Value Reference Range Comments Unknown (test code = 713-8) 2.0 % Unknown Unknown F Ordering Physician UnknownLaboratory Ytcufmd6166-46-70 11:08:00Identifier 90080- 6 Result Time 2019-04-10 11:08:00Unknown Test Item Value Reference Range Comments Unknown (test code = 706-2) 0.8 % Unknown Unknown F Ordering Physician UnknownLaboratory Rexzcgd1890-89-77 11:08:00Identifier 02423- 6 Result Time 2019-04-10 11:08:00Unknown Test Item Value Reference Range Comments Unknown (test code = 751-8) 5.1 10^3/ul Unknown 1.5-7.7 F Ordering Physician UnknownLaboratory Myyybbs6946-83-45 11:08:00Identifier 36465- 6 Result Time 2019-04-10 11:08:00Unknown Test Item Value Reference Range Comments Unknown (test code = 742-7) 0.5 10^3/ul Unknown 0-0.8 F Ordering Physician UnknownLaboratory Ookylmv5670-12-87 11:08:00Identifier 18141- 6 Result Time 2019-04-10 11:08:00Unknown Test Item Value Reference Range Comments Unknown (test code = 731-0) 1.6 10^3/ul Unknown 1.0-4.8 F Ordering Physician UnknownLaboratory Pjcpsma5839-83-31 11:08:00Identifier 93663- 6 Result Time 2019-04-10 11:08:00Unknown Test Item Value Reference Range Comments Unknown (test code = 711-2) 0.2 10^3/ul Unknown 0-0.6 F Ordering Physician UnknownLaboratory Uxvuugj0833-38-35 11:08:00Identifier 09381- 6 Result Time 2019-04-10 11:08:00Unknown Test Item Value Reference Range Comments Unknown (test code = 704-7) 0.1 10^3/ul Unknown 0-0.2 F Ordering Physician Unknown
--- OUTSIDE RECORDS SUMMARY | 2020-01-24 17:46 | XMS REPORT ---
:1965 Author Organization [facility] Care Team Providers Name Role Phone Unavailable [...] Result Comments Laboratory Studies 2019-04-25 05:49:00 Identifier [id number] Result Time Unknown 2019-04-25 05:49:00 Test Item Value Reference Range Comments Unknown (test code = 777-3) 187 10^3/uL Unknown 150-450 F Ordering Physician UnknownLaboratory Izvlvbw9328-34-43 05:49:00Identifier 79875- 6 Result Time 2019-04-25 05:49:00Unknown Test Item Value Reference Range Comments Unknown (test code = 87121-4) 8.7 fL Unknown 7.4-10.4 F Ordering Physician UnknownLaboratory Talenrj1725-55-94 05:49:00Identifier 00994- 6 Result Time 2019-04-25 05:49:00Unknown Test Item Value Reference Range Comments Unknown (test code = 718-7) 12.7 g/dL Unknown 12.0-16.0 F Ordering Physician UnknownLaboratory Ztsopjh8444-04-33 05:49:00Identifier 76131- 6 Result Time 2019-04-25 05:49:00Unknown Test Item Value Reference Range Comments Unknown (test code = 4544-3) 39 % Unknown 35-47 F Ordering Physician UnknownLaboratory Klplwvo9987-37-74 05:08:00Identifier 03579- 6 Result Time 2019-04-24 05:08:00Unknown Test Item Value Reference Range Comments Unknown (test code = 2951-2) 137 mmol/L Unknown 135-145 F Ordering Physician UnknownLaboratory Ayjmebo5659-93-91 05:08:00Identifier 67929- 6 Result Time 2019-04-24 05:08:00Unknown Test Item Value Reference Range Comments Unknown (test code = 2823-3) 3.9 mmol/L Unknown 3.5-5.0 F Ordering Physician UnknownLaboratory Rhyjxzb2572-90-19 05:08:00Identifier 38577- 6 Result Time 2019-04-24 05:08:00Unknown Test Item Value Reference Range Comments Unknown (test code = 2345-7) 134 mg/dL Unknown 70-100 F Ordering Physician UnknownLaboratory Abpaevp5533-91-40 05:08:00Identifier 06313- 6 Result Time 2019-04-24 05:08:00Unknown Test Item Value Reference Range Comments Unknown (test code = 87889-3) 98.5 Unknown Unknown F Ordering Physician UnknownLaboratory Vdkyjrh4546-47-69 05:08:00Identifier 24189- 6 Result Time 2019-04-24 05:08:00Unknown Test Item Value Reference Range Comments Unknown (test code = NullTestCode) 119.2 Unknown Unknown F Ordering Physician UnknownLaboratory Gxuietg6441-91-71 05:08:00Identifier 45229- 6 Result Time 2019-04-24 05:08:00Unknown Test Item Value Reference Range Comments Unknown (test code = 2160-0) 0.63 mg/dL Unknown 0.51-0.95 F Ordering Physician UnknownLaboratory Aodtujq1503-99-78 05:08:00Identifier 90258- 6 Result Time 2019-04-24 05:08:00Unknown Test Item Value Reference Range Comments Unknown (test code = 2075-0) 101 mmol/L Unknown 101-111 F Ordering Physician UnknownLaboratory Skkgzxx1490-79-95 05:08:00Identifier 25555- 6 Result Time 2019-04-24 05:08:00Unknown Test Item Value Reference Range Comments Unknown (test code = 2028-9) 29 mmol/L Unknown 22-32 F Ordering Physician UnknownLaboratory Rlfgncy6599-73-77 05:08:00Identifier 81495- 6 Result Time 2019-04-24 05:08:00Unknown Test Item Value Reference Range Comments Unknown (test code = 83039-6) 8.9 mg/dL Unknown 8.6-10.3 F Ordering Physician UnknownLaboratory Ucyvaom9307-02-20 05:08:00Identifier 43934- 6 Result Time 2019-04-24 05:08:00Unknown Test Item Value Reference Range Comments Unknown (test code = 3094-0) 11 mg/dL Unknown 6-24 F Ordering Physician UnknownLaboratory Rcduxfi9535-85-62 05:08:00Identifier 48293- 6 Result Time 2019-04-24 05:08:00Unknown Test Item Value Reference Range Comments Unknown (test code = 3097-3) 17.5 Unknown 8-20 F Ordering Physician UnknownLaboratory Atalouw5516-89-70 05:08:00Identifier 31719- 6 Result Time 2019-04-24 05:08:00Unknown Test Item Value Reference Range Comments Unknown (test code = 72666-7) 7 mmol/L Unknown 2-11 F Ordering Physician UnknownLaboratory Tgzqeoj9459-70-72 10:07:00Identifier 94977- 6 Result Time 2019-04-23 10:07:00Unknown Test Item Value Reference Range Comments Unknown (test code = 2339-0) 114 mg/dL Unknown 70-100 F Ordering Physician UnknownLaboratory Bfejdes9351-67-34 11:08:00Identifier 37003- 6 Result Time 2019-04-10 11:08:00Unknown Test Item Value Reference Range Comments Unknown (test code = 3016-3) 2.63 mcIU/mL Unknown 0.34-5.60 F Ordering Physician UnknownLaboratory Btlaynw8233-78-23 11:08:00Identifier 22966- 6 Result Time 2019-04-10 11:08:00Unknown Test Item Value Reference Range Comments Unknown (test code = 2571-8) 132 mg/dL Unknown Unknown F Ordering Physician UnknownLaboratory Vlhzpgx0487-79-24 11:08:00Identifier 48610- 6 Result Time 2019-04-10 11:08:00Unknown Test Item Value Reference Range Comments Unknown (test code = 2089-1) 139 mg/dL Unknown Unknown F Ordering Physician UnknownLaboratory Wbdikes8141-64-06 11:08:00Identifier 44830- 6 Result Time 2019-04-10 11:08:00Unknown Test Item Value Reference Range Comments Unknown (test code = 2085-9) 73.6 mg/dL Unknown Unknown F Ordering Physician UnknownLaboratory Bvjwqkn7632-49-04 11:08:00Identifier 58059- 6 Result Time 2019-04-10 11:08:00Unknown Test Item Value Reference Range Comments Unknown (test code = 2093-3) 239 mg/dL Unknown Unknown F Ordering Physician UnknownLaboratory Tedrsek6444-11-22 11:08:00Identifier 64507- 6 Result Time 2019-04-10 11:08:00Unknown Test Item Value Reference Range Comments Unknown (test code = 2885-2) 7.3 g/dL Unknown 6.4-8.9 F Ordering Physician UnknownLaboratory Xiyxzel8711-40-13 11:08:00Identifier 43455- 6 Result Time 2019-04-10 11:08:00Unknown Test Item Value Reference Range Comments Unknown (test code = 1975-2) 0.50 mg/dL Unknown 0.2-1.0 F Ordering Physician UnknownLaboratory Wmehmqb1749-30-22 11:08:00Identifier 03072- 6 Result Time 2019-04-10 11:08:00Unknown Test Item Value Reference Range Comments Unknown (test code = NullTestCode) 2.8 g/dL Unknown 2-4 F Ordering Physician UnknownLaboratory Ivdzbeq7640-81-71 11:08:00Identifier 20267- 6 Result Time 2019-04-10 11:08:00Unknown Test Item Value Reference Range Comments Unknown (test code = 1920-8) 26 U/L Unknown 13-39 F Ordering Physician UnknownLaboratory Yupcxam2725-24-18 11:08:00Identifier 65678- 6 Result Time 2019-04-10 11:08:00Unknown Test Item Value Reference Range Comments Unknown (test code = 6768-6) 88 U/L Unknown 34-104 F Ordering Physician UnknownLaboratory Okrflef1547-03-37 11:08:00Identifier 79706- 6 Result Time 2019-04-10 11:08:00Unknown Test Item Value Reference Range Comments Unknown (test code = 1759-0) 1.6 Unknown 1-3 F Ordering Physician UnknownLaboratory Jgpbovd1782-31-51 11:08:00Identifier 17679- 6 Result Time 2019-04-10 11:08:00Unknown Test Item Value Reference Range Comments Unknown (test code = 90147-1) 4.5 g/dL Unknown 3.2-5.2 F Ordering Physician UnknownLaboratory Wfqytbv9625-26-04 11:08:00Identifier 90388- 6 Result Time 2019-04-10 11:08:00Unknown Test Item Value Reference Range Comments Unknown (test code = 1742-6) 27 U/L Unknown 7-52 F Ordering Physician UnknownLaboratory Kbccynt4510-58-59 11:08:00Identifier 70416- 6 Result Time 2019-04-10 11:08:00Unknown Test Item Value Reference Range Comments Unknown (test code = 50897-9) Unknown Unknown F Ordering Physician UnknownLaboratory Rmprkdh9217-39-44 11:08:00Identifier 12867- 6 Result Time 2019-04-10 11:08:00Unknown Test Item Value Reference Range Comments Unknown (test code = 2161-8) 69.86 mg/dL Unknown Unknown F Ordering Physician UnknownLaboratory Ghzazcc6972-70-70 11:08:00Identifier 07698- 6 Result Time 2019-04-10 11:08:00Unknown Test Item Value Reference Range Comments Unknown (test code = 44443-0) 0.99 Unknown 0.82-1.09 F Ordering Physician UnknownLaboratory Wmtksho5377-47-98 11:08:00Identifier 90517- 6 Result Time 2019-04-10 11:08:00Unknown Test Item Value Reference Range Comments Unknown (test code = 31970-8) 30.8 seconds Unknown 26.0-36.3 F Ordering Physician UnknownLaboratory Ycbknzp4742-03-89 11:08:00Identifier 61689- 6 Result Time 2019-04-10 11:08:00Unknown Test Item Value Reference Range Comments Unknown (test code = NullTestCode) 5.0 Unknown 5-9 F Ordering Physician UnknownLaboratory Udefryg4270-15-17 11:08:00Identifier 76155- 6 Result Time 2019-04-10 11:08:00Unknown Test Item Value Reference Range Comments Unknown (test code = 41010-7) 1.016 Unknown 1.010-1.030 F Ordering Physician UnknownLaboratory Fbefxvk9319-12-73 11:08:00Identifier 28194- 6 Result Time 2019-04-10 11:08:00Unknown Test Item Value Reference Range Comments Unknown (test code = 59868-1) 7.4 10^3/uL Unknown 3.5-10.8 F Ordering Physician UnknownLaboratory Ejvxqkb5250-68-00 11:08:00Identifier 19138- 6 Result Time 2019-04-10 11:08:00Unknown Test Item Value Reference Range Comments Unknown (test code = 788-0) 15 % Unknown 10.5-15 F Ordering Physician UnknownLaboratory Cmscpki8195-71-61 11:08:00Identifier 79297- 6 Result Time 2019-04-10 11:08:00Unknown Test Item Value Reference Range Comments Unknown (test code = 789-8) 5.16 10^6 /uL Unknown 3.70-4.87 F Ordering Physician UnknownLaboratory Imqvlrz1907-51-12 11:08:00Identifier 73975- 6 Result Time 2019-04-10 11:08:00Unknown Test Item Value Reference Range Comments Unknown (test code = 43196-9) 0.3 Unknown Unknown F Ordering Physician UnknownLaboratory Jinluzv9544-08-78 11:08:00Identifier 96940- 6 Result Time 2019-04-10 11:08:00Unknown Test Item Value Reference Range Comments Unknown (test code = 771-6) 0.0 10^3/ul Unknown Unknown F Ordering Physician UnknownLaboratory Caexncu6526-12-09 11:08:00Identifier 87270- 6 Result Time 2019-04-10 11:08:00Unknown Test Item Value Reference Range Comments Unknown (test code = 770-8) 68.3 % Unknown Unknown F Ordering Physician UnknownLaboratory Wougyxg9756-23-22 11:08:00Identifier 52942- 6 Result Time 2019-04-10 11:08:00Unknown Test Item Value Reference Range Comments Unknown (test code = 5905-5) 7.2 % Unknown Unknown F Ordering Physician UnknownLaboratory Lxqquuw8580-03-30 11:08:00Identifier 60885- 6 Result Time 2019-04-10 11:08:00Unknown Test Item Value Reference Range Comments Unknown (test code = 787-2) 84 fL Unknown 80-97 F Ordering Physician UnknownLaboratory Patyrwc2901-48-81 11:08:00Identifier 71508- 6 Result Time 2019-04-10 11:08:00Unknown Test Item Value Reference Range Comments Unknown (test code = 786-4) 33 g/dL Unknown 31-36 F Ordering Physician UnknownLaboratory Vbrrpjf1463-44-91 11:08:00Identifier 27098- 6 Result Time 2019-04-10 11:08:00Unknown Test Item Value Reference Range Comments Unknown (test code = 785-6) 28 pg Unknown 27-31 F Ordering Physician UnknownLaboratory Nevfiqt8900-23-09 11:08:00Identifier 17971- 6 Result Time 2019-04-10 11:08:00Unknown Test Item Value Reference Range Comments Unknown (test code = 736-9) 21.7 % Unknown Unknown F Ordering Physician UnknownLaboratory Qorkbhw8894-78-37 11:08:00Identifier 80622- 6 Result Time 2019-04-10 11:08:00Unknown Test Item Value Reference Range Comments Unknown (test code = 713-8) 2.0 % Unknown Unknown F Ordering Physician UnknownLaboratory Blwjeyv8887-03-21 11:08:00Identifier 62935- 6 Result Time 2019-04-10 11:08:00Unknown Test Item Value Reference Range Comments Unknown (test code = 706-2) 0.8 % Unknown Unknown F Ordering Physician UnknownLaboratory Asjyolu4659-99-67 11:08:00Identifier 68281- 6 Result Time 2019-04-10 11:08:00Unknown Test Item Value Reference Range Comments Unknown (test code = 751-8) 5.1 10^3/ul Unknown 1.5-7.7 F Ordering Physician UnknownLaboratory Zrttqft8628-02-71 11:08:00Identifier 55430- 6 Result Time 2019-04-10 11:08:00Unknown Test Item Value Reference Range Comments Unknown (test code = 742-7) 0.5 10^3/ul Unknown 0-0.8 F Ordering Physician UnknownLaboratory Wldypqf1218-49-48 11:08:00Identifier 48881- 6 Result Time 2019-04-10 11:08:00Unknown Test Item Value Reference Range Comments Unknown (test code = 731-0) 1.6 10^3/ul Unknown 1.0-4.8 F Ordering Physician UnknownLaboratory Owwgkns4165-25-55 11:08:00Identifier 97368- 6 Result Time 2019-04-10 11:08:00Unknown Test Item Value Reference Range Comments Unknown (test code = 711-2) 0.2 10^3/ul Unknown 0-0.6 F Ordering Physician UnknownLaboratory Kcdhamc4477-35-18 11:08:00Identifier 93530- 6 Result Time 2019-04-10 11:08:00Unknown Test Item Value Reference Range Comments Unknown (test code = 704-7) 0.1 10^3/ul Unknown 0-0.2 F Ordering Physician Unknown
--- OUTSIDE RECORDS SUMMARY | 2020-01-24 17:46 | XMS REPORT ---
:1965 Author Organization [facility] Care Team Providers Name Role Phone Unavailable [...] Result Comments Laboratory Studies 2019-04-25 05:49:00 Identifier [id number] Result Time Unknown 2019-04-25 05:49:00 Test Item Value Reference Range Comments Unknown (test code = 777-3) 187 10^3/uL Unknown 150-450 F Ordering Physician UnknownLaboratory Nvxwjlo4304-11-50 05:49:00Identifier 76370- 6 Result Time 2019-04-25 05:49:00Unknown Test Item Value Reference Range Comments Unknown (test code = 31027-1) 8.7 fL Unknown 7.4-10.4 F Ordering Physician UnknownLaboratory Bbdtolu9139-58-45 05:49:00Identifier 05278- 6 Result Time 2019-04-25 05:49:00Unknown Test Item Value Reference Range Comments Unknown (test code = 718-7) 12.7 g/dL Unknown 12.0-16.0 F Ordering Physician UnknownLaboratory Vfvsxrb8367-47-71 05:49:00Identifier 40371- 6 Result Time 2019-04-25 05:49:00Unknown Test Item Value Reference Range Comments Unknown (test code = 4544-3) 39 % Unknown 35-47 F Ordering Physician UnknownLaboratory Dcwgfos8606-75-79 05:08:00Identifier 75213- 6 Result Time 2019-04-24 05:08:00Unknown Test Item Value Reference Range Comments Unknown (test code = 2951-2) 137 mmol/L Unknown 135-145 F Ordering Physician UnknownLaboratory Ignfuro1379-21-40 05:08:00Identifier 81884- 6 Result Time 2019-04-24 05:08:00Unknown Test Item Value Reference Range Comments Unknown (test code = 2823-3) 3.9 mmol/L Unknown 3.5-5.0 F Ordering Physician UnknownLaboratory Zvbzofz6165-79-14 05:08:00Identifier 18643- 6 Result Time 2019-04-24 05:08:00Unknown Test Item Value Reference Range Comments Unknown (test code = 2345-7) 134 mg/dL Unknown 70-100 F Ordering Physician UnknownLaboratory Lqnsrle9385-82-64 05:08:00Identifier 38906- 6 Result Time 2019-04-24 05:08:00Unknown Test Item Value Reference Range Comments Unknown (test code = 51705-3) 98.5 Unknown Unknown F Ordering Physician UnknownLaboratory Ioykdfa1553-23-67 05:08:00Identifier 46366- 6 Result Time 2019-04-24 05:08:00Unknown Test Item Value Reference Range Comments Unknown (test code = NullTestCode) 119.2 Unknown Unknown F Ordering Physician UnknownLaboratory Dvahtvh4079-22-12 05:08:00Identifier 94015- 6 Result Time 2019-04-24 05:08:00Unknown Test Item Value Reference Range Comments Unknown (test code = 2160-0) 0.63 mg/dL Unknown 0.51-0.95 F Ordering Physician UnknownLaboratory Jyrovyr1049-47-31 05:08:00Identifier 33011- 6 Result Time 2019-04-24 05:08:00Unknown Test Item Value Reference Range Comments Unknown (test code = 2075-0) 101 mmol/L Unknown 101-111 F Ordering Physician UnknownLaboratory Ejacobd9617-29-91 05:08:00Identifier 78658- 6 Result Time 2019-04-24 05:08:00Unknown Test Item Value Reference Range Comments Unknown (test code = 2028-9) 29 mmol/L Unknown 22-32 F Ordering Physician UnknownLaboratory Zvjcflx1553-16-77 05:08:00Identifier 40676- 6 Result Time 2019-04-24 05:08:00Unknown Test Item Value Reference Range Comments Unknown (test code = 34720-8) 8.9 mg/dL Unknown 8.6-10.3 F Ordering Physician UnknownLaboratory Hflzhhw9914-21-22 05:08:00Identifier 81932- 6 Result Time 2019-04-24 05:08:00Unknown Test Item Value Reference Range Comments Unknown (test code = 3094-0) 11 mg/dL Unknown 6-24 F Ordering Physician UnknownLaboratory Sbokqga3640-63-86 05:08:00Identifier 91378- 6 Result Time 2019-04-24 05:08:00Unknown Test Item Value Reference Range Comments Unknown (test code = 3097-3) 17.5 Unknown 8-20 F Ordering Physician UnknownLaboratory Oubnqic4812-20-56 05:08:00Identifier 32845- 6 Result Time 2019-04-24 05:08:00Unknown Test Item Value Reference Range Comments Unknown (test code = 48691-5) 7 mmol/L Unknown 2-11 F Ordering Physician UnknownLaboratory Rljnbge7819-15-08 10:07:00Identifier 41770- 6 Result Time 2019-04-23 10:07:00Unknown Test Item Value Reference Range Comments Unknown (test code = 2339-0) 114 mg/dL Unknown 70-100 F Ordering Physician UnknownLaboratory Ixiiuxp8917-78-28 11:08:00Identifier 98144- 6 Result Time 2019-04-10 11:08:00Unknown Test Item Value Reference Range Comments Unknown (test code = 3016-3) 2.63 mcIU/mL Unknown 0.34-5.60 F Ordering Physician UnknownLaboratory Dkzsjam4583-67-95 11:08:00Identifier 50566- 6 Result Time 2019-04-10 11:08:00Unknown Test Item Value Reference Range Comments Unknown (test code = 2571-8) 132 mg/dL Unknown Unknown F Ordering Physician UnknownLaboratory Mszhhuq6813-15-69 11:08:00Identifier 54333- 6 Result Time 2019-04-10 11:08:00Unknown Test Item Value Reference Range Comments Unknown (test code = 2089-1) 139 mg/dL Unknown Unknown F Ordering Physician UnknownLaboratory Bymsfgi9549-80-40 11:08:00Identifier 77109- 6 Result Time 2019-04-10 11:08:00Unknown Test Item Value Reference Range Comments Unknown (test code = 2085-9) 73.6 mg/dL Unknown Unknown F Ordering Physician UnknownLaboratory Mhfaeqn9024-08-00 11:08:00Identifier 66767- 6 Result Time 2019-04-10 11:08:00Unknown Test Item Value Reference Range Comments Unknown (test code = 2093-3) 239 mg/dL Unknown Unknown F Ordering Physician UnknownLaboratory Fjjahbo8408-23-28 11:08:00Identifier 49985- 6 Result Time 2019-04-10 11:08:00Unknown Test Item Value Reference Range Comments Unknown (test code = 2885-2) 7.3 g/dL Unknown 6.4-8.9 F Ordering Physician UnknownLaboratory Zcunfrw1298-54-65 11:08:00Identifier 92637- 6 Result Time 2019-04-10 11:08:00Unknown Test Item Value Reference Range Comments Unknown (test code = 1975-2) 0.50 mg/dL Unknown 0.2-1.0 F Ordering Physician UnknownLaboratory Hpkuasl3396-00-91 11:08:00Identifier 91091- 6 Result Time 2019-04-10 11:08:00Unknown Test Item Value Reference Range Comments Unknown (test code = NullTestCode) 2.8 g/dL Unknown 2-4 F Ordering Physician UnknownLaboratory Vhvymuk5903-90-25 11:08:00Identifier 26931- 6 Result Time 2019-04-10 11:08:00Unknown Test Item Value Reference Range Comments Unknown (test code = 1920-8) 26 U/L Unknown 13-39 F Ordering Physician UnknownLaboratory Nmmenjb7688-95-11 11:08:00Identifier 06187- 6 Result Time 2019-04-10 11:08:00Unknown Test Item Value Reference Range Comments Unknown (test code = 6768-6) 88 U/L Unknown 34-104 F Ordering Physician UnknownLaboratory Hjkvnhd3217-25-97 11:08:00Identifier 29985- 6 Result Time 2019-04-10 11:08:00Unknown Test Item Value Reference Range Comments Unknown (test code = 1759-0) 1.6 Unknown 1-3 F Ordering Physician UnknownLaboratory Lpfxdes1080-96-81 11:08:00Identifier 62492- 6 Result Time 2019-04-10 11:08:00Unknown Test Item Value Reference Range Comments Unknown (test code = 92029-3) 4.5 g/dL Unknown 3.2-5.2 F Ordering Physician UnknownLaboratory Lrmrwyv3405-03-12 11:08:00Identifier 68601- 6 Result Time 2019-04-10 11:08:00Unknown Test Item Value Reference Range Comments Unknown (test code = 1742-6) 27 U/L Unknown 7-52 F Ordering Physician UnknownLaboratory Gsxkvsq3794-36-63 11:08:00Identifier 33488- 6 Result Time 2019-04-10 11:08:00Unknown Test Item Value Reference Range Comments Unknown (test code = 91666-7) Unknown Unknown F Ordering Physician UnknownLaboratory Eafcxzv0830-66-35 11:08:00Identifier 76981- 6 Result Time 2019-04-10 11:08:00Unknown Test Item Value Reference Range Comments Unknown (test code = 2161-8) 69.86 mg/dL Unknown Unknown F Ordering Physician UnknownLaboratory Axqtcnf4380-53-37 11:08:00Identifier 81559- 6 Result Time 2019-04-10 11:08:00Unknown Test Item Value Reference Range Comments Unknown (test code = 66778-9) 0.99 Unknown 0.82-1.09 F Ordering Physician UnknownLaboratory Jgmvfkn0797-81-08 11:08:00Identifier 33195- 6 Result Time 2019-04-10 11:08:00Unknown Test Item Value Reference Range Comments Unknown (test code = 64155-7) 30.8 seconds Unknown 26.0-36.3 F Ordering Physician UnknownLaboratory Gllsjfy3328-19-57 11:08:00Identifier 78859- 6 Result Time 2019-04-10 11:08:00Unknown Test Item Value Reference Range Comments Unknown (test code = NullTestCode) 5.0 Unknown 5-9 F Ordering Physician UnknownLaboratory Nbldxcv3912-29-31 11:08:00Identifier 83269- 6 Result Time 2019-04-10 11:08:00Unknown Test Item Value Reference Range Comments Unknown (test code = 86154-2) 1.016 Unknown 1.010-1.030 F Ordering Physician UnknownLaboratory Ijqipmk8730-20-41 11:08:00Identifier 78882- 6 Result Time 2019-04-10 11:08:00Unknown Test Item Value Reference Range Comments Unknown (test code = 44023-1) 7.4 10^3/uL Unknown 3.5-10.8 F Ordering Physician UnknownLaboratory Ndnsrxj2008-99-94 11:08:00Identifier 01201- 6 Result Time 2019-04-10 11:08:00Unknown Test Item Value Reference Range Comments Unknown (test code = 788-0) 15 % Unknown 10.5-15 F Ordering Physician UnknownLaboratory Pljbzpl4747-27-13 11:08:00Identifier 48139- 6 Result Time 2019-04-10 11:08:00Unknown Test Item Value Reference Range Comments Unknown (test code = 789-8) 5.16 10^6 /uL Unknown 3.70-4.87 F Ordering Physician UnknownLaboratory Bdmuzrd1816-63-91 11:08:00Identifier 34538- 6 Result Time 2019-04-10 11:08:00Unknown Test Item Value Reference Range Comments Unknown (test code = 81846-7) 0.3 Unknown Unknown F Ordering Physician UnknownLaboratory Kjjumtx2760-06-15 11:08:00Identifier 15941- 6 Result Time 2019-04-10 11:08:00Unknown Test Item Value Reference Range Comments Unknown (test code = 771-6) 0.0 10^3/ul Unknown Unknown F Ordering Physician UnknownLaboratory Xsirxra2008-47-87 11:08:00Identifier 41834- 6 Result Time 2019-04-10 11:08:00Unknown Test Item Value Reference Range Comments Unknown (test code = 770-8) 68.3 % Unknown Unknown F Ordering Physician UnknownLaboratory Wytmhzy7395-08-22 11:08:00Identifier 70517- 6 Result Time 2019-04-10 11:08:00Unknown Test Item Value Reference Range Comments Unknown (test code = 5905-5) 7.2 % Unknown Unknown F Ordering Physician UnknownLaboratory Ynryfme5428-66-70 11:08:00Identifier 90107- 6 Result Time 2019-04-10 11:08:00Unknown Test Item Value Reference Range Comments Unknown (test code = 787-2) 84 fL Unknown 80-97 F Ordering Physician UnknownLaboratory Dyzvglf9447-63-77 11:08:00Identifier 30350- 6 Result Time 2019-04-10 11:08:00Unknown Test Item Value Reference Range Comments Unknown (test code = 786-4) 33 g/dL Unknown 31-36 F Ordering Physician UnknownLaboratory Qcoszal9825-93-24 11:08:00Identifier 16427- 6 Result Time 2019-04-10 11:08:00Unknown Test Item Value Reference Range Comments Unknown (test code = 785-6) 28 pg Unknown 27-31 F Ordering Physician UnknownLaboratory Lfliaka0005-54-75 11:08:00Identifier 04902- 6 Result Time 2019-04-10 11:08:00Unknown Test Item Value Reference Range Comments Unknown (test code = 736-9) 21.7 % Unknown Unknown F Ordering Physician UnknownLaboratory Cjdsmwb1286-35-77 11:08:00Identifier 20913- 6 Result Time 2019-04-10 11:08:00Unknown Test Item Value Reference Range Comments Unknown (test code = 713-8) 2.0 % Unknown Unknown F Ordering Physician UnknownLaboratory Btjuprc2559-91-49 11:08:00Identifier 26429- 6 Result Time 2019-04-10 11:08:00Unknown Test Item Value Reference Range Comments Unknown (test code = 706-2) 0.8 % Unknown Unknown F Ordering Physician UnknownLaboratory Rbvjacf4693-09-92 11:08:00Identifier 97156- 6 Result Time 2019-04-10 11:08:00Unknown Test Item Value Reference Range Comments Unknown (test code = 751-8) 5.1 10^3/ul Unknown 1.5-7.7 F Ordering Physician UnknownLaboratory Drfllvk1800-23-13 11:08:00Identifier 31842- 6 Result Time 2019-04-10 11:08:00Unknown Test Item Value Reference Range Comments Unknown (test code = 742-7) 0.5 10^3/ul Unknown 0-0.8 F Ordering Physician UnknownLaboratory Adecolb2828-65-39 11:08:00Identifier 53580- 6 Result Time 2019-04-10 11:08:00Unknown Test Item Value Reference Range Comments Unknown (test code = 731-0) 1.6 10^3/ul Unknown 1.0-4.8 F Ordering Physician UnknownLaboratory Tofxtjg0688-11-63 11:08:00Identifier 75400- 6 Result Time 2019-04-10 11:08:00Unknown Test Item Value Reference Range Comments Unknown (test code = 711-2) 0.2 10^3/ul Unknown 0-0.6 F Ordering Physician UnknownLaboratory Khzqeov3280-07-05 11:08:00Identifier 24638- 6 Result Time 2019-04-10 11:08:00Unknown Test Item Value Reference Range Comments Unknown (test code = 704-7) 0.1 10^3/ul Unknown 0-0.2 F Ordering Physician Unknown
--- OUTSIDE RECORDS SUMMARY | 2020-01-24 17:46 | XMS REPORT ---
:1965 Author Organization [facility] Care Team Providers Name Role Phone Unavailable [...] Result Comments Laboratory Studies 2019-04-25 05:49:00 Identifier [id number] Result Time Unknown 2019-04-25 05:49:00 Test Item Value Reference Range Comments Unknown (test code = 777-3) 187 10^3/uL Unknown 150-450 F Ordering Physician UnknownLaboratory Gqgpixj9961-85-11 05:49:00Identifier 20945- 6 Result Time 2019-04-25 05:49:00Unknown Test Item Value Reference Range Comments Unknown (test code = 24897-1) 8.7 fL Unknown 7.4-10.4 F Ordering Physician UnknownLaboratory Yiielhw3702-69-58 05:49:00Identifier 61009- 6 Result Time 2019-04-25 05:49:00Unknown Test Item Value Reference Range Comments Unknown (test code = 718-7) 12.7 g/dL Unknown 12.0-16.0 F Ordering Physician UnknownLaboratory Yccohnp7686-16-40 05:49:00Identifier 29089- 6 Result Time 2019-04-25 05:49:00Unknown Test Item Value Reference Range Comments Unknown (test code = 4544-3) 39 % Unknown 35-47 F Ordering Physician UnknownLaboratory Cdaompi2127-06-38 05:08:00Identifier 53539- 6 Result Time 2019-04-24 05:08:00Unknown Test Item Value Reference Range Comments Unknown (test code = 2951-2) 137 mmol/L Unknown 135-145 F Ordering Physician UnknownLaboratory Jhryyms0845-29-67 05:08:00Identifier 49521- 6 Result Time 2019-04-24 05:08:00Unknown Test Item Value Reference Range Comments Unknown (test code = 2823-3) 3.9 mmol/L Unknown 3.5-5.0 F Ordering Physician UnknownLaboratory Eijqvus1357-43-32 05:08:00Identifier 32542- 6 Result Time 2019-04-24 05:08:00Unknown Test Item Value Reference Range Comments Unknown (test code = 2345-7) 134 mg/dL Unknown 70-100 F Ordering Physician UnknownLaboratory Yzuqftg0968-36-81 05:08:00Identifier 35520- 6 Result Time 2019-04-24 05:08:00Unknown Test Item Value Reference Range Comments Unknown (test code = 38153-4) 98.5 Unknown Unknown F Ordering Physician UnknownLaboratory Vkgffvi5609-88-68 05:08:00Identifier 33261- 6 Result Time 2019-04-24 05:08:00Unknown Test Item Value Reference Range Comments Unknown (test code = NullTestCode) 119.2 Unknown Unknown F Ordering Physician UnknownLaboratory Hhukmnb0926-95-44 05:08:00Identifier 19150- 6 Result Time 2019-04-24 05:08:00Unknown Test Item Value Reference Range Comments Unknown (test code = 2160-0) 0.63 mg/dL Unknown 0.51-0.95 F Ordering Physician UnknownLaboratory Lnqymam3396-94-33 05:08:00Identifier 02556- 6 Result Time 2019-04-24 05:08:00Unknown Test Item Value Reference Range Comments Unknown (test code = 2075-0) 101 mmol/L Unknown 101-111 F Ordering Physician UnknownLaboratory Ddkcrbb0203-70-32 05:08:00Identifier 14211- 6 Result Time 2019-04-24 05:08:00Unknown Test Item Value Reference Range Comments Unknown (test code = 2028-9) 29 mmol/L Unknown 22-32 F Ordering Physician UnknownLaboratory Palpdqv7354-83-58 05:08:00Identifier 74733- 6 Result Time 2019-04-24 05:08:00Unknown Test Item Value Reference Range Comments Unknown (test code = 32181-1) 8.9 mg/dL Unknown 8.6-10.3 F Ordering Physician UnknownLaboratory Offirgs2366-93-82 05:08:00Identifier 20108- 6 Result Time 2019-04-24 05:08:00Unknown Test Item Value Reference Range Comments Unknown (test code = 3094-0) 11 mg/dL Unknown 6-24 F Ordering Physician UnknownLaboratory Hgvazbs7293-93-40 05:08:00Identifier 56802- 6 Result Time 2019-04-24 05:08:00Unknown Test Item Value Reference Range Comments Unknown (test code = 3097-3) 17.5 Unknown 8-20 F Ordering Physician UnknownLaboratory Zlgplzp1522-34-58 05:08:00Identifier 04576- 6 Result Time 2019-04-24 05:08:00Unknown Test Item Value Reference Range Comments Unknown (test code = 20348-0) 7 mmol/L Unknown 2-11 F Ordering Physician UnknownLaboratory Yyyhxaj0278-79-05 10:07:00Identifier 58560- 6 Result Time 2019-04-23 10:07:00Unknown Test Item Value Reference Range Comments Unknown (test code = 2339-0) 114 mg/dL Unknown 70-100 F Ordering Physician UnknownLaboratory Kscaxxs7346-34-89 11:08:00Identifier 07933- 6 Result Time 2019-04-10 11:08:00Unknown Test Item Value Reference Range Comments Unknown (test code = 3016-3) 2.63 mcIU/mL Unknown 0.34-5.60 F Ordering Physician UnknownLaboratory Byvxmbh2578-06-96 11:08:00Identifier 08327- 6 Result Time 2019-04-10 11:08:00Unknown Test Item Value Reference Range Comments Unknown (test code = 2571-8) 132 mg/dL Unknown Unknown F Ordering Physician UnknownLaboratory Zkdcfrf1440-95-78 11:08:00Identifier 18464- 6 Result Time 2019-04-10 11:08:00Unknown Test Item Value Reference Range Comments Unknown (test code = 2089-1) 139 mg/dL Unknown Unknown F Ordering Physician UnknownLaboratory Itjnaog3804-79-32 11:08:00Identifier 43387- 6 Result Time 2019-04-10 11:08:00Unknown Test Item Value Reference Range Comments Unknown (test code = 2085-9) 73.6 mg/dL Unknown Unknown F Ordering Physician UnknownLaboratory Ipmywli5459-52-52 11:08:00Identifier 88512- 6 Result Time 2019-04-10 11:08:00Unknown Test Item Value Reference Range Comments Unknown (test code = 2093-3) 239 mg/dL Unknown Unknown F Ordering Physician UnknownLaboratory Mcnddmu1409-54-59 11:08:00Identifier 74809- 6 Result Time 2019-04-10 11:08:00Unknown Test Item Value Reference Range Comments Unknown (test code = 2885-2) 7.3 g/dL Unknown 6.4-8.9 F Ordering Physician UnknownLaboratory Qltrvsf1529-01-58 11:08:00Identifier 78664- 6 Result Time 2019-04-10 11:08:00Unknown Test Item Value Reference Range Comments Unknown (test code = 1975-2) 0.50 mg/dL Unknown 0.2-1.0 F Ordering Physician UnknownLaboratory Oqmqatb6355-25-34 11:08:00Identifier 49372- 6 Result Time 2019-04-10 11:08:00Unknown Test Item Value Reference Range Comments Unknown (test code = NullTestCode) 2.8 g/dL Unknown 2-4 F Ordering Physician UnknownLaboratory Nnbwbdy5483-76-59 11:08:00Identifier 30921- 6 Result Time 2019-04-10 11:08:00Unknown Test Item Value Reference Range Comments Unknown (test code = 1920-8) 26 U/L Unknown 13-39 F Ordering Physician UnknownLaboratory Omilrsn6564-30-62 11:08:00Identifier 71568- 6 Result Time 2019-04-10 11:08:00Unknown Test Item Value Reference Range Comments Unknown (test code = 6768-6) 88 U/L Unknown 34-104 F Ordering Physician UnknownLaboratory Zbdpynn8498-14-48 11:08:00Identifier 70555- 6 Result Time 2019-04-10 11:08:00Unknown Test Item Value Reference Range Comments Unknown (test code = 1759-0) 1.6 Unknown 1-3 F Ordering Physician UnknownLaboratory Ozhlhcs7201-20-57 11:08:00Identifier 95040- 6 Result Time 2019-04-10 11:08:00Unknown Test Item Value Reference Range Comments Unknown (test code = 30819-9) 4.5 g/dL Unknown 3.2-5.2 F Ordering Physician UnknownLaboratory Nhzzzyg9685-17-63 11:08:00Identifier 33215- 6 Result Time 2019-04-10 11:08:00Unknown Test Item Value Reference Range Comments Unknown (test code = 1742-6) 27 U/L Unknown 7-52 F Ordering Physician UnknownLaboratory Bgsnabm1283-37-62 11:08:00Identifier 57380- 6 Result Time 2019-04-10 11:08:00Unknown Test Item Value Reference Range Comments Unknown (test code = 51146-6) Unknown Unknown F Ordering Physician UnknownLaboratory Zvotzva3781-35-64 11:08:00Identifier 03059- 6 Result Time 2019-04-10 11:08:00Unknown Test Item Value Reference Range Comments Unknown (test code = 2161-8) 69.86 mg/dL Unknown Unknown F Ordering Physician UnknownLaboratory Ealvoru6604-90-89 11:08:00Identifier 51174- 6 Result Time 2019-04-10 11:08:00Unknown Test Item Value Reference Range Comments Unknown (test code = 00009-3) 0.99 Unknown 0.82-1.09 F Ordering Physician UnknownLaboratory Asqchrk2284-85-31 11:08:00Identifier 90726- 6 Result Time 2019-04-10 11:08:00Unknown Test Item Value Reference Range Comments Unknown (test code = 69954-2) 30.8 seconds Unknown 26.0-36.3 F Ordering Physician UnknownLaboratory Zgtufzl3622-49-70 11:08:00Identifier 02315- 6 Result Time 2019-04-10 11:08:00Unknown Test Item Value Reference Range Comments Unknown (test code = NullTestCode) 5.0 Unknown 5-9 F Ordering Physician UnknownLaboratory Tkbiudz9278-74-95 11:08:00Identifier 24927- 6 Result Time 2019-04-10 11:08:00Unknown Test Item Value Reference Range Comments Unknown (test code = 21447-5) 1.016 Unknown 1.010-1.030 F Ordering Physician UnknownLaboratory Cfhqihh9857-38-33 11:08:00Identifier 66638- 6 Result Time 2019-04-10 11:08:00Unknown Test Item Value Reference Range Comments Unknown (test code = 96383-2) 7.4 10^3/uL Unknown 3.5-10.8 F Ordering Physician UnknownLaboratory Clntcwm8160-50-74 11:08:00Identifier 65021- 6 Result Time 2019-04-10 11:08:00Unknown Test Item Value Reference Range Comments Unknown (test code = 788-0) 15 % Unknown 10.5-15 F Ordering Physician UnknownLaboratory Gcxawhk1507-65-38 11:08:00Identifier 67824- 6 Result Time 2019-04-10 11:08:00Unknown Test Item Value Reference Range Comments Unknown (test code = 789-8) 5.16 10^6 /uL Unknown 3.70-4.87 F Ordering Physician UnknownLaboratory Gzkefdv9511-67-36 11:08:00Identifier 41543- 6 Result Time 2019-04-10 11:08:00Unknown Test Item Value Reference Range Comments Unknown (test code = 67311-6) 0.3 Unknown Unknown F Ordering Physician UnknownLaboratory Afctirk3384-53-68 11:08:00Identifier 15766- 6 Result Time 2019-04-10 11:08:00Unknown Test Item Value Reference Range Comments Unknown (test code = 771-6) 0.0 10^3/ul Unknown Unknown F Ordering Physician UnknownLaboratory Ckchmpy7954-95-01 11:08:00Identifier 77251- 6 Result Time 2019-04-10 11:08:00Unknown Test Item Value Reference Range Comments Unknown (test code = 770-8) 68.3 % Unknown Unknown F Ordering Physician UnknownLaboratory Iznuhsm0451-09-21 11:08:00Identifier 55007- 6 Result Time 2019-04-10 11:08:00Unknown Test Item Value Reference Range Comments Unknown (test code = 5905-5) 7.2 % Unknown Unknown F Ordering Physician UnknownLaboratory Lpyswfs4059-50-90 11:08:00Identifier 23926- 6 Result Time 2019-04-10 11:08:00Unknown Test Item Value Reference Range Comments Unknown (test code = 787-2) 84 fL Unknown 80-97 F Ordering Physician UnknownLaboratory Eflguqq7978-37-24 11:08:00Identifier 30268- 6 Result Time 2019-04-10 11:08:00Unknown Test Item Value Reference Range Comments Unknown (test code = 786-4) 33 g/dL Unknown 31-36 F Ordering Physician UnknownLaboratory Ktwmpqv6205-42-40 11:08:00Identifier 10055- 6 Result Time 2019-04-10 11:08:00Unknown Test Item Value Reference Range Comments Unknown (test code = 785-6) 28 pg Unknown 27-31 F Ordering Physician UnknownLaboratory Eenpell4736-86-65 11:08:00Identifier 03295- 6 Result Time 2019-04-10 11:08:00Unknown Test Item Value Reference Range Comments Unknown (test code = 736-9) 21.7 % Unknown Unknown F Ordering Physician UnknownLaboratory Hnrefjo5940-84-42 11:08:00Identifier 33698- 6 Result Time 2019-04-10 11:08:00Unknown Test Item Value Reference Range Comments Unknown (test code = 713-8) 2.0 % Unknown Unknown F Ordering Physician UnknownLaboratory Ywiryju8508-80-39 11:08:00Identifier 11052- 6 Result Time 2019-04-10 11:08:00Unknown Test Item Value Reference Range Comments Unknown (test code = 706-2) 0.8 % Unknown Unknown F Ordering Physician UnknownLaboratory Qhnzsks6631-89-86 11:08:00Identifier 75084- 6 Result Time 2019-04-10 11:08:00Unknown Test Item Value Reference Range Comments Unknown (test code = 751-8) 5.1 10^3/ul Unknown 1.5-7.7 F Ordering Physician UnknownLaboratory Glwcwwx7890-61-86 11:08:00Identifier 95279- 6 Result Time 2019-04-10 11:08:00Unknown Test Item Value Reference Range Comments Unknown (test code = 742-7) 0.5 10^3/ul Unknown 0-0.8 F Ordering Physician UnknownLaboratory Nbpdwjm4279-58-64 11:08:00Identifier 39815- 6 Result Time 2019-04-10 11:08:00Unknown Test Item Value Reference Range Comments Unknown (test code = 731-0) 1.6 10^3/ul Unknown 1.0-4.8 F Ordering Physician UnknownLaboratory Egcjbxa7490-36-75 11:08:00Identifier 39288- 6 Result Time 2019-04-10 11:08:00Unknown Test Item Value Reference Range Comments Unknown (test code = 711-2) 0.2 10^3/ul Unknown 0-0.6 F Ordering Physician UnknownLaboratory Ydudhph1710-98-56 11:08:00Identifier 63835- 6 Result Time 2019-04-10 11:08:00Unknown Test Item Value Reference Range Comments Unknown (test code = 704-7) 0.1 10^3/ul Unknown 0-0.2 F Ordering Physician Unknown
--- OUTSIDE RECORDS SUMMARY | 2020-01-24 17:46 | XMS REPORT ---
:1965 Author Organization [facility] Care Team Providers Name Role Phone Unavailable [...] Result Comments Laboratory Studies 2019-04-25 05:49:00 Identifier [id number] Result Time Unknown 2019-04-25 05:49:00 Test Item Value Reference Range Comments Unknown (test code = 777-3) 187 10^3/uL Unknown 150-450 F Ordering Physician UnknownLaboratory Nmmyfid7908-55-46 05:49:00Identifier 80788- 6 Result Time 2019-04-25 05:49:00Unknown Test Item Value Reference Range Comments Unknown (test code = 29160-2) 8.7 fL Unknown 7.4-10.4 F Ordering Physician UnknownLaboratory Ktzhpvo1413-64-04 05:49:00Identifier 30285- 6 Result Time 2019-04-25 05:49:00Unknown Test Item Value Reference Range Comments Unknown (test code = 718-7) 12.7 g/dL Unknown 12.0-16.0 F Ordering Physician UnknownLaboratory Fyvwecp6813-33-34 05:49:00Identifier 16442- 6 Result Time 2019-04-25 05:49:00Unknown Test Item Value Reference Range Comments Unknown (test code = 4544-3) 39 % Unknown 35-47 F Ordering Physician UnknownLaboratory Zczypbf1725-81-13 05:08:00Identifier 76408- 6 Result Time 2019-04-24 05:08:00Unknown Test Item Value Reference Range Comments Unknown (test code = 2951-2) 137 mmol/L Unknown 135-145 F Ordering Physician UnknownLaboratory Bcalueo7013-76-48 05:08:00Identifier 42486- 6 Result Time 2019-04-24 05:08:00Unknown Test Item Value Reference Range Comments Unknown (test code = 2823-3) 3.9 mmol/L Unknown 3.5-5.0 F Ordering Physician UnknownLaboratory Qhhxpfh9362-23-84 05:08:00Identifier 15971- 6 Result Time 2019-04-24 05:08:00Unknown Test Item Value Reference Range Comments Unknown (test code = 2345-7) 134 mg/dL Unknown 70-100 F Ordering Physician UnknownLaboratory Dbsshnx6124-26-07 05:08:00Identifier 19796- 6 Result Time 2019-04-24 05:08:00Unknown Test Item Value Reference Range Comments Unknown (test code = 10256-6) 98.5 Unknown Unknown F Ordering Physician UnknownLaboratory Xqpxfpn4245-93-58 05:08:00Identifier 73331- 6 Result Time 2019-04-24 05:08:00Unknown Test Item Value Reference Range Comments Unknown (test code = NullTestCode) 119.2 Unknown Unknown F Ordering Physician UnknownLaboratory Ckjrqqd2610-98-91 05:08:00Identifier 07814- 6 Result Time 2019-04-24 05:08:00Unknown Test Item Value Reference Range Comments Unknown (test code = 2160-0) 0.63 mg/dL Unknown 0.51-0.95 F Ordering Physician UnknownLaboratory Efdcqxb9178-84-98 05:08:00Identifier 91936- 6 Result Time 2019-04-24 05:08:00Unknown Test Item Value Reference Range Comments Unknown (test code = 2075-0) 101 mmol/L Unknown 101-111 F Ordering Physician UnknownLaboratory Chndkpj1204-67-35 05:08:00Identifier 39450- 6 Result Time 2019-04-24 05:08:00Unknown Test Item Value Reference Range Comments Unknown (test code = 2028-9) 29 mmol/L Unknown 22-32 F Ordering Physician UnknownLaboratory Wvhgtie4697-93-92 05:08:00Identifier 13827- 6 Result Time 2019-04-24 05:08:00Unknown Test Item Value Reference Range Comments Unknown (test code = 02126-6) 8.9 mg/dL Unknown 8.6-10.3 F Ordering Physician UnknownLaboratory Pwoffvq0713-21-75 05:08:00Identifier 14771- 6 Result Time 2019-04-24 05:08:00Unknown Test Item Value Reference Range Comments Unknown (test code = 3094-0) 11 mg/dL Unknown 6-24 F Ordering Physician UnknownLaboratory Aldutqw3625-07-63 05:08:00Identifier 04278- 6 Result Time 2019-04-24 05:08:00Unknown Test Item Value Reference Range Comments Unknown (test code = 3097-3) 17.5 Unknown 8-20 F Ordering Physician UnknownLaboratory Spwipdp1890-54-05 05:08:00Identifier 63813- 6 Result Time 2019-04-24 05:08:00Unknown Test Item Value Reference Range Comments Unknown (test code = 19903-5) 7 mmol/L Unknown 2-11 F Ordering Physician UnknownLaboratory Hxfbpcm5652-92-95 10:07:00Identifier 06535- 6 Result Time 2019-04-23 10:07:00Unknown Test Item Value Reference Range Comments Unknown (test code = 2339-0) 114 mg/dL Unknown 70-100 F Ordering Physician UnknownLaboratory Pfhlhqh3636-23-47 11:08:00Identifier 56418- 6 Result Time 2019-04-10 11:08:00Unknown Test Item Value Reference Range Comments Unknown (test code = 3016-3) 2.63 mcIU/mL Unknown 0.34-5.60 F Ordering Physician UnknownLaboratory Isvvolf6820-34-46 11:08:00Identifier 01658- 6 Result Time 2019-04-10 11:08:00Unknown Test Item Value Reference Range Comments Unknown (test code = 2571-8) 132 mg/dL Unknown Unknown F Ordering Physician UnknownLaboratory Veavudg9286-55-82 11:08:00Identifier 59066- 6 Result Time 2019-04-10 11:08:00Unknown Test Item Value Reference Range Comments Unknown (test code = 2089-1) 139 mg/dL Unknown Unknown F Ordering Physician UnknownLaboratory Edwcirx1158-93-39 11:08:00Identifier 77906- 6 Result Time 2019-04-10 11:08:00Unknown Test Item Value Reference Range Comments Unknown (test code = 2085-9) 73.6 mg/dL Unknown Unknown F Ordering Physician UnknownLaboratory Fvguijy4107-31-74 11:08:00Identifier 08789- 6 Result Time 2019-04-10 11:08:00Unknown Test Item Value Reference Range Comments Unknown (test code = 2093-3) 239 mg/dL Unknown Unknown F Ordering Physician UnknownLaboratory Lllmhhp9844-51-23 11:08:00Identifier 55564- 6 Result Time 2019-04-10 11:08:00Unknown Test Item Value Reference Range Comments Unknown (test code = 2885-2) 7.3 g/dL Unknown 6.4-8.9 F Ordering Physician UnknownLaboratory Yditqbr3108-24-68 11:08:00Identifier 11354- 6 Result Time 2019-04-10 11:08:00Unknown Test Item Value Reference Range Comments Unknown (test code = 1975-2) 0.50 mg/dL Unknown 0.2-1.0 F Ordering Physician UnknownLaboratory Mfhzlla2083-91-93 11:08:00Identifier 12808- 6 Result Time 2019-04-10 11:08:00Unknown Test Item Value Reference Range Comments Unknown (test code = NullTestCode) 2.8 g/dL Unknown 2-4 F Ordering Physician UnknownLaboratory Pygsmjo8789-23-40 11:08:00Identifier 15078- 6 Result Time 2019-04-10 11:08:00Unknown Test Item Value Reference Range Comments Unknown (test code = 1920-8) 26 U/L Unknown 13-39 F Ordering Physician UnknownLaboratory Xiintjo2288-29-71 11:08:00Identifier 04314- 6 Result Time 2019-04-10 11:08:00Unknown Test Item Value Reference Range Comments Unknown (test code = 6768-6) 88 U/L Unknown 34-104 F Ordering Physician UnknownLaboratory Msszziz6950-99-00 11:08:00Identifier 16122- 6 Result Time 2019-04-10 11:08:00Unknown Test Item Value Reference Range Comments Unknown (test code = 1759-0) 1.6 Unknown 1-3 F Ordering Physician UnknownLaboratory Bsheval0794-05-34 11:08:00Identifier 81566- 6 Result Time 2019-04-10 11:08:00Unknown Test Item Value Reference Range Comments Unknown (test code = 62191-9) 4.5 g/dL Unknown 3.2-5.2 F Ordering Physician UnknownLaboratory Hqqfudi7567-13-85 11:08:00Identifier 39556- 6 Result Time 2019-04-10 11:08:00Unknown Test Item Value Reference Range Comments Unknown (test code = 1742-6) 27 U/L Unknown 7-52 F Ordering Physician UnknownLaboratory Iqohcms3780-35-92 11:08:00Identifier 84713- 6 Result Time 2019-04-10 11:08:00Unknown Test Item Value Reference Range Comments Unknown (test code = 14479-8) Unknown Unknown F Ordering Physician UnknownLaboratory Ktydxfy6931-81-73 11:08:00Identifier 23425- 6 Result Time 2019-04-10 11:08:00Unknown Test Item Value Reference Range Comments Unknown (test code = 2161-8) 69.86 mg/dL Unknown Unknown F Ordering Physician UnknownLaboratory Mgfelrb4504-58-87 11:08:00Identifier 15453- 6 Result Time 2019-04-10 11:08:00Unknown Test Item Value Reference Range Comments Unknown (test code = 98726-9) 0.99 Unknown 0.82-1.09 F Ordering Physician UnknownLaboratory Uthxbtt4309-88-44 11:08:00Identifier 34012- 6 Result Time 2019-04-10 11:08:00Unknown Test Item Value Reference Range Comments Unknown (test code = 95257-3) 30.8 seconds Unknown 26.0-36.3 F Ordering Physician UnknownLaboratory Vtkfzeh3965-26-10 11:08:00Identifier 08268- 6 Result Time 2019-04-10 11:08:00Unknown Test Item Value Reference Range Comments Unknown (test code = NullTestCode) 5.0 Unknown 5-9 F Ordering Physician UnknownLaboratory Miabehi9072-01-44 11:08:00Identifier 03765- 6 Result Time 2019-04-10 11:08:00Unknown Test Item Value Reference Range Comments Unknown (test code = 80165-1) 1.016 Unknown 1.010-1.030 F Ordering Physician UnknownLaboratory Pftizzp1532-96-36 11:08:00Identifier 62098- 6 Result Time 2019-04-10 11:08:00Unknown Test Item Value Reference Range Comments Unknown (test code = 39166-0) 7.4 10^3/uL Unknown 3.5-10.8 F Ordering Physician UnknownLaboratory Thnwucg6123-27-55 11:08:00Identifier 35743- 6 Result Time 2019-04-10 11:08:00Unknown Test Item Value Reference Range Comments Unknown (test code = 788-0) 15 % Unknown 10.5-15 F Ordering Physician UnknownLaboratory Rmzypyp9742-09-98 11:08:00Identifier 15548- 6 Result Time 2019-04-10 11:08:00Unknown Test Item Value Reference Range Comments Unknown (test code = 789-8) 5.16 10^6 /uL Unknown 3.70-4.87 F Ordering Physician UnknownLaboratory Ydxldhc6509-48-77 11:08:00Identifier 89691- 6 Result Time 2019-04-10 11:08:00Unknown Test Item Value Reference Range Comments Unknown (test code = 46862-6) 0.3 Unknown Unknown F Ordering Physician UnknownLaboratory Yqmicxv4580-11-03 11:08:00Identifier 29481- 6 Result Time 2019-04-10 11:08:00Unknown Test Item Value Reference Range Comments Unknown (test code = 771-6) 0.0 10^3/ul Unknown Unknown F Ordering Physician UnknownLaboratory Fcdubdy8487-80-28 11:08:00Identifier 42235- 6 Result Time 2019-04-10 11:08:00Unknown Test Item Value Reference Range Comments Unknown (test code = 770-8) 68.3 % Unknown Unknown F Ordering Physician UnknownLaboratory Rhyzcmq3930-98-34 11:08:00Identifier 79306- 6 Result Time 2019-04-10 11:08:00Unknown Test Item Value Reference Range Comments Unknown (test code = 5905-5) 7.2 % Unknown Unknown F Ordering Physician UnknownLaboratory Ntkbpzj3573-59-46 11:08:00Identifier 81289- 6 Result Time 2019-04-10 11:08:00Unknown Test Item Value Reference Range Comments Unknown (test code = 787-2) 84 fL Unknown 80-97 F Ordering Physician UnknownLaboratory Cvanygb6619-07-47 11:08:00Identifier 59062- 6 Result Time 2019-04-10 11:08:00Unknown Test Item Value Reference Range Comments Unknown (test code = 786-4) 33 g/dL Unknown 31-36 F Ordering Physician UnknownLaboratory Hpjftzy5337-01-76 11:08:00Identifier 94421- 6 Result Time 2019-04-10 11:08:00Unknown Test Item Value Reference Range Comments Unknown (test code = 785-6) 28 pg Unknown 27-31 F Ordering Physician UnknownLaboratory Ynqkfvf6442-65-72 11:08:00Identifier 34400- 6 Result Time 2019-04-10 11:08:00Unknown Test Item Value Reference Range Comments Unknown (test code = 736-9) 21.7 % Unknown Unknown F Ordering Physician UnknownLaboratory Yfbssjx0197-90-36 11:08:00Identifier 03194- 6 Result Time 2019-04-10 11:08:00Unknown Test Item Value Reference Range Comments Unknown (test code = 713-8) 2.0 % Unknown Unknown F Ordering Physician UnknownLaboratory Bbulihe4895-93-73 11:08:00Identifier 16741- 6 Result Time 2019-04-10 11:08:00Unknown Test Item Value Reference Range Comments Unknown (test code = 706-2) 0.8 % Unknown Unknown F Ordering Physician UnknownLaboratory Dlpuueb0676-66-52 11:08:00Identifier 52816- 6 Result Time 2019-04-10 11:08:00Unknown Test Item Value Reference Range Comments Unknown (test code = 751-8) 5.1 10^3/ul Unknown 1.5-7.7 F Ordering Physician UnknownLaboratory Cwucrke0506-18-49 11:08:00Identifier 87411- 6 Result Time 2019-04-10 11:08:00Unknown Test Item Value Reference Range Comments Unknown (test code = 742-7) 0.5 10^3/ul Unknown 0-0.8 F Ordering Physician UnknownLaboratory Cxmkanh8963-89-70 11:08:00Identifier 66188- 6 Result Time 2019-04-10 11:08:00Unknown Test Item Value Reference Range Comments Unknown (test code = 731-0) 1.6 10^3/ul Unknown 1.0-4.8 F Ordering Physician UnknownLaboratory Nitoqcm5742-61-50 11:08:00Identifier 36074- 6 Result Time 2019-04-10 11:08:00Unknown Test Item Value Reference Range Comments Unknown (test code = 711-2) 0.2 10^3/ul Unknown 0-0.6 F Ordering Physician UnknownLaboratory Bwfaxxe5424-59-14 11:08:00Identifier 85703- 6 Result Time 2019-04-10 11:08:00Unknown Test Item Value Reference Range Comments Unknown (test code = 704-7) 0.1 10^3/ul Unknown 0-0.2 F Ordering Physician Unknown
--- OUTSIDE RECORDS SUMMARY | 2020-01-24 17:46 | XMS REPORT ---
:1965 Author Organization [facility] Care Team Providers Name Role Phone Unavailable [...] Result Comments Laboratory Studies 2019-04-25 05:49:00 Identifier [id number] Result Time Unknown 2019-04-25 05:49:00 Test Item Value Reference Range Comments Unknown (test code = 777-3) 187 10^3/uL Unknown 150-450 F Ordering Physician UnknownLaboratory Jqxcwyw6245-27-48 05:49:00Identifier [id number]- 6 Result Time 2019-04-25 05:49:00Unknown Test Item Value Reference Range Comments Unknown (test code = 55652-8) 8.7 fL Unknown 7.4-10.4 F Ordering Physician UnknownLaboratory Kjcqhps0321-93-08 05:49:00Identifier 85625- 6 Result Time 2019-04-25 05:49:00Unknown Test Item Value Reference Range Comments Unknown (test code = 718-7) 12.7 g/dL Unknown 12.0-16.0 F Ordering Physician UnknownLaboratory Ddbavll9453-86-27 05:49:00Identifier 94649- 6 Result Time 2019-04-25 05:49:00Unknown Test Item Value Reference Range Comments Unknown (test code = 4544-3) 39 % Unknown 35-47 F Ordering Physician UnknownLaboratory Qhweuqv1117-69-60 05:08:00Identifier 41888- 6 Result Time 2019-04-24 05:08:00Unknown Test Item Value Reference Range Comments Unknown (test code = 2951-2) 137 mmol/L Unknown 135-145 F Ordering Physician UnknownLaboratory Webuqab9865-62-80 05:08:00Identifier 62346- 6 Result Time 2019-04-24 05:08:00Unknown Test Item Value Reference Range Comments Unknown (test code = 2823-3) 3.9 mmol/L Unknown 3.5-5.0 F Ordering Physician UnknownLaboratory Vjnqmit4628-92-68 05:08:00Identifier 06526- 6 Result Time 2019-04-24 05:08:00Unknown Test Item Value Reference Range Comments Unknown (test code = 2345-7) 134 mg/dL Unknown 70-100 F Ordering Physician UnknownLaboratory Yopouwv2013-82-01 05:08:00Identifier 05726- 6 Result Time 2019-04-24 05:08:00Unknown Test Item Value Reference Range Comments Unknown (test code = 12756-5) 98.5 Unknown Unknown F Ordering Physician UnknownLaboratory Efcmrrk7492-89-10 05:08:00Identifier 64027- 6 Result Time 2019-04-24 05:08:00Unknown Test Item Value Reference Range Comments Unknown (test code = NullTestCode) 119.2 Unknown Unknown F Ordering Physician UnknownLaboratory Dilzwku9575-66-48 05:08:00Identifier 20149- 6 Result Time 2019-04-24 05:08:00Unknown Test Item Value Reference Range Comments Unknown (test code = 2160-0) 0.63 mg/dL Unknown 0.51-0.95 F Ordering Physician UnknownLaboratory Jzhikbz8618-02-80 05:08:00Identifier 71991- 6 Result Time 2019-04-24 05:08:00Unknown Test Item Value Reference Range Comments Unknown (test code = 2075-0) 101 mmol/L Unknown 101-111 F Ordering Physician UnknownLaboratory Kauaxfo0173-46-09 05:08:00Identifier 23689- 6 Result Time 2019-04-24 05:08:00Unknown Test Item Value Reference Range Comments Unknown (test code = 2028-9) 29 mmol/L Unknown 22-32 F Ordering Physician UnknownLaboratory Fwovrxr1528-42-15 05:08:00Identifier 13942- 6 Result Time 2019-04-24 05:08:00Unknown Test Item Value Reference Range Comments Unknown (test code = 21620-5) 8.9 mg/dL Unknown 8.6-10.3 F Ordering Physician UnknownLaboratory Yzixebw8960-20-04 05:08:00Identifier 22146- 6 Result Time 2019-04-24 05:08:00Unknown Test Item Value Reference Range Comments Unknown (test code = 3094-0) 11 mg/dL Unknown 6-24 F Ordering Physician UnknownLaboratory Asxocxh3687-11-91 05:08:00Identifier 88302- 6 Result Time 2019-04-24 05:08:00Unknown Test Item Value Reference Range Comments Unknown (test code = 3097-3) 17.5 Unknown 8-20 F Ordering Physician UnknownLaboratory Ymgelbj9296-52-60 05:08:00Identifier 75822- 6 Result Time 2019-04-24 05:08:00Unknown Test Item Value Reference Range Comments Unknown (test code = 90538-1) 7 mmol/L Unknown 2-11 F Ordering Physician UnknownLaboratory Anaznmi1162-06-23 10:07:00Identifier 66307- 6 Result Time 2019-04-23 10:07:00Unknown Test Item Value Reference Range Comments Unknown (test code = 2339-0) 114 mg/dL Unknown 70-100 F Ordering Physician UnknownLaboratory Szyrsdi2358-08-94 11:08:00Identifier 52426- 6 Result Time 2019-04-10 11:08:00Unknown Test Item Value Reference Range Comments Unknown (test code = 3016-3) 2.63 mcIU/mL Unknown 0.34-5.60 F Ordering Physician UnknownLaboratory Ysndess2431-99-88 11:08:00Identifier 64619- 6 Result Time 2019-04-10 11:08:00Unknown Test Item Value Reference Range Comments Unknown (test code = 2571-8) 132 mg/dL Unknown Unknown F Ordering Physician UnknownLaboratory Praprdk2383-99-70 11:08:00Identifier 45697- 6 Result Time 2019-04-10 11:08:00Unknown Test Item Value Reference Range Comments Unknown (test code = 2089-1) 139 mg/dL Unknown Unknown F Ordering Physician UnknownLaboratory Rlgjuhm0400-70-68 11:08:00Identifier 50346- 6 Result Time 2019-04-10 11:08:00Unknown Test Item Value Reference Range Comments Unknown (test code = 2085-9) 73.6 mg/dL Unknown Unknown F Ordering Physician UnknownLaboratory Fqjbkir0313-99-07 11:08:00Identifier 30877- 6 Result Time 2019-04-10 11:08:00Unknown Test Item Value Reference Range Comments Unknown (test code = 2093-3) 239 mg/dL Unknown Unknown F Ordering Physician UnknownLaboratory Ouqeoaj7606-52-52 11:08:00Identifier 89735- 6 Result Time 2019-04-10 11:08:00Unknown Test Item Value Reference Range Comments Unknown (test code = 2885-2) 7.3 g/dL Unknown 6.4-8.9 F Ordering Physician UnknownLaboratory Ambgxji8692-99-83 11:08:00Identifier 39885- 6 Result Time 2019-04-10 11:08:00Unknown Test Item Value Reference Range Comments Unknown (test code = 1975-2) 0.50 mg/dL Unknown 0.2-1.0 F Ordering Physician UnknownLaboratory Jmpzhqw2181-74-99 11:08:00Identifier 00240- 6 Result Time 2019-04-10 11:08:00Unknown Test Item Value Reference Range Comments Unknown (test code = NullTestCode) 2.8 g/dL Unknown 2-4 F Ordering Physician UnknownLaboratory Ocbtprc5918-80-14 11:08:00Identifier 25772- 6 Result Time 2019-04-10 11:08:00Unknown Test Item Value Reference Range Comments Unknown (test code = 1920-8) 26 U/L Unknown 13-39 F Ordering Physician UnknownLaboratory Ehpddau7850-91-65 11:08:00Identifier 87927- 6 Result Time 2019-04-10 11:08:00Unknown Test Item Value Reference Range Comments Unknown (test code = 6768-6) 88 U/L Unknown 34-104 F Ordering Physician UnknownLaboratory Oggjzrl9065-24-01 11:08:00Identifier 62826- 6 Result Time 2019-04-10 11:08:00Unknown Test Item Value Reference Range Comments Unknown (test code = 1759-0) 1.6 Unknown 1-3 F Ordering Physician UnknownLaboratory Gfgsgvc1100-60-29 11:08:00Identifier 04115- 6 Result Time 2019-04-10 11:08:00Unknown Test Item Value Reference Range Comments Unknown (test code = 15393-2) 4.5 g/dL Unknown 3.2-5.2 F Ordering Physician UnknownLaboratory Vvgebqp9634-45-76 11:08:00Identifier 26042- 6 Result Time 2019-04-10 11:08:00Unknown Test Item Value Reference Range Comments Unknown (test code = 1742-6) 27 U/L Unknown 7-52 F Ordering Physician UnknownLaboratory Dqrccsq4651-72-71 11:08:00Identifier 62586- 6 Result Time 2019-04-10 11:08:00Unknown Test Item Value Reference Range Comments Unknown (test code = 57165-7) Unknown Unknown F Ordering Physician UnknownLaboratory Dqsmyrz8862-02-79 11:08:00Identifier 38916- 6 Result Time 2019-04-10 11:08:00Unknown Test Item Value Reference Range Comments Unknown (test code = 2161-8) 69.86 mg/dL Unknown Unknown F Ordering Physician UnknownLaboratory Zgfykqs8179-38-77 11:08:00Identifier 68559- 6 Result Time 2019-04-10 11:08:00Unknown Test Item Value Reference Range Comments Unknown (test code = 97654-0) 0.99 Unknown 0.82-1.09 F Ordering Physician UnknownLaboratory Kzhyvju3443-91-41 11:08:00Identifier 64324- 6 Result Time 2019-04-10 11:08:00Unknown Test Item Value Reference Range Comments Unknown (test code = 55933-7) 30.8 seconds Unknown 26.0-36.3 F Ordering Physician UnknownLaboratory Qsnjwtw7178-84-10 11:08:00Identifier 75578- 6 Result Time 2019-04-10 11:08:00Unknown Test Item Value Reference Range Comments Unknown (test code = NullTestCode) 5.0 Unknown 5-9 F Ordering Physician UnknownLaboratory Xcrxjzo8112-58-84 11:08:00Identifier 96619- 6 Result Time 2019-04-10 11:08:00Unknown Test Item Value Reference Range Comments Unknown (test code = 87363-0) 1.016 Unknown 1.010-1.030 F Ordering Physician UnknownLaboratory Pjhmdgl5552-99-78 11:08:00Identifier 59373- 6 Result Time 2019-04-10 11:08:00Unknown Test Item Value Reference Range Comments Unknown (test code = 82749-2) 7.4 10^3/uL Unknown 3.5-10.8 F Ordering Physician UnknownLaboratory Hmmmtnk9765-58-36 11:08:00Identifier 37610- 6 Result Time 2019-04-10 11:08:00Unknown Test Item Value Reference Range Comments Unknown (test code = 788-0) 15 % Unknown 10.5-15 F Ordering Physician UnknownLaboratory Vwbhjls3330-28-22 11:08:00Identifier 90627- 6 Result Time 2019-04-10 11:08:00Unknown Test Item Value Reference Range Comments Unknown (test code = 789-8) 5.16 10^6 /uL Unknown 3.70-4.87 F Ordering Physician UnknownLaboratory Ozwaecz1408-95-82 11:08:00Identifier 23568- 6 Result Time 2019-04-10 11:08:00Unknown Test Item Value Reference Range Comments Unknown (test code = 29270-9) 0.3 Unknown Unknown F Ordering Physician UnknownLaboratory Jclkwst6373-87-69 11:08:00Identifier 70756- 6 Result Time 2019-04-10 11:08:00Unknown Test Item Value Reference Range Comments Unknown (test code = 771-6) 0.0 10^3/ul Unknown Unknown F Ordering Physician UnknownLaboratory Oniuddp2384-13-92 11:08:00Identifier 01045- 6 Result Time 2019-04-10 11:08:00Unknown Test Item Value Reference Range Comments Unknown (test code = 770-8) 68.3 % Unknown Unknown F Ordering Physician UnknownLaboratory Ohcnrjv6918-69-85 11:08:00Identifier 24793- 6 Result Time 2019-04-10 11:08:00Unknown Test Item Value Reference Range Comments Unknown (test code = 5905-5) 7.2 % Unknown Unknown F Ordering Physician UnknownLaboratory Vovqyrz3474-36-25 11:08:00Identifier 26542- 6 Result Time 2019-04-10 11:08:00Unknown Test Item Value Reference Range Comments Unknown (test code = 787-2) 84 fL Unknown 80-97 F Ordering Physician UnknownLaboratory Lhsrmli9801-67-88 11:08:00Identifier 30142- 6 Result Time 2019-04-10 11:08:00Unknown Test Item Value Reference Range Comments Unknown (test code = 786-4) 33 g/dL Unknown 31-36 F Ordering Physician UnknownLaboratory Qwdsjcu5672-48-91 11:08:00Identifier 93088- 6 Result Time 2019-04-10 11:08:00Unknown Test Item Value Reference Range Comments Unknown (test code = 785-6) 28 pg Unknown 27-31 F Ordering Physician UnknownLaboratory Gtdqesa9498-20-43 11:08:00Identifier 57485- 6 Result Time 2019-04-10 11:08:00Unknown Test Item Value Reference Range Comments Unknown (test code = 736-9) 21.7 % Unknown Unknown F Ordering Physician UnknownLaboratory Hkwhyyi9386-14-10 11:08:00Identifier 98145- 6 Result Time 2019-04-10 11:08:00Unknown Test Item Value Reference Range Comments Unknown (test code = 713-8) 2.0 % Unknown Unknown F Ordering Physician UnknownLaboratory Crdglne9807-65-50 11:08:00Identifier 10296- 6 Result Time 2019-04-10 11:08:00Unknown Test Item Value Reference Range Comments Unknown (test code = 706-2) 0.8 % Unknown Unknown F Ordering Physician UnknownLaboratory Hxltpod9622-43-19 11:08:00Identifier 65158- 6 Result Time 2019-04-10 11:08:00Unknown Test Item Value Reference Range Comments Unknown (test code = 751-8) 5.1 10^3/ul Unknown 1.5-7.7 F Ordering Physician UnknownLaboratory Bgggtvz4399-24-30 11:08:00Identifier 21033- 6 Result Time 2019-04-10 11:08:00Unknown Test Item Value Reference Range Comments Unknown (test code = 742-7) 0.5 10^3/ul Unknown 0-0.8 F Ordering Physician UnknownLaboratory Tooccsf9537-99-54 11:08:00Identifier 58842- 6 Result Time 2019-04-10 11:08:00Unknown Test Item Value Reference Range Comments Unknown (test code = 731-0) 1.6 10^3/ul Unknown 1.0-4.8 F Ordering Physician UnknownLaboratory Warjoqh0045-70-48 11:08:00Identifier 07199- 6 Result Time 2019-04-10 11:08:00Unknown Test Item Value Reference Range Comments Unknown (test code = 711-2) 0.2 10^3/ul Unknown 0-0.6 F Ordering Physician UnknownLaboratory Plgsyxy1585-09-61 11:08:00Identifier 70881- 6 Result Time 2019-04-10 11:08:00Unknown Test Item Value Reference Range Comments Unknown (test code = 704-7) 0.1 10^3/ul Unknown 0-0.2 F Ordering Physician Unknown
--- OUTSIDE RECORDS SUMMARY | 2020-01-24 17:46 | XMS REPORT ---
:1965 Author Organization [facility] Care Team Providers Name Role Phone Unavailable [...] Result Comments Laboratory Studies 2019-04-25 05:49:00 Identifier [id number] Result Time Unknown 2019-04-25 05:49:00 Test Item Value Reference Range Comments Unknown (test code = 777-3) 187 10^3/uL Unknown 150-450 F Ordering Physician UnknownLaboratory Fnfgwtc6632-00-11 05:49:00Identifier 31715- 6 Result Time 2019-04-25 05:49:00Unknown Test Item Value Reference Range Comments Unknown (test code = 04485-4) 8.7 fL Unknown 7.4-10.4 F Ordering Physician UnknownLaboratory Dtebvjl2983-45-88 05:49:00Identifier 65042- 6 Result Time 2019-04-25 05:49:00Unknown Test Item Value Reference Range Comments Unknown (test code = 718-7) 12.7 g/dL Unknown 12.0-16.0 F Ordering Physician UnknownLaboratory Ifjeuoe6350-25-94 05:49:00Identifier 41870- 6 Result Time 2019-04-25 05:49:00Unknown Test Item Value Reference Range Comments Unknown (test code = 4544-3) 39 % Unknown 35-47 F Ordering Physician UnknownLaboratory Uiinbrj2676-40-01 05:08:00Identifier 85346- 6 Result Time 2019-04-24 05:08:00Unknown Test Item Value Reference Range Comments Unknown (test code = 2951-2) 137 mmol/L Unknown 135-145 F Ordering Physician UnknownLaboratory Ztxpgil1875-79-37 05:08:00Identifier 32799- 6 Result Time 2019-04-24 05:08:00Unknown Test Item Value Reference Range Comments Unknown (test code = 2823-3) 3.9 mmol/L Unknown 3.5-5.0 F Ordering Physician UnknownLaboratory Phytdic4039-31-84 05:08:00Identifier 48639- 6 Result Time 2019-04-24 05:08:00Unknown Test Item Value Reference Range Comments Unknown (test code = 2345-7) 134 mg/dL Unknown 70-100 F Ordering Physician UnknownLaboratory Wwmglli6193-36-04 05:08:00Identifier 16019- 6 Result Time 2019-04-24 05:08:00Unknown Test Item Value Reference Range Comments Unknown (test code = 39240-9) 98.5 Unknown Unknown F Ordering Physician UnknownLaboratory Zhveend2395-24-81 05:08:00Identifier 34719- 6 Result Time 2019-04-24 05:08:00Unknown Test Item Value Reference Range Comments Unknown (test code = NullTestCode) 119.2 Unknown Unknown F Ordering Physician UnknownLaboratory Lebghgu5402-58-57 05:08:00Identifier 66674- 6 Result Time 2019-04-24 05:08:00Unknown Test Item Value Reference Range Comments Unknown (test code = 2160-0) 0.63 mg/dL Unknown 0.51-0.95 F Ordering Physician UnknownLaboratory Lzigbym7823-95-41 05:08:00Identifier 99610- 6 Result Time 2019-04-24 05:08:00Unknown Test Item Value Reference Range Comments Unknown (test code = 2075-0) 101 mmol/L Unknown 101-111 F Ordering Physician UnknownLaboratory Cklbijo1354-82-15 05:08:00Identifier 68650- 6 Result Time 2019-04-24 05:08:00Unknown Test Item Value Reference Range Comments Unknown (test code = 2028-9) 29 mmol/L Unknown 22-32 F Ordering Physician UnknownLaboratory Oryxbgg7289-97-33 05:08:00Identifier 38331- 6 Result Time 2019-04-24 05:08:00Unknown Test Item Value Reference Range Comments Unknown (test code = 71230-4) 8.9 mg/dL Unknown 8.6-10.3 F Ordering Physician UnknownLaboratory Fnzcftm7463-65-21 05:08:00Identifier 96019- 6 Result Time 2019-04-24 05:08:00Unknown Test Item Value Reference Range Comments Unknown (test code = 3094-0) 11 mg/dL Unknown 6-24 F Ordering Physician UnknownLaboratory Vjtlpci7082-75-56 05:08:00Identifier 79870- 6 Result Time 2019-04-24 05:08:00Unknown Test Item Value Reference Range Comments Unknown (test code = 3097-3) 17.5 Unknown 8-20 F Ordering Physician UnknownLaboratory Xamqdlr8138-95-75 05:08:00Identifier 44314- 6 Result Time 2019-04-24 05:08:00Unknown Test Item Value Reference Range Comments Unknown (test code = 80863-0) 7 mmol/L Unknown 2-11 F Ordering Physician UnknownLaboratory Brahqso5532-26-05 10:07:00Identifier 69966- 6 Result Time 2019-04-23 10:07:00Unknown Test Item Value Reference Range Comments Unknown (test code = 2339-0) 114 mg/dL Unknown 70-100 F Ordering Physician UnknownLaboratory Nxidsjl8209-03-16 11:08:00Identifier 00183- 6 Result Time 2019-04-10 11:08:00Unknown Test Item Value Reference Range Comments Unknown (test code = 3016-3) 2.63 mcIU/mL Unknown 0.34-5.60 F Ordering Physician UnknownLaboratory Aqfbqxo2283-94-26 11:08:00Identifier 44830- 6 Result Time 2019-04-10 11:08:00Unknown Test Item Value Reference Range Comments Unknown (test code = 2571-8) 132 mg/dL Unknown Unknown F Ordering Physician UnknownLaboratory Gxjlerh3711-36-82 11:08:00Identifier 34250- 6 Result Time 2019-04-10 11:08:00Unknown Test Item Value Reference Range Comments Unknown (test code = 2089-1) 139 mg/dL Unknown Unknown F Ordering Physician UnknownLaboratory Wpwbhpk6267-67-60 11:08:00Identifier 47849- 6 Result Time 2019-04-10 11:08:00Unknown Test Item Value Reference Range Comments Unknown (test code = 2085-9) 73.6 mg/dL Unknown Unknown F Ordering Physician UnknownLaboratory Ttnljgv2534-61-71 11:08:00Identifier 86911- 6 Result Time 2019-04-10 11:08:00Unknown Test Item Value Reference Range Comments Unknown (test code = 2093-3) 239 mg/dL Unknown Unknown F Ordering Physician UnknownLaboratory Rvmphkl4629-91-90 11:08:00Identifier 69142- 6 Result Time 2019-04-10 11:08:00Unknown Test Item Value Reference Range Comments Unknown (test code = 2885-2) 7.3 g/dL Unknown 6.4-8.9 F Ordering Physician UnknownLaboratory Iijbyiw2555-22-75 11:08:00Identifier 34389- 6 Result Time 2019-04-10 11:08:00Unknown Test Item Value Reference Range Comments Unknown (test code = 1975-2) 0.50 mg/dL Unknown 0.2-1.0 F Ordering Physician UnknownLaboratory Uwgnumy3953-97-12 11:08:00Identifier 27447- 6 Result Time 2019-04-10 11:08:00Unknown Test Item Value Reference Range Comments Unknown (test code = NullTestCode) 2.8 g/dL Unknown 2-4 F Ordering Physician UnknownLaboratory Enwifyn6557-78-04 11:08:00Identifier 03079- 6 Result Time 2019-04-10 11:08:00Unknown Test Item Value Reference Range Comments Unknown (test code = 1920-8) 26 U/L Unknown 13-39 F Ordering Physician UnknownLaboratory Dpytljr9620-05-30 11:08:00Identifier 61374- 6 Result Time 2019-04-10 11:08:00Unknown Test Item Value Reference Range Comments Unknown (test code = 6768-6) 88 U/L Unknown 34-104 F Ordering Physician UnknownLaboratory Gctfgyc7467-65-78 11:08:00Identifier 65857- 6 Result Time 2019-04-10 11:08:00Unknown Test Item Value Reference Range Comments Unknown (test code = 1759-0) 1.6 Unknown 1-3 F Ordering Physician UnknownLaboratory Rukepuv7588-53-78 11:08:00Identifier 71628- 6 Result Time 2019-04-10 11:08:00Unknown Test Item Value Reference Range Comments Unknown (test code = 67413-0) 4.5 g/dL Unknown 3.2-5.2 F Ordering Physician UnknownLaboratory Uixpfak7988-90-76 11:08:00Identifier 04598- 6 Result Time 2019-04-10 11:08:00Unknown Test Item Value Reference Range Comments Unknown (test code = 1742-6) 27 U/L Unknown 7-52 F Ordering Physician UnknownLaboratory Mmcamvr0680-51-80 11:08:00Identifier 23523- 6 Result Time 2019-04-10 11:08:00Unknown Test Item Value Reference Range Comments Unknown (test code = 45208-2) Unknown Unknown F Ordering Physician UnknownLaboratory Kuhollo5320-06-83 11:08:00Identifier 93796- 6 Result Time 2019-04-10 11:08:00Unknown Test Item Value Reference Range Comments Unknown (test code = 2161-8) 69.86 mg/dL Unknown Unknown F Ordering Physician UnknownLaboratory Fkpcjdc8288-26-08 11:08:00Identifier 87183- 6 Result Time 2019-04-10 11:08:00Unknown Test Item Value Reference Range Comments Unknown (test code = 29146-6) 0.99 Unknown 0.82-1.09 F Ordering Physician UnknownLaboratory Byxuqhf5205-84-77 11:08:00Identifier 88929- 6 Result Time 2019-04-10 11:08:00Unknown Test Item Value Reference Range Comments Unknown (test code = 37876-7) 30.8 seconds Unknown 26.0-36.3 F Ordering Physician UnknownLaboratory Uaievgg0887-98-72 11:08:00Identifier 69536- 6 Result Time 2019-04-10 11:08:00Unknown Test Item Value Reference Range Comments Unknown (test code = NullTestCode) 5.0 Unknown 5-9 F Ordering Physician UnknownLaboratory Jnnjocv4441-97-27 11:08:00Identifier 27191- 6 Result Time 2019-04-10 11:08:00Unknown Test Item Value Reference Range Comments Unknown (test code = 40208-4) 1.016 Unknown 1.010-1.030 F Ordering Physician UnknownLaboratory Bourhxk3315-79-12 11:08:00Identifier 12070- 6 Result Time 2019-04-10 11:08:00Unknown Test Item Value Reference Range Comments Unknown (test code = 90988-1) 7.4 10^3/uL Unknown 3.5-10.8 F Ordering Physician UnknownLaboratory Nzjwszw0338-86-79 11:08:00Identifier 92126- 6 Result Time 2019-04-10 11:08:00Unknown Test Item Value Reference Range Comments Unknown (test code = 788-0) 15 % Unknown 10.5-15 F Ordering Physician UnknownLaboratory Swimsxr9619-13-09 11:08:00Identifier 09387- 6 Result Time 2019-04-10 11:08:00Unknown Test Item Value Reference Range Comments Unknown (test code = 789-8) 5.16 10^6 /uL Unknown 3.70-4.87 F Ordering Physician UnknownLaboratory Gvesoek2142-99-70 11:08:00Identifier 81659- 6 Result Time 2019-04-10 11:08:00Unknown Test Item Value Reference Range Comments Unknown (test code = 68968-1) 0.3 Unknown Unknown F Ordering Physician UnknownLaboratory Rwynvnk9123-63-57 11:08:00Identifier 25245- 6 Result Time 2019-04-10 11:08:00Unknown Test Item Value Reference Range Comments Unknown (test code = 771-6) 0.0 10^3/ul Unknown Unknown F Ordering Physician UnknownLaboratory Oxdzxdb6746-85-27 11:08:00Identifier 32991- 6 Result Time 2019-04-10 11:08:00Unknown Test Item Value Reference Range Comments Unknown (test code = 770-8) 68.3 % Unknown Unknown F Ordering Physician UnknownLaboratory Sxtykwx6630-19-51 11:08:00Identifier 40923- 6 Result Time 2019-04-10 11:08:00Unknown Test Item Value Reference Range Comments Unknown (test code = 5905-5) 7.2 % Unknown Unknown F Ordering Physician UnknownLaboratory Djryzil5655-73-82 11:08:00Identifier 58938- 6 Result Time 2019-04-10 11:08:00Unknown Test Item Value Reference Range Comments Unknown (test code = 787-2) 84 fL Unknown 80-97 F Ordering Physician UnknownLaboratory Tdpfasr7617-91-36 11:08:00Identifier 21009- 6 Result Time 2019-04-10 11:08:00Unknown Test Item Value Reference Range Comments Unknown (test code = 786-4) 33 g/dL Unknown 31-36 F Ordering Physician UnknownLaboratory Dtiipnr4834-55-42 11:08:00Identifier 60438- 6 Result Time 2019-04-10 11:08:00Unknown Test Item Value Reference Range Comments Unknown (test code = 785-6) 28 pg Unknown 27-31 F Ordering Physician UnknownLaboratory Tseldkl8951-93-62 11:08:00Identifier 44809- 6 Result Time 2019-04-10 11:08:00Unknown Test Item Value Reference Range Comments Unknown (test code = 736-9) 21.7 % Unknown Unknown F Ordering Physician UnknownLaboratory Zaqquvw3271-64-23 11:08:00Identifier 48905- 6 Result Time 2019-04-10 11:08:00Unknown Test Item Value Reference Range Comments Unknown (test code = 713-8) 2.0 % Unknown Unknown F Ordering Physician UnknownLaboratory Nrrzsdm6139-72-46 11:08:00Identifier 84492- 6 Result Time 2019-04-10 11:08:00Unknown Test Item Value Reference Range Comments Unknown (test code = 706-2) 0.8 % Unknown Unknown F Ordering Physician UnknownLaboratory Avxsbev3348-78-42 11:08:00Identifier 41706- 6 Result Time 2019-04-10 11:08:00Unknown Test Item Value Reference Range Comments Unknown (test code = 751-8) 5.1 10^3/ul Unknown 1.5-7.7 F Ordering Physician UnknownLaboratory Ddjvqcl4469-69-20 11:08:00Identifier 06545- 6 Result Time 2019-04-10 11:08:00Unknown Test Item Value Reference Range Comments Unknown (test code = 742-7) 0.5 10^3/ul Unknown 0-0.8 F Ordering Physician UnknownLaboratory Rrwesso5218-22-64 11:08:00Identifier 12364- 6 Result Time 2019-04-10 11:08:00Unknown Test Item Value Reference Range Comments Unknown (test code = 731-0) 1.6 10^3/ul Unknown 1.0-4.8 F Ordering Physician UnknownLaboratory Tvirkao0113-49-22 11:08:00Identifier 86467- 6 Result Time 2019-04-10 11:08:00Unknown Test Item Value Reference Range Comments Unknown (test code = 711-2) 0.2 10^3/ul Unknown 0-0.6 F Ordering Physician UnknownLaboratory Izyrmka5805-75-25 11:08:00Identifier 46248- 6 Result Time 2019-04-10 11:08:00Unknown Test Item Value Reference Range Comments Unknown (test code = 704-7) 0.1 10^3/ul Unknown 0-0.2 F Ordering Physician Unknown
--- OUTSIDE RECORDS SUMMARY | 2020-01-24 17:46 | XMS REPORT ---
:1965 Author Organization [facility] Care Team Providers Name Role Phone Unavailable [...] Result Comments Laboratory Studies 2019-04-25 05:49:00 Identifier [id number] Result Time Unknown 2019-04-25 05:49:00 Test Item Value Reference Range Comments Unknown (test code = 777-3) 187 10^3/uL Unknown 150-450 F Ordering Physician UnknownLaboratory Nfihvfm8868-31-86 05:49:00Identifier [id number]- 6 Result Time 2019-04-25 05:49:00Unknown Test Item Value Reference Range Comments Unknown (test code = 15399-1) 8.7 fL Unknown 7.4-10.4 F Ordering Physician UnknownLaboratory Gtrmoqa1111-77-54 05:49:00Identifier 51885- 6 Result Time 2019-04-25 05:49:00Unknown Test Item Value Reference Range Comments Unknown (test code = 718-7) 12.7 g/dL Unknown 12.0-16.0 F Ordering Physician UnknownLaboratory Ttgfktp5938-77-77 05:49:00Identifier 08295- 6 Result Time 2019-04-25 05:49:00Unknown Test Item Value Reference Range Comments Unknown (test code = 4544-3) 39 % Unknown 35-47 F Ordering Physician UnknownLaboratory Gzehefx5011-85-60 05:08:00Identifier 48753- 6 Result Time 2019-04-24 05:08:00Unknown Test Item Value Reference Range Comments Unknown (test code = 2951-2) 137 mmol/L Unknown 135-145 F Ordering Physician UnknownLaboratory Frqewgh0413-52-29 05:08:00Identifier 24264- 6 Result Time 2019-04-24 05:08:00Unknown Test Item Value Reference Range Comments Unknown (test code = 2823-3) 3.9 mmol/L Unknown 3.5-5.0 F Ordering Physician UnknownLaboratory Fhxwsfb9843-76-51 05:08:00Identifier 00252- 6 Result Time 2019-04-24 05:08:00Unknown Test Item Value Reference Range Comments Unknown (test code = 2345-7) 134 mg/dL Unknown 70-100 F Ordering Physician UnknownLaboratory Qzchveh6647-98-75 05:08:00Identifier 18643- 6 Result Time 2019-04-24 05:08:00Unknown Test Item Value Reference Range Comments Unknown (test code = 90320-5) 98.5 Unknown Unknown F Ordering Physician UnknownLaboratory Mdfpwyg3909-88-92 05:08:00Identifier 78977- 6 Result Time 2019-04-24 05:08:00Unknown Test Item Value Reference Range Comments Unknown (test code = NullTestCode) 119.2 Unknown Unknown F Ordering Physician UnknownLaboratory Zwygmuf7285-29-45 05:08:00Identifier 96439- 6 Result Time 2019-04-24 05:08:00Unknown Test Item Value Reference Range Comments Unknown (test code = 2160-0) 0.63 mg/dL Unknown 0.51-0.95 F Ordering Physician UnknownLaboratory Zgctewa5743-97-16 05:08:00Identifier 16830- 6 Result Time 2019-04-24 05:08:00Unknown Test Item Value Reference Range Comments Unknown (test code = 2075-0) 101 mmol/L Unknown 101-111 F Ordering Physician UnknownLaboratory Atagohs9473-20-37 05:08:00Identifier 20665- 6 Result Time 2019-04-24 05:08:00Unknown Test Item Value Reference Range Comments Unknown (test code = 2028-9) 29 mmol/L Unknown 22-32 F Ordering Physician UnknownLaboratory Tbttlap0874-27-09 05:08:00Identifier 64432- 6 Result Time 2019-04-24 05:08:00Unknown Test Item Value Reference Range Comments Unknown (test code = 00086-1) 8.9 mg/dL Unknown 8.6-10.3 F Ordering Physician UnknownLaboratory Qywdvfc9139-94-22 05:08:00Identifier 66019- 6 Result Time 2019-04-24 05:08:00Unknown Test Item Value Reference Range Comments Unknown (test code = 3094-0) 11 mg/dL Unknown 6-24 F Ordering Physician UnknownLaboratory Umogeyr7716-36-21 05:08:00Identifier 09903- 6 Result Time 2019-04-24 05:08:00Unknown Test Item Value Reference Range Comments Unknown (test code = 3097-3) 17.5 Unknown 8-20 F Ordering Physician UnknownLaboratory Ibqnsga6454-20-59 05:08:00Identifier 21273- 6 Result Time 2019-04-24 05:08:00Unknown Test Item Value Reference Range Comments Unknown (test code = 00675-3) 7 mmol/L Unknown 2-11 F Ordering Physician UnknownLaboratory Ykciyms9261-16-49 10:07:00Identifier 70729- 6 Result Time 2019-04-23 10:07:00Unknown Test Item Value Reference Range Comments Unknown (test code = 2339-0) 114 mg/dL Unknown 70-100 F Ordering Physician UnknownLaboratory Ixgocjn0721-14-00 11:08:00Identifier 28682- 6 Result Time 2019-04-10 11:08:00Unknown Test Item Value Reference Range Comments Unknown (test code = 3016-3) 2.63 mcIU/mL Unknown 0.34-5.60 F Ordering Physician UnknownLaboratory Dodkfpy4200-10-81 11:08:00Identifier 04794- 6 Result Time 2019-04-10 11:08:00Unknown Test Item Value Reference Range Comments Unknown (test code = 2571-8) 132 mg/dL Unknown Unknown F Ordering Physician UnknownLaboratory Vkxynhf3421-88-05 11:08:00Identifier 41855- 6 Result Time 2019-04-10 11:08:00Unknown Test Item Value Reference Range Comments Unknown (test code = 2089-1) 139 mg/dL Unknown Unknown F Ordering Physician UnknownLaboratory Quwahnf5971-21-35 11:08:00Identifier 04206- 6 Result Time 2019-04-10 11:08:00Unknown Test Item Value Reference Range Comments Unknown (test code = 2085-9) 73.6 mg/dL Unknown Unknown F Ordering Physician UnknownLaboratory Zmdzjzs8796-22-92 11:08:00Identifier 90865- 6 Result Time 2019-04-10 11:08:00Unknown Test Item Value Reference Range Comments Unknown (test code = 2093-3) 239 mg/dL Unknown Unknown F Ordering Physician UnknownLaboratory Cyhporc1475-44-04 11:08:00Identifier 15938- 6 Result Time 2019-04-10 11:08:00Unknown Test Item Value Reference Range Comments Unknown (test code = 2885-2) 7.3 g/dL Unknown 6.4-8.9 F Ordering Physician UnknownLaboratory Atvcopc5422-66-59 11:08:00Identifier 69869- 6 Result Time 2019-04-10 11:08:00Unknown Test Item Value Reference Range Comments Unknown (test code = 1975-2) 0.50 mg/dL Unknown 0.2-1.0 F Ordering Physician UnknownLaboratory Sbrfbhq4776-53-24 11:08:00Identifier 28490- 6 Result Time 2019-04-10 11:08:00Unknown Test Item Value Reference Range Comments Unknown (test code = NullTestCode) 2.8 g/dL Unknown 2-4 F Ordering Physician UnknownLaboratory Lthlspp1156-48-13 11:08:00Identifier 41402- 6 Result Time 2019-04-10 11:08:00Unknown Test Item Value Reference Range Comments Unknown (test code = 1920-8) 26 U/L Unknown 13-39 F Ordering Physician UnknownLaboratory Wdyluea1392-32-88 11:08:00Identifier 64013- 6 Result Time 2019-04-10 11:08:00Unknown Test Item Value Reference Range Comments Unknown (test code = 6768-6) 88 U/L Unknown 34-104 F Ordering Physician UnknownLaboratory Wxhlorv8582-33-10 11:08:00Identifier 18649- 6 Result Time 2019-04-10 11:08:00Unknown Test Item Value Reference Range Comments Unknown (test code = 1759-0) 1.6 Unknown 1-3 F Ordering Physician UnknownLaboratory Eyfzipf3166-04-28 11:08:00Identifier 77287- 6 Result Time 2019-04-10 11:08:00Unknown Test Item Value Reference Range Comments Unknown (test code = 18341-0) 4.5 g/dL Unknown 3.2-5.2 F Ordering Physician UnknownLaboratory Hgypehw6306-52-96 11:08:00Identifier 93014- 6 Result Time 2019-04-10 11:08:00Unknown Test Item Value Reference Range Comments Unknown (test code = 1742-6) 27 U/L Unknown 7-52 F Ordering Physician UnknownLaboratory Oiwdzke2585-89-07 11:08:00Identifier 50261- 6 Result Time 2019-04-10 11:08:00Unknown Test Item Value Reference Range Comments Unknown (test code = 97567-6) Unknown Unknown F Ordering Physician UnknownLaboratory Wcfcmml6548-65-57 11:08:00Identifier 43920- 6 Result Time 2019-04-10 11:08:00Unknown Test Item Value Reference Range Comments Unknown (test code = 2161-8) 69.86 mg/dL Unknown Unknown F Ordering Physician UnknownLaboratory Gxxgvga7094-36-45 11:08:00Identifier 98684- 6 Result Time 2019-04-10 11:08:00Unknown Test Item Value Reference Range Comments Unknown (test code = 13957-2) 0.99 Unknown 0.82-1.09 F Ordering Physician UnknownLaboratory Aqgzynb9356-18-85 11:08:00Identifier 23190- 6 Result Time 2019-04-10 11:08:00Unknown Test Item Value Reference Range Comments Unknown (test code = 09429-5) 30.8 seconds Unknown 26.0-36.3 F Ordering Physician UnknownLaboratory Snxevug5079-50-76 11:08:00Identifier 98605- 6 Result Time 2019-04-10 11:08:00Unknown Test Item Value Reference Range Comments Unknown (test code = NullTestCode) 5.0 Unknown 5-9 F Ordering Physician UnknownLaboratory Rtgctpp9782-07-64 11:08:00Identifier 99374- 6 Result Time 2019-04-10 11:08:00Unknown Test Item Value Reference Range Comments Unknown (test code = 34145-3) 1.016 Unknown 1.010-1.030 F Ordering Physician UnknownLaboratory Ibflfog8723-12-03 11:08:00Identifier 00476- 6 Result Time 2019-04-10 11:08:00Unknown Test Item Value Reference Range Comments Unknown (test code = 62030-6) 7.4 10^3/uL Unknown 3.5-10.8 F Ordering Physician UnknownLaboratory Bduihoy6087-82-81 11:08:00Identifier 25099- 6 Result Time 2019-04-10 11:08:00Unknown Test Item Value Reference Range Comments Unknown (test code = 788-0) 15 % Unknown 10.5-15 F Ordering Physician UnknownLaboratory Duvtlxm6427-88-08 11:08:00Identifier 72870- 6 Result Time 2019-04-10 11:08:00Unknown Test Item Value Reference Range Comments Unknown (test code = 789-8) 5.16 10^6 /uL Unknown 3.70-4.87 F Ordering Physician UnknownLaboratory Srjtgxs6345-12-53 11:08:00Identifier 38859- 6 Result Time 2019-04-10 11:08:00Unknown Test Item Value Reference Range Comments Unknown (test code = 27244-3) 0.3 Unknown Unknown F Ordering Physician UnknownLaboratory Foooock9181-32-98 11:08:00Identifier 55687- 6 Result Time 2019-04-10 11:08:00Unknown Test Item Value Reference Range Comments Unknown (test code = 771-6) 0.0 10^3/ul Unknown Unknown F Ordering Physician UnknownLaboratory Phmozux7191-84-28 11:08:00Identifier 71693- 6 Result Time 2019-04-10 11:08:00Unknown Test Item Value Reference Range Comments Unknown (test code = 770-8) 68.3 % Unknown Unknown F Ordering Physician UnknownLaboratory Lacrhhd4576-71-21 11:08:00Identifier 35458- 6 Result Time 2019-04-10 11:08:00Unknown Test Item Value Reference Range Comments Unknown (test code = 5905-5) 7.2 % Unknown Unknown F Ordering Physician UnknownLaboratory Lnkrduf1916-44-96 11:08:00Identifier 26345- 6 Result Time 2019-04-10 11:08:00Unknown Test Item Value Reference Range Comments Unknown (test code = 787-2) 84 fL Unknown 80-97 F Ordering Physician UnknownLaboratory Tdvfjrz3472-34-65 11:08:00Identifier 84501- 6 Result Time 2019-04-10 11:08:00Unknown Test Item Value Reference Range Comments Unknown (test code = 786-4) 33 g/dL Unknown 31-36 F Ordering Physician UnknownLaboratory Xxkofxi8924-74-38 11:08:00Identifier 94456- 6 Result Time 2019-04-10 11:08:00Unknown Test Item Value Reference Range Comments Unknown (test code = 785-6) 28 pg Unknown 27-31 F Ordering Physician UnknownLaboratory Enxsxgn0029-27-11 11:08:00Identifier 11394- 6 Result Time 2019-04-10 11:08:00Unknown Test Item Value Reference Range Comments Unknown (test code = 736-9) 21.7 % Unknown Unknown F Ordering Physician UnknownLaboratory Wckibqm2196-08-69 11:08:00Identifier 57347- 6 Result Time 2019-04-10 11:08:00Unknown Test Item Value Reference Range Comments Unknown (test code = 713-8) 2.0 % Unknown Unknown F Ordering Physician UnknownLaboratory Reyiozd1382-74-32 11:08:00Identifier 10220- 6 Result Time 2019-04-10 11:08:00Unknown Test Item Value Reference Range Comments Unknown (test code = 706-2) 0.8 % Unknown Unknown F Ordering Physician UnknownLaboratory Tgzljwp4737-39-83 11:08:00Identifier 29823- 6 Result Time 2019-04-10 11:08:00Unknown Test Item Value Reference Range Comments Unknown (test code = 751-8) 5.1 10^3/ul Unknown 1.5-7.7 F Ordering Physician UnknownLaboratory Rdtkuxp2354-34-58 11:08:00Identifier 62021- 6 Result Time 2019-04-10 11:08:00Unknown Test Item Value Reference Range Comments Unknown (test code = 742-7) 0.5 10^3/ul Unknown 0-0.8 F Ordering Physician UnknownLaboratory Ezhvnex2925-47-82 11:08:00Identifier 91634- 6 Result Time 2019-04-10 11:08:00Unknown Test Item Value Reference Range Comments Unknown (test code = 731-0) 1.6 10^3/ul Unknown 1.0-4.8 F Ordering Physician UnknownLaboratory Yelmgds9605-12-56 11:08:00Identifier 72839- 6 Result Time 2019-04-10 11:08:00Unknown Test Item Value Reference Range Comments Unknown (test code = 711-2) 0.2 10^3/ul Unknown 0-0.6 F Ordering Physician UnknownLaboratory Wykvzbt5238-28-48 11:08:00Identifier 69935- 6 Result Time 2019-04-10 11:08:00Unknown Test Item Value Reference Range Comments Unknown (test code = 704-7) 0.1 10^3/ul Unknown 0-0.2 F Ordering Physician Unknown
--- OUTSIDE RECORDS SUMMARY | 2020-01-24 17:46 | XMS REPORT ---
:1965 Author Organization [facility] Care Team Providers Name Role Phone Unavailable [...] Result Comments Laboratory Studies 2019-04-25 05:49:00 Identifier [id number] Result Time Unknown 2019-04-25 05:49:00 Test Item Value Reference Range Comments Unknown (test code = 777-3) 187 10^3/uL Unknown 150-450 F Ordering Physician UnknownLaboratory Pcokyoh8219-35-96 05:49:00Identifier 20334- 6 Result Time 2019-04-25 05:49:00Unknown Test Item Value Reference Range Comments Unknown (test code = 51352-4) 8.7 fL Unknown 7.4-10.4 F Ordering Physician UnknownLaboratory Lgpljgh0959-16-90 05:49:00Identifier 36924- 6 Result Time 2019-04-25 05:49:00Unknown Test Item Value Reference Range Comments Unknown (test code = 718-7) 12.7 g/dL Unknown 12.0-16.0 F Ordering Physician UnknownLaboratory Viqjogy3804-46-65 05:49:00Identifier 51326- 6 Result Time 2019-04-25 05:49:00Unknown Test Item Value Reference Range Comments Unknown (test code = 4544-3) 39 % Unknown 35-47 F Ordering Physician UnknownLaboratory Hdldivt9057-91-37 05:08:00Identifier 57026- 6 Result Time 2019-04-24 05:08:00Unknown Test Item Value Reference Range Comments Unknown (test code = 2951-2) 137 mmol/L Unknown 135-145 F Ordering Physician UnknownLaboratory Xvlaydf9554-23-97 05:08:00Identifier 05640- 6 Result Time 2019-04-24 05:08:00Unknown Test Item Value Reference Range Comments Unknown (test code = 2823-3) 3.9 mmol/L Unknown 3.5-5.0 F Ordering Physician UnknownLaboratory Mzxgqfq4808-60-20 05:08:00Identifier 79953- 6 Result Time 2019-04-24 05:08:00Unknown Test Item Value Reference Range Comments Unknown (test code = 2345-7) 134 mg/dL Unknown 70-100 F Ordering Physician UnknownLaboratory Hrinsnh2205-83-22 05:08:00Identifier 18558- 6 Result Time 2019-04-24 05:08:00Unknown Test Item Value Reference Range Comments Unknown (test code = 17886-7) 98.5 Unknown Unknown F Ordering Physician UnknownLaboratory Esbinsw6280-67-29 05:08:00Identifier 43392- 6 Result Time 2019-04-24 05:08:00Unknown Test Item Value Reference Range Comments Unknown (test code = NullTestCode) 119.2 Unknown Unknown F Ordering Physician UnknownLaboratory Iaztpmu3106-93-80 05:08:00Identifier 27913- 6 Result Time 2019-04-24 05:08:00Unknown Test Item Value Reference Range Comments Unknown (test code = 2160-0) 0.63 mg/dL Unknown 0.51-0.95 F Ordering Physician UnknownLaboratory Fayhdwe3830-53-91 05:08:00Identifier 10211- 6 Result Time 2019-04-24 05:08:00Unknown Test Item Value Reference Range Comments Unknown (test code = 2075-0) 101 mmol/L Unknown 101-111 F Ordering Physician UnknownLaboratory Sgrrfjb6416-41-16 05:08:00Identifier 48400- 6 Result Time 2019-04-24 05:08:00Unknown Test Item Value Reference Range Comments Unknown (test code = 2028-9) 29 mmol/L Unknown 22-32 F Ordering Physician UnknownLaboratory Fstgwrj8443-24-97 05:08:00Identifier 61018- 6 Result Time 2019-04-24 05:08:00Unknown Test Item Value Reference Range Comments Unknown (test code = 83912-1) 8.9 mg/dL Unknown 8.6-10.3 F Ordering Physician UnknownLaboratory Zthoogo0659-93-49 05:08:00Identifier 78306- 6 Result Time 2019-04-24 05:08:00Unknown Test Item Value Reference Range Comments Unknown (test code = 3094-0) 11 mg/dL Unknown 6-24 F Ordering Physician UnknownLaboratory Fditgos8414-90-46 05:08:00Identifier 18856- 6 Result Time 2019-04-24 05:08:00Unknown Test Item Value Reference Range Comments Unknown (test code = 3097-3) 17.5 Unknown 8-20 F Ordering Physician UnknownLaboratory Aylzulk8343-26-19 05:08:00Identifier 92494- 6 Result Time 2019-04-24 05:08:00Unknown Test Item Value Reference Range Comments Unknown (test code = 24836-5) 7 mmol/L Unknown 2-11 F Ordering Physician UnknownLaboratory Iswhjup2370-67-19 10:07:00Identifier 79046- 6 Result Time 2019-04-23 10:07:00Unknown Test Item Value Reference Range Comments Unknown (test code = 2339-0) 114 mg/dL Unknown 70-100 F Ordering Physician UnknownLaboratory Cycakpg9014-54-50 11:08:00Identifier 24604- 6 Result Time 2019-04-10 11:08:00Unknown Test Item Value Reference Range Comments Unknown (test code = 3016-3) 2.63 mcIU/mL Unknown 0.34-5.60 F Ordering Physician UnknownLaboratory Cjipvxm0684-17-75 11:08:00Identifier 73768- 6 Result Time 2019-04-10 11:08:00Unknown Test Item Value Reference Range Comments Unknown (test code = 2571-8) 132 mg/dL Unknown Unknown F Ordering Physician UnknownLaboratory Efglrrh5888-50-77 11:08:00Identifier 63958- 6 Result Time 2019-04-10 11:08:00Unknown Test Item Value Reference Range Comments Unknown (test code = 2089-1) 139 mg/dL Unknown Unknown F Ordering Physician UnknownLaboratory Ohcopdl9781-43-37 11:08:00Identifier 54565- 6 Result Time 2019-04-10 11:08:00Unknown Test Item Value Reference Range Comments Unknown (test code = 2085-9) 73.6 mg/dL Unknown Unknown F Ordering Physician UnknownLaboratory Chusmca0012-10-61 11:08:00Identifier 35313- 6 Result Time 2019-04-10 11:08:00Unknown Test Item Value Reference Range Comments Unknown (test code = 2093-3) 239 mg/dL Unknown Unknown F Ordering Physician UnknownLaboratory Kiovfgg3822-61-05 11:08:00Identifier 24625- 6 Result Time 2019-04-10 11:08:00Unknown Test Item Value Reference Range Comments Unknown (test code = 2885-2) 7.3 g/dL Unknown 6.4-8.9 F Ordering Physician UnknownLaboratory Vhmjxxw1512-43-29 11:08:00Identifier 32084- 6 Result Time 2019-04-10 11:08:00Unknown Test Item Value Reference Range Comments Unknown (test code = 1975-2) 0.50 mg/dL Unknown 0.2-1.0 F Ordering Physician UnknownLaboratory Enomwvf8333-50-68 11:08:00Identifier 11503- 6 Result Time 2019-04-10 11:08:00Unknown Test Item Value Reference Range Comments Unknown (test code = NullTestCode) 2.8 g/dL Unknown 2-4 F Ordering Physician UnknownLaboratory Gyayhii7893-86-65 11:08:00Identifier 82695- 6 Result Time 2019-04-10 11:08:00Unknown Test Item Value Reference Range Comments Unknown (test code = 1920-8) 26 U/L Unknown 13-39 F Ordering Physician UnknownLaboratory Xoheazt4258-05-13 11:08:00Identifier 59119- 6 Result Time 2019-04-10 11:08:00Unknown Test Item Value Reference Range Comments Unknown (test code = 6768-6) 88 U/L Unknown 34-104 F Ordering Physician UnknownLaboratory Omcttvz7455-91-83 11:08:00Identifier 42742- 6 Result Time 2019-04-10 11:08:00Unknown Test Item Value Reference Range Comments Unknown (test code = 1759-0) 1.6 Unknown 1-3 F Ordering Physician UnknownLaboratory Xznrltj1832-64-97 11:08:00Identifier 17104- 6 Result Time 2019-04-10 11:08:00Unknown Test Item Value Reference Range Comments Unknown (test code = 12429-6) 4.5 g/dL Unknown 3.2-5.2 F Ordering Physician UnknownLaboratory Gsewxft9983-30-89 11:08:00Identifier 07613- 6 Result Time 2019-04-10 11:08:00Unknown Test Item Value Reference Range Comments Unknown (test code = 1742-6) 27 U/L Unknown 7-52 F Ordering Physician UnknownLaboratory Cjjqqdq1935-83-15 11:08:00Identifier 19118- 6 Result Time 2019-04-10 11:08:00Unknown Test Item Value Reference Range Comments Unknown (test code = 15953-5) Unknown Unknown F Ordering Physician UnknownLaboratory Yclppae8133-44-18 11:08:00Identifier 03952- 6 Result Time 2019-04-10 11:08:00Unknown Test Item Value Reference Range Comments Unknown (test code = 2161-8) 69.86 mg/dL Unknown Unknown F Ordering Physician UnknownLaboratory Vsvbqef7835-40-11 11:08:00Identifier 47075- 6 Result Time 2019-04-10 11:08:00Unknown Test Item Value Reference Range Comments Unknown (test code = 92035-6) 0.99 Unknown 0.82-1.09 F Ordering Physician UnknownLaboratory Mnkwvds9932-93-95 11:08:00Identifier 31649- 6 Result Time 2019-04-10 11:08:00Unknown Test Item Value Reference Range Comments Unknown (test code = 04698-2) 30.8 seconds Unknown 26.0-36.3 F Ordering Physician UnknownLaboratory Fxkzfqq4580-25-37 11:08:00Identifier 59779- 6 Result Time 2019-04-10 11:08:00Unknown Test Item Value Reference Range Comments Unknown (test code = NullTestCode) 5.0 Unknown 5-9 F Ordering Physician UnknownLaboratory Atjewsu5002-75-33 11:08:00Identifier 28268- 6 Result Time 2019-04-10 11:08:00Unknown Test Item Value Reference Range Comments Unknown (test code = 08166-2) 1.016 Unknown 1.010-1.030 F Ordering Physician UnknownLaboratory Bsgjtyi4436-79-38 11:08:00Identifier 76795- 6 Result Time 2019-04-10 11:08:00Unknown Test Item Value Reference Range Comments Unknown (test code = 83775-5) 7.4 10^3/uL Unknown 3.5-10.8 F Ordering Physician UnknownLaboratory Ykfumlw9450-69-50 11:08:00Identifier 54811- 6 Result Time 2019-04-10 11:08:00Unknown Test Item Value Reference Range Comments Unknown (test code = 788-0) 15 % Unknown 10.5-15 F Ordering Physician UnknownLaboratory Vjshszn2599-16-31 11:08:00Identifier 75066- 6 Result Time 2019-04-10 11:08:00Unknown Test Item Value Reference Range Comments Unknown (test code = 789-8) 5.16 10^6 /uL Unknown 3.70-4.87 F Ordering Physician UnknownLaboratory Yirxfuv0741-45-29 11:08:00Identifier 62359- 6 Result Time 2019-04-10 11:08:00Unknown Test Item Value Reference Range Comments Unknown (test code = 04960-0) 0.3 Unknown Unknown F Ordering Physician UnknownLaboratory Xjjrctu9246-14-75 11:08:00Identifier 08878- 6 Result Time 2019-04-10 11:08:00Unknown Test Item Value Reference Range Comments Unknown (test code = 771-6) 0.0 10^3/ul Unknown Unknown F Ordering Physician UnknownLaboratory Ckzewzm1313-48-59 11:08:00Identifier 68842- 6 Result Time 2019-04-10 11:08:00Unknown Test Item Value Reference Range Comments Unknown (test code = 770-8) 68.3 % Unknown Unknown F Ordering Physician UnknownLaboratory Wvdejma5625-73-17 11:08:00Identifier 87046- 6 Result Time 2019-04-10 11:08:00Unknown Test Item Value Reference Range Comments Unknown (test code = 5905-5) 7.2 % Unknown Unknown F Ordering Physician UnknownLaboratory Aqjedcj4365-36-48 11:08:00Identifier 45315- 6 Result Time 2019-04-10 11:08:00Unknown Test Item Value Reference Range Comments Unknown (test code = 787-2) 84 fL Unknown 80-97 F Ordering Physician UnknownLaboratory Jtwcgxj1315-14-06 11:08:00Identifier 47631- 6 Result Time 2019-04-10 11:08:00Unknown Test Item Value Reference Range Comments Unknown (test code = 786-4) 33 g/dL Unknown 31-36 F Ordering Physician UnknownLaboratory Ldsfyso2130-82-36 11:08:00Identifier 41789- 6 Result Time 2019-04-10 11:08:00Unknown Test Item Value Reference Range Comments Unknown (test code = 785-6) 28 pg Unknown 27-31 F Ordering Physician UnknownLaboratory Nuvdbgo2599-20-22 11:08:00Identifier 26577- 6 Result Time 2019-04-10 11:08:00Unknown Test Item Value Reference Range Comments Unknown (test code = 736-9) 21.7 % Unknown Unknown F Ordering Physician UnknownLaboratory Zzerauw8869-07-43 11:08:00Identifier 19231- 6 Result Time 2019-04-10 11:08:00Unknown Test Item Value Reference Range Comments Unknown (test code = 713-8) 2.0 % Unknown Unknown F Ordering Physician UnknownLaboratory Xujbugd1460-19-75 11:08:00Identifier 68188- 6 Result Time 2019-04-10 11:08:00Unknown Test Item Value Reference Range Comments Unknown (test code = 706-2) 0.8 % Unknown Unknown F Ordering Physician UnknownLaboratory Jswusqn9808-18-91 11:08:00Identifier 98664- 6 Result Time 2019-04-10 11:08:00Unknown Test Item Value Reference Range Comments Unknown (test code = 751-8) 5.1 10^3/ul Unknown 1.5-7.7 F Ordering Physician UnknownLaboratory Qomqrxm8316-69-43 11:08:00Identifier 27156- 6 Result Time 2019-04-10 11:08:00Unknown Test Item Value Reference Range Comments Unknown (test code = 742-7) 0.5 10^3/ul Unknown 0-0.8 F Ordering Physician UnknownLaboratory Lbstgvf9344-49-01 11:08:00Identifier 87202- 6 Result Time 2019-04-10 11:08:00Unknown Test Item Value Reference Range Comments Unknown (test code = 731-0) 1.6 10^3/ul Unknown 1.0-4.8 F Ordering Physician UnknownLaboratory Adwmfzk8753-76-28 11:08:00Identifier 35893- 6 Result Time 2019-04-10 11:08:00Unknown Test Item Value Reference Range Comments Unknown (test code = 711-2) 0.2 10^3/ul Unknown 0-0.6 F Ordering Physician UnknownLaboratory Ebqphej8438-44-37 11:08:00Identifier 76838- 6 Result Time 2019-04-10 11:08:00Unknown Test Item Value Reference Range Comments Unknown (test code = 704-7) 0.1 10^3/ul Unknown 0-0.2 F Ordering Physician Unknown
--- OUTSIDE RECORDS SUMMARY | 2020-01-24 17:46 | XMS REPORT ---
:1965 Author Organization [facility] Team Providers Name Role Phone Unavailable [...] Result Comments Laboratory Studies 2019-04-25 05:49:00 Identifier [id number] Result Time Unknown 2019-04-25 05:49:00 Test Item Value Reference Range Comments Unknown (test code = 777-3) 187 10^3/uL Unknown 150-450 F Ordering Physician UnknownLaboratory Eunytoj4451-44-72 05:49:00Identifier [id number]- 6 Result Time 2019-04-25 05:49:00Unknown Test Item Value Reference Range Comments Unknown (test code = 63884-0) 8.7 fL Unknown 7.4-10.4 F Ordering Physician UnknownLaboratory Wfupxih0114-41-58 05:49:00Identifier 85002- 6 Result Time 2019-04-25 05:49:00Unknown Test Item Value Reference Range Comments Unknown (test code = 718-7) 12.7 g/dL Unknown 12.0-16.0 F Ordering Physician UnknownLaboratory Luccofn9154-26-43 05:49:00Identifier 75328- 6 Result Time 2019-04-25 05:49:00Unknown Test Item Value Reference Range Comments Unknown (test code = 4544-3) 39 % Unknown 35-47 F Ordering Physician UnknownLaboratory Nmwaqzm8903-31-59 05:08:00Identifier [id number]- 6 Result Time 2019-04-24 05:08:00Unknown Test Item Value Reference Range Comments Unknown (test code = 2951-2) 137 mmol/L Unknown 135-145 F Ordering Physician UnknownLaboratory Yabipzd0255-06-05 05:08:00Identifier 27678- 6 Result Time 2019-04-24 05:08:00Unknown Test Item Value Reference Range Comments Unknown (test code = 2823-3) 3.9 mmol/L Unknown 3.5-5.0 F Ordering Physician UnknownLaboratory Wdmmnhr5315-73-70 05:08:00Identifier 00564- 6 Result Time 2019-04-24 05:08:00Unknown Test Item Value Reference Range Comments Unknown (test code = 2345-7) 134 mg/dL Unknown 70-100 F Ordering Physician UnknownLaboratory Elxumqi1225-82-44 05:08:00Identifier 49057- 6 Result Time 2019-04-24 05:08:00Unknown Test Item Value Reference Range Comments Unknown (test code = 98164-1) 98.5 Unknown Unknown F Ordering Physician UnknownLaboratory Aiwjxfr8334-35-78 05:08:00Identifier 06811- 6 Result Time 2019-04-24 05:08:00Unknown Test Item Value Reference Range Comments Unknown (test code = NullTestCode) 119.2 Unknown Unknown F Ordering Physician UnknownLaboratory Yysobmx3802-25-54 05:08:00Identifier 88668- 6 Result Time 2019-04-24 05:08:00Unknown Test Item Value Reference Range Comments Unknown (test code = 2160-0) 0.63 mg/dL Unknown 0.51-0.95 F Ordering Physician UnknownLaboratory Gclxxfq5959-95-16 05:08:00Identifier 30789- 6 Result Time 2019-04-24 05:08:00Unknown Test Item Value Reference Range Comments Unknown (test code = 2075-0) 101 mmol/L Unknown 101-111 F Ordering Physician UnknownLaboratory Qrwskds4544-98-41 05:08:00Identifier 65956- 6 Result Time 2019-04-24 05:08:00Unknown Test Item Value Reference Range Comments Unknown (test code = 2028-9) 29 mmol/L Unknown 22-32 F Ordering Physician UnknownLaboratory Pizajyz1048-61-40 05:08:00Identifier 33586- 6 Result Time 2019-04-24 05:08:00Unknown Test Item Value Reference Range Comments Unknown (test code = 33015-0) 8.9 mg/dL Unknown 8.6-10.3 F Ordering Physician UnknownLaboratory Ohydumi8226-89-45 05:08:00Identifier 58382- 6 Result Time 2019-04-24 05:08:00Unknown Test Item Value Reference Range Comments Unknown (test code = 3094-0) 11 mg/dL Unknown 6-24 F Ordering Physician UnknownLaboratory Xyvojij8045-95-67 05:08:00Identifier 48351- 6 Result Time 2019-04-24 05:08:00Unknown Test Item Value Reference Range Comments Unknown (test code = 3097-3) 17.5 Unknown 8-20 F Ordering Physician UnknownLaboratory Gdbokgf1377-27-55 05:08:00Identifier 80433- 6 Result Time 2019-04-24 05:08:00Unknown Test Item Value Reference Range Comments Unknown (test code = 20637-2) 7 mmol/L Unknown 2-11 F Ordering Physician UnknownLaboratory Tnsnqhb2403-25-37 10:07:00Identifier 12444- 6 Result Time 2019-04-23 10:07:00Unknown Test Item Value Reference Range Comments Unknown (test code = 2339-0) 114 mg/dL Unknown 70-100 F Ordering Physician UnknownLaboratory Denuclp8733-80-41 11:08:00Identifier 88530- 6 Result Time 2019-04-10 11:08:00Unknown Test Item Value Reference Range Comments Unknown (test code = 3016-3) 2.63 mcIU/mL Unknown 0.34-5.60 F Ordering Physician UnknownLaboratory Qspfvae1185-17-69 11:08:00Identifier 44248- 6 Result Time 2019-04-10 11:08:00Unknown Test Item Value Reference Range Comments Unknown (test code = 2571-8) 132 mg/dL Unknown Unknown F Ordering Physician UnknownLaboratory Aqumyvb5245-16-03 11:08:00Identifier 62934- 6 Result Time 2019-04-10 11:08:00Unknown Test Item Value Reference Range Comments Unknown (test code = 2089-1) 139 mg/dL Unknown Unknown F Ordering Physician UnknownLaboratory Pzznzwx6981-26-71 11:08:00Identifier 96835- 6 Result Time 2019-04-10 11:08:00Unknown Test Item Value Reference Range Comments Unknown (test code = 2085-9) 73.6 mg/dL Unknown Unknown F Ordering Physician UnknownLaboratory Rcwghpn6798-83-18 11:08:00Identifier 27660- 6 Result Time 2019-04-10 11:08:00Unknown Test Item Value Reference Range Comments Unknown (test code = 2093-3) 239 mg/dL Unknown Unknown F Ordering Physician UnknownLaboratory Vjzzqej0937-35-42 11:08:00Identifier 39787- 6 Result Time 2019-04-10 11:08:00Unknown Test Item Value Reference Range Comments Unknown (test code = 2885-2) 7.3 g/dL Unknown 6.4-8.9 F Ordering Physician UnknownLaboratory Rucaokb3726-85-98 11:08:00Identifier 79789- 6 Result Time 2019-04-10 11:08:00Unknown Test Item Value Reference Range Comments Unknown (test code = 1975-2) 0.50 mg/dL Unknown 0.2-1.0 F Ordering Physician UnknownLaboratory Smcjzkv1207-37-19 11:08:00Identifier 38471- 6 Result Time 2019-04-10 11:08:00Unknown Test Item Value Reference Range Comments Unknown (test code = NullTestCode) 2.8 g/dL Unknown 2-4 F Ordering Physician UnknownLaboratory Eolxcbd0683-02-70 11:08:00Identifier 99720- 6 Result Time 2019-04-10 11:08:00Unknown Test Item Value Reference Range Comments Unknown (test code = 1920-8) 26 U/L Unknown 13-39 F Ordering Physician UnknownLaboratory Bdxetnp3996-32-45 11:08:00Identifier 00655- 6 Result Time 2019-04-10 11:08:00Unknown Test Item Value Reference Range Comments Unknown (test code = 6768-6) 88 U/L Unknown 34-104 F Ordering Physician UnknownLaboratory Neykbci8295-59-58 11:08:00Identifier 61660- 6 Result Time 2019-04-10 11:08:00Unknown Test Item Value Reference Range Comments Unknown (test code = 1759-0) 1.6 Unknown 1-3 F Ordering Physician UnknownLaboratory Ejnzfsk3636-27-84 11:08:00Identifier 72201- 6 Result Time 2019-04-10 11:08:00Unknown Test Item Value Reference Range Comments Unknown (test code = 89098-0) 4.5 g/dL Unknown 3.2-5.2 F Ordering Physician UnknownLaboratory Qvmfsgy6408-29-90 11:08:00Identifier 99819- 6 Result Time 2019-04-10 11:08:00Unknown Test Item Value Reference Range Comments Unknown (test code = 1742-6) 27 U/L Unknown 7-52 F Ordering Physician UnknownLaboratory Phujewe2387-58-95 11:08:00Identifier 60240- 6 Result Time 2019-04-10 11:08:00Unknown Test Item Value Reference Range Comments Unknown (test code = 06134-1) Unknown Unknown F Ordering Physician UnknownLaboratory Olaafhd7894-52-68 11:08:00Identifier 77482- 6 Result Time 2019-04-10 11:08:00Unknown Test Item Value Reference Range Comments Unknown (test code = 2161-8) 69.86 mg/dL Unknown Unknown F Ordering Physician UnknownLaboratory Spxvauy7969-43-13 11:08:00Identifier 57689- 6 Result Time 2019-04-10 11:08:00Unknown Test Item Value Reference Range Comments Unknown (test code = 04011-0) 0.99 Unknown 0.82-1.09 F Ordering Physician UnknownLaboratory Ugodxrg3363-59-14 11:08:00Identifier 78787- 6 Result Time 2019-04-10 11:08:00Unknown Test Item Value Reference Range Comments Unknown (test code = 00259-0) 30.8 seconds Unknown 26.0-36.3 F Ordering Physician UnknownLaboratory Lqodftb9484-32-76 11:08:00Identifier 11973- 6 Result Time 2019-04-10 11:08:00Unknown Test Item Value Reference Range Comments Unknown (test code = NullTestCode) 5.0 Unknown 5-9 F Ordering Physician UnknownLaboratory Sbzcpsv7639-25-62 11:08:00Identifier 05268- 6 Result Time 2019-04-10 11:08:00Unknown Test Item Value Reference Range Comments Unknown (test code = 56333-9) 1.016 Unknown 1.010-1.030 F Ordering Physician UnknownLaboratory Hfzotzb7429-10-04 11:08:00Identifier 82840- 6 Result Time 2019-04-10 11:08:00Unknown Test Item Value Reference Range Comments Unknown (test code = 00694-6) 7.4 10^3/uL Unknown 3.5-10.8 F Ordering Physician UnknownLaboratory Iregbxi5758-34-38 11:08:00Identifier 69341- 6 Result Time 2019-04-10 11:08:00Unknown Test Item Value Reference Range Comments Unknown (test code = 788-0) 15 % Unknown 10.5-15 F Ordering Physician UnknownLaboratory Fugpumg8714-16-93 11:08:00Identifier 65036- 6 Result Time 2019-04-10 11:08:00Unknown Test Item Value Reference Range Comments Unknown (test code = 789-8) 5.16 10^6 /uL Unknown 3.70-4.87 F Ordering Physician UnknownLaboratory Mbtimyo2058-51-21 11:08:00Identifier 29967- 6 Result Time 2019-04-10 11:08:00Unknown Test Item Value Reference Range Comments Unknown (test code = 54334-7) 0.3 Unknown Unknown F Ordering Physician UnknownLaboratory Ejibkhk6857-44-05 11:08:00Identifier 96912- 6 Result Time 2019-04-10 11:08:00Unknown Test Item Value Reference Range Comments Unknown (test code = 771-6) 0.0 10^3/ul Unknown Unknown F Ordering Physician UnknownLaboratory Olrdrxv8564-98-66 11:08:00Identifier 32253- 6 Result Time 2019-04-10 11:08:00Unknown Test Item Value Reference Range Comments Unknown (test code = 770-8) 68.3 % Unknown Unknown F Ordering Physician UnknownLaboratory Kktvqhx4421-91-93 11:08:00Identifier 64150- 6 Result Time 2019-04-10 11:08:00Unknown Test Item Value Reference Range Comments Unknown (test code = 5905-5) 7.2 % Unknown Unknown F Ordering Physician UnknownLaboratory Yxjanpj0965-34-72 11:08:00Identifier 29565- 6 Result Time 2019-04-10 11:08:00Unknown Test Item Value Reference Range Comments Unknown (test code = 787-2) 84 fL Unknown 80-97 F Ordering Physician UnknownLaboratory Hsisiij2920-66-66 11:08:00Identifier 02130- 6 Result Time 2019-04-10 11:08:00Unknown Test Item Value Reference Range Comments Unknown (test code = 786-4) 33 g/dL Unknown 31-36 F Ordering Physician UnknownLaboratory Nfatggn2050-84-63 11:08:00Identifier 24519- 6 Result Time 2019-04-10 11:08:00Unknown Test Item Value Reference Range Comments Unknown (test code = 785-6) 28 pg Unknown 27-31 F Ordering Physician UnknownLaboratory Mnrquhb5520-70-10 11:08:00Identifier 73755- 6 Result Time 2019-04-10 11:08:00Unknown Test Item Value Reference Range Comments Unknown (test code = 736-9) 21.7 % Unknown Unknown F Ordering Physician UnknownLaboratory Bgbatuq7250-35-43 11:08:00Identifier 26088- 6 Result Time 2019-04-10 11:08:00Unknown Test Item Value Reference Range Comments Unknown (test code = 713-8) 2.0 % Unknown Unknown F Ordering Physician UnknownLaboratory Ueqridx8564-78-94 11:08:00Identifier 10882- 6 Result Time 2019-04-10 11:08:00Unknown Test Item Value Reference Range Comments Unknown (test code = 706-2) 0.8 % Unknown Unknown F Ordering Physician UnknownLaboratory Vtlarty2733-69-25 11:08:00Identifier 10736- 6 Result Time 2019-04-10 11:08:00Unknown Test Item Value Reference Range Comments Unknown (test code = 751-8) 5.1 10^3/ul Unknown 1.5-7.7 F Ordering Physician UnknownLaboratory Boptdmt5737-68-44 11:08:00Identifier 03053- 6 Result Time 2019-04-10 11:08:00Unknown Test Item Value Reference Range Comments Unknown (test code = 742-7) 0.5 10^3/ul Unknown 0-0.8 F Ordering Physician UnknownLaboratory Xolymuh1679-85-07 11:08:00Identifier 36922- 6 Result Time 2019-04-10 11:08:00Unknown Test Item Value Reference Range Comments Unknown (test code = 731-0) 1.6 10^3/ul Unknown 1.0-4.8 F Ordering Physician UnknownLaboratory Kdqagck9383-17-31 11:08:00Identifier 08237- 6 Result Time 2019-04-10 11:08:00Unknown Test Item Value Reference Range Comments Unknown (test code = 711-2) 0.2 10^3/ul Unknown 0-0.6 F Ordering Physician UnknownLaboratory Pwdbsxo0766-62-40 11:08:00Identifier 30202- 6 Result Time 2019-04-10 11:08:00Unknown Test Item Value Reference Range Comments Unknown (test code = 704-7) 0.1 10^3/ul Unknown 0-0.2 F Ordering Physician Unknown
--- NOTE | 2020-01-24 18:15 | UC ---
Hip/Pelvis Pain - HPI Summary HPI Summary: 54 yo female - History Of Current Complaint Stated Complaint: R HIP INJURY Time Seen by Provider: 01/24/20 18:00 Hx Obtained From: Patient - Allergies/Home Medications Allergies/Adverse Reactions: Allergies Allergy/AdvReac Type Severity Reaction Status Date / Time amoxicillin Allergy Severe Hives Verified 01/24/20 18:17 acetaminophen Allergy Intermediate ithching Verified 01/24/20 18:17 Home Medications: Home Medications Sertraline HCl [Zoloft] 100 mg PO QAM 10/22/18 [History Confirmed 01/24/20] Multivitamin [Multivitamins] 1 cap PO QAM 04/10/19 [History Confirmed 01/24/20] Levofloxacin TAB* [Levaquin TAB*] 750 mg PO DAILY 5 Days #5 tab 06/07/19 [Rx Confirmed 01/24/20] Cyclobenzaprine TAB* [Flexeril 10 MG TAB*] 10 mg PO TID PRN #30 tab 01/24/20 [Rx ] Ibuprofen TAB* [Motrin TAB* 600 MG] 600 mg PO Q8H PRN #30 tab 01/24/20 [Rx] Statin 1 tab PO DAILY 01/24/20 [History Confirmed 01/24/20] PMH/Surg Hx/FS Hx/Imm Hx - Surgical History Surgical History: Yes Surgery Procedure, Year, and Place: 2006 right EAR RECONSTRUCTED ,AT [facility] ( op report scanned in under other facility safe upto 3t per [facility]). right knee replacement 2015 left knee replacement 2018 - Family History Known Family History: Positive: Cardiac Disease - Social History Alcohol Use: Occasionally Substance Use Type: None Smoking Status (MU): Never Smoked Tobacco Amount Used/How Often: 2 packs a day When Did the Patient Quit Smoking/Using Tobacco: 20 years ago - Immunization History Most Recent Influenza Vaccination: Fall 2017 Most Recent Pneumonia Vaccination: no Discharge ED - Sign-Out/Discharge Documenting (check all that apply): Patient Departure All imaging exams completed and their final reports reviewed: No - Discharge Plan Condition: Stable Disposition: HOME Prescriptions: Cyclobenzaprine TAB* [Flexeril 10 MG TAB*] 10 mg PO TID PRN #30 tab PRN Reason: Spasms Ibuprofen TAB* [Motrin TAB* 600 MG] 600 mg PO Q8H PRN #30 tab PRN Reason: Pain Patient Education Materials: Hip Contusion (ED) Forms: *Work Release Referrals: Angeles Hook MD [Primary Care Provider] - - Billing Disposition and Condition Condition: STABLE Disposition: Home
[2020-01-24 18:17] VITALS: BP 122/72
--- NOTE | 2020-01-25 13:46 | UC ---
- Progress Note Progress Note: Final radiologist reading for right hip x-ray comes back as degenerative changes no fracture. There is no interpretation of the x-ray on the provider's reported that same date however he went home with the diagnosis of right hip contusion therefore there is no discrepancy. Course/Dx - Diagnoses Provider Diagnoses: Hip pain Discharge ED - Sign-Out/Discharge Documenting (check all that apply): Patient Departure All imaging exams completed and their final reports reviewed: Yes - Discharge Plan Condition: Stable Disposition: HOME Prescriptions: Cyclobenzaprine TAB* [Flexeril 10 MG TAB*] 10 mg PO TID PRN #30 tab PRN Reason: Spasms Ibuprofen TAB* [Motrin TAB* 600 MG] 600 mg PO Q8H PRN #30 tab PRN Reason: Pain Patient Education Materials: Hip Contusion (ED) Forms: *Work Release Referrals: Angeles Hook MD [Primary Care Provider] - - Billing Disposition and Condition Condition: STABLE Disposition: Home
== END 2020-01-24 18:58 | disposition home or self-care (01) ==
LOC: UCEAST 17:40
DX: M25.551 Pain in right hip (principal); Z88.0 Allergy status to penicillin; Z88.8 Allergy status to other drugs, medicaments and biological substances
CPT/HCPCS: 99212; G0463

== ENCOUNTER 2024-10-31 16:39 | Inpatient (IN) ==
[2024-10-31] MEDS: Albuterol 2.5mg/3 ml (0.083%) NEB.SOLN INH ONE ×2 (18:17→21:34)
[2024-10-31] MEDS: Magnesium Sulfate 2 gm BAG 2 GM/50 ML BAG IVPB ONE (18:32)
[2024-10-31] MEDS: methylPREDNISolone SOD SUCC 125 mg 2 ML VIAL IV ONE (18:32)
[2024-10-31 18:34] LABS: ABS Basophils 0.1 10^3/uL (0.0-0.1); ABS Eosinophils 0.3 10^3/uL (0.0-0.5); ABS Monocytes 0.9 10^3/uL (0.0-0.9); ABS Neutrophils 12.4 10^3/uL (1.5-7.6); ABS Nucleated RBC 0.01 10^3/ul; Eosinophil % 1.9 %; Hematocrit 36.7 % (35-45); Hemoglobin 12.5 g/dL (11.5-14.3); Lymphocyte % 7.1 %; Mean Corpuscular Hemoglobin 26.8 pg (27-33); Mean Corpuscular Hgb Conc 34.1 g/dL (31-36); Mean Corpuscular Volume 78.7 fL (80-97); Mean Platelet Volume 8.6 fL (7.5-11.2); Nucleated Red Blood Cells % 0.1 %/100WBC (0.0-0.8); Platelet Count 198 10^3/uL (150-450); Red Blood Count 4.66 10^6/uL (3.63-4.92); Red Cell Distribution Width 16.5 % (12-17); White Blood Count 14.7 10^3/uL (3.8-11.8)
[2024-10-31 19:00] LABS: Albumin 3.7 g/dL (3.2-5.2); Albumin/Globulin Ratio 1.3 (1-3); Calcium 8.6 mg/dL (8.6-10.3); Creatinine, Serum 0.63 mg/dL (0.51-0.95); Globulin 2.9 g/dL (2-4); Potassium 3.9 mmol/L (3.5-5.0); Total Bilirubin 0.7 mg/dL (0.2-1.0); Total Protein 6.6 g/dL (6.4-8.9); eGFR CKD-EPI 102.1 (>60)
[2024-10-31] MEDS: Cefepime 2 GM in Dextrose 2 GM/50 ML BAG IV ONE (19:32)
[2024-10-31] MEDS: Albuterol/Ipratropium NEB.SOL (2.5/0.5 MG) 3 ML NEB.SOLN INH ONE (19:32)
[2024-10-31 20:02] LABS: High Sensitivity Troponin 1 Hr 15 pg/mL (<15)
[2024-10-31] MEDS ORDERED: Albuterol/Ipratropium NEB.SOL (2.5/0.5 MG) 3 ML NEB.SOLN INH PRN (21:34)
[2024-10-31] MEDS: Enoxaparin 40 MG/0.4 ML SYR SUBCUT SCH (22:09)
[2024-11-01 05:18] LABS: Hematocrit 35.8 % (35-45); Hemoglobin 11.8 g/dL (11.5-14.3); Mean Corpuscular Hemoglobin 25.9 pg (27-33); Mean Corpuscular Volume 78.6 fL (80-97); Mean Platelet Volume 8.4 fL (7.5-11.2); Platelet Count 204 10^3/uL (150-450); Red Blood Count 4.55 10^6/uL (3.63-4.92); Red Cell Distribution Width 15.8 % (12-17); White Blood Count 14.4 10^3/uL (3.8-11.8)
[2024-11-01 05:44] LABS: ABS Lymphocytes 0.7 10^3/uL (1.0-4.8); ABS Monocytes 0.2 10^3/uL (0.0-0.9); ABS Neutrophils 13.5 10^3/uL (1.5-7.6); ABS Nucleated RBC 0.01 10^3/ul; Eosinophil % 0.1 %; Lymphocyte % 4.6 %
[2024-11-01 06:19] LABS: Albumin 3.7 g/dL (3.2-5.2); Albumin/Globulin Ratio 1.2 (1-3); Calcium 8.7 mg/dL (8.6-10.3); Creatinine, Serum 0.62 mg/dL (0.51-0.95); Globulin 3.1 g/dL (2-4); Magnesium 2.4 mg/dL (1.9-2.7); Potassium 4.4 mmol/L (3.5-5.0); Total Bilirubin 0.6 mg/dL (0.2-1.0); Total Protein 6.8 g/dL (6.4-8.9); eGFR CKD-EPI 102.5 (>60)
[2024-11-01] MEDS: methylPREDNISolone SOD SUCC 125 mg 2 ML VIAL IV SCH (12:35)
[2024-11-02 06:58] LABS: ABS Lymphocytes 0.9 10^3/uL (1.0-4.8); ABS Monocytes 0.3 10^3/uL (0.0-0.9); ABS Neutrophils 10.2 10^3/uL (1.5-7.6); Hematocrit 34.9 % (35-45); Hemoglobin 11.4 g/dL (11.5-14.3); Lymphocyte % 7.8 %; Mean Corpuscular Hemoglobin 25.9 pg (27-33); Mean Corpuscular Hgb Conc 32.7 g/dL (31-36); Mean Corpuscular Volume 79.2 fL (80-97); Mean Platelet Volume 8.4 fL (7.5-11.2); Platelet Count 217 10^3/uL (150-450); White Blood Count 11.4 10^3/uL (3.8-11.8)
[2024-11-02 07:30] LABS: Calcium 9.1 mg/dL (8.6-10.3); Creatinine, Serum 0.6 mg/dL (0.51-0.95); Potassium 4.5 mmol/L (3.5-5.0); eGFR CKD-EPI 103.3 (>60)
[2024-11-02] MEDS ORDERED: Dextrose 50% Syringe 50 ml 25 GM/50 ML SYRINGE IV PUSH PRN (11:59)
[2024-11-02] MEDS: methylPREDNISolone SOD SUCC 125 mg 2 ML VIAL IV SCH (17:04)
[2024-11-03 07:58] LABS: Hemoglobin 11.8 g/dL (11.5-14.3); Mean Corpuscular Hgb Conc 32.7 g/dL (31-36); Mean Corpuscular Volume 79.5 fL (80-97); Mean Platelet Volume 8.4 fL (7.5-11.2); Platelet Count 220 10^3/uL (150-450); Red Blood Count 4.53 10^6/uL (3.63-4.92); Red Cell Distribution Width 16.2 % (12-17); White Blood Count 11.5 10^3/uL (3.8-11.8)
[2024-11-03 08:28] LABS: Calcium 8.8 mg/dL (8.6-10.3); Creatinine, Serum 0.6 mg/dL (0.51-0.95); Potassium 4.8 mmol/L (3.5-5.0); eGFR CKD-EPI 103.3 (>60)
[2024-11-04 06:34] LABS: Hematocrit 37.5 % (35-45); Hemoglobin 12.4 g/dL (11.5-14.3); Mean Corpuscular Hemoglobin 25.9 pg (27-33); Mean Corpuscular Hgb Conc 33.1 g/dL (31-36); Mean Corpuscular Volume 78.3 fL (80-97); Mean Platelet Volume 8.3 fL (7.5-11.2); Platelet Count 205 10^3/uL (150-450); Red Blood Count 4.79 10^6/uL (3.63-4.92); Red Cell Distribution Width 15.9 % (12-17); White Blood Count 11.1 10^3/uL (3.8-11.8)
[2024-11-04 06:41] LABS: Calcium 8.8 mg/dL (8.6-10.3); Creatinine, Serum 0.66 mg/dL (0.51-0.95); Potassium 4.1 mmol/L (3.5-5.0)
[2024-11-04 15:26] VITALS: BP 129/85
== END 2024-11-04 16:05 | disposition home or self-care (01) | DRG 196 ==
LOC: EDHOLD 16:39 → ED 16:39 → SUATTDRO 20:55 → MED 11-01 09:29
PROVIDERS: ADMIT Internal Medicine; ATTEND Internal Medicine